=== PATIENT | female | born 1980 | race American Indian/Alaskan Native ===

== ENCOUNTER 2018-03-26 09:42 | Inpatient (IN) | payer MEDICARE ==
[2018-03-26] MEDS ORDERED: Sodium Chloride 0.9% 1,000 ML IV STA (10:17)
[2018-03-26] MEDS ORDERED: Iohexol 240 (50 ml) PO STA (11:52)
[2018-03-26 11:55] LABS: BASO % 0.3 % (0.0-2.0); EOS # 0.2 K/uL (0.0-0.7); EOS % 1.7 % (0.0-4.0); HEMOGLOBIN 10.5 g/dL (12.0-16.0); LYMPH # 2.2 K/uL (1.0-4.3); LYMPH % 18.8 % (20.0-40.0); MEAN CELL VOLUME 89.4 fl (81.0-99.0); MEAN CORPUSCULAR HEMOGLOBIN 29.2 pg (27.0-31.0); MEAN CORPUSCULAR HGB CONC 32.6 g/dL (33.0-37.0); MONO # 0.8 K/uL (0.0-0.8); MONO % 7.1 % (0.0-10.0); NEUT # 8.6 K/uL (1.8-7.0); NEUT % 72.1 % (50.0-75.0); PARTIAL THROMBOPLASTIN TIME 25.8 Seconds (25.6-37.1); RBC 3.6 Mil/uL (3.80-5.20); RED CELL DISTRIBUTION WIDTH 14.5 % (11.5-14.5); WHITE BLOOD COUNT 11.9 K/uL (4.8-10.8)
[2018-03-26 11:57] LABS: VENOUS BLOOD GAS BASE EXCESS -2.9 mmol/L (0.0-2.0); VENOUS BLOOD GAS PCO2 41 mmHg (40-60); VENOUS BLOOD GAS PO2 49 mm/Hg (30-55); VENOUS BLOOD PH 7.35 (7.32-7.43)
--- NOTE | 2018-03-26 12:01 | ED PDOC ---
HPI: Abdomen Time Seen by Provider: 03/26/18 09:52 Chief Complaint (Nursing): Abdominal Pain Chief Complaint (Provider): Abdominal Pain History Per: Patient History/Exam Limitations: no limitations Quality Of Discomfort: "Pain" Additional Complaint(s): 37 year old female presents to the ED for an evaluation of abdominal discomfort and distention with vomiting and diarrhea onset for 2 months. Patient transitioned from male to female gender. She reports of having multiple watery and uncontrollable diarrhea throughout the hour. Also reports of small amount of vomiting several times the hour. States she went to multiple hospitals for the same symptoms and states "they have found nothing wrong". Patient has multiple abscess that have been I&D. She had a below knee amputation in January with continued pain but no swelling, discharge or bleeding. Patient is compliant with medicine and has febrile fever but did not check her temperature. Currently, she feels anxious due to her symptoms and feels angry and refuses to answer questions. Denies chest pain, shortness of breath, bloody vomiting or diarrhea, and no intake of food or drink for days. PMD: Dr. Noe Past Medical History Reviewed: Historical Data, Nursing Documentation, Vital Signs Vital Signs: Last Vital Signs Temp 97.8 F 03/27/18 19:25 Pulse 73 03/27/18 19:25 Resp 20 03/27/18 19:25 BP 180/105 H 03/27/18 19:25 Pulse Ox 100 03/27/18 19:25 - Medical History PMH: Asthma, Depression, Diabetes, Deep Vein Thrombosis, HIV, HTN, Peripheral Edema, Chronic Pain Denies: Hepatitis, Chronic Kidney Disease, Seizures, Sexually Transmitted Disease - Surgical History Surgical History: - Family History Family History: States: [place], CAD, Diabetes, Hypertension - Immunization History Hx Tetanus Toxoid Vaccination: Yes Hx Influenza Vaccination: No Hx Pneumococcal Vaccination: Yes - Home Medications Home Medications: Ambulatory Orders Medication Instructions Recorded Abacavir [Ziagen] 300 mg PO BID #60 tab 11/20/17 Calcitriol [Rocaltrol] 0.25 mcg PO TTS #12 sgl 11/20/17 Dolutegravir Sodium [Tivicay] 50 mg PO DAILY #30 tab 11/20/17 Insulin Aspart [Novolog FLEXPEN] 16 unit SC BID #1 11/20/17 Insulin Glargine,Hum.rec.anlog 16 unit SQ HS #1 insuln.pen 11/20/17 [Lantus Solostar] Labetalol [Trandate] 300 mg PO Q8H #120 tab 11/20/17 Sertraline [Zoloft] 50 mg PO DAILY #30 tab 11/20/17 Vitamin B Complex/Vit C/Folic 1 tab PO 0800 #30 tab 11/20/17 [Nephro-Nella] amLODIPine [Norvasc] 10 mg PO DAILY #30 tab 11/20/17 lamiVUDine [Epivir] 150 mg PO DAILY #30 tab 11/20/17 - Allergies Allergies/Adverse Reactions: Allergies Allergy/AdvReac Type Severity Reaction Status Date / Time acetaminophen [From Tylenol] Allergy RASH Verified 02/15/18 22:54 aspirin Allergy RASH Verified 02/15/18 22:54 hydromorphone [From Dilaudid] Allergy RASH Verified 02/15/18 22:54 ketorolac tromethamine Allergy RASH Verified 02/15/18 22:54 [From Toradol] meperidine HCl [From Demerol] Allergy RASH Verified 02/15/18 22:54 oxycodone HCl [From Percocet] Allergy RASH Verified 02/15/18 22:54 peas Allergy ANAPHYLAXIS Verified 02/15/18 22:54 propoxyphene napsylate Allergy RASH Verified 02/15/18 22:54 [From Darvocet-N] Review of Systems ROS Statement: Except As Marked, All Systems Reviewed And Found Negative Constitutional: Positive for: Fever Cardiovascular: Negative for: Chest Pain Respiratory: Negative for: Shortness of Breath Gastrointestinal: Positive for: Vomiting (mutliple episodes, non-bloody), Abdominal Pain, Diarrhea (multiple episodes, non-bloody) Psych: Positive for: Anxiety Physical Exam - Reviewed Nursing Documentation Reviewed: Yes Vital Signs Reviewed: Yes - Physical Exam Appears: Positive for: Non-toxic, No Acute Distress (lying on left side) Head Exam: Positive for: ATRAUMATIC, NORMAL INSPECTION, NORMOCEPHALIC Skin: Positive for: Normal Color, Warm, Dry Eye Exam: Positive for: Normal appearance Cardiovascular/Chest: Positive for: Regular Rate, Rhythm. Negative for: Murmur Respiratory: Positive for: Normal Breath Sounds. Negative for: Decreased Breath Sounds, Wheezing, Respiratory Distress Gastrointestinal/Abdominal: Positive for: Soft, Tenderness (mild difused ). Negative for: Organomegaly, Mass Extremity: Positive for: Other (right buttock healing site, no granulation, light brown watery diarrhea on buttock). Negative for: Deformity (site of below knee amputation well healed scar, no drainage or bleeding ) Neurologic/Psych: Positive for: Alert, Oriented (x3). Negative for: Motor/ Sensory Deficits - Laboratory Results Result Diagrams: 03/27/18 04:20 03/27/18 04:20 - ECG O2 Sat by Pulse Oximetry: 100 (RA) Pulse Ox Interpretation: Normal Medical Decision Making Medical Decision Making: Time: 1000 Initial Plan: --Abd Pelvis PO & IV Contrast [CT] --CMP --Lipase --CBC w/ Differential --PTT --Prothrombin Time --Chest Portable [RAD] --Glucose, Blood, POC Routine --Morphine 2mg --Sodium Chloride 0.9% 1,000 ml --Zofran 4mg --Reevaluation Time: 161 PROCEDURE: CT Abdomen and Pelvis without intravenous contrast HISTORY: abd pain, vomiting, and diarrhea COMPARISON: None. TECHNIQUE: Without contrast.. Contrast dose: 0 Radiation dose: Total exam DLP = 905.24 mGy-cm. This CT exam was performed using one or more of the following dose reduction techniques: Automated exposure control, adjustment of the mA and/or kV according to patient size, and/or use of iterative reconstruction technique. FINDINGS: LOWER THORAX: Unremarkable. LIVER: Unremarkable. No gross lesion or ductal dilatation. GALLBLADDER AND BILE DUCTS: Unremarkable. PANCREAS: Hazy increased attenuation of the peripancreatic fat in the retroperitoneum without sebastián peripancreatic fluid. Findings consistent with mild or early acute pancreatitis. Please correlate with laboratory and clinical evaluation. No pancreatic mass or ductal dilatation. SPLEEN: Unremarkable. ADRENALS: Unremarkable. No mass. KIDNEYS AND URETERS: Unremarkable. No hydronephrosis. No solid mass. VASCULATURE: Unremarkable. No aortic aneurysm. BOWEL: Unremarkable. No obstruction. No gross mural thickening. APPENDIX: Unremarkable. Normal appendix. PERITONEUM: Unremarkable. No free fluid. No free air. LYMPH NODES: No retroperitoneal lymphadenopathy. Mild pelvic lymphadenopathy common nonspecific. No retroperitoneal lymphadenopathy. Shotty subcentimeter nodes are seen throughout the small bowel mesenteric and in the right lower quadrant of the abdomen, consistent with nonspecific mesenteric adenitis. BLADDER: Unremarkable. REPRODUCTIVE: Normal prostate BONES: No acute fracture. OTHER FINDINGS: None. IMPRESSION: Findings suggestive of mild or early acute pancreatitis. Nonspecific mesenteric adenitis. Mild pelvic lymphadenopathy common nonspecific. No additional abnormality. Patient cannot tolerate PO and still has diarrhea. I am waiting for a call back from PMD to admit. Scribe Attestation: Documented by Magdiel Mi, acting as a scribe for Francheska Cody MD Provider Scribe Attestation: All medical record entries made by the Scribe were at my direction and personally dictated by me. I have reviewed the chart and agree that the record accurately reflects my personal performance of the history, physical exam, medical decision making, and the department course for this patient. I have also personally directed, reviewed, and agree with the discharge instructions and disposition. Pt with delayed CT due to delay in taking in PO medications. Pt with pain improved (but still present) with Morphine. Labs show elevation in WBC and lipase of 348. CT abd/pelvis reveals acute pancreatitis and mesenteric adenitis. Pt continues to have diarrhea and vomiting. Pt given additional IV fluids. PT will be admitted to the medicine service and spoke with Dr. Noe. Disposition - Clinical Impression Clinical Impression: Abdominal pain, Vomiting, HIV (human immunodeficiency virus) risk factors complicating , CKD (chronic kidney disease), stage IV, Acute pancreatitis - Patient ED Disposition Is Patient to be Admitted: No - Disposition Disposition Time: 17:30 Condition: GUARDED
[2018-03-26 12:06] LABS: ALB/GLOB RATIO 0.7 (1.0-2.1); ALBUMIN 3.4 g/dL (3.5-5.0); CALCIUM 9.1 mg/dL (8.4-10.2)
[2018-03-26] MEDS ORDERED: Iohexol 240 (50 ml) ONE (12:07)
[2018-03-26] MEDS ORDERED: Iohexol 300 100 ML IJ ONE (14:53)
[2018-03-26] MEDS ORDERED: Sodium Chloride 0.9% 50 ML IV ONE (14:53)
--- NOTE | 2018-03-26 16:40 | CT ---
Date of service: 03/26/2018 PROCEDURE: CT Abdomen and Pelvis without intravenous contrast HISTORY: abd pain, vomiting, and diarrhea COMPARISON: None. TECHNIQUE: Without contrast.. Contrast dose: 0 Radiation dose: Total exam DLP = 905.24 mGy-cm. This CT exam was performed using one or more of the following dose reduction techniques: Automated exposure control, adjustment of the mA and/or kV according to patient size, and/or use of iterative reconstruction technique. FINDINGS: LOWER THORAX: Unremarkable. LIVER: Unremarkable. No gross lesion or ductal dilatation. GALLBLADDER AND BILE DUCTS: Unremarkable. PANCREAS: Hazy increased attenuation of the peripancreatic fat in the retroperitoneum without sebastián peripancreatic fluid. Findings consistent with mild or early acute pancreatitis. Please correlate with laboratory and clinical evaluation. No pancreatic mass or ductal dilatation. SPLEEN: Unremarkable. ADRENALS: Unremarkable. No mass. KIDNEYS AND URETERS: Unremarkable. No hydronephrosis. No solid mass. VASCULATURE: Unremarkable. No aortic aneurysm. BOWEL: Unremarkable. No obstruction. No gross mural thickening. APPENDIX: Unremarkable. Normal appendix. PERITONEUM: Unremarkable. No free fluid. No free air. LYMPH NODES: No retroperitoneal lymphadenopathy. Mild pelvic lymphadenopathy common nonspecific. No retroperitoneal lymphadenopathy. Shotty subcentimeter nodes are seen throughout the small bowel mesenteric and in the right lower quadrant of the abdomen, consistent with nonspecific mesenteric adenitis. BLADDER: Unremarkable. REPRODUCTIVE: Normal prostate BONES: No acute fracture. OTHER FINDINGS: None. IMPRESSION: Findings suggestive of mild or early acute pancreatitis. Nonspecific mesenteric adenitis. Mild pelvic lymphadenopathy common nonspecific. No additional abnormality.
[2018-03-26] MEDS ORDERED: Sodium Chloride 0.9% 1,000 ML IV ONE (17:37)
[2018-03-26] MEDS ORDERED: Labetalol 5 mg/ml Inj 20ML IVP STA ×2 (21:03→22:53)
[2018-03-26] MEDS ORDERED: Dextrose 5%/Lactated Ringer's 1,000 ML IV SCH (22:15)
[2018-03-27] MEDS ORDERED: Labetalol 5 mg/ml Inj 20ML IVP PRN (00:01)
[2018-03-27 05:44] LABS: HEMOGLOBIN 9.8 g/dL (12.0-16.0); MEAN CELL VOLUME 89.1 fl (81.0-99.0); MEAN CORPUSCULAR HEMOGLOBIN 29.8 pg (27.0-31.0); MEAN CORPUSCULAR HGB CONC 33.4 g/dL (33.0-37.0); RBC 3.29 Mil/uL (3.80-5.20); RED CELL DISTRIBUTION WIDTH 14.7 % (11.5-14.5); WHITE BLOOD COUNT 8.7 K/uL (4.8-10.8)
[2018-03-27 05:53] LABS: ALB/GLOB RATIO 0.7 (1.0-2.1); ALBUMIN 2.9 g/dL (3.5-5.0); CALCIUM 8.8 mg/dL (8.4-10.2)
[2018-03-27] MEDS ORDERED: Pantoprazole 40 MG in Sodium Chloride 0.9% 100 ML IVPB SCH (09:00)
[2018-03-27] MEDS: Insulin Regular 100 units/ml SC SCH ×4 (09:14→22:20)
--- NOTE | 2018-03-27 11:55 | CP.PCM.CON ---
History of Present Illness - History of Present Illness History of Present Illness: RENAL CONSULT CITLALLI/CKD 37 year old transgender female with PMH of poorly controlled DM, HIV, HTN, stage IV CKD DVT and recent L bka from osteo that presented to ER w/ complaitns of n/v/diarrhea x1 month (or possibly longer). Denies fever or chills. Endorses significant weight loss. Has been evaluated for this before and has been frustrated by lack of understanding why pt continues to have diarrhea. Of note recently admitted to [facility] [place] w/ CITLALLI on CKD almost requiring HD but refused and CITLALLI resolved back to baseline. Has been told of CKD thought to be 2/2 to DM. ros: a full detailed ROS is negative except as in my hpi pmh: as below CKD IV Family History- multiple cancers in family- unknown types Social History- admits to tobacco use, rare alcohol use, marijuana use no ivdu all: as below meds: as below labs and imaging reviewed pe: vs as below gen: nad sclera: anicteric op clear neck supple no thyromegaly cv: +s1+s2 no rub lungs: cta b/l abd: Soft, slight TTP epigastric no r/g no organomegaly appreciated neuro: a+Ox3 no focal defecit psych: nml affect skin: no rash ms: L BKA IMP: ARF/ CKD IV/ Diabetic kidney disease/ Anemia/ Pancreatitis/ Diarrhea / secondary hyperpara plan: Renal function appears to be at about baseline. suspect diabetic kidney disease as has been previously stated. will check upcr on calcitriol - will check pth check iron profile and ferritin bp on norvasc would avoid RAAS blockade for now until we see stable renal function (pt has stated does not want to take oral pils though) will continue to follow with you Past Patient History - Infectious Disease Hx of Infectious Diseases: None - Past Medical History & Family History Past Medical History?: Yes - Past Social History Smoking Status: Current Some Days Smoker - CARDIAC Hx Cardiac Disorders: Yes - PULMONARY Hx Respiratory Disorders: Yes - NEUROLOGICAL Hx Seizures: No - HEENT Hx HEENT Problems: No - RENAL Hx Chronic Kidney Disease: No - ENDOCRINE/METABOLIC Hx Endocrine Disorders: Yes - HEMATOLOGICAL/ONCOLOGICAL Hx AIDS: No Hx Human Immunodeficiency Virus (HIV): Yes - INTEGUMENTARY Hx Dermatological Problems: Yes Other/Comment: ULCER BOTTOM LEFT FOOT LEFT FOOT SUTURE LINES TOES - MUSCULOSKELETAL/RHEUMATOLOGICAL Hx Falls: No - GASTROINTESTINAL Hx Gastrointestinal Disorders: No - GENITOURINARY/GYNECOLOGICAL Hx Genitourinary Disorders: Yes - PSYCHIATRIC Hx Substance Use: No - SURGICAL HISTORY Hx Musculoskeletal Surgery: Yes - ANESTHESIA Hx Anesthesia: Yes Hx Anesthesia Reactions: No (unknown) Hx Malignant Hyperthermia: No Has any member of the family had a problem w/ anesthesia?: No Meds Allergies/Adverse Reactions: Allergies Allergy/AdvReac Type Severity Reaction Status Date / Time acetaminophen [From Tylenol] Allergy RASH Verified 02/15/18 22:54 aspirin Allergy RASH Verified 02/15/18 22:54 hydromorphone [From Dilaudid] Allergy RASH Verified 02/15/18 22:54 ketorolac tromethamine Allergy RASH Verified 02/15/18 22:54 [From Toradol] meperidine HCl [From Demerol] Allergy RASH Verified 02/15/18 22:54 oxycodone HCl [From Percocet] Allergy RASH Verified 02/15/18 22:54 peas Allergy ANAPHYLAXIS Verified 02/15/18 22:54 propoxyphene napsylate Allergy RASH Verified 02/15/18 22:54 [From Darvocet-N] - Medications Medications: Current Medications Abacavir Sulfate (Ziagen) 300 mg PO BID JOSÉ PRN Reason: Protocol Amlodipine Besylate (Norvasc) 10 mg PO DAILY JOSÉ Calcitriol (Rocaltrol) 0.25 mcg PO TTS JOSÉ Dolutegravir Sodium (Tivicay) 50 mg PO DAILY JOSÉ PRN Reason: Protocol Dextrose/Lactated Ringer's (Dextrose 5%/Lactated Ringer's) 1,000 mls @ 125 mls/ hr IV .Q8H PENDING SALE TO [facility] Stop: 03/27/18 23:57 Last Admin: 03/26/18 23:05 Dose: 125 mls/hr Lactated Ringer's 1,000 ml/ IV (SUPPLIES) 1,000 mls @ 150 mls/hr IV ONCE ONE Stop: 03/27/18 16:31 Last Admin: 03/27/18 10:51 Dose: 150 mls/hr Insulin Human Regular (Humulin R) 0 units SC ACCU-CHECK JOSÉ PRN Reason: Protocol Last Admin: 03/27/18 09:14 Dose: Not Given Labetalol HCl (Trandate) 20 mg IVP Q8 PRN PRN Reason: Systolic Blood Pressure Lamivudine (Epivir) 150 mg PO DAILY [facility] PRN Reason: Protocol Morphine Sulfate (Morphine) 2 mg IVP Q4 PRN PRN Reason: Pain, severe (8-10) Last Admin: 03/27/18 09:31 Dose: 2 mg Ondansetron HCl (Zofran Inj) 4 mg IVP Q6 PRN PRN Reason: Nausea/Vomiting Last Admin: 03/26/18 23:06 Dose: 4 mg Pantoprazole Sodium (Protonix Inj) 40 mg IVP DAILY [facility] Last Admin: 03/27/18 09:27 Dose: 40 mg Sertraline HCl (Zoloft) 50 mg PO DAILY [facility] Vitamin B Complex/Vit C/Folic Acid (Nephro-Nella) 1 tab PO 0800 [facility] Results - Vital Signs Recent Vital Signs: Last Vital Signs Temp 98.1 F 03/27/18 08:01 Pulse 70 03/27/18 08:01 Resp 18 03/27/18 08:01 BP 175/86 H 03/27/18 08:01 Pulse Ox 100 03/27/18 08:01 - Labs Result Diagrams: 03/27/18 04:20 03/27/18 04:20 Labs: Laboratory Results - last 24 hr 03/26/18 03/26/18 03/26/18 11:30 11:30 11:30 WBC 11.9 H D RBC 3.60 L Hgb 10.5 L Hct 32.2 L MCV 89.4 D MCH 29.2 MCHC 32.6 L RDW 14.5 Plt Count 353 D MPV 7.0 L Neut % (Auto) 72.1 Lymph % (Auto) 18.8 L Williamson % (Auto) 7.1 Eos % (Auto) 1.7 Baso % (Auto) 0.3 Neut # (Auto) 8.6 H Lymph # (Auto) 2.2 Williamson # (Auto) 0.8 Eos # (Auto) 0.2 Baso # (Auto) 0.0 PT 11.0 INR 1.0 APTT 25.8 pO2 VBG pH VBG pCO2 VBG HCO3 VBG Total CO2 VBG O2 Sat (Calc) VBG Base Excess VBG Potassium Glucose Lactate FiO2 Sodium 141 Potassium 5.2 H Chloride 114 H Carbon Dioxide 21 L Anion Gap 11 BUN 33 H Creatinine 4.2 H Est GFR ( Amer) 14 Est GFR (Non-Af Amer) 12 POC Glucose (mg/dL) Random Glucose 155 H Calcium 9.1 Total Bilirubin 0.6 AST 39 H D ALT 27 Alkaline Phosphatase 94 Total Protein 8.3 H Albumin 3.4 L Globulin 4.9 H Albumin/Globulin Ratio 0.7 L Lipase 348 H Venous Blood Potassium 03/26/18 03/26/18 03/27/18 11:49 23:04 04:20 WBC 8.7 RBC 3.29 L Hgb 9.8 L Hct 29.3 L MCV 89.1 MCH 29.8 MCHC 33.4 RDW 14.7 H Plt Count 300 MPV Neut % (Auto) Lymph % (Auto) Williamson % (Auto) Eos % (Auto) Baso % (Auto) Neut # (Auto) Lymph # (Auto) Williamson # (Auto) Eos # (Auto) Baso # (Auto) PT INR APTT pO2 49 VBG pH 7.35 VBG pCO2 41 VBG HCO3 22.2 VBG Total CO2 23.9 VBG O2 Sat (Calc) 82.5 H VBG Base Excess -2.9 L VBG Potassium 5.1 Glucose 156 H Lactate 0.8 FiO2 21.0 Sodium 138.0 Potassium Chloride 111.0 H Carbon Dioxide Anion Gap BUN Creatinine Est GFR ( Amer) Est GFR (Non-Af Amer) POC Glucose (mg/dL) 92 Random Glucose Calcium Total Bilirubin AST ALT Alkaline Phosphatase Total Protein Albumin Globulin Albumin/Globulin Ratio Lipase Venous Blood Potassium 5.1 03/27/18 03/27/18 03/27/18 04:20 05:09 11:07 WBC RBC Hgb Hct MCV MCH MCHC RDW Plt Count MPV Neut % (Auto) Lymph % (Auto) Williamson % (Auto) Eos % (Auto) Baso % (Auto) Neut # (Auto) Lymph # (Auto) Williamson # (Auto) Eos # (Auto) Baso # (Auto) PT INR APTT pO2 VBG pH VBG pCO2 VBG HCO3 VBG Total CO2 VBG O2 Sat (Calc) VBG Base Excess VBG Potassium Glucose Lactate FiO2 Sodium 143 Potassium 4.3 Chloride 115 H Carbon Dioxide 22 Anion Gap 10 BUN 27 H Creatinine 3.4 H Est GFR ( Amer) 18 Est GFR (Non-Af Amer) 15 POC Glucose (mg/dL) 103 96 Random Glucose 110 H Calcium 8.8 Total Bilirubin 0.5 AST 24 ALT 27 Alkaline Phosphatase 90 Total Protein 7.2 Albumin 2.9 L Globulin 4.3 H Albumin/Globulin Ratio 0.7 L Lipase 184 Venous Blood Potassium
--- NOTE | 2018-03-27 17:40 | CP.PCM.PN ---
<Edin Jean - Last Filed: 03/27/18 17:34> Subjective - Date & Time of Evaluation Date of Evaluation: 03/27/18 Time of Evaluation: 10:15 - Subjective Subjective: 37 y/o transgender male to female with a PMHx of DM2, HIV, HTN, CKD and Left BKA presented to ER complaining of nausea, vomiting and diarrhea for several weeks. Vomiting and diarrhea are non-bloody, with several episodes per hour. -On ER: CMP showed mild hyperkalemia, BUN/Creat 33/4.2, eGFR 14. Lipase was elevated and CT abdomen showed mild early pancreatitis. -Today, pt reports feeling better, no vomiting since this morning and would like to drink or eat something. Pt afebrile with No acute events overnight. >Family History- multiple cancers in family- unknown types >Social History- admits to tobacco use, rare alcohol use, marijuana use no ivdu Objective - Vital Signs/Intake and Output Vital Signs (last 24 hours): Temp Pulse Resp BP Pulse Ox 98.3 F 58 L 20 184/102 H 100 03/27/18 16:04 03/27/18 16:04 03/27/18 16:04 03/27/18 16:04 03/27/18 16:04 - Medications Medications: Current Medications Abacavir Sulfate (Ziagen) 300 mg PO BID JOSÉ PRN Reason: Protocol Last Admin: 03/27/18 17:23 Dose: 300 mg Amlodipine Besylate (Norvasc) 10 mg PO DAILY JOSÉ Last Admin: 03/27/18 12:50 Dose: 10 mg Calcitriol (Rocaltrol) 0.25 mcg PO TTS JOSÉ Dolutegravir Sodium (Tivicay) 50 mg PO DAILY JOSÉ PRN Reason: Protocol Dextrose/Lactated Ringer's (Dextrose 5%/Lactated Ringer's) 1,000 mls @ 125 mls/ hr IV .Q8H JOSÉ Stop: 03/27/18 23:57 Last Admin: 03/26/18 23:05 Dose: 125 mls/hr Insulin Human Regular (Humulin R) 0 units SC ACCU-CHECK JOSÉ PRN Reason: Protocol Last Admin: 03/27/18 17:24 Dose: 2 units Labetalol HCl (Trandate) 20 mg IVP Q8 PRN PRN Reason: Systolic Blood Pressure Last Admin: 03/27/18 15:35 Dose: 20 mg Lamivudine (Epivir) 150 mg PO DAILY [facility] PRN Reason: Protocol Last Admin: 03/27/18 12:51 Dose: 150 mg Morphine Sulfate (Morphine) 2 mg IVP Q4 PRN PRN Reason: Pain, severe (8-10) Last Admin: 03/27/18 14:55 Dose: 2 mg Ondansetron HCl (Zofran Inj) 4 mg IVP Q6 PRN PRN Reason: Nausea/Vomiting Last Admin: 03/26/18 23:06 Dose: 4 mg Pantoprazole Sodium (Protonix Inj) 40 mg IVP DAILY [facility] Last Admin: 03/27/18 09:27 Dose: 40 mg Sertraline HCl (Zoloft) 50 mg PO DAILY [facility] Vitamin B Complex/Vit C/Folic Acid (Nephro-Nella) 1 tab PO 0800 [facility] - Labs Labs: 03/27/18 04:20 03/27/18 04:20 PT 11.0 Seconds (9.8-13.1) 03/26/18 11:30 INR 1.0 03/26/18 11:30 APTT 25.8 Seconds (25.6-37.1) 03/26/18 11:30 - Constitutional Appears: No Acute Distress - Head Exam Head Exam: ATRAUMATIC, NORMAL INSPECTION - Eye Exam Eye Exam: EOMI - ENT Exam ENT Exam: Mucous Membranes Dry - Neck Exam Neck Exam: Full ROM. absent: Meningismus - Respiratory Exam Respiratory Exam: Clear to Ausculation Bilateral, NORMAL BREATHING PATTERN - Cardiovascular Exam Cardiovascular Exam: +S1, +S2 - GI/Abdominal Exam GI & Abdominal Exam: Soft, Tenderness (over RUQ. ). absent: Guarding, Rigid - Extremities Exam Extremities Exam: Full ROM Additional comments: Left LE: BKA, no edema or cyanosis. - Neurological Exam Neurological Exam: Alert, Awake, Oriented x3 Assessment and Plan (1) Acute pancreatitis Status: Acute (2) CITLALLI (acute kidney injury) Status: Acute (3) Anemia Status: Acute (4) Hypertension Status: Chronic (5) CKD (chronic kidney disease), stage IV Status: Chronic - Assessment and Plan (Free Text) Assessment: 37 y/o transgender male to female with a PMHx of uncontrolled DM 2, HTN and HIV for evaluation and management of acute pancreatitis and acute kidney injury. --Home meds ordered. --Will advance diet to clear liquid. --ID consult, Dr Noe --Nephrology consult, Dr Vargas --Continue management as ordered. <Justice Bird - Last Filed: 03/28/18 17:32> Objective - Vital Signs/Intake and Output Vital Signs (last 24 hours): Temp Pulse Resp BP Pulse Ox 97.8 F 72 20 166/71 H 100 03/28/18 15:36 03/28/18 15:36 03/28/18 15:36 03/28/18 15:36 03/28/18 15:36 - Medications Medications: Current Medications Acetaminophen/Codeine Phosphate (Tylenol/Codeine 300 Mg/30 Mg) 2 tab PO Q6 PRN PRN Reason: Pain, severe (8-10) Last Admin: 03/28/18 16:14 Dose: 2 tab Amlodipine Besylate (Norvasc) 10 mg PO DAILY [facility] Last Admin: 03/28/18 09:41 Dose: 10 mg Amylase (Pancrease 54399 [id number] U) 30,000 unit PO TID [facility] Last Admin: 03/28/18 16:15 Dose: 30,000 unit Dolutegravir Sodium (Tivicay) 50 mg PO DAILY [facility] PRN Reason: Protocol Last Admin: 03/28/18 09:41 Dose: 50 mg Hydralazine HCl (Apresoline) 50 mg PO Q8 PRN PRN Reason: Systolic Blood Pressure Last Admin: 03/27/18 23:52 Dose: 50 mg Iron Sucrose 200 mg/ Sodium (Chloride) 110 mls @ 110 mls/hr IVPB [facility] Stop: 04/08/18 09:59 Insulin Human Regular (Humulin R) 0 units SC ACCU-CHECK [facility] PRN Reason: Protocol Last Admin: 03/28/18 17:07 Dose: 2 units Labetalol HCl (Trandate) 20 mg IVP Q8 PRN PRN Reason: Systolic Blood Pressure Last Admin: 03/27/18 15:35 Dose: 20 mg Labetalol HCl (Trandate) 200 mg PO BID [facility] Last Admin: 03/28/18 16:15 Dose: 200 mg Ondansetron HCl (Zofran Inj) 4 mg IVP Q6 PRN PRN Reason: Nausea/Vomiting Last Admin: 03/28/18 01:09 Dose: 4 mg Pantoprazole Sodium (Protonix Inj) 40 mg IVP DAILY [facility] Last Admin: 03/28/18 09:42 Dose: 40 mg Sertraline HCl (Zoloft) 50 mg PO DAILY [facility] Last Admin: 03/28/18 09:42 Dose: 50 mg Vitamin B Complex/Vit C/Folic Acid (Nephro-Nella) 1 tab PO 0800 [facility] Last Admin: 03/28/18 09:41 Dose: 1 tab - Labs Labs: 03/27/18 04:20 03/27/18 04:20 PT 11.0 Seconds (9.8-13.1) 03/26/18 11:30 INR 1.0 03/26/18 11:30 APTT 25.8 Seconds (25.6-37.1) 03/26/18 11:30 Assessment and Plan (1) Acute pancreatitis Status: Acute (2) HIV (human immunodeficiency virus infection) Status: Acute (3) CKD (chronic kidney disease), stage IV Status: Chronic (4) Anemia in CKD (chronic kidney disease) Status: Acute (5) Dehydration Status: Acute (6) Gangrene associated with type 2 diabetes mellitus Status: Acute - Assessment and Plan (Free Text) Plan: i was present during evaluation and discussed with Dr Ted gallego of [facility] [place]
[2018-03-27 18:21] LABS: IRON 70 ug/dL (37-170)
--- NOTE | 2018-03-27 18:22 | CP.PCM.CON ---
History of Present Illness - History of Present Illness History of Present Illness: 36 year old female, PMHx of HIV, renal failure and left BKA in [facility] , presents to the emergency department for an evaluation. pt was admitted inpt, upset about her care, c/o abd pain found to have pancreatitis unclear etiology GI eval in progress has had long hx of noncompliance with follow ups and therapy interruptions developed CITLALLI and CKD with hx of HTN, DM , HIV as well as possible blood dyscrasia/ myeloma followed by Dr Beaulieu - Medical History PMH: Depression, Diabetes, Deep Vein Thrombosis, HIV, HTN, Peripheral Edema, Chronic Pain Denies: Chronic Kidney Disease Surgical History: TMA left foot Review of Systems - Review of Systems All systems: reviewed and no additional remarkable complaints except - Constitutional Constitutional: As Per HPI - EENT Eyes: Blurred Vision, Decreased Night Vision. absent: As Per HPI, Blind Spots, Change in Vision, Diplopia, Discharge, Dry Eye, Exophthalmos, Floaters, Irritation, Itchy Eyes, Loss of Peripheral Vision, Pain, Photophobia, Requires Corrective Lenses, Sees Flashes, Spots in Vision, Tunnel Vision, Other Visual Disturbances, Loss of Vision, Other Ears: absent: As Per HPI, Decreased Hearing, Ear Discharge, Ear Pain, Tinnitus, Abnormal Hearing, Disequilibrium, Dizziness, Other Nose/Mouth/Throat: absent: As Per HPI, Epistaxis, Nasal Congestion, Nasal Discharge, Nasal Obstruction, Nasal Trauma, Nose Pain, Post Nasal Drip, Sinus Pain, Sinus Pressure, Bleeding Gums, Change in Voice, Dental Pain, Dry Mouth, Dysphagia, Halitosis, Hoarsness, Lip Swelling, Mouth Lesions, Mouth Pain, Odynophagia, Sore Throat, Throat Swelling, Tongue Swelling, Facial Pain, Neck Pain, Neck Mass, Other - Breasts Breasts: absent: As Per HPI, Change in Shape, Mass, Pain, Nipple Discharge, Nipple Inversion, Skin Changes, Swelling, Other - Cardiovascular Cardiovascular: absent: As Per HPI, Acrocyanosis, Chest Pain, Chest Pain at Rest , Chest Pain with Activity, Claudication, Diaphoresis, Dyspnea, Dyspnea on Exertion, Edema, Irregular Heart Rhythm, Pain Radiating to Arm/Neck/Jaw, Leg Edema, Leg Ulcers, Lightheadedness, Orthopnea, Palpitations, Paroxysmal Nocturnal Dyspnea, Pedal Edema, Radiating Pain, Rapid Heart Rate, Slow Heart Rate, Syncope, Other - Respiratory Respiratory: absent: As Per HPI, Cough, Dyspnea, Hemoptysis, Dyspnea on Exertion , Wheezing, Snoring, Stridor, Pain on Inspiration, Chest Congestion, Excessive Mucous Production, Change in Mucous Color, Pain with Coughing, Other - Gastrointestinal Gastrointestinal: absent: As Per HPI, Abdominal Pain, Belching, Bloating, Change in Bowel Habits, Change in Stool Character, Coffee Ground Emesis, Constipation, Cramping, Diarrhea, Dyspepsia, Dysphagia, Early Satiety, Excessive Flatus, Fecal Incontinence, Heartburn, Hematemesis, Hematochezia, Loose Stools, Melena, Nausea, Odynophagia, Temesmus, Vomiting, Other - Genitourinary Genitourinary: absent: As Per HPI, Change in Urinary Stream, Difficulty Urinating, Dysuria, Flank Pain, Hematuria, Pyuria, Nocturia, Urinary Incontinence, Urinary Frequency, Urinary Hesitance, Urinary Urgency, Voiding Freq/Small Amts, Freq UTI, Hx Renal/Bladder Calculi, Hx /Renal Surgery, Bladder Distension, Other - Reproductive: Female Reproductive:Female: absent: As Per HPI, Amenorrhea, Amenorrhea/ Control, Currently Menstual, Cycle <21 Days, Cycle >35 Days, Cycle Variable, Menses 1-7 Days, Menses >/= 8 Days, Menses Variable, Cycle > 4 Weeks Between, No Menses for 6 Months, Heavy Menses, Light Menses, Normal Menses, Spotting Between Cycles , S/P Hysterectomy, Menopausal, Post Menopausal, Premenarche, Abnormal Vaginal Bleeding, Dysmenorrhea, Dyspareunia, Genital Lesions, Genital Pruritis, Pelvic Pain, Prolapse Symptoms, Sexual Dysfunction, Vaginal Discharge, Vaginal Dryness , Vaginal Odor, Vaginal Pruritis, Other - Menstruation Menstruation: absent: As Per HPI, Amenorrhea, Amenorrhea/ Control, Currently Menstual, Cycle <21 Days, Cycle >35 Days, Cycle Variable, Menses 1-7 Days, Menses >/= 8 Days, Menses Variable, Cycle > 4 Weeks Between, No Menses for 6 Months, Heavy Menses, Light Menses, Normal Menses, Spotting Between Cycles , S/P Hysterectomy, Menopausal, Post Menopausal, Premenarche, Abnormal Vaginal Bleeding, Dysmenorrhea, Other - Musculoskeletal Musculoskeletal: As Per HPI - Integumentary Integumentary: As Per HPI, Skin Pain, Wounds - Neurological Neurological: absent: As Per HPI, Abnormal Gait, Abnormal Hearing, Abnormal Movements, Abnormal Speech, Behavioral Changes, Burning Sensations, Confusion, Convulsions, Disequilibrium, Dizziness, Numbness, Focal Weakness, Frequent Falls , Headaches, Lack of Coordination, Loss of Vision, Memory Loss, Paresthesias, Radicular Pain, Restless Legs, Sensory Deficit, Syncope, Tingling, Tremor, Vertigo, Weakness, Other Visual Disturbances, Other - Psychiatric Psychiatric: absent: As Per HPI, Abnormal Sleep Pattern, Anhedonia, Anxiety, Auditory Hallucinations, Behavioral Changes, Change in Appetite, Change in Libido, Confusion, Depression, Difficulty Concentrating, Hallucinations, Homicidal Ideation, Hopelessness, Irritability, Memory Loss, Mood Swings, Panic Attacks, Paranoia, Suicidal Ideation, Visual Hallucinations, Tactile Hallucinations, Other - Endocrine Endocrine: absent: As Per HPI, Change in Body Appearance, Change in Libido, Cold Intolorance, Deepening of Voice, Excessive Sweating, Fatigue, Flushing, Heat Intolorance, Increase in Ring/Shoe/Hat Size, Palpitations, Polydipsia, Polyphagia, Polyuria, Other - Hematologic/Lymphatic Hematologic: absent: As Per HPI, Easy Bleeding, Easy Bruising, Lymphadenopathy, Other Past Patient History - Infectious Disease Hx of Infectious Diseases: None - Past Medical History & Family History Past Medical History?: Yes - Past Social History Smoking Status: Current Some Days Smoker - CARDIAC Hx Cardiac Disorders: Yes - PULMONARY Hx Respiratory Disorders: Yes - NEUROLOGICAL Hx Seizures: No - HEENT Hx HEENT Problems: No - RENAL Hx Chronic Kidney Disease: No - ENDOCRINE/METABOLIC Hx Endocrine Disorders: Yes - HEMATOLOGICAL/ONCOLOGICAL Hx AIDS: No Hx Human Immunodeficiency Virus (HIV): Yes - INTEGUMENTARY Hx Dermatological Problems: Yes Other/Comment: ULCER BOTTOM LEFT FOOT LEFT FOOT SUTURE LINES TOES - MUSCULOSKELETAL/RHEUMATOLOGICAL Hx Falls: No - GASTROINTESTINAL Hx Gastrointestinal Disorders: No - GENITOURINARY/GYNECOLOGICAL Hx Genitourinary Disorders: Yes - PSYCHIATRIC Hx Substance Use: No - SURGICAL HISTORY Hx Musculoskeletal Surgery: Yes - ANESTHESIA Hx Anesthesia: Yes Hx Anesthesia Reactions: No (unknown) Hx Malignant Hyperthermia: No Has any member of the family had a problem w/ anesthesia?: No Meds Allergies/Adverse Reactions: Allergies Allergy/AdvReac Type Severity Reaction Status Date / Time acetaminophen [From Tylenol] Allergy RASH Verified 02/15/18 22:54 aspirin Allergy RASH Verified 02/15/18 22:54 hydromorphone [From Dilaudid] Allergy RASH Verified 02/15/18 22:54 ketorolac tromethamine Allergy RASH Verified 02/15/18 22:54 [From Toradol] meperidine HCl [From Demerol] Allergy RASH Verified 02/15/18 22:54 oxycodone HCl [From Percocet] Allergy RASH Verified 02/15/18 22:54 peas Allergy ANAPHYLAXIS Verified 02/15/18 22:54 propoxyphene napsylate Allergy RASH Verified 02/15/18 22:54 [From Darvocet-N] - Medications Medications: Current Medications Abacavir Sulfate (Ziagen) 300 mg PO BID [facility] PRN Reason: Protocol Last Admin: 03/27/18 17:23 Dose: 300 mg Amlodipine Besylate (Norvasc) 10 mg PO DAILY [facility] Last Admin: 03/27/18 12:50 Dose: 10 mg Calcitriol (Rocaltrol) 0.25 mcg PO TTS [facility] Dolutegravir Sodium (Tivicay) 50 mg PO DAILY [facility] PRN Reason: Protocol Dextrose/Lactated Ringer's (Dextrose 5%/Lactated Ringer's) 1,000 mls @ 125 mls/ hr IV .Q8H [facility] Stop: 03/27/18 23:57 Last Admin: 03/26/18 23:05 Dose: 125 mls/hr Insulin Human Regular (Humulin R) 0 units SC ACCU-CHECK [facility] PRN Reason: Protocol Last Admin: 03/27/18 17:24 Dose: 2 units Labetalol HCl (Trandate) 20 mg IVP Q8 PRN PRN Reason: Systolic Blood Pressure Last Admin: 03/27/18 15:35 Dose: 20 mg Lamivudine (Epivir) 150 mg PO DAILY [facility] PRN Reason: Protocol Last Admin: 03/27/18 12:51 Dose: 150 mg Morphine Sulfate (Morphine) 2 mg IVP Q4 PRN PRN Reason: Pain, severe (8-10) Last Admin: 03/27/18 14:55 Dose: 2 mg Ondansetron HCl (Zofran Inj) 4 mg IVP Q6 PRN PRN Reason: Nausea/Vomiting Last Admin: 03/26/18 23:06 Dose: 4 mg Pantoprazole Sodium (Protonix Inj) 40 mg IVP DAILY [facility] Last Admin: 03/27/18 09:27 Dose: 40 mg Sertraline HCl (Zoloft) 50 mg PO DAILY [facility] Vitamin B Complex/Vit C/Folic Acid (Nephro-Nella) 1 tab PO 0800 [facility] Physical Exam - Constitutional Appears: Chronically Ill - Head Exam Head Exam: ATRAUMATIC - Eye Exam Eye Exam: PERRL - ENT Exam ENT Exam: Mucous Membranes Dry - Neck Exam Neck exam: Negative for: Lymphadenopathy - Respiratory Exam Respiratory Exam: Decreased Breath Sounds - Cardiovascular Exam Cardiovascular Exam: REGULAR RHYTHM - GI/Abdominal Exam GI & Abdominal Exam: Diminished Bowel Sounds - Rectal Exam Rectal Exam: Deferred - Exam Exam: NORMAL INSPECTION - Extremities Exam Extremities exam: Negative for: pedal edema Additional comments: left BKA - Back Exam Back exam: absent: CVA tenderness (L), CVA tenderness (R) - Neurological Exam Neurological exam: Alert, CN II-XII Intact, Oriented x3, Reflexes Normal - Psychiatric Exam Psychiatric exam: Depressed - Skin Skin Exam: Dry Results - Vital Signs Recent Vital Signs: Last Vital Signs Temp 98.3 F 03/27/18 16:04 Pulse 58 L 03/27/18 16:04 Resp 20 03/27/18 16:04 BP 184/102 H 03/27/18 16:04 Pulse Ox 100 03/27/18 16:04 - Labs Result Diagrams: 03/27/18 04:20 03/27/18 04:20 Labs: Laboratory Results - last 24 hr 03/26/18 03/27/18 03/27/18 23:04 04:20 04:20 WBC 8.7 RBC 3.29 L Hgb 9.8 L Hct 29.3 L MCV 89.1 MCH 29.8 MCHC 33.4 RDW 14.7 H Plt Count 300 Sodium 143 Potassium 4.3 Chloride 115 H Carbon Dioxide 22 Anion Gap 10 BUN 27 H Creatinine 3.4 H Est GFR ( Amer) 18 Est GFR (Non-Af Amer) 15 POC Glucose (mg/dL) 92 Random Glucose 110 H Calcium 8.8 Phosphorus Total Bilirubin 0.5 AST 24 ALT 27 Alkaline Phosphatase 90 Total Protein 7.2 Albumin 2.9 L Globulin 4.3 H Albumin/Globulin Ratio 0.7 L Lipase 184 03/27/18 03/27/18 03/27/18 05:09 11:07 16:38 WBC RBC Hgb Hct MCV MCH MCHC RDW Plt Count Sodium Potassium Chloride Carbon Dioxide Anion Gap BUN Creatinine Est GFR ( Amer) Est GFR (Non-Af Amer) POC Glucose (mg/dL) 103 96 167 H Random Glucose Calcium Phosphorus Total Bilirubin AST ALT Alkaline Phosphatase Total Protein Albumin Globulin Albumin/Globulin Ratio Lipase 03/27/18 17:35 WBC RBC Hgb Hct MCV MCH MCHC RDW Plt Count Sodium Potassium Chloride Carbon Dioxide Anion Gap BUN Creatinine Est GFR ( Amer) Est GFR (Non-Af Amer) POC Glucose (mg/dL) Random Glucose Calcium Phosphorus 3.2 Total Bilirubin AST ALT Alkaline Phosphatase Total Protein Albumin Globulin Albumin/Globulin Ratio Lipase Assessment & Plan (1) Acute pancreatitis Status: Acute (2) CITLALLI (acute kidney injury) Status: Acute Priority: Medium - Assessment and Plan (Free Text) Assessment: poor prognosis consider heme eval as well as GI hold HAART rx for now
[2018-03-27 18:30] LABS: % IRON SATURATION 34 % (20-55); TOTAL IRON BINDING CAPACITY 210 ug/dL (250-450)
[2018-03-27 18:35] LABS: SQUAMOUS EPITHIAL 1 /hpf (0-5); URINE BACTERIA RARE (<OCC); URINE BILIRUBIN NEGATIVE (NEGATIVE); URINE BLOOD SMALL (NEGATIVE); URINE CLARITY CLEAR (Clear); URINE COLOR STRAW (YELLOW); URINE GLUCOSE (UA) 50 mg/dL (Normal); URINE LEUKOCYTE ESTERASE NEG Leu/uL (Negative); URINE PROTEIN 100 mg/dL (NEGATIVE); URINE UROBILINOGEN 0.2-1.0 mg/dL (0.2-1.0)
[2018-03-28] MEDS: Insulin Regular 100 units/ml SC SCH ×4 (08:26→22:20)
[2018-03-28] MEDS: Multivitamin Vitamin B Complex (Nephro-Vite) Tab PO SCH (09:41)
[2018-03-28] MEDS: Amylase/Lipase/Protease 5,000 Units ECC PO SCH ×2 (12:43→16:15)
[2018-03-28 15:01] VITALS: BMI 38.0
--- NOTE | 2018-03-28 15:41 | CP.PCM.PN ---
Subjective - Date & Time of Evaluation Date of Evaluation: 03/28/18 Time of Evaluation: 15:36 - Subjective Subjective: Nephrology Consultation Note Assessment: Stable acute pancreatitis Diabetic chronic Kidney Disease (E11.22) Hypertensive Chronic Kidney Disease (I12.9) Chronic Kidney Disease (N18.5) Stage 5 with 1 gm proteinuria (R80.9) likely due to DM/HTN Anemia (D64.9), Hyperphosphatemia (E83.39), Secondary Hyperparathyroidism (E21.1 ), HTN (I12.9) HIV on HAART, hx of left BKA Plan No acute need for renal replacement therapy at this time. Hypertension control with meds as ordered. Maintain hemodynamics stable. Avoid hypotension. Patient not on ACEI/ARB due to advanced CKD. increased labetalol 200 mg bid, uptitrate further if needed. Monitor Input/Output, daily weights and renal function with basic metabolic panel last PTH 116 hence d/c calcitriol. phos 3.2 controlled started Iv iron, nephrovite. deferred use of KODAK due to ISIAH + and [place]/lambda elevation. consider heme eval save non-dominant arm from IV line and phlebotomy for future AV access Dose meds/antibiotics for reduced GFR. Avoid fleets enema/magnesium based laxatives. Avoid nephrotoxins/NSAIDs/ iodinated contrast (unless needed emergently) Glycemic control Further work up for as per primary team Thanks for allowing me to participate in care of your patient. Will follow patient with you. Please call if any Qs Dr Yuriy Lau Office: [phone] Subjective: Noted events overnight. Patients feels okay. Denies chest pain, palpitation, shortness of breath, leg swelling. reports pain due to pancreatitis All other negative Physical Examination: General Appearance: Comfortable, in no acute respiratory distress, co-operative . Vitals reviewed and noted as below Head; Atraumatic, normocephalic ENT: no ulcers no thrush. Tongue is midline. Oropharynx: no rash or ulcers. EYES: Pupils are equal, round and reactive to light accommodation. Eye muscles and extraocular movement intact. Sclera is anicteric. Neck; supple no lymphadenopathy, no thyromegaly or bruit Lungs: Normal respiratory rate/effort. Breath sounds bilateral equal and clear Heart: Normal rate. s1s2 normal. No rub or gallop. Extremities: no edema. No varicose veins. left BKA Neurological: Patient is alert, awake and oriented to person, place and time. No focal deficit. Strength bilateral appropriate and equal Skin: Warm and dry. Normal turgor. No rash. Palpitation: Normal elasticity for age Abdomen: Abdomen is soft. Bowel sounds +. There is mild abdominal tenderness, no guarding/rigidity no organomegaly Psych: normal insight and normal affect/mood MSK: no joint tenderness or swelling. Digits and nails normal, no deformity : kidney or bladder not palpable Labs/imaging reviewed. Past medical history, past surgical history, family history, social history, allergy reviewed and noted as below Family hx: no hx of CKD. Rest non-contributory hep B/C neg TSAT 34$ ferritin 430 PTH 116 Objective - Vital Signs/Intake and Output Vital Signs (last 24 hours): Temp Pulse Resp BP Pulse Ox 98.2 F 94 H 18 133/92 H 100 03/28/18 12:15 03/28/18 12:15 03/28/18 12:15 03/28/18 12:15 03/28/18 12:15 - Medications Medications: Current Medications Acetaminophen/Codeine Phosphate (Tylenol/Codeine 300 Mg/30 Mg) 2 tab PO Q6 PRN PRN Reason: Pain, severe (8-10) Amlodipine Besylate (Norvasc) 10 mg PO DAILY [facility] Last Admin: 03/28/18 09:41 Dose: 10 mg Amylase (Pancrease 36899 [id number] [id number] U) 30,000 unit PO TID [facility] Last Admin: 03/28/18 12:43 Dose: 30,000 unit Dolutegravir Sodium (Tivicay) 50 mg PO DAILY [facility] PRN Reason: Protocol Last Admin: 03/28/18 09:41 Dose: 50 mg Hydralazine HCl (Apresoline) 50 mg PO Q8 PRN PRN Reason: Systolic Blood Pressure Last Admin: 03/27/18 23:52 Dose: 50 mg Iron Sucrose 200 mg/ Sodium (Chloride) 110 mls @ 110 mls/hr IVPB F [facility] Stop: 04/08/18 09:59 Insulin Human Regular (Humulin R) 0 units SC ACCU-CHECK [facility] PRN Reason: Protocol Last Admin: 03/28/18 12:44 Dose: 2 units Labetalol HCl (Trandate) 20 mg IVP Q8 PRN PRN Reason: Systolic Blood Pressure Last Admin: 03/27/18 15:35 Dose: 20 mg Labetalol HCl (Trandate) 200 mg PO BID [facility] Ondansetron HCl (Zofran Inj) 4 mg IVP Q6 PRN PRN Reason: Nausea/Vomiting Last Admin: 03/28/18 01:09 Dose: 4 mg Pantoprazole Sodium (Protonix Inj) 40 mg IVP DAILY [facility] Last Admin: 03/28/18 09:42 Dose: 40 mg Sertraline HCl (Zoloft) 50 mg PO DAILY [facility] Last Admin: 03/28/18 09:42 Dose: 50 mg Vitamin B Complex/Vit C/Folic Acid (Nephro-Nella) 1 tab PO 0800 [facility] Last Admin: 03/28/18 09:41 Dose: 1 tab - Labs Labs: 03/27/18 04:20 03/27/18 04:20 PT 11.0 Seconds (9.8-13.1) 03/26/18 11:30 INR 1.0 03/26/18 11:30 APTT 25.8 Seconds (25.6-37.1) 03/26/18 11:30
[2018-03-28] MEDS: Acetaminophen-Codeine 300/30 mg Tab PO PRN ×2 (16:14→22:17)
--- NOTE | 2018-03-28 17:31 | CP.PCM.PN ---
Subjective - Date & Time of Evaluation Date of Evaluation: 03/28/18 Time of Evaluation: 14:00 - Subjective Subjective: patient feels a lot betetr Has no diarrhea Has no vomiting Tolerate meals. Has no fever[' CBC and CMP are stable. Still on Morphine. Objective - Vital Signs/Intake and Output Vital Signs (last 24 hours): Temp Pulse Resp BP Pulse Ox 97.8 F 72 20 166/71 H 100 03/28/18 15:36 03/28/18 15:36 03/28/18 15:36 03/28/18 15:36 03/28/18 15:36 - Medications Medications: Current Medications Acetaminophen/Codeine Phosphate (Tylenol/Codeine 300 Mg/30 Mg) 2 tab PO Q6 PRN PRN Reason: Pain, severe (8-10) Last Admin: 03/28/18 16:14 Dose: 2 tab Amlodipine Besylate (Norvasc) 10 mg PO DAILY [facility] Last Admin: 03/28/18 09:41 Dose: 10 mg Amylase (Pancrease [id number] U-5000 [id number] U) 30,000 unit PO TID [facility] Last Admin: 03/28/18 16:15 Dose: 30,000 unit Dolutegravir Sodium (Tivicay) 50 mg PO DAILY [facility] PRN Reason: Protocol Last Admin: 03/28/18 09:41 Dose: 50 mg Hydralazine HCl (Apresoline) 50 mg PO Q8 PRN PRN Reason: Systolic Blood Pressure Last Admin: 03/27/18 23:52 Dose: 50 mg Iron Sucrose 200 mg/ Sodium (Chloride) 110 mls @ 110 mls/hr IVPB MWF [facility] Stop: 04/08/18 09:59 Insulin Human Regular (Humulin R) 0 units SC ACCU-CHECK [facility] PRN Reason: Protocol Last Admin: 03/28/18 17:07 Dose: 2 units Labetalol HCl (Trandate) 20 mg IVP Q8 PRN PRN Reason: Systolic Blood Pressure Last Admin: 03/27/18 15:35 Dose: 20 mg Labetalol HCl (Trandate) 200 mg PO BID [facility] Last Admin: 03/28/18 16:15 Dose: 200 mg Ondansetron HCl (Zofran Inj) 4 mg IVP Q6 PRN PRN Reason: Nausea/Vomiting Last Admin: 03/28/18 01:09 Dose: 4 mg Pantoprazole Sodium (Protonix Inj) 40 mg IVP DAILY [facility] Last Admin: 03/28/18 09:42 Dose: 40 mg Sertraline HCl (Zoloft) 50 mg PO DAILY [facility] Last Admin: 03/28/18 09:42 Dose: 50 mg Vitamin B Complex/Vit C/Folic Acid (Nephro-Nella) 1 tab PO 0800 [facility] Last Admin: 03/28/18 09:41 Dose: 1 tab - Labs Labs: 03/27/18 04:20 03/27/18 04:20 PT 11.0 Seconds (9.8-13.1) 03/26/18 11:30 INR 1.0 03/26/18 11:30 APTT 25.8 Seconds (25.6-37.1) 03/26/18 11:30 - Head Exam Head Exam: NORMAL INSPECTION - Eye Exam Eye Exam: Normal appearance - ENT Exam ENT Exam: Mucous Membranes Moist - Respiratory Exam Respiratory Exam: Clear to Ausculation Bilateral - Cardiovascular Exam Cardiovascular Exam: REGULAR RHYTHM - GI/Abdominal Exam GI & Abdominal Exam: Normal Bowel Sounds - Neurological Exam Neurological Exam: Awake, Oriented x3 Assessment and Plan (1) Acute pancreatitis Status: Acute (2) HIV (human immunodeficiency virus infection) Status: Acute (3) CKD (chronic kidney disease), stage IV Status: Chronic (4) Anemia in CKD (chronic kidney disease) Status: Acute (5) Dehydration Status: Acute (6) Gangrene associated with type 2 diabetes mellitus Status: Acute - Assessment and Plan (Free Text) Plan: Cont current diet hydrate cont meds DC Morphine' tylenol # 3 dc plans for tomorrow.
[2018-03-29] MEDS: Acetaminophen-Codeine 300/30 mg Tab PO PRN (04:27)
[2018-03-29] MEDS ORDERED: DiphenhydrAMINE 50 mg/ml Inj ONE (08:14)
[2018-03-29] MEDS ORDERED: DiphenhydrAMINE 50 mg/ml Inj IVP STA (08:15)
[2018-03-29] MEDS: Insulin Regular 100 units/ml SC SCH ×4 (10:13→22:09)
--- NOTE | 2018-03-29 12:16 | CP.PCM.CON ---
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 The patient reports to several months of N/V, diarrhea, associated with weightloss. She has had a diminished appetite and is unable to quantify how much weight she has lost but notes her clothes are much looser. I had seen her in 11/2017 for transfusion dependent anemia, found to have a monoclonal gammopathy associated with renal failure. At the time she deferred bone marrow biopsy, hemodialssis and signed out of the hospital against medical advice. Past medical history: DM, HTN, HIV, CKD, chronic left foot osteomyelitis s/p BKA Past surgical history: left foot I+D and BKA Family history: Denies hematologic and oncologic problems Social history: Smokes cigars, denies alcohol, smokes marijuana Allergies: Several, see list. Review of systems: All remaining review of systems including HEENT, cardiovascular, respiratory, gastrointestinal, genitourinary, musculoskeletal, dermatologic, neurologic, and psychiatric are negative unless mentioned in the HPI. Past Patient History - Infectious Disease Hx of Infectious Diseases: None - Past Medical History & Family History Past Medical History?: Yes - Past Social History Smoking Status: Current Some Days Smoker - CARDIAC Hx Hypertension: Yes Hx Peripheral Edema: Yes - PULMONARY Hx Asthma: Yes - NEUROLOGICAL Hx Seizures: No - HEENT Hx HEENT Problems: No - RENAL Hx Chronic Kidney Disease: No - HEMATOLOGICAL/ONCOLOGICAL Hx Human Immunodeficiency Virus (HIV): Yes - INTEGUMENTARY Hx Dermatological Problems: Yes Other/Comment: ULCER BOTTOM LEFT FOOT LEFT FOOT SUTURE LINES TOES - MUSCULOSKELETAL/RHEUMATOLOGICAL Hx Falls: No - GASTROINTESTINAL Hx Gastrointestinal Disorders: No - GENITOURINARY/GYNECOLOGICAL Hx Sexually Transmitted Disorders: No - PSYCHIATRIC Hx Depression: Yes - ANESTHESIA Hx Anesthesia: Yes Hx Anesthesia Reactions: No (unknown) Hx Malignant Hyperthermia: No Has any member of the family had a problem w/ anesthesia?: No Meds Allergies/Adverse Reactions: Allergies Allergy/AdvReac Type Severity Reaction Status Date / Time acetaminophen [From Tylenol] Allergy RASH Verified 02/15/18 22:54 aspirin Allergy RASH Verified 02/15/18 22:54 hydromorphone [From Dilaudid] Allergy RASH Verified 02/15/18 22:54 ketorolac tromethamine Allergy RASH Verified 02/15/18 22:54 [From Toradol] meperidine HCl [From Demerol] Allergy RASH Verified 02/15/18 22:54 oxycodone HCl [From Percocet] Allergy RASH Verified 02/15/18 22:54 peas Allergy ANAPHYLAXIS Verified 02/15/18 22:54 propoxyphene napsylate Allergy RASH Verified 02/15/18 22:54 [From Darvocet-N] - Medications Medications: Current Medications Amlodipine Besylate (Norvasc) 10 mg PO DAILY [facility] Last Admin: 03/28/18 09:41 Dose: 10 mg Amylase (Pancrease 48780 U-5000 U-52075 U) 30,000 unit PO TIDWM [facility] Dolutegravir Sodium (Tivicay) 50 mg PO DAILY [facility] PRN Reason: Protocol Last Admin: 03/28/18 09:41 Dose: 50 mg Hydralazine HCl (Apresoline) 50 mg PO Q8 PRN PRN Reason: Systolic Blood Pressure Last Admin: 03/29/18 04:45 Dose: 50 mg Iron Sucrose 200 mg/ Sodium (Chloride) 110 mls @ 110 mls/hr IVPB [facility] Stop: 04/08/18 09:59 Last Admin: 03/29/18 10:39 Dose: 110 mls/hr Insulin Human Regular (Humulin R) 0 units SC ACCU-CHECK [facility] PRN Reason: Protocol Last Admin: 03/29/18 10:13 Dose: Not Given Labetalol HCl (Trandate) 20 mg IVP Q8 PRN PRN Reason: Systolic Blood Pressure Last Admin: 03/27/18 15:35 Dose: 20 mg Labetalol HCl (Trandate) 200 mg PO BID [facility] Last Admin: 03/28/18 16:15 Dose: 200 mg Morphine Sulfate (Morphine) 1 mg IVP Q4 PRN PRN Reason: Pain, severe (8-10) Ondansetron HCl (Zofran Inj) 4 mg IVP Q6 PRN PRN Reason: Nausea/Vomiting Last Admin: 03/29/18 10:39 Dose: 4 mg Pantoprazole Sodium (Protonix Inj) 40 mg IVP DAILY [facility] Last Admin: 03/29/18 10:39 Dose: 40 mg Sertraline HCl (Zoloft) 50 mg PO DAILY [facility] Last Admin: 03/28/18 09:42 Dose: 50 mg Vitamin B Complex/Vit C/Folic Acid (Nephro-Nella) 1 tab PO 0800 [facility] Last Admin: 03/28/18 09:41 Dose: 1 tab Physical Exam - Head Exam Head Exam: ATRAUMATIC - Eye Exam Eye Exam: Normal appearance - ENT Exam ENT Exam: Mucous Membranes Dry - Respiratory Exam Respiratory Exam: NORMAL BREATHING PATTERN - Cardiovascular Exam Cardiovascular Exam: +S1, +S2 - GI/Abdominal Exam GI & Abdominal Exam: Normal Bowel Sounds Results - Vital Signs Recent Vital Signs: Last Vital Signs Temp 98.4 F 03/29/18 08:35 Pulse 74 03/29/18 08:35 Resp 20 03/29/18 08:35 BP 154/77 H 03/29/18 08:35 Pulse Ox 100 03/29/18 08:35 - Labs Result Diagrams: 03/27/18 04:20 03/27/18 04:20 Labs: Laboratory Results - last 24 hr 03/28/18 03/28/18 03/29/18 16:29 21:21 05:28 POC Glucose (mg/dL) 173 H 178 H 164 H 03/29/18 11:42 POC Glucose (mg/dL) 138 H Assessment & Plan (1) Anemia Assessment and Plan: element of HIV and CKD improved from prior Status: Acute (2) Monoclonal gammopathy Assessment and Plan: repeat serum immunofixation, SPEP, free light chain assay Thank you for this interesting consult. Status: Acute
[2018-03-29] MEDS: Amylase/Lipase/Protease 5,000 Units ECC PO SCH ×3 (13:04→16:32)
[2018-03-29] MEDS: Multivitamin Vitamin B Complex (Nephro-Vite) Tab PO SCH (13:12)
--- NOTE | 2018-03-29 13:25 | CP.PCM.PN ---
Subjective - Date & Time of Evaluation Date of Evaluation: 03/29/18 Time of Evaluation: 13:22 - Subjective Subjective: Nephrology Consultation Note Assessment: Stable acute pancreatitis Diabetic chronic Kidney Disease (E11.22) Hypertensive Chronic Kidney Disease (I12.9) Chronic Kidney Disease (N18.5) Stage 5 with 1 gm proteinuria (R80.9) likely due to DM/HTN Anemia (D64.9), Hyperphosphatemia (E83.39), Secondary Hyperparathyroidism (E21.1 ), HTN (I12.9) HIV on HAART, hx of left BKA Plan No acute need for renal replacement therapy at this time. No labs to review today, labs were stable previously Hypertension control with meds as ordered. labetalol increased yesterday, will inc hydral today Monitor Input/Output, daily weights and renal function with basic metabolic panel last PTH 116 calcitriol held phos 3.2 controlled started Iv iron, nephrovite. deferred use of KODAK due to ISIAH + and [place]/lambda elevation. consider heme eval save non-dominant arm from IV line and phlebotomy for future AV access Subjective: seen and examined still w/ n/v/diarrhea Physical Examination: General Appearance: Comfortable, in no acute respiratory distress, co-operative . Vitals reviewed and noted as below Head; Atraumatic, normocephalic ENT: no ulcers no thrush. Tongue is midline. Oropharynx: no rash or ulcers. EYES: Pupils are equal, round and reactive to light accommodation. Eye muscles and extraocular movement intact. Sclera is anicteric. Neck; supple no lymphadenopathy, no thyromegaly or bruit Lungs: Normal respiratory rate/effort. Breath sounds bilateral equal and clear Heart: Normal rate. s1s2 normal. No rub or gallop. Extremities: no edema. No varicose veins. left BKA Neurological: Patient is alert, awake and oriented to person, place and time. No focal deficit. Strength bilateral appropriate and equal Skin: Warm and dry. Normal turgor. No rash. Palpitation: Normal elasticity for age Abdomen: Abdomen is soft. Bowel sounds +. There is mild abdominal tenderness, no guarding/rigidity no organomegaly Psych: normal insight and normal affect/mood MSK: no joint tenderness or swelling. Digits and nails normal, L bka : kidney or bladder not palpable Labs/imaging reviewed. Past medical history, past surgical history, family history, social history, allergy reviewed and noted as below Family hx: no hx of CKD. Rest non-contributory Objective - Vital Signs/Intake and Output Vital Signs (last 24 hours): Temp Pulse Resp BP Pulse Ox 98.4 F 75 20 167/85 H 100 03/29/18 08:35 03/29/18 13:04 03/29/18 08:35 03/29/18 13:04 03/29/18 08:35 - Medications Medications: Current Medications Amlodipine Besylate (Norvasc) 10 mg PO DAILY [facility] Last Admin: 03/29/18 13:04 Dose: 10 mg Amylase (Pancrease 62973 U-5000 U-37481 U) 30,000 unit PO TIDWM [facility] Last Admin: 03/29/18 13:12 Dose: Not Given Dolutegravir Sodium (Tivicay) 50 mg PO DAILY [facility] PRN Reason: Protocol Last Admin: 03/28/18 09:41 Dose: 50 mg Hydralazine HCl (Apresoline) 50 mg PO Q8 PRN PRN Reason: Systolic Blood Pressure Last Admin: 03/29/18 13:03 Dose: 50 mg Iron Sucrose 200 mg/ Sodium (Chloride) 110 mls @ 110 mls/hr IVPB MWF [facility] Stop: 04/08/18 09:59 Last Admin: 03/29/18 10:39 Dose: 110 mls/hr Insulin Human Regular (Humulin R) 0 units SC ACCU-CHECK [facility] PRN Reason: Protocol Last Admin: 03/29/18 13:01 Dose: Not Given Labetalol HCl (Trandate) 20 mg IVP Q8 PRN PRN Reason: Systolic Blood Pressure Last Admin: 03/27/18 15:35 Dose: 20 mg Labetalol HCl (Trandate) 200 mg PO BID [facility] Last Admin: 03/29/18 13:05 Dose: 200 mg Morphine Sulfate (Morphine) 1 mg IVP Q4 PRN PRN Reason: Pain, severe (8-10) Ondansetron HCl (Zofran Inj) 4 mg IVP Q6 PRN PRN Reason: Nausea/Vomiting Last Admin: 03/29/18 10:39 Dose: 4 mg Pantoprazole Sodium (Protonix Inj) 40 mg IVP DAILY [facility] Last Admin: 03/29/18 10:39 Dose: 40 mg Sertraline HCl (Zoloft) 50 mg PO DAILY [facility] Last Admin: 03/29/18 13:11 Dose: Not Given Vitamin B Complex/Vit C/Folic Acid (Nephro-Nella) 1 tab PO 0800 [facility] Last Admin: 03/29/18 13:12 Dose: Not Given - Labs Labs: 03/27/18 04:20 03/27/18 04:20 PT 11.0 Seconds (9.8-13.1) 03/26/18 11:30 INR 1.0 03/26/18 11:30 APTT 25.8 Seconds (25.6-37.1) 03/26/18 11:30
--- NOTE | 2018-03-29 13:35 | CP.PCM.PN ---
Subjective - Date & Time of Evaluation Date of Evaluation: 03/29/18 Time of Evaluation: 09:00 - Subjective Subjective: awake alert NAD weak c/o diarrhea no fever Objective - Vital Signs/Intake and Output Vital Signs (last 24 hours): Temp Pulse Resp BP Pulse Ox 97.8 F 72 20 167/99 H 99 03/29/18 13:21 03/29/18 13:21 03/29/18 13:21 03/29/18 13:21 03/29/18 13:21 - Medications Medications: Current Medications Amlodipine Besylate (Norvasc) 10 mg PO DAILY [facility] Last Admin: 03/29/18 13:04 Dose: 10 mg Amylase (Pancrease 38001 U-5000 U-66660 U) 30,000 unit PO TIDWM [facility] Last Admin: 03/29/18 13:12 Dose: Not Given Dolutegravir Sodium (Tivicay) 50 mg PO DAILY [facility] PRN Reason: Protocol Last Admin: 03/28/18 09:41 Dose: 50 mg Hydralazine HCl (Apresoline) 100 mg PO Q8 PRN PRN Reason: Systolic Blood Pressure Iron Sucrose 200 mg/ Sodium (Chloride) 110 mls @ 110 mls/hr IVPB MWF [facility] Stop: 04/08/18 09:59 Last Admin: 03/29/18 10:39 Dose: 110 mls/hr Insulin Human Regular (Humulin R) 0 units SC ACCU-CHECK [facility] PRN Reason: Protocol Last Admin: 03/29/18 13:01 Dose: Not Given Labetalol HCl (Trandate) 20 mg IVP Q8 PRN PRN Reason: Systolic Blood Pressure Last Admin: 03/27/18 15:35 Dose: 20 mg Labetalol HCl (Trandate) 200 mg PO BID [facility] Last Admin: 03/29/18 13:05 Dose: 200 mg Morphine Sulfate (Morphine) 1 mg IVP Q4 PRN PRN Reason: Pain, severe (8-10) Ondansetron HCl (Zofran Inj) 4 mg IVP Q6 PRN PRN Reason: Nausea/Vomiting Last Admin: 03/29/18 10:39 Dose: 4 mg Pantoprazole Sodium (Protonix Inj) 40 mg IVP DAILY [facility] Last Admin: 03/29/18 10:39 Dose: 40 mg Sertraline HCl (Zoloft) 50 mg PO DAILY [facility] Last Admin: 03/29/18 13:11 Dose: Not Given Vitamin B Complex/Vit C/Folic Acid (Nephro-Nella) 1 tab PO 0800 [facility] Last Admin: 03/29/18 13:12 Dose: Not Given - Labs Labs: 03/27/18 04:20 03/27/18 04:20 PT 11.0 Seconds (9.8-13.1) 03/26/18 11:30 INR 1.0 03/26/18 11:30 APTT 25.8 Seconds (25.6-37.1) 03/26/18 11:30 - Constitutional Appears: Non-toxic, Chronically Ill - Head Exam Head Exam: NORMOCEPHALIC - Eye Exam Eye Exam: PERRL - ENT Exam ENT Exam: Mucous Membranes Dry - Neck Exam Neck Exam: absent: Lymphadenopathy - Respiratory Exam Respiratory Exam: Decreased Breath Sounds - Cardiovascular Exam Cardiovascular Exam: REGULAR RHYTHM - GI/Abdominal Exam GI & Abdominal Exam: Distended, Soft - Rectal Exam Rectal Exam: Deferred - Exam Exam: NORMAL INSPECTION - Extremities Exam Extremities Exam: absent: Pedal Edema - Back Exam Back Exam: absent: CVA tenderness (L), CVA tenderness (R) - Neurological Exam Neurological Exam: Alert, Awake, Oriented x3 - Psychiatric Exam Psychiatric exam: Depressed - Skin Skin Exam: Dry Assessment and Plan (1) Acute pancreatitis Status: Acute (2) CITLALLI (acute kidney injury) Status: Acute - Assessment and Plan (Free Text) Assessment: Diabetic chronic Kidney Disease (E11.22) Hypertensive Chronic Kidney Disease (I12.9) Chronic Kidney Disease (N18.5) Stage 5 with 1 gm proteinuria (R80.9) likely due to DM/HTN Anemia (D64.9), Hyperphosphatemia (E83.39), Secondary Hyperparathyroidism (E21.1 ), HTN (I12.9) HIV on HAART, hx of left BKA
--- NOTE | 2018-03-29 16:28 | CP.PCM.PN ---
Subjective - Date & Time of Evaluation Date of Evaluation: 03/29/18 Time of Evaluation: 10:10 - Subjective Subjective: 37 y/o transgender male to female, evaluated and examined by bedside with Dr Bird. Pt reports having diarrhea again today. Pt was given Tylenol #3 for pain this morning, pt developed itchiness and chest tightness. Pt was administered IV Benadryl with resolution of symptoms. Pt afebrile overnight. Objective - Vital Signs/Intake and Output Vital Signs (last 24 hours): Temp Pulse Resp BP Pulse Ox 98.2 F 86 20 135/86 100 03/29/18 15:39 03/29/18 15:39 03/29/18 15:39 03/29/18 15:39 03/29/18 15:39 - Medications Medications: Current Medications Abacavir Sulfate (Ziagen) 300 mg PO BID [facility] PRN Reason: Protocol Amlodipine Besylate (Norvasc) 10 mg PO DAILY [facility] Last Admin: 03/29/18 13:04 Dose: 10 mg Amylase (Pancrease 48025 U-5000 U-54529 U) 30,000 unit PO TIDWM [facility] Last Admin: 03/29/18 13:12 Dose: Not Given Dolutegravir Sodium (Tivicay) 50 mg PO DAILY [facility] PRN Reason: Protocol Last Admin: 03/28/18 09:41 Dose: 50 mg Hydralazine HCl (Apresoline) 100 mg PO Q8 PRN PRN Reason: Systolic Blood Pressure Iron Sucrose 200 mg/ Sodium (Chloride) 110 mls @ 110 mls/hr IVPB MWF [facility] Stop: 04/08/18 09:59 Last Admin: 03/29/18 10:39 Dose: 110 mls/hr Insulin Human Regular (Humulin R) 0 units SC ACCU-CHECK [facility] PRN Reason: Protocol Last Admin: 03/29/18 13:01 Dose: Not Given Labetalol HCl (Trandate) 20 mg IVP Q8 PRN PRN Reason: Systolic Blood Pressure Last Admin: 03/27/18 15:35 Dose: 20 mg Labetalol HCl (Trandate) 200 mg PO BID [facility] Last Admin: 03/29/18 13:05 Dose: 200 mg Lamivudine (Epivir) 50 mg PO Q24H [facility] PRN Reason: Protocol Morphine Sulfate (Morphine) 1 mg IVP Q4 PRN PRN Reason: Pain, severe (8-10) Ondansetron HCl (Zofran Inj) 4 mg IVP Q6 PRN PRN Reason: Nausea/Vomiting Last Admin: 03/29/18 10:39 Dose: 4 mg Pantoprazole Sodium (Protonix Inj) 40 mg IVP DAILY [facility] Last Admin: 03/29/18 10:39 Dose: 40 mg Sertraline HCl (Zoloft) 50 mg PO DAILY [facility] Last Admin: 03/29/18 13:11 Dose: Not Given Vitamin B Complex/Vit C/Folic Acid (Nephro-Nella) 1 tab PO 0800 [facility] Last Admin: 03/29/18 13:12 Dose: Not Given - Labs Labs: 03/27/18 04:20 03/27/18 04:20 PT 11.0 Seconds (9.8-13.1) 03/26/18 11:30 INR 1.0 03/26/18 11:30 APTT 25.8 Seconds (25.6-37.1) 03/26/18 11:30 - Constitutional Appears: No Acute Distress - Head Exam Head Exam: ATRAUMATIC - Eye Exam Eye Exam: EOMI - ENT Exam ENT Exam: Mucous Membranes Moist. absent: Mucous Membranes Dry - Neck Exam Neck Exam: Full ROM. absent: Tenderness - Respiratory Exam Respiratory Exam: NORMAL BREATHING PATTERN. absent: Rhonchi, Wheezes - Cardiovascular Exam Cardiovascular Exam: REGULAR RHYTHM, +S1, +S2 - GI/Abdominal Exam GI & Abdominal Exam: Soft. absent: Distended, Guarding, Tenderness - Extremities Exam Additional comments: R BKA - Neurological Exam Neurological Exam: Alert, Awake, Oriented x3 Assessment and Plan (1) Acute pancreatitis Status: Acute (2) CITLALLI (acute kidney injury) Status: Acute (3) Anemia Status: Acute (4) Hypertension Status: Chronic (5) CKD (chronic kidney disease), stage IV Status: Chronic (6) HIV positive, asymptomatic Status: Acute - Assessment and Plan (Free Text) Assessment: 37 y/o transgender male to female with a PMHx of uncontrolled DM 2, HTN and HIV infection for evaluation and management of acute pancreatitis and acute kidney injury. --Stable, with diarrhea again. --Pt has HIV, asymptomatic, last CD4 count 416 on 12/24/17. --F/U HIV viral load. --ID consult, Dr Noe --Nephrology consult, Dr Vargas --Continue management as ordered.
[2018-03-30] MEDS: Insulin Regular 100 units/ml SC SCH ×4 (06:59→22:53)
[2018-03-30] MEDS: Amylase/Lipase/Protease 5,000 Units ECC PO SCH ×2 (08:20→17:40)
[2018-03-30] MEDS: Multivitamin Vitamin B Complex (Nephro-Vite) Tab PO SCH (08:21)
[2018-03-30] MEDS ORDERED: Ergocalciferol 50,000 Intl Units Cap PO SCH (10:00)
[2018-03-30] MEDS: Dextrose 5%/Lactated Ringer's 1,000 ML IV SCH (11:13)
[2018-03-30 17:27] LABS: HEMOGLOBIN 10.8 g/dL (12.0-16.0); MEAN CELL VOLUME 89.8 fl (81.0-99.0); MEAN CORPUSCULAR HGB CONC 32.3 g/dL (33.0-37.0); RBC 3.74 Mil/uL (3.80-5.20); RED CELL DISTRIBUTION WIDTH 15.1 % (11.5-14.5); WHITE BLOOD COUNT 11.1 K/uL (4.8-10.8)
[2018-03-30 17:58] LABS: ALB/GLOB RATIO 0.7 (1.0-2.1); ALBUMIN 3.3 g/dL (3.5-5.0); CALCIUM 9.1 mg/dL (8.4-10.2)
--- NOTE | 2018-03-30 17:59 | CP.PCM.PN ---
Subjective - Date & Time of Evaluation Date of Evaluation: 03/30/18 Time of Evaluation: 17:57 - Subjective Subjective: Nephrology Consultation Note Assessment: Stable acute pancreatitis Diabetic chronic Kidney Disease (E11.22) Hypertensive Chronic Kidney Disease (I12.9) Chronic Kidney Disease (N18.5) Stage 5 with 1 gm proteinuria (R80.9) likely due to DM/HTN Anemia (D64.9), Hyperphosphatemia (E83.39), Secondary Hyperparathyroidism (E21.1 ), HTN (I12.9) HIV on HAART, hx of left BKA Plan No acute need for renal replacement therapy at this time. Hypertension control with meds as ordered. Maintain hemodynamics stable. Avoid hypotension. Patient not on ACEI/ARB due to advanced CKD. Monitor Input/Output, daily weights and renal function with basic metabolic panel last PTH 116 hence held calcitriol. phos 3.2 controlled started Iv iron, nephrovite. deferred use of KODAK due to ISIAH + and [place]/lambda elevation. consider heme eval save non-dominant arm from IV line and phlebotomy for future AV access Dose meds/antibiotics for reduced GFR. Avoid fleets enema/magnesium based laxatives. Avoid nephrotoxins/NSAIDs/ iodinated contrast (unless needed emergently) Glycemic control Further work up for as per primary team Thanks for allowing me to participate in care of your patient. Please call if any Qs Dr Yuriy Lau Office: [phone] Subjective: Noted events overnight. Patients feels okay. upset that why he is still being seen by end polisher. Denies chest pain, palpitation, shortness of breath, leg swelling. reports loose stool. All other negative Physical Examination: General Appearance: Comfortable, in no acute respiratory distress, co-operative . Vitals reviewed and noted as below Head; Atraumatic, normocephalic ENT: no ulcers no thrush. Tongue is midline. Oropharynx: no rash or ulcers. EYES: Pupils are equal, round and reactive to light accommodation. Eye muscles and extraocular movement intact. Sclera is anicteric. Neck; supple no lymphadenopathy, no thyromegaly or bruit Lungs: Normal respiratory rate/effort. Breath sounds bilateral equal and clear Heart: Normal rate. s1s2 normal. No rub or gallop. Extremities: no edema. No varicose veins. left BKA Neurological: Patient is alert, awake and oriented to person, place and time. No focal deficit. Strength bilateral appropriate and equal Skin: Warm and dry. Normal turgor. No rash. Palpitation: Normal elasticity for age Abdomen: Abdomen is soft. Bowel sounds +. There is mild abdominal tenderness, no guarding/rigidity no organomegaly Psych: limited insight and normal affect/mood MSK: no joint tenderness or swelling. Digits and nails normal, no deformity : kidney or bladder not palpable Labs/imaging reviewed. Past medical history, past surgical history, family history, social history, allergy reviewed and noted as below Family hx: no hx of CKD. Rest non-contributory hep B/C neg TSAT 34$ ferritin 430 PTH 116 Objective - Vital Signs/Intake and Output Vital Signs (last 24 hours): Temp Pulse Resp BP Pulse Ox 97.8 F 74 18 106/56 L 99 03/30/18 17:42 03/30/18 17:42 03/30/18 17:42 03/30/18 17:42 03/30/18 17:42 - Medications Medications: Current Medications Abacavir Sulfate (Ziagen) 300 mg PO BID [facility] PRN Reason: Protocol Last Admin: 03/30/18 17:41 Dose: Not Given Amlodipine Besylate (Norvasc) 10 mg PO DAILY [facility] Last Admin: 03/30/18 08:21 Dose: 10 mg Amylase (Pancrease 12265 U-5000 U-05113 U) 30,000 unit PO TIDWM [facility] Last Admin: 03/30/18 17:40 Dose: Not Given Dolutegravir Sodium (Tivicay) 50 mg PO DAILY [facility] PRN Reason: Protocol Last Admin: 03/30/18 08:20 Dose: 50 mg Ergocalciferol (Drisdol 50,000 Intl Units Cap) 50,000 cap PO QWK [facility] Hydralazine HCl (Apresoline) 100 mg PO Q8 PRN PRN Reason: Systolic Blood Pressure Iron Sucrose 200 mg/ Sodium (Chloride) 110 mls @ 110 mls/hr IVPB MWF [facility] Stop: 04/08/18 09:59 Last Admin: 03/29/18 10:39 Dose: 110 mls/hr Dextrose/Lactated Ringer's (Dextrose 5%/Lactated Ringer's) 1,000 mls @ 100 mls/ hr IV .Q10H [facility] Stop: 03/31/18 10:22 Last Admin: 03/30/18 11:13 Dose: 100 mls/hr Insulin Human Regular (Humulin R) 0 units SC ACCU-CHECK [facility] PRN Reason: Protocol Last Admin: 03/30/18 17:32 Dose: Not Given Labetalol HCl (Trandate) 20 mg IVP Q8 PRN PRN Reason: Systolic Blood Pressure Last Admin: 03/27/18 15:35 Dose: 20 mg Labetalol HCl (Trandate) 200 mg PO BID [facility] Last Admin: 03/30/18 17:41 Dose: Not Given Lamivudine (Epivir) 50 mg PO Q24H [facility] PRN Reason: Protocol Morphine Sulfate (Morphine) 1 mg IVP Q4 PRN PRN Reason: Pain, severe (8-10) Last Admin: 03/30/18 17:31 Dose: 1 mg Ondansetron HCl (Zofran Inj) 4 mg IVP Q6 PRN PRN Reason: Nausea/Vomiting Last Admin: 03/30/18 08:19 Dose: 4 mg Pantoprazole Sodium (Protonix Inj) 40 mg IVP DAILY [facility] Last Admin: 03/30/18 08:20 Dose: 40 mg Sertraline HCl (Zoloft) 50 mg PO DAILY [facility] Last Admin: 03/30/18 08:21 Dose: 50 mg Vitamin B Complex/Vit C/Folic Acid (Nephro-Nella) 1 tab PO 0800 [facility] Last Admin: 03/30/18 08:21 Dose: 1 tab - Labs Labs: 03/30/18 17:14 03/27/18 04:20 PT 11.0 Seconds (9.8-13.1) 03/26/18 11:30 INR 1.0 03/26/18 11:30 APTT 25.8 Seconds (25.6-37.1) 03/26/18 11:30
--- NOTE | 2018-03-30 20:22 | CP.PCM.PN ---
Subjective - Date & Time of Evaluation Date of Evaluation: 03/30/18 Time of Evaluation: 17:00 - Subjective Subjective: Having diarrhea Objective - Vital Signs/Intake and Output Vital Signs (last 24 hours): Temp Pulse Resp BP Pulse Ox 98.6 F 69 18 128/76 100 03/30/18 19:42 03/30/18 19:42 03/30/18 19:42 03/30/18 19:42 03/30/18 19:42 - Medications Medications: Current Medications Abacavir Sulfate (Ziagen) 300 mg PO BID [facility] PRN Reason: Protocol Last Admin: 03/30/18 17:41 Dose: Not Given Amlodipine Besylate (Norvasc) 10 mg PO DAILY [facility] Last Admin: 03/30/18 08:21 Dose: 10 mg Amylase (Pancrease [id number] [id number] U) 30,000 unit PO TIDWM [facility] Last Admin: 03/30/18 17:40 Dose: Not Given Dolutegravir Sodium (Tivicay) 50 mg PO DAILY [facility] PRN Reason: Protocol Last Admin: 03/30/18 08:20 Dose: 50 mg Ergocalciferol (Drisdol 50,000 Intl Units Cap) 50,000 cap PO QWK [facility] Hydralazine HCl (Apresoline) 100 mg PO Q8 PRN PRN Reason: Systolic Blood Pressure Iron Sucrose 200 mg/ Sodium (Chloride) 110 mls @ 110 mls/hr IVPB MWF [facility] Stop: 04/08/18 09:59 Last Admin: 03/29/18 10:39 Dose: 110 mls/hr Dextrose/Lactated Ringer's (Dextrose 5%/Lactated Ringer's) 1,000 mls @ 100 mls/ hr IV .Q10H [facility] Stop: 03/31/18 10:22 Last Admin: 03/30/18 11:13 Dose: 100 mls/hr Insulin Human Regular (Humulin R) 0 units SC ACCU-CHECK [facility] PRN Reason: Protocol Last Admin: 03/30/18 17:32 Dose: Not Given Labetalol HCl (Trandate) 20 mg IVP Q8 PRN PRN Reason: Systolic Blood Pressure Last Admin: 03/27/18 15:35 Dose: 20 mg Labetalol HCl (Trandate) 200 mg PO BID [facility] Last Admin: 03/30/18 17:41 Dose: Not Given Lamivudine (Epivir) 50 mg PO Q24H [facility] PRN Reason: Protocol Morphine Sulfate (Morphine) 1 mg IVP Q4 PRN PRN Reason: Pain, severe (8-10) Last Admin: 03/30/18 17:31 Dose: 1 mg Ondansetron HCl (Zofran Inj) 4 mg IVP Q6 PRN PRN Reason: Nausea/Vomiting Last Admin: 03/30/18 08:19 Dose: 4 mg Pantoprazole Sodium (Protonix Inj) 40 mg IVP DAILY [facility] Last Admin: 03/30/18 08:20 Dose: 40 mg Sertraline HCl (Zoloft) 50 mg PO DAILY [facility] Last Admin: 03/30/18 08:21 Dose: 50 mg Vitamin B Complex/Vit C/Folic Acid (Nephro-Nella) 1 tab PO 0800 [facility] Last Admin: 03/30/18 08:21 Dose: 1 tab - Labs Labs: 03/30/18 17:14 03/30/18 17:14 PT 11.0 Seconds (9.8-13.1) 03/26/18 11:30 INR 1.0 03/26/18 11:30 APTT 25.8 Seconds (25.6-37.1) 03/26/18 11:30 - Head Exam Head Exam: ATRAUMATIC - Eye Exam Eye Exam: Normal appearance - ENT Exam ENT Exam: Mucous Membranes Dry - Respiratory Exam Respiratory Exam: NORMAL BREATHING PATTERN - Cardiovascular Exam Cardiovascular Exam: +S1, +S2 - GI/Abdominal Exam GI & Abdominal Exam: Normal Bowel Sounds Assessment and Plan (1) Anemia Assessment & Plan: element of HIV and CKD improved from prior Status: Acute (2) Monoclonal gammopathy Assessment & Plan: repeat serum immunofixation, SPEP, free light chain assay Status: Acute
--- NOTE | 2018-03-30 20:23 | CP.PCM.PN ---
Subjective - Date & Time of Evaluation Date of Evaluation: 03/29/18 Time of Evaluation: 12:00 - Subjective Subjective: Having diarrhea Objective - Vital Signs/Intake and Output Vital Signs (last 24 hours): Temp Pulse Resp BP Pulse Ox 98.6 F 69 18 128/76 100 03/30/18 19:42 03/30/18 19:42 03/30/18 19:42 03/30/18 19:42 03/30/18 19:42 - Medications Medications: Current Medications Abacavir Sulfate (Ziagen) 300 mg PO BID [facility] PRN Reason: Protocol Last Admin: 03/30/18 17:41 Dose: Not Given Amlodipine Besylate (Norvasc) 10 mg PO DAILY [facility] Last Admin: 03/30/18 08:21 Dose: 10 mg Amylase (Pancrease [id number] U-5000 [id number] U) 30,000 unit PO TIDWM [facility] Last Admin: 03/30/18 17:40 Dose: Not Given Dolutegravir Sodium (Tivicay) 50 mg PO DAILY [facility] PRN Reason: Protocol Last Admin: 03/30/18 08:20 Dose: 50 mg Ergocalciferol (Drisdol 50,000 Intl Units Cap) 50,000 cap PO QWK [facility] Hydralazine HCl (Apresoline) 100 mg PO Q8 PRN PRN Reason: Systolic Blood Pressure Iron Sucrose 200 mg/ Sodium (Chloride) 110 mls @ 110 mls/hr IVPB MWF [facility] Stop: 04/08/18 09:59 Last Admin: 03/29/18 10:39 Dose: 110 mls/hr Dextrose/Lactated Ringer's (Dextrose 5%/Lactated Ringer's) 1,000 mls @ 100 mls/ hr IV .Q10H [facility] Stop: 03/31/18 10:22 Last Admin: 03/30/18 11:13 Dose: 100 mls/hr Insulin Human Regular (Humulin R) 0 units SC ACCU-CHECK [facility] PRN Reason: Protocol Last Admin: 03/30/18 17:32 Dose: Not Given Labetalol HCl (Trandate) 20 mg IVP Q8 PRN PRN Reason: Systolic Blood Pressure Last Admin: 03/27/18 15:35 Dose: 20 mg Labetalol HCl (Trandate) 200 mg PO BID [facility] Last Admin: 03/30/18 17:41 Dose: Not Given Lamivudine (Epivir) 50 mg PO Q24H [facility] PRN Reason: Protocol Morphine Sulfate (Morphine) 1 mg IVP Q4 PRN PRN Reason: Pain, severe (8-10) Last Admin: 03/30/18 17:31 Dose: 1 mg Ondansetron HCl (Zofran Inj) 4 mg IVP Q6 PRN PRN Reason: Nausea/Vomiting Last Admin: 03/30/18 08:19 Dose: 4 mg Pantoprazole Sodium (Protonix Inj) 40 mg IVP DAILY [facility] Last Admin: 03/30/18 08:20 Dose: 40 mg Sertraline HCl (Zoloft) 50 mg PO DAILY [facility] Last Admin: 03/30/18 08:21 Dose: 50 mg Vitamin B Complex/Vit C/Folic Acid (Nephro-Nella) 1 tab PO 0800 [facility] Last Admin: 03/30/18 08:21 Dose: 1 tab - Labs Labs: 03/30/18 17:14 03/30/18 17:14 PT 11.0 Seconds (9.8-13.1) 03/26/18 11:30 INR 1.0 03/26/18 11:30 APTT 25.8 Seconds (25.6-37.1) 03/26/18 11:30 - Head Exam Head Exam: ATRAUMATIC - Eye Exam Eye Exam: Normal appearance - ENT Exam ENT Exam: Mucous Membranes Dry - Respiratory Exam Respiratory Exam: NORMAL BREATHING PATTERN - Cardiovascular Exam Cardiovascular Exam: +S1, +S2 - GI/Abdominal Exam GI & Abdominal Exam: Normal Bowel Sounds Assessment and Plan (1) Anemia Assessment & Plan: element of HIV and CKD improved from prior Status: Acute (2) Monoclonal gammopathy Assessment & Plan: repeat serum immunofixation, SPEP, free light chain assay Status: Acute
[2018-03-31] MEDS: Dextrose 5%/Lactated Ringer's 1,000 ML IV SCH (01:32)
--- NOTE | 2018-03-31 11:42 | CP.PCM.CON ---
<Ron Cespedes - Last Filed: 03/31/18 11:39> History of Present Illness - History of Present Illness History of Present Illness: PGY-4 GI Fellow Consult Note Ms. Parks is a 37 yo transgender female with h/o HIV (on HAART, last CD4 416 on 12/24/17), DM, CKD 4 (due to DM?), DVT, HTN who was admitted on 03/26/18 for pancreatitis and diarrhea. She had been improving some from the pancreatitis standpoint with some minor residual pain, but was taking some PO; however, when taking PO she reported persistent loose watery diarrhea; therefore, GI ultimately consulted. She states that pain is all over her abdomen, but worse in the epigastrum. She states that when taking PO that the frequently has emesis consisting of PO intake, denying any bloody or bilious emesis. Furthermore, she states that when she eat things seem "to go right through me" with innumerable water diarrhea. Symptoms have been going on for at least 6 weeks, but states that she has been dealing with them intermittently for even a year. Though she states she had woken up in a pool of diarrhea in her bed, she states that she does not have any symptoms when she is not eating. She denies any melena, hematochezia, dysphagia, recent travel, sick contacts, antibiotics or change in diet. She has never had any endoscopic evaluation before. She reports feeling chills, but denied any fever, CP, SOB. She does state that she has lost at least 10 lbs in the last few months; she also reports that she is hungry and would like to eat. 12 point ROS negative other than stated above MHx: See above SurgHx: - L BKA, IVC filter Meds: Reviewed in MAR Family History- multiple cancers in family- unknown types Social History- admits to tobacco use, rare alcohol use, marijuana use All: Reviewed, APAP, ASA Past Patient History - Infectious Disease Hx of Infectious Diseases: None - Past Medical History & Family History Past Medical History?: Yes - Past Social History Smoking Status: Current Some Days Smoker - CARDIAC Hx Hypertension: Yes Hx Peripheral Edema: Yes - PULMONARY Hx Asthma: Yes - NEUROLOGICAL Hx Seizures: No - HEENT Hx HEENT Problems: No - RENAL Hx Chronic Kidney Disease: No - HEMATOLOGICAL/ONCOLOGICAL Hx Human Immunodeficiency Virus (HIV): Yes - INTEGUMENTARY Hx Dermatological Problems: Yes Other/Comment: ULCER BOTTOM LEFT FOOT LEFT FOOT SUTURE LINES TOES - MUSCULOSKELETAL/RHEUMATOLOGICAL Hx Falls: No - GASTROINTESTINAL Hx Gastrointestinal Disorders: No - GENITOURINARY/GYNECOLOGICAL Hx Sexually Transmitted Disorders: No - PSYCHIATRIC Hx Depression: Yes - ANESTHESIA Hx Anesthesia: Yes Hx Anesthesia Reactions: No (unknown) Hx Malignant Hyperthermia: No Has any member of the family had a problem w/ anesthesia?: No Meds Allergies/Adverse Reactions: Allergies Allergy/AdvReac Type Severity Reaction Status Date / Time acetaminophen [From Tylenol] Allergy RASH Verified 02/15/18 22:54 aspirin Allergy RASH Verified 02/15/18 22:54 hydromorphone [From Dilaudid] Allergy RASH Verified 02/15/18 22:54 ketorolac tromethamine Allergy RASH Verified 02/15/18 22:54 [From Toradol] meperidine HCl [From Demerol] Allergy RASH Verified 02/15/18 22:54 oxycodone HCl [From Percocet] Allergy RASH Verified 02/15/18 22:54 peas Allergy ANAPHYLAXIS Verified 02/15/18 22:54 propoxyphene napsylate Allergy RASH Verified 02/15/18 22:54 [From Darvocet-N] - Medications Medications: Current Medications Abacavir Sulfate (Ziagen) 300 mg PO BID [facility] PRN Reason: Protocol Last Admin: 03/30/18 17:41 Dose: Not Given Amlodipine Besylate (Norvasc) 10 mg PO DAILY [facility] Last Admin: 03/30/18 08:21 Dose: 10 mg Amylase (Pancrease [id number] U-5000 U-[id number] U) 30,000 unit PO TIDWM [facility] Last Admin: 03/30/18 17:40 Dose: Not Given Dolutegravir Sodium (Tivicay) 50 mg PO DAILY [facility] PRN Reason: Protocol Last Admin: 03/30/18 08:20 Dose: 50 mg Ergocalciferol (Drisdol 50,000 Intl Units Cap) 50,000 cap PO QWK [facility] Hydralazine HCl (Apresoline) 100 mg PO Q8 PRN PRN Reason: Systolic Blood Pressure Iron Sucrose 200 mg/ Sodium (Chloride) 110 mls @ 110 mls/hr [place] [facility]: 04/08/18 09:59 Last Admin: 03/29/18 10:39 Dose: 110 mls/hr Insulin Human Regular (Humulin R) 0 units SC ACCU-CHECK [facility] PRN Reason: Protocol Last Admin: 03/30/18 22:53 Dose: Not Given Labetalol HCl (Trandate) 20 mg IVP Q8 PRN PRN Reason: Systolic Blood Pressure Last Admin: 03/27/18 15:35 Dose: 20 mg Labetalol HCl (Trandate) 200 mg PO BID [facility] Last Admin: 03/30/18 17:41 Dose: Not Given Lamivudine (Epivir) 50 mg PO Q24H [facility] PRN Reason: Protocol Morphine Sulfate (Morphine) 1 mg IVP Q4 PRN PRN Reason: Pain, severe (8-10) Last Admin: 03/31/18 06:17 Dose: 1 mg Ondansetron HCl (Zofran Inj) 4 mg IVP Q6 PRN PRN Reason: Nausea/Vomiting Last Admin: 03/30/18 08:19 Dose: 4 mg Pantoprazole Sodium (Protonix Inj) 40 mg IVP DAILY [facility] Last Admin: 03/30/18 08:20 Dose: 40 mg Sertraline HCl (Zoloft) 50 mg PO DAILY [facility] Last Admin: 03/30/18 08:21 Dose: 50 mg Vitamin B Complex/Vit C/Folic Acid (Nephro-Nella) 1 tab PO 0800 [facility] Last Admin: 03/30/18 08:21 Dose: 1 tab Physical Exam - Constitutional Appears: Well, Non-toxic, No Acute Distress - Head Exam Head Exam: ATRAUMATIC, NORMAL INSPECTION - Eye Exam Eye Exam: EOMI. absent: Conjunctival injection, Scleral icterus - ENT Exam ENT Exam: Mucous Membranes Dry, Normal External Ear Exam. absent: Mucous Membranes Moist - Respiratory Exam Respiratory Exam: Clear to Auscultation Bilateral, NORMAL BREATHING PATTERN. absent: Accessory Muscle Use, Wheezes - Cardiovascular Exam Cardiovascular Exam: REGULAR RHYTHM, RRR - GI/Abdominal Exam GI & Abdominal Exam: Normal Bowel Sounds, Soft, Tenderness (in epigastrum w/o guarding). absent: Bruit, Diminished Bowel Sounds, Distended, Firm, Guarding, Hernia, Hyperactive Bowel Sounds, Hypoactive Bowel Sounds, Mass, Organomegaly, Pulsatile Mass, Rebound, Rigid Additional comments: obese abdomen limiting exam - Rectal Exam Rectal Exam: Deferred - Extremities Exam Additional comments: L JAHA - Neurological Exam Neurological exam: Alert, CN II-XII Intact - Psychiatric Exam Psychiatric exam: Agitated, Anxious - Skin Skin Exam: Normal Color, Warm Results - Vital Signs Recent Vital Signs: Last Vital Signs Temp 98.3 F 03/31/18 08:13 Pulse 74 03/31/18 08:13 Resp 18 03/31/18 08:13 BP 123/71 03/31/18 08:13 Pulse Ox 99 03/31/18 08:13 - Labs Result Diagrams: 03/30/18 17:14 03/30/18 17:14 Labs: Laboratory Results - last 24 hr 03/30/18 03/30/18 03/30/18 12:18 16:35 17:14 WBC RBC Hgb Hct MCV MCH MCHC RDW Plt Count Sodium 140 Potassium 5.2 H Chloride 113 H Carbon Dioxide 22 Anion Gap 10 BUN 35 H Creatinine 4.0 H Est GFR ( Amer) 15 Est GFR (Non-Af Amer) 13 POC Glucose (mg/dL) 115 H 105 Random Glucose 104 Calcium 9.1 Total Bilirubin 0.5 AST 17 ALT 18 Alkaline Phosphatase 94 Total Protein 7.7 Albumin 3.3 L Globulin 4.4 H Albumin/Globulin Ratio 0.7 L Lipase 129 03/30/18 03/30/18 03/31/18 17:14 21:52 05:27 WBC 11.1 H RBC 3.74 L Hgb 10.8 L Hct 33.6 L MCV 89.8 MCH 29.0 MCHC 32.3 L RDW 15.1 H Plt Count 295 Sodium Potassium Chloride Carbon Dioxide Anion Gap BUN Creatinine Est GFR ( Amer) Est GFR (Non-Af Amer) POC Glucose (mg/dL) 96 87 Random Glucose Calcium Total Bilirubin AST ALT Alkaline Phosphatase Total Protein Albumin Globulin Albumin/Globulin Ratio Lipase 03/31/18 11:27 WBC RBC Hgb Hct MCV MCH MCHC RDW Plt Count Sodium Potassium Chloride Carbon Dioxide Anion Gap BUN Creatinine Est GFR ( Amer) Est GFR (Non-Af Amer) POC Glucose (mg/dL) 90 Random Glucose Calcium Total Bilirubin AST ALT Alkaline Phosphatase Total Protein Albumin Globulin Albumin/Globulin Ratio Lipase Assessment & Plan - Assessment and Plan (Free Text) Assessment: 37 yo transgender black female admitted for abd pain and diarrhea. # Abd pain: Likely related to resolving pancreatitis (had typical symptoms with CT findings, 2/3, lipase not 3xULN). Improving. Unclear etiology at pt does not drink EtOH and no stones seen on CT. Perhaps related to HAART meds? Will plan to further investigate for stone with US. # Diarrhea: Chronic, pt reports symptoms for 6 weeks to year. Sound Osmotic in nature given worse with PO intake and no symptoms after ceasing PO intake. Also at risk for many infectious causes given HIV. Plan: - Check RUQ US - Broad infectious w/u Cdiff, Stool Cx, O&P, Crypto, Cyclo and Giardia - Clears for now - Will benefit from EGD and Colonoscopy - Will make NPO at MT in case EGD can be done tomorrow - Agree with holding antibiotics for now Pt seen and examined with Dr. Kebede <Kashif Kebede - Last Filed: 03/31/18 12:07> Meds - Medications Medications: Current Medications Abacavir Sulfate (Ziagen) 300 mg PO BID [facility] PRN Reason: Protocol Last Admin: 03/30/18 17:41 Dose: Not Given Amlodipine Besylate (Norvasc) 10 mg PO DAILY [facility] Last Admin: 03/30/18 08:21 Dose: 10 mg Amylase (Pancrease [id number] U-5000 U-[id number] U) 30,000 unit PO TIDWM [facility] Last Admin: 03/30/18 17:40 Dose: Not Given Dolutegravir Sodium (Tivicay) 50 mg PO DAILY [facility] PRN Reason: Protocol Last Admin: 03/30/18 08:20 Dose: 50 mg Ergocalciferol (Drisdol 50,000 Intl Units Cap) 50,000 cap PO QWK [facility] Hydralazine HCl (Apresoline) 100 mg PO Q8 PRN PRN Reason: Systolic Blood Pressure Iron Sucrose 200 mg/ Sodium (Chloride) 110 mls @ 110 mls/hr IVPB MWF [facility] Stop: 04/08/18 09:59 Last Admin: 03/29/18 10:39 Dose: 110 mls/hr Insulin Human Regular (Humulin R) 0 units SC ACCU-CHECK [facility] PRN Reason: Protocol Last Admin: 03/30/18 22:53 Dose: Not Given Labetalol HCl (Trandate) 20 mg IVP Q8 PRN PRN Reason: Systolic Blood Pressure Last Admin: 03/27/18 15:35 Dose: 20 mg Labetalol HCl (Trandate) 200 mg PO BID [facility] Last Admin: 03/30/18 17:41 Dose: Not Given Lamivudine (Epivir) 50 mg PO Q24H [facility] PRN Reason: Protocol Morphine Sulfate (Morphine) 1 mg IVP Q4 PRN PRN Reason: Pain, severe (8-10) Last Admin: 03/31/18 06:17 Dose: 1 mg Ondansetron HCl (Zofran Inj) 4 mg IVP Q6 PRN PRN Reason: Nausea/Vomiting Last Admin: 03/30/18 08:19 Dose: 4 mg Pantoprazole Sodium (Protonix Inj) 40 mg IVP DAILY [facility] Last Admin: 03/30/18 08:20 Dose: 40 mg Sertraline HCl (Zoloft) 50 mg PO DAILY [facility] Last Admin: 03/30/18 08:21 Dose: 50 mg Vitamin B Complex/Vit C/Folic Acid (Nephro-Nella) 1 tab PO 0800 [facility] Last Admin: 03/30/18 08:21 Dose: 1 tab Results - Vital Signs Recent Vital Signs: Last Vital Signs Temp 98.3 F 03/31/18 08:13 Pulse 74 03/31/18 08:13 Resp 18 03/31/18 08:13 BP 123/71 03/31/18 08:13 Pulse Ox 99 03/31/18 08:13 - Labs Result Diagrams: 03/30/18 17:14 03/30/18 17:14 Labs: Laboratory Results - last 24 hr 03/30/18 03/30/18 03/30/18 12:18 16:35 17:14 WBC RBC Hgb Hct MCV MCH MCHC RDW Plt Count Sodium 140 Potassium 5.2 H Chloride 113 H Carbon Dioxide 22 Anion Gap 10 BUN 35 H Creatinine 4.0 H Est GFR ( Amer) 15 Est GFR (Non-Af Amer) 13 POC Glucose (mg/dL) 115 H 105 Random Glucose 104 Calcium 9.1 Total Bilirubin 0.5 AST 17 ALT 18 Alkaline Phosphatase 94 Total Protein 7.7 Albumin 3.3 L Globulin 4.4 H Albumin/Globulin Ratio 0.7 L Lipase 129 03/30/18 03/30/18 03/31/18 17:14 21:52 05:27 WBC 11.1 H RBC 3.74 L Hgb 10.8 L Hct 33.6 L MCV 89.8 MCH 29.0 MCHC 32.3 L RDW 15.1 H Plt Count 295 Sodium Potassium Chloride Carbon Dioxide Anion Gap BUN Creatinine Est GFR ( Amer) Est GFR (Non-Af Amer) POC Glucose (mg/dL) 96 87 Random Glucose Calcium Total Bilirubin AST ALT Alkaline Phosphatase Total Protein Albumin Globulin Albumin/Globulin Ratio Lipase 03/31/18 11:27 WBC RBC Hgb Hct MCV MCH MCHC RDW Plt Count Sodium Potassium Chloride Carbon Dioxide Anion Gap BUN Creatinine Est GFR ( Amer) Est GFR (Non-Af Amer) POC Glucose (mg/dL) 90 Random Glucose Calcium Total Bilirubin AST ALT Alkaline Phosphatase Total Protein Albumin Globulin Albumin/Globulin Ratio Lipase Attending/Attestation - Attestation I have personally seen and examined this patient.: Yes I have fully participated in the care of the patient.: Yes I have reviewed all pertinent clinical information: Yes Notes (Text): 03/31/18 12:00 I have seen and examined patient with GI fellow. Agree with above documentation with the following additions. In brief, this is a 37 year old female with history of HIV on HAART, DM, CKD, DVT, HTN who initially presented to hospital with complaint of abdominal pain and diarrhea 5 days ago. She was diagnosed with acute pancreatitis and was treated supportively. GI called for ongoing abdominal pain with diarrhea she describes as loose and watery which is worse following meal consumption. She describes epigastric pain that is 6/10 intensity, radiates to left side and worse after meals. She has had several hospital admissions to [facility] for similar complaints. She says symptoms have been present for the past one year but gotten worse over the past one month. She denies nausea, vomiting, fever/chills, or rectal bleeding. She does endorse a 10 pound weight loss over the past few months. No prior endoscopic evaluation. HIV on HAART DM CKD DVT HTN Abdominal pain, diarrhea, weight loss Acute pancreatitis - etiology unclear (possibly HIV medication induced), symptoms resolved - Liquid diet as tolerated - Await results from stool studies, would add cryptosporum, cyclospora, giardia given underlying HIV - Obtain abdominal US to rule out cholelithiasis - Patient would benefit from EGD/colonoscopy for further evaluation given chronic symptoms along with unintentional weight loss, to be performed on this hospital admission with Dr. Hdez. Will continue to monitor patient clinical course.
[2018-03-31] MEDS: Multivitamin Vitamin B Complex (Nephro-Vite) Tab PO SCH (13:08)
[2018-03-31] MEDS: Amylase/Lipase/Protease 5,000 Units ECC PO SCH ×3 (13:10→16:30)
[2018-03-31] MEDS: Insulin Regular 100 units/ml SC SCH ×4 (13:11→22:44)
--- NOTE | 2018-03-31 17:53 | US ---
Date of service: 03/31/2018 HISTORY: pancreatitis, eval for stones COMPARISON: Comparison made with CT scan of the abdomen and pelvis dated 08/25/2017 TECHNIQUE: Sonographic evaluation of the abdomen. FINDINGS: LIVER: The liver is enlarged measuring nearly 19 cm in CC dimension. Liver exhibits smooth contour and increased echotexture likely due to fatty infiltration however other infiltrative hepatic cellular disease process not excluded.parenchyma. No mass. No intrahepatic bile duct dilatation. GALLBLADDER: Unremarkable. No gallstones. No pericholecystic fluid collections or sonographic Ceja sign COMMON BILE DUCT: Measures 1.7 mm. No stones. No dilatation. PANCREAS: Unremarkable as visualized. No mass. No ductal dilatation. RIGHT KIDNEY: Measures 12.0 x 4.7 x 6.0cm. Normal echogenicity. No calculus, mass, or hydronephrosis. LEFT KIDNEY: Measures 13.3 x 6.2 x 7.0cm. Normal echogenicity. No calculus, mass, or hydronephrosis. SPLEEN: Normal in size and contour. No mass. AORTA: No aneurysmal dilatation. IVC: Unremarkable. OTHER FINDINGS: None. IMPRESSION: Mild hepatomegaly. Findings suggest mild fatty hepatic infiltration however other infiltrative hepatic cellular disease process not excluded.
--- NOTE | 2018-04-01 09:28 | CP.PCM.PN ---
Subjective - Date & Time of Evaluation Date of Evaluation: 04/01/18 Time of Evaluation: :27 - Subjective Subjective: patient in bed Appeared to be comfortable no nausea no vomiting And the patient does not want to be bothered with questions Objective - Vital Signs/Intake and Output Vital Signs (last 24 hours): Temp Pulse Resp BP Pulse Ox 97.9 F 76 18 145/89 100 04/01/18 07:59 04/01/18 07:59 04/01/18 07:59 04/01/18 07:59 04/01/18 07:59 - Medications Medications: Current Medications Abacavir Sulfate (Ziagen) 300 mg PO BID [facility] PRN Reason: Protocol Last Admin: 03/31/18 13:09 Dose: 300 mg Amlodipine Besylate (Norvasc) 10 mg PO DAILY [facility] Last Admin: 03/31/18 13:08 Dose: 10 mg Amylase (Pancrease 57931 U-5000 U-[id number] U) 30,000 unit PO TIDWM [facility] Last Admin: 03/31/18 16:30 Dose: Not Given Bisacodyl (Dulcolax) 10 mg PO ONCE ONE Stop: 04/01/18 14:01 Dolutegravir Sodium (Tivicay) 50 mg PO DAILY [facility] PRN Reason: Protocol Last Admin: 03/31/18 13:09 Dose: 50 mg Ergocalciferol (Drisdol 50,000 Intl Units Cap) 50,000 cap PO QWK [facility] Hydralazine HCl (Apresoline) 100 mg PO Q8 PRN PRN Reason: Systolic Blood Pressure Iron Sucrose 200 mg/ Sodium (Chloride) 110 mls @ 110 mls/hr IVPB MWF [facility] Stop: 04/08/18 09:59 Last Admin: 03/29/18 10:39 Dose: 110 mls/hr Insulin Human Regular (Humulin R) 0 units SC ACCU-CHECK [facility] PRN Reason: Protocol Last Admin: 03/31/18 22:44 Dose: Not Given Labetalol HCl (Trandate) 20 mg IVP Q8 PRN PRN Reason: Systolic Blood Pressure Last Admin: 03/27/18 15:35 Dose: 20 mg Labetalol HCl (Trandate) 200 mg PO BID [facility] Last Admin: 03/31/18 16:31 Dose: Not Given Ondansetron HCl (Zofran Inj) 4 mg IVP Q6 PRN PRN Reason: Nausea/Vomiting Last Admin: 04/01/18 06:40 Dose: 4 mg Pantoprazole Sodium (Protonix Inj) 40 mg IVP DAILY [facility] Last Admin: 03/31/18 13:09 Dose: 40 mg Polyethylene Glycol/Electrolytes (Golytely) 4,000 ml PO ONCE ONE Stop: 04/01/18 16:01 Sertraline HCl (Zoloft) 50 mg PO DAILY [facility] Last Admin: 03/31/18 13:09 Dose: 50 mg Vitamin B Complex/Vit C/Folic Acid (Nephro-Nella) 1 tab PO 0800 [facility] Last Admin: 03/31/18 13:08 Dose: 1 tab - Labs Labs: 03/30/18 17:14 03/30/18 17:14 PT 11.0 Seconds (9.8-13.1) 03/26/18 11:30 INR 1.0 03/26/18 11:30 APTT 25.8 Seconds (25.6-37.1) 03/26/18 11:30 - Constitutional Appears: No Acute Distress - ENT Exam ENT Exam: Mucous Membranes Moist - Neck Exam Neck Exam: absent: Lymphadenopathy - Respiratory Exam Respiratory Exam: NORMAL BREATHING PATTERN. absent: Chest Wall Tenderness - GI/Abdominal Exam GI & Abdominal Exam: Soft, Normal Bowel Sounds - Extremities Exam Extremities Exam: absent: Calf Tenderness - Back Exam Back Exam: absent: CVA tenderness (L), CVA tenderness (R) - Neurological Exam Neurological Exam: Alert - Psychiatric Exam Psychiatric exam: Normal Affect - Skin Skin Exam: absent: Cyanosis Assessment and Plan (1) Acute pancreatitis Status: Acute (2) HIV positive, asymptomatic Status: Acute - Assessment and Plan (Free Text) Assessment: acute pancreatitis Diabetic chronic Kidney Disease (E11.22) Hypertensive Chronic Kidney Disease (I12.9) Chronic Kidney Disease (N18.5) Stage 5 with 1 gm proteinuria (R80.9) likely due to DM/HTN Anemia (D64.9), Hyperphosphatemia (E83.39), Secondary Hyperparathyroidism (E21.1 ), HTN (I12.9) HIV on HAART, hx of left BKA Plan No acute need for renal replacement therapy at this time. Hypertension control with meds as ordered. Maintain hemodynamics stable. Avoid hypotension. Patient not on ACEI/ARB due to advanced CKD. Monitor Input/Output, daily weights and renal function with basic metabolic panel last PTH 116 hence held calcitriol. phos 3.2 controlled started Iv iron, nephrovite. deferred use of KODAK due to ISIAH + and [place]/lambda elevation. consider heme eval save non-dominant arm from IV line and phlebotomy for future AV access Dose meds/antibiotics for reduced GFR. Avoid fleets enema/magnesium based laxatives. Avoid nephrotoxins/NSAIDs/ iodinated contrast (unless needed emergently) Glycemic control Further work up for as per primary team
[2018-04-01] MEDS: Insulin Regular 100 units/ml SC SCH ×4 (09:30→22:19)
--- NOTE | 2018-04-01 10:06 | CP.PCM.PN ---
<Ryne Esquivel - Last Filed: 04/01/18 10:07> Subjective - Date & Time of Evaluation Date of Evaluation: 04/01/18 Time of Evaluation: 08:00 - Subjective Subjective: PGY 5 GI Follow-up Pt seen and examined bedside denies any abd pain tolerating diet +BM ROS: 12 point ROS conducted, neg other than above Objective - Vital Signs/Intake and Output Vital Signs (last 24 hours): Temp Pulse Resp BP Pulse Ox 97.9 F 76 18 145/89 100 04/01/18 07:59 04/01/18 07:59 04/01/18 07:59 04/01/18 07:59 04/01/18 07:59 - Medications Medications: Current Medications Abacavir Sulfate (Ziagen) 300 mg PO BID [facility] PRN Reason: Protocol Last Admin: 03/31/18 13:09 Dose: 300 mg Amlodipine Besylate (Norvasc) 10 mg PO DAILY [facility] Last Admin: 03/31/18 13:08 Dose: 10 mg Amylase (Pancrease 78231 U-5000 U-98601 U) 30,000 unit PO TIDWM [facility] Last Admin: 03/31/18 16:30 Dose: Not Given Bisacodyl (Dulcolax) 10 mg PO ONCE ONE Stop: 04/01/18 14:01 Dolutegravir Sodium (Tivicay) 50 mg PO DAILY [facility] PRN Reason: Protocol Last Admin: 03/31/18 13:09 Dose: 50 mg Ergocalciferol (Drisdol 50,000 Intl Units Cap) 50,000 cap PO QWK [facility] Hydralazine HCl (Apresoline) 100 mg PO Q8 PRN PRN Reason: Systolic Blood Pressure Iron Sucrose 200 mg/ Sodium (Chloride) 110 mls @ 110 mls/hr IVPB MWF [facility] Stop: 04/08/18 09:59 Last Admin: 03/29/18 10:39 Dose: 110 mls/hr Insulin Human Regular (Humulin R) 0 units SC ACCU-CHECK [facility] PRN Reason: Protocol Last Admin: 04/01/18 09:30 Dose: Not Given Labetalol HCl (Trandate) 20 mg IVP Q8 PRN PRN Reason: Systolic Blood Pressure Last Admin: 03/27/18 15:35 Dose: 20 mg Labetalol HCl (Trandate) 200 mg PO BID [facility] Last Admin: 03/31/18 16:31 Dose: Not Given Ondansetron HCl (Zofran Inj) 4 mg IVP Q6 PRN PRN Reason: Nausea/Vomiting Last Admin: 04/01/18 06:40 Dose: 4 mg Pantoprazole Sodium (Protonix Inj) 40 mg IVP DAILY [facility] Last Admin: 03/31/18 13:09 Dose: 40 mg Polyethylene Glycol/Electrolytes (Golytely) 4,000 ml PO ONCE ONE Stop: 04/01/18 16:01 Sertraline HCl (Zoloft) 50 mg PO DAILY [facility] Last Admin: 03/31/18 13:09 Dose: 50 mg Vitamin B Complex/Vit C/Folic Acid (Nephro-Nella) 1 tab PO 0800 [facility] Last Admin: 03/31/18 13:08 Dose: 1 tab - Labs Labs: 03/30/18 17:14 03/30/18 17:14 PT 11.0 Seconds (9.8-13.1) 03/26/18 11:30 INR 1.0 03/26/18 11:30 APTT 25.8 Seconds (25.6-37.1) 03/26/18 11:30 - Constitutional Appears: Well, No Acute Distress - Head Exam Head Exam: ATRAUMATIC, NORMOCEPHALIC - Eye Exam Eye Exam: Normal appearance - ENT Exam ENT Exam: Mucous Membranes Moist, Normal Exam - Neck Exam Neck Exam: Normal Inspection - Respiratory Exam Respiratory Exam: Clear to Ausculation Bilateral, NORMAL BREATHING PATTERN. absent: Prolonged Expiratory Phase, Rhonchi, Wheezes, Respiratory Distress - Cardiovascular Exam Cardiovascular Exam: REGULAR RHYTHM, +S1, +S2 - GI/Abdominal Exam GI & Abdominal Exam: Soft, Normal Bowel Sounds. absent: Distended, Firm, Guarding, Rigid, Tenderness, Organomegaly, Rebound - Extremities Exam Extremities Exam: absent: Joint Swelling, Pedal Edema - Neurological Exam Neurological Exam: Alert, Awake, Oriented x3 - Psychiatric Exam Psychiatric exam: Normal Affect, Normal Mood - Skin Skin Exam: Dry, Intact, Normal Color, Warm Assessment and Plan - Assessment and Plan (Free Text) Assessment: 37 year old female with history of HIV on HAART, DM, CKD, DVT, HTN who initially presented to hospital with complaint of abdominal pain and diarrhea Acute pancreatitis - etiology unclear (possibly HIV medication induced), symptoms resolved; denies ETOH; U/S neg for GB stones HIV on HAART DM CKD DVT HTN Abdominal pain, diarrhea, weight loss - continue clear Liquid diet - Await results from stool studies, would add cryptosporum, cyclospora, giardia given underlying HIV - U/S neg for GB stones, + fatty infil of the liver - plan for EGD and colonoscopy tomorrow - NPO after midnight - will send for IgG 4 Will D/W Dr. Hdez <Kalin Hdez - Last Filed: 04/02/18 14:01> Objective - Vital Signs/Intake and Output Vital Signs (last 24 hours): Temp Pulse Resp BP Pulse Ox 98.4 F 75 18 157/83 H 100 04/02/18 12:15 04/02/18 12:15 04/02/18 12:15 04/02/18 12:15 04/02/18 12:15 - Medications Medications: Current Medications Abacavir Sulfate (Ziagen) 300 mg PO BID [facility] PRN Reason: Protocol Last Admin: 04/02/18 11:13 Dose: Not Given Amlodipine Besylate (Norvasc) 10 mg PO DAILY [facility] Last Admin: 04/02/18 11:09 Dose: Not Given Amylase (Pancrease 68304 U-5000 U-76639 U) 30,000 unit PO TIDWM [facility] Last Admin: 04/02/18 11:12 Dose: Not Given Dolutegravir Sodium (Tivicay) 50 mg PO DAILY [facility] PRN Reason: Protocol Ergocalciferol (Drisdol 50,000 Intl Units Cap) 50,000 cap PO QWK [facility] Hydralazine HCl (Apresoline) 100 mg PO Q8 PRN PRN Reason: Systolic Blood Pressure Iron Sucrose 200 mg/ Sodium (Chloride) 110 mls @ 110 mls/hr IVPB MWF [facility] Stop: 04/08/18 09:59 Last Admin: 04/01/18 12:03 Dose: 110 mls/hr Insulin Human Regular (Humulin R) 0 units SC ACCU-CHECK [facility] PRN Reason: Protocol Last Admin: 04/02/18 13:03 Dose: Not Given Labetalol HCl (Trandate) 20 mg IVP Q8 PRN PRN Reason: Systolic Blood Pressure Last Admin: 03/27/18 15:35 Dose: 20 mg Labetalol HCl (Trandate) 200 mg PO BID [facility] Last Admin: 04/02/18 11:13 Dose: Not Given Morphine Sulfate (Morphine) 1 mg IVP Q4 PRN PRN Reason: Pain, severe (8-10) Last Admin: 04/02/18 12:58 Dose: 1 mg Ondansetron HCl (Zofran Inj) 4 mg IVP Q6 PRN PRN Reason: Nausea/Vomiting Last Admin: 04/01/18 06:40 Dose: 4 mg Pantoprazole Sodium (Protonix Inj) 40 mg IVP DAILY [facility] Last Admin: 04/02/18 11:19 Dose: 40 mg Sertraline HCl (Zoloft) 50 mg PO DAILY [facility] Last Admin: 04/02/18 11:12 Dose: Not Given Vitamin B Complex/Vit C/Folic Acid (Nephro-Nella) 1 tab PO 0800 [facility] Last Admin: 04/02/18 11:09 Dose: Not Given - Labs Labs: 03/30/18 17:14 04/02/18 04:20 PT 11.0 Seconds (9.8-13.1) 03/26/18 11:30 INR 1.0 03/26/18 11:30 APTT 25.8 Seconds (25.6-37.1) 03/26/18 11:30 Attending/Attestation - Attestation I have personally seen and examined this patient.: Yes I have fully participated in the care of the patient.: Yes I have reviewed all pertinent clinical information, including history, physical exam and plan: Yes Notes (Text): 04/02/18 14:01 This is a 37 year old female with history of HIV on HAART, DM, CKD, DVT, HTN who initially presented to hospital with complaint of abdominal pain and diarrhea 5 days ago. She was diagnosed with acute pancreatitis and was treated supportively. GI called for ongoing abdominal pain with diarrhea she describes as loose and watery which is worse following meal consumption. She does endorse a 10 pound weight loss over the past few months. No prior endoscopic evaluation. Clear liquid diet. NPo past midnight. Schedule EGD/ colonoscopy
[2018-04-01] MEDS: Multivitamin Vitamin B Complex (Nephro-Vite) Tab PO SCH (12:03)
[2018-04-01] MEDS: Amylase/Lipase/Protease 5,000 Units ECC PO SCH ×3 (12:04→19:21)
[2018-04-01] MEDS ORDERED: Bisacodyl 5mg EC Tab PO ONE (14:00)
[2018-04-01] MEDS ORDERED: Peg-Electrolyte Oral Soln 4L (Golytely) PO ONE (16:00)
[2018-04-02 06:14] LABS: ALB/GLOB RATIO 0.7 (1.0-2.1); ALBUMIN 3.2 g/dL (3.5-5.0); CALCIUM 8.9 mg/dL (8.4-10.2)
[2018-04-02] MEDS: Insulin Regular 100 units/ml SC SCH ×4 (11:08→22:15)
[2018-04-02] MEDS: Multivitamin Vitamin B Complex (Nephro-Vite) Tab PO SCH (11:09)
[2018-04-02] MEDS: Amylase/Lipase/Protease 5,000 Units ECC PO SCH ×3 (11:12→17:21)
--- NOTE | 2018-04-02 11:34 | CP.PCM.PN ---
Subjective - Date & Time of Evaluation Date of Evaluation: 04/02/18 Time of Evaluation: 11:34 - Subjective Subjective: patient reported to be much more comfortable today no vomiting Objective - Vital Signs/Intake and Output Vital Signs (last 24 hours): Temp Pulse Resp BP Pulse Ox 98 F 75 18 134/68 99 04/02/18 08:18 04/02/18 08:18 04/02/18 08:18 04/02/18 08:18 04/02/18 08:18 - Medications Medications: Current Medications Abacavir Sulfate (Ziagen) 300 mg PO BID [facility] PRN Reason: Protocol Last Admin: 04/02/18 11:13 Dose: Not Given Amlodipine Besylate (Norvasc) 10 mg PO DAILY [facility] Last Admin: 04/02/18 11:09 Dose: Not Given Amylase (Pancrease 84180 U-5000 U-78070 U) 30,000 unit PO TIDWM [facility] Last Admin: 04/02/18 11:12 Dose: Not Given Ergocalciferol (Drisdol 50,000 Intl Units Cap) 50,000 cap PO QWK [facility] Hydralazine HCl (Apresoline) 100 mg PO Q8 PRN PRN Reason: Systolic Blood Pressure Iron Sucrose 200 mg/ Sodium (Chloride) 110 mls @ 110 mls/hr IVPB MWF [facility] Stop: 04/08/18 09:59 Last Admin: 04/01/18 12:03 Dose: 110 mls/hr Insulin Human Regular (Humulin R) 0 units SC ACCU-CHECK [facility] PRN Reason: Protocol Last Admin: 04/02/18 11:08 Dose: Not Given Labetalol HCl (Trandate) 20 mg IVP Q8 PRN PRN Reason: Systolic Blood Pressure Last Admin: 03/27/18 15:35 Dose: 20 mg Labetalol HCl (Trandate) 200 mg PO BID [facility] Last Admin: 04/02/18 11:13 Dose: Not Given Morphine Sulfate (Morphine) 1 mg IVP Q4 PRN PRN Reason: Pain, severe (8-10) Last Admin: 04/02/18 07:31 Dose: 1 mg Ondansetron HCl (Zofran Inj) 4 mg IVP Q6 PRN PRN Reason: Nausea/Vomiting Last Admin: 04/01/18 06:40 Dose: 4 mg Pantoprazole Sodium (Protonix Inj) 40 mg IVP DAILY [facility] Last Admin: 04/02/18 11:19 Dose: 40 mg Sertraline HCl (Zoloft) 50 mg PO DAILY [facility] Last Admin: 04/02/18 11:12 Dose: Not Given Vitamin B Complex/Vit C/Folic Acid (Nephro-Nella) 1 tab PO 0800 [facility] Last Admin: 04/02/18 11:09 Dose: Not Given - Labs Labs: 03/30/18 17:14 04/02/18 04:20 PT 11.0 Seconds (9.8-13.1) 03/26/18 11:30 INR 1.0 03/26/18 11:30 APTT 25.8 Seconds (25.6-37.1) 03/26/18 11:30 - Constitutional Appears: No Acute Distress - Eye Exam Eye Exam: Conjunctival injection - ENT Exam ENT Exam: Mucous Membranes Moist - Neck Exam Neck Exam: absent: Lymphadenopathy - Respiratory Exam Respiratory Exam: absent: Chest Wall Tenderness - Cardiovascular Exam Cardiovascular Exam: absent: Gallop, JVD, Rubs - GI/Abdominal Exam GI & Abdominal Exam: Soft, Normal Bowel Sounds - Back Exam Back Exam: absent: CVA tenderness (L), CVA tenderness (R) - Neurological Exam Neurological Exam: Alert - Psychiatric Exam Psychiatric exam: Normal Affect - Skin Skin Exam: absent: Cyanosis Assessment and Plan (1) Acute pancreatitis Assessment & Plan: acute pancreatitis Diabetic chronic Kidney Disease (E11.22) Hypertensive Chronic Kidney Disease (I12.9) Chronic Kidney Disease (N18.5) Stage 5 with 1 gm proteinuria (R80.9) likely due to DM/HTN Anemia (D64.9), Hyperphosphatemia (E83.39), Secondary Hyperparathyroidism (E21.1 ), HTN (I12.9) HIV on HAART, hx of left BKA possibly acute kidney injury superimposed on chronic kidney disease stag 4? the plan Kidney function improving Acute pancreatitis appears to be subsiding and improving continue as per primary team management for acute pancreatitis Status: Acute (2) HIV positive, asymptomatic Status: Acute
[2018-04-02 12:23] LABS: ALBUMIN (PEP) 2.8 g/dL (3.8-4.8); ALPHA-1-GLOBULIN (PEP) 0.3 g/dL (0.2-0.3)
[2018-04-02] MEDS ORDERED: Lactated Ringer's 500 ML IV ONE (14:49)
[2018-04-02] MEDS ORDERED: Midazolam 2 MG/2 ML VIAL ONE (15:39)
[2018-04-02] MEDS ORDERED: Propofol 10 mg/ml Inj (20 ML) ONE (15:39)
--- NOTE | 2018-04-02 17:53 | CP.PCM.PN ---
Subjective - Date & Time of Evaluation Date of Evaluation: 04/02/18 Time of Evaluation: 15:00 - Subjective Subjective: Patient was seen in endoscopy for EGD/ colonoscopy. Please see full report in chart. No mucosal lesions found. Biopsies taken from antrum and duodenum and colon Objective - Vital Signs/Intake and Output Vital Signs (last 24 hours): Temp Pulse Resp BP Pulse Ox 97.9 F 73 20 141/92 H 100 04/02/18 17:30 04/02/18 17:30 04/02/18 17:30 04/02/18 17:30 04/02/18 17:30 Intake and Output: 04/02/18 04/02/18 06:59 18:59 Intake Total 100 Balance 100 - Medications Medications: Current Medications Abacavir Sulfate (Ziagen) 300 mg PO BID [facility] PRN Reason: Protocol Last Admin: 04/02/18 17:23 Dose: 300 mg Amlodipine Besylate (Norvasc) 10 mg PO DAILY [facility] Last Admin: 04/02/18 11:09 Dose: Not Given Amylase (Pancrease 84720 U-5000 U-32744 U) 30,000 unit PO TIDWM [facility] Last Admin: 04/02/18 17:21 Dose: 30,000 unit Dolutegravir Sodium (Tivicay) 50 mg PO DAILY [facility] PRN Reason: Protocol Last Admin: 04/02/18 17:22 Dose: 50 mg Ergocalciferol (Drisdol 50,000 Intl Units Cap) 50,000 cap PO QWK [facility] Hydralazine HCl (Apresoline) 100 mg PO Q8 PRN PRN Reason: Systolic Blood Pressure Iron Sucrose 200 mg/ Sodium (Chloride) 110 mls @ 110 mls/hr IVPB MWF [facility] Stop: 04/08/18 09:59 Last Admin: 04/01/18 12:03 Dose: 110 mls/hr Insulin Human Regular (Humulin R) 0 units SC ACCU-CHECK [facility] PRN Reason: Protocol Last Admin: 04/02/18 17:19 Dose: Not Given Labetalol HCl (Trandate) 20 mg IVP Q8 PRN PRN Reason: Systolic Blood Pressure Last Admin: 03/27/18 15:35 Dose: 20 mg Labetalol HCl (Trandate) 200 mg PO BID [facility] Last Admin: 08/28/18 17:25 Dose: 200 mg Morphine Sulfate (Morphine) 1 mg IVP Q4 PRN PRN Reason: Pain, severe (8-10) Last Admin: 04/02/18 17:39 Dose: 1 mg Ondansetron HCl (Zofran Inj) 4 mg IVP Q6 PRN PRN Reason: Nausea/Vomiting Last Admin: 04/01/18 06:40 Dose: 4 mg Pantoprazole Sodium (Protonix Inj) 40 mg IVP DAILY [facility] Last Admin: 04/02/18 11:19 Dose: 40 mg Sertraline HCl (Zoloft) 50 mg PO DAILY [facility] Last Admin: 04/02/18 11:12 Dose: Not Given Vitamin B Complex/Vit C/Folic Acid (Nephro-Nella) 1 tab PO 0800 [facility] Last Admin: 04/02/18 11:09 Dose: Not Given - Labs Labs: 03/30/18 17:14 04/02/18 04:20 PT 11.0 Seconds (9.8-13.1) 03/26/18 11:30 INR 1.0 03/26/18 11:30 APTT 25.8 Seconds (25.6-37.1) 03/26/18 11:30 - Constitutional Appears: Well, Non-toxic, No Acute Distress - Head Exam Head Exam: ATRAUMATIC, NORMAL INSPECTION, NORMOCEPHALIC - Respiratory Exam Respiratory Exam: Clear to Ausculation Bilateral, NORMAL BREATHING PATTERN - Cardiovascular Exam Cardiovascular Exam: REGULAR RHYTHM, +S1, +S2. absent: Murmur - GI/Abdominal Exam GI & Abdominal Exam: Soft, Normal Bowel Sounds. absent: Tenderness - Rectal Exam Rectal Exam: NORMAL INSPECTION Additional comments: brown stool - Neurological Exam Neurological Exam: Alert, Awake, Oriented x3 - Psychiatric Exam Psychiatric exam: Normal Mood - Skin Skin Exam: Intact, Warm Assessment and Plan - Assessment and Plan (Free Text) Assessment: This is a 37 year old female with history of HIV on HAART, DM, CKD, DVT, HTN who initially presented to hospital with complaint of abdominal pain and diarrhea 5 days ago. She was diagnosed with acute pancreatitis and was treated supportively. GI called for ongoing abdominal pain with diarrhea she describes as loose and watery which is worse following meal consumption. s/p EGD and colonoscopy without any mucosal defects. Random biopsies taken Plan: - Diet as tolerated - Await results from biospies - Antibioitcs as per ID - Follow as outpatient - Thank you for letting us participate in the care of this patient
--- NOTE | 2018-04-02 19:56 | CP.PCM.PN ---
Subjective - Date & Time of Evaluation Date of Evaluation: 04/01/18 Time of Evaluation: 19:00 - Subjective Subjective: Has diarrhea. Objective - Vital Signs/Intake and Output Vital Signs (last 24 hours): Temp Pulse Resp BP Pulse Ox 97.9 F 73 20 141/92 H 100 04/02/18 17:30 04/02/18 17:30 04/02/18 17:30 04/02/18 17:30 04/02/18 17:30 Intake and Output: 04/02/18 04/03/18 18:59 06:59 Intake Total 150 Balance 150 - Medications Medications: Current Medications Abacavir Sulfate (Ziagen) 300 mg PO BID [facility] PRN Reason: Protocol Last Admin: 04/02/18 17:23 Dose: 300 mg Amlodipine Besylate (Norvasc) 10 mg PO DAILY [facility] Last Admin: 04/02/18 11:09 Dose: Not Given Amylase (Pancrease 09494 U-5000 U-88749 U) 30,000 unit PO TIDWM [facility] Last Admin: 04/02/18 17:21 Dose: 30,000 unit Dolutegravir Sodium (Tivicay) 50 mg PO DAILY [facility] PRN Reason: Protocol Last Admin: 04/02/18 17:22 Dose: 50 mg Ergocalciferol (Drisdol 50,000 Intl Units Cap) 50,000 cap PO QWK [facility] Hydralazine HCl (Apresoline) 100 mg PO Q8 PRN PRN Reason: Systolic Blood Pressure Iron Sucrose 200 mg/ Sodium (Chloride) 110 mls @ 110 mls/hr IVPB MWF [facility] Stop: 04/08/18 09:59 Last Admin: 04/01/18 12:03 Dose: 110 mls/hr Insulin Human Regular (Humulin R) 0 units SC ACCU-CHECK [facility] PRN Reason: Protocol Last Admin: 04/02/18 17:19 Dose: Not Given Labetalol HCl (Trandate) 20 mg IVP Q8 PRN PRN Reason: Systolic Blood Pressure Last Admin: 03/27/18 15:35 Dose: 20 mg Labetalol HCl (Trandate) 200 mg PO BID [facility] Last Admin: 04/02/18 17:25 Dose: 200 mg Morphine Sulfate (Morphine) 1 mg IVP Q4 PRN PRN Reason: Pain, severe (8-10) Last Admin: 04/02/18 17:39 Dose: 1 mg Ondansetron HCl (Zofran Inj) 4 mg IVP Q6 PRN PRN Reason: Nausea/Vomiting Last Admin: 04/01/18 06:40 Dose: 4 mg Pantoprazole Sodium (Protonix Inj) 40 mg IVP DAILY [facility] Last Admin: 04/02/18 11:19 Dose: 40 mg Sertraline HCl (Zoloft) 50 mg PO DAILY [facility] Last Admin: 04/02/18 11:12 Dose: Not Given Vitamin B Complex/Vit C/Folic Acid (Nephro-Nella) 1 tab PO 0800 [facility] Last Admin: 04/02/18 11:09 Dose: Not Given - Labs Labs: 03/30/18 17:14 04/02/18 04:20 PT 11.0 Seconds (9.8-13.1) 03/26/18 11:30 INR 1.0 03/26/18 11:30 APTT 25.8 Seconds (25.6-37.1) 03/26/18 11:30 - Head Exam Head Exam: ATRAUMATIC - Eye Exam Eye Exam: Normal appearance - ENT Exam ENT Exam: Mucous Membranes Dry - Respiratory Exam Respiratory Exam: NORMAL BREATHING PATTERN - Cardiovascular Exam Cardiovascular Exam: +S1, +S2 - GI/Abdominal Exam GI & Abdominal Exam: Normal Bowel Sounds Assessment and Plan (1) Anemia Assessment & Plan: element of HIV and CKD improved from prior Status: Acute (2) Monoclonal gammopathy Assessment & Plan: repeat serum immunofixation, SPEP, free light chain assay Status: Acute
--- NOTE | 2018-04-02 19:58 | CP.PCM.PN ---
Subjective - Date & Time of Evaluation Date of Evaluation: 04/02/18 Time of Evaluation: 19:00 - Subjective Subjective: s/p EGD and colonoscopy Objective - Vital Signs/Intake and Output Vital Signs (last 24 hours): Temp Pulse Resp BP Pulse Ox 97.9 F 73 20 141/92 H 100 04/02/18 17:30 04/02/18 17:30 04/02/18 17:30 04/02/18 17:30 04/02/18 17:30 Intake and Output: 04/02/18 04/03/18 18:59 06:59 Intake Total 150 Balance 150 - Medications Medications: Current Medications Abacavir Sulfate (Ziagen) 300 mg PO BID [facility] PRN Reason: Protocol Last Admin: 04/02/18 17:23 Dose: 300 mg Amlodipine Besylate (Norvasc) 10 mg PO DAILY [facility] Last Admin: 04/02/18 11:09 Dose: Not Given Amylase (Pancrease 70392 U-5000 [id number] U) 30,000 unit PO TIDWM [facility] Last Admin: 04/02/18 17:21 Dose: 30,000 unit Dolutegravir Sodium (Tivicay) 50 mg PO DAILY [facility] PRN Reason: Protocol Last Admin: 04/02/18 17:22 Dose: 50 mg Ergocalciferol (Drisdol 50,000 Intl Units Cap) 50,000 cap PO QWK [facility] Hydralazine HCl (Apresoline) 100 mg PO Q8 PRN PRN Reason: Systolic Blood Pressure Iron Sucrose 200 mg/ Sodium (Chloride) 110 mls @ 110 mls/hr IVPB MWF [facility] Stop: 04/08/18 09:59 Last Admin: 04/01/18 12:03 Dose: 110 mls/hr Insulin Human Regular (Humulin R) 0 units SC ACCU-CHECK [facility] PRN Reason: Protocol Last Admin: 04/02/18 17:19 Dose: Not Given Labetalol HCl (Trandate) 20 mg IVP Q8 PRN PRN Reason: Systolic Blood Pressure Last Admin: 03/27/18 15:35 Dose: 20 mg Labetalol HCl (Trandate) 200 mg PO BID [facility] Last Admin: 04/02/18 17:25 Dose: 200 mg Morphine Sulfate (Morphine) 1 mg IVP Q4 PRN PRN Reason: Pain, severe (8-10) Last Admin: 04/02/18 17:39 Dose: 1 mg Ondansetron HCl (Zofran Inj) 4 mg IVP Q6 PRN PRN Reason: Nausea/Vomiting Last Admin: 04/01/18 06:40 Dose: 4 mg Pantoprazole Sodium (Protonix Inj) 40 mg IVP DAILY [facility] Last Admin: 04/02/18 11:19 Dose: 40 mg Sertraline HCl (Zoloft) 50 mg PO DAILY [facility] Last Admin: 04/02/18 11:12 Dose: Not Given Vitamin B Complex/Vit C/Folic Acid (Nephro-Nella) 1 tab PO 0800 [facility] Last Admin: 04/02/18 11:09 Dose: Not Given - Labs Labs: 03/30/18 17:14 04/02/18 04:20 PT 11.0 Seconds (9.8-13.1) 03/26/18 11:30 INR 1.0 03/26/18 11:30 APTT 25.8 Seconds (25.6-37.1) 03/26/18 11:30 - Head Exam Head Exam: ATRAUMATIC - Eye Exam Eye Exam: Normal appearance - ENT Exam ENT Exam: Mucous Membranes Dry - Respiratory Exam Respiratory Exam: NORMAL BREATHING PATTERN - Cardiovascular Exam Cardiovascular Exam: +S1, +S2 - GI/Abdominal Exam GI & Abdominal Exam: Normal Bowel Sounds Assessment and Plan (1) Anemia Assessment & Plan: element of HIV and CKD improved from prior Status: Acute (2) Monoclonal gammopathy Assessment & Plan: mild elevation of free light chain ratio deferred bone marrow evaluation outpatient f/u Status: Acute
[2018-04-02] MEDS ORDERED: Morphine 5 MG/ML SYRINGE IVP PRN (22:30)
[2018-04-03] MEDS: Morphine 4 MG/ML VIAL IVP PRN ×2 (04:24→09:50)
[2018-04-03 08:30] VITALS: RESP 20
[2018-04-03] MEDS: Insulin Regular 100 units/ml SC SCH ×2 (09:26→13:49)
[2018-04-03] MEDS: Multivitamin Vitamin B Complex (Nephro-Vite) Tab PO SCH (09:33)
[2018-04-03] MEDS: Amylase/Lipase/Protease 5,000 Units ECC PO SCH ×2 (09:34→13:52)
--- NOTE | 2018-04-03 09:53 | CP.PCM.PN ---
Subjective - Date & Time of Evaluation Date of Evaluation: 04/03/18 Time of Evaluation: 09:55 - Subjective Subjective: patient is out of bed sitting on wheelchair Patient does not want to discuss his kidney problem Objective - Vital Signs/Intake and Output Vital Signs (last 24 hours): Temp Pulse Resp BP Pulse Ox 97.7 F 68 20 117/68 95 04/03/18 08:00 04/03/18 08:00 04/03/18 08:00 04/03/18 08:00 04/03/18 08:00 - Medications Medications: Current Medications Abacavir Sulfate (Ziagen) 300 mg PO BID [facility] PRN Reason: Protocol Last Admin: 04/03/18 09:34 Dose: 300 mg Amlodipine Besylate (Norvasc) 10 mg PO DAILY [facility] Last Admin: 04/03/18 09:34 Dose: 10 mg Amylase (Pancrease [id number] U-5000 [id number] U) 30,000 unit PO TIDWM [facility] Last Admin: 04/03/18 09:34 Dose: 30,000 unit Dolutegravir Sodium (Tivicay) 50 mg PO DAILY [facility] PRN Reason: Protocol Last Admin: 04/03/18 09:35 Dose: 50 mg Ergocalciferol (Drisdol 50,000 Intl Units Cap) 50,000 cap PO QWK [facility] Hydralazine HCl (Apresoline) 100 mg PO Q8 PRN PRN Reason: Systolic Blood Pressure Iron Sucrose 200 mg/ Sodium (Chloride) 110 mls @ 110 mls/hr IVPB MWF [facility] Stop: 04/08/18 09:59 Last Admin: 04/03/18 09:35 Dose: 110 mls/hr Insulin Human Regular (Humulin R) 0 units SC ACCU-CHECK [facility] PRN Reason: Protocol Last Admin: 04/03/18 09:26 Dose: Not Given Labetalol HCl (Trandate) 20 mg IVP Q8 PRN PRN Reason: Systolic Blood Pressure Last Admin: 03/27/18 15:35 Dose: 20 mg Labetalol HCl (Trandate) 200 mg PO BID [facility] Last Admin: 04/03/18 09:35 Dose: Not Given Morphine Sulfate (Morphine) 1 mg IVP Q4 PRN PRN Reason: Pain, severe (8-10) Last Admin: 08/29/18 09:50 Dose: 1 mg Ondansetron HCl (Zofran Inj) 4 mg IVP Q6 PRN PRN Reason: Nausea/Vomiting Last Admin: 04/01/18 06:40 Dose: 4 mg Pantoprazole Sodium (Protonix Inj) 40 mg IVP DAILY [facility] Last Admin: 04/03/18 09:34 Dose: 40 mg Sertraline HCl (Zoloft) 50 mg PO DAILY [facility] Last Admin: 04/03/18 09:33 Dose: 50 mg Vitamin B Complex/Vit C/Folic Acid (Nephro-Nella) 1 tab PO 0800 [facility] Last Admin: 04/03/18 09:33 Dose: 1 tab - Labs Labs: 03/30/18 17:14 04/02/18 04:20 PT 11.0 Seconds (9.8-13.1) 03/26/18 11:30 INR 1.0 03/26/18 11:30 APTT 25.8 Seconds (25.6-37.1) 03/26/18 11:30 - Constitutional Appears: No Acute Distress - ENT Exam ENT Exam: Mucous Membranes Moist - Neck Exam Neck Exam: absent: Lymphadenopathy - Respiratory Exam Respiratory Exam: NORMAL BREATHING PATTERN. absent: Chest Wall Tenderness - Cardiovascular Exam Cardiovascular Exam: absent: JVD, Rubs - GI/Abdominal Exam GI & Abdominal Exam: Soft, Normal Bowel Sounds - Extremities Exam Extremities Exam: absent: Calf Tenderness - Back Exam Back Exam: absent: CVA tenderness (L), CVA tenderness (R) - Neurological Exam Neurological Exam: Alert - Psychiatric Exam Psychiatric exam: Normal Affect - Skin Skin Exam: absent: Cyanosis Assessment and Plan (1) Acute pancreatitis Status: Acute (2) HIV positive, asymptomatic Status: Acute (3) Chronic kidney disease, stage 4 (severe) Assessment & Plan: patient appears to have acute kidney injury superimposed on chronic kidney disease stage IV which has been improving somewhat Patient admitted with acute pancreatitis Patient does not want to hear about kidney problem or discuss even that he has kidney problem Diabetic chronic Kidney Disease (E11.22) Hypertensive Chronic Kidney Disease (I12.9) 1 gm proteinuria (R80.9) likely due to DM/HTN Anemia (D64.9), Hyperphosphatemia (E83.39), Secondary Hyperparathyroidism (E21.1 ), HTN (I12.9) HIV on HAART, hx of left BKA update serum phosphorus and PTH if it's not done . Status: Acute
[2018-04-03 13:30] VITALS: BP 161/89; PULSE 78; TEMP 98.1; O2SAT 97
--- NOTE | 2018-04-03 16:15 | CP.PCM.DIS ---
Provider - Provider Date of Admission: 03/26/18 17:15 Attending physician: Justice Bird MD Consults: ID: Dr Noe GI: Dr Hdez Hematology: Dr Beaulieu Time Spent in preparation of Discharge (in minutes): 35 Diagnosis - Discharge Diagnosis (1) Acute pancreatitis Status: Acute (2) CITLALLI (acute kidney injury) Status: Acute Priority: Medium (3) Anemia Status: Acute (4) Hypertension Status: Chronic (5) CKD (chronic kidney disease), stage IV Status: Chronic (6) HIV positive, asymptomatic Status: Acute Hospital Course - Lab Results Lab Results: Micro Results 03/30/18 16:19 Rectum Ova and Parasite Concentrate Exam - Final 03/26/18 13:04 Blood-Venous Blood Culture - Final NO GROWTH AFTER 5 DAYS 03/26/18 13:04 Blood-Venous Gram Stain - Final TEST NOT PERFORMED 03/26/18 12:16 Blood-Venous Blood Culture - Final NO GROWTH AFTER 5 DAYS 03/26/18 12:16 Blood-Venous Gram Stain - Final TEST NOT PERFORMED Most Recent Lab Values WBC 11.1 K/uL (4.8-10.8) H 03/30/18 17:14 RBC 3.74 Mil/uL (3.80-5.20) L 03/30/18 17:14 Hgb 10.8 g/dL (12.0-16.0) L 03/30/18 17:14 Hct 33.6 % (34.0-47.0) L 03/30/18 17:14 MCV 89.8 fl (81.0-99.0) 03/30/18 17:14 MCH 29.0 pg (27.0-31.0) 03/30/18 17:14 MCHC 32.3 g/dL (33.0-37.0) L 03/30/18 17:14 RDW 15.1 % (11.5-14.5) H 03/30/18 17:14 Plt Count 295 K/uL (130-400) 03/30/18 17:14 MPV 7.0 fl (7.2-11.7) L 03/26/18 11:30 Neut % (Auto) 72.1 % (50.0-75.0) 03/26/18 11:30 Lymph % (Auto) 18.8 % (20.0-40.0) L 03/26/18 11:30 Nuckolls % (Auto) 7.1 % (0.0-10.0) 03/26/18 11:30 Eos % (Auto) 1.7 % (0.0-4.0) 03/26/18 11:30 Baso % (Auto) 0.3 % (0.0-2.0) 03/26/18 11:30 Neut # (Auto) 8.6 K/uL (1.8-7.0) H 03/26/18 11:30 Lymph # (Auto) 2.2 K/uL (1.0-4.3) 03/26/18 11:30 [place]uckolls # (Auto) 0.8 K/uL (0.0-0.8) 03/26/18 11:30 Eos # (Auto) 0.2 K/uL (0.0-0.7) 03/26/18 11:30 Baso # (Auto) 0.0 K/uL (0.0-0.2) 03/26/18 11:30 PT 11.0 Seconds (9.8-13.1) 03/26/18 11:30 INR 1.0 03/26/18 11:30 APTT 25.8 Seconds (25.6-37.1) 03/26/18 11:30 pO2 49 mm/Hg (30-55) 03/26/18 11:49 VBG pH 7.35 (7.32-7.43) 03/26/18 11:49 VBG pCO2 41 mmHg (40-60) 03/26/18 11:49 VBG HCO3 22.2 mmol/L 03/26/18 11:49 VBG Total CO2 23.9 mmol/L (22-28) 03/26/18 11:49 VBG O2 Sat (Calc) 82.5 % (40-65) H 03/26/18 11:49 VBG Base Excess -2.9 mmol/L (0.0-2.0) L 03/26/18 11:49 VBG Potassium 5.1 mmol/L (3.6-5.2) 03/26/18 11:49 Sodium 138.0 mmol/L (132-148) 03/26/18 11:49 Chloride 111.0 mmol/L (98-107) H 03/26/18 11:49 Glucose 156 mg/dL (65-105) H 03/26/18 11:49 Lactate 0.8 mmol/L (0.7-2.1) 03/26/18 11:49 FiO2 21.0 % 03/26/18 11:49 Sodium 140 mmol/l (132-148) 04/02/18 04:20 Potassium 4.4 MMOL/L (3.6-5.0) 04/02/18 04:20 Chloride 115 mmol/L (98-107) H 04/02/18 04:20 Carbon Dioxide 19 mmol/L (22-30) L 04/02/18 04:20 Anion Gap 10 (10-20) 04/02/18 04:20 BUN 25 mg/dl (7-17) H 04/02/18 04:20 Creatinine 3.6 mg/dl (0.7-1.2) H 04/02/18 04:20 Est GFR ( Amer) 17 04/02/18 04:20 Est GFR (Non-Af Amer) 14 04/02/18 04:20 POC Glucose (mg/dL) 133 mg/dL (65-110) H 04/02/18 22:14 Random Glucose 103 mg/dL (65-105) 04/02/18 04:20 Calcium 8.9 mg/dL (8.4-10.2) 04/02/18 04:20 Phosphorus 3.2 mg/dl (2.5-4.5) 03/27/18 17:35 Iron 70 ug/dL (37-170) 03/27/18 17:30 TIBC 210 ug/dL (250-450) L 03/27/18 17:30 % Saturation 34 % (20-55) 03/27/18 17:30 Ferritin 430.0 ng/Ml (6.24-137.0) H 03/27/18 17:35 Total Bilirubin 0.5 mg/dl (0.2-1.3) 04/02/18 04:20 AST 20 U/L (14-36) 04/02/18 04:20 ALT 12 U/L (9-52) 04/02/18 04:20 Alkaline Phosphatase 105 U/L (38-126) 04/02/18 04:20 Total Protein 7.5 G/DL (6.3-8.2) 04/02/18 04:20 Total Protein (PEP) 7.0 g/dL (6.1-8.1) 03/29/18 04:50 Albumin 3.2 g/dL (3.5-5.0) L 04/02/18 04:20 Albumin (PEP) 2.8 g/dL (3.8-4.8) L 03/29/18 04:50 Globulin 4.3 gm/dL (2.2-3.9) H 04/02/18 04:20 Albumin/Globulin Ratio 0.7 (1.0-2.1) L 04/02/18 04:20 Qodvi-3-Ifickmloz 0.3 g/dL (0.2-0.3) 03/29/18 04:50 Csdhv-5-Feycdotaa 0.6 g/dL (0.5-0.9) 03/29/18 04:50 Qqic-4-Nowpwtpa 0.4 g/dL (0.4-0.6) 03/29/18 04:50 Xlig-7-Aphuulie 0.4 g/dL (0.2-0.5) 03/29/18 04:50 Gamma Globulins 2.4 g/dL (0.8-1.7) H 03/29/18 04:50 Abnorm Protein Band 1 TEST NOT PERFORMED 03/29/18 04:50 Abnorm Protein Band 2 TEST NOT PERFORMED 03/29/18 04:50 Abnorm Protein Band 3 TEST NOT PERFORMED 03/29/18 04:50 Lipase 129 U/L (23-300) 03/30/18 17:14 25-OH Vitamin D Total < 12.8 NG/ML (30.0-100.0) L 03/29/18 04:50 PTH Intact Whole Molec 116 pg/mL (14-64) H 03/27/18 17:30 Venous Blood Potassium 5.1 mmol/L (3.6-5.2) 03/26/18 11:49 Urine Color Straw (YELLOW) 03/27/18 18:24 Urine Clarity Clear (Clear) 03/27/18 18:24 Urine pH 6.0 (5.0-8.0) 03/27/18 18:24 Ur Specific [place] 1.008 (1.003-1.030) 03/27/18 18:24 Urine Protein 100 mg/dL (NEGATIVE) 03/27/18 18:24 Urine Glucose (UA) 50 mg/dL (Normal) 03/27/18 18:24 Urine Ketones Negative mg/dL (NEGATIVE) 03/27/18 18:24 Urine Blood Small (NEGATIVE) 03/27/18 18:24 Urine Nitrate Negative (NEGATIVE) 03/27/18 18:24 Urine Bilirubin Negative (NEGATIVE) 03/27/18 18:24 Urine Urobilinogen 0.2-1.0 mg/dL (0.2-1.0) 03/27/18 18:24 Ur Leukocyte Esterase Neg Joanna/uL (Negative) 03/27/18 18:24 Urine RBC (Auto) 9 /hpf (0-3) H 03/27/18 18:24 Urine Microscopic WBC 1 /hpf (0-5) 03/27/18 18:24 Ur Squamous Epith Cells 1 /hpf (0-5) 03/27/18 18:24 Urine Bacteria Rare (<OCC) 03/27/18 18:24 Ur Random Creatinine 48.5 mg/dL 03/27/18 18:24 U Random Total Protein 301 mg/L 03/28/18 07:00 ISIAH & SPEP Interp See note 03/29/18 04:50 Serum Immunofixation Detected (Not Detected) H 03/29/18 04:50 Free [place] Light Chains 240.5 mg/L (3.3-19.4) H 03/29/18 04:50 Free Lambda Light Chain 81.7 mg/L (5.7-26.3) H 03/29/18 04:50 Free [place]/Lambda Ratio 2.94 (0.26-1.65) H 03/29/18 04:50 C. difficile Tox B Gene Not detected (Not Detected) 03/30/18 16:19 HIV 1&2 Antibody Screen Reactive (NEGATIVE) 03/30/18 06:00 - Hospital Course Hospital Course: 37 y/o transgender male to female with a PMHx of uncontrolled DM 2, HTN and HIV for evaluation and management of acute pancreatitis and acute kidney injury. Pt was evaluated by GI specialist, EGD and colonoscopy were performed with results remarkable only for gastritis. Pt was extensively counseled on medication adherence. Today, pt stable, tolerating PO, no diarrhea, will be discharged home with strict instruction to f/u with PMD within 1 week; and GI specialist for repetition of colonoscopy since defective preparation for the one performed in hospital. - Date & Time of H&P Date of H&P: 03/27/18 Time of H&P: 17:34 Discharge Exam - Head Exam Head Exam: ATRAUMATIC Discharge Plan - Discharge Medications Prescriptions: Ergocalciferol [Drisdol 50,000 Intl Units Cap] 50,000 cap PO QWK #8 cap Famotidine [Pepcid] 20 mg PO BID #60 tab Ondansetron [Zofran] 4 mg PO Q8H #40 tab Pantoprazole Sodium [Protonix] 40 mg PO BID #60 ect - Follow Up Plan Condition: GUARDED Disposition: HOME/ ROUTINE Instructions: Pancreatitis (DC), Chronic Kidney Disease (DC) Additional Instructions: follow up with pmd in 1 week Referrals: Kalin Hdez MD [Medical Doctor] - Justice Bird MD [Staff Provider] - Sumit Noe MD [Staff Provider] -
--- NOTE | 2018-04-03 21:16 | CP.PCM.PN ---
Subjective - Date & Time of Evaluation Date of Evaluation: 04/03/18 Time of Evaluation: 15:00 - Subjective Subjective: No complaints. Objective - Vital Signs/Intake and Output Vital Signs (last 24 hours): Temp Pulse Resp BP Pulse Ox 98.1 F 78 20 161/89 H 97 04/03/18 13:00 04/03/18 13:00 04/03/18 13:00 04/03/18 13:00 04/03/18 13:00 - Labs Labs: 03/30/18 17:14 04/02/18 04:20 PT 11.0 Seconds (9.8-13.1) 03/26/18 11:30 INR 1.0 03/26/18 11:30 APTT 25.8 Seconds (25.6-37.1) 03/26/18 11:30 - Head Exam Head Exam: ATRAUMATIC - Eye Exam Eye Exam: Normal appearance - ENT Exam ENT Exam: Mucous Membranes Dry - Respiratory Exam Respiratory Exam: NORMAL BREATHING PATTERN - Cardiovascular Exam Cardiovascular Exam: +S1, +S2 - GI/Abdominal Exam GI & Abdominal Exam: Normal Bowel Sounds Assessment and Plan (1) Anemia Assessment & Plan: element of HIV and CKD improved from prior Status: Acute (2) Monoclonal gammopathy Assessment & Plan: mild elevation of free light chain ratio deferred bone marrow evaluation outpatient f/u Status: Acute
== END 2018-04-03 17:20 | disposition home or self-care (01) | DRG 439 ==
LOC: H.ER 09:42 → H.ERHOLD 17:15 → H.TEL 03-27 00:43
PROVIDERS: ADMIT Family Medicine; ATTEND Family Medicine
PROC: 0DB68ZX Excision of Stomach, Via Natural or Artificial Opening Endoscopic, Diagnostic (ICD-10-PCS; 2018-04-02)
PROC: 0DJD8ZZ Inspection of Lower Intestinal Tract, Via Natural or Artificial Opening Endoscopic (ICD-10-PCS; principal; 2018-04-02 15:30)
PROC: 0DB98ZX Excision of Duodenum, Via Natural or Artificial Opening Endoscopic, Diagnostic (ICD-10-PCS; 2018-04-02 15:30)
DX: K85.90 Acute pancreatitis without necrosis or infection, unspecified (principal); N17.9 Acute kidney failure, unspecified; N25.81 Secondary hyperparathyroidism of renal origin; N18.4 Chronic kidney disease, stage 4 (severe); Z91.19 Patient's noncompliance with other medical treatment and regimen; Z89.512 Acquired absence of left leg below knee; E11.22 Type 2 diabetes mellitus with diabetic chronic kidney disease; Z86.718 Personal history of other venous thrombosis and embolism; G89.29 Other chronic pain; F32.9 Major depressive disorder, single episode, unspecified; F17.290 Nicotine dependence, other tobacco product, uncomplicated; K29.70 Gastritis, unspecified, without bleeding; J45.909 Unspecified asthma, uncomplicated; Z88.6 Allergy status to analgesic agent; Z88.5 Allergy status to narcotic agent; K64.8 Other hemorrhoids; F64.9 Gender identity disorder, unspecified; D47.2 Monoclonal gammopathy; D63.1 Anemia in chronic kidney disease; D63.8 Anemia in other chronic diseases classified elsewhere; E86.0 Dehydration; E87.5 Hyperkalemia; Z21 Asymptomatic human immunodeficiency virus [HIV] infection status; E11.65 Type 2 diabetes mellitus with hyperglycemia; I12.9 Hypertensive chronic kidney disease with stage 1 through stage 4 chronic kidney disease, or unspecified chronic kidney disease; E83.39 Other disorders of phosphorus metabolism; F12.90 Cannabis use, unspecified, uncomplicated; K62.89 Other specified diseases of anus and rectum; K63.89 Other specified diseases of intestine; K52.9 Noninfective gastroenteritis and colitis, unspecified

== ENCOUNTER 2018-04-13 20:35 | Inpatient (IN) | payer MEDICARE ==
[2018-04-13 20:35] VITALS: BMI 38.0
[2018-04-13] MEDS ORDERED: Sodium Chloride 0.9% 1,000 ML IV STA (21:20)
--- NOTE | 2018-04-13 22:20 | ED PDOC ---
HPI: Abdomen Time Seen by Provider: 04/13/18 20:58 Chief Complaint (Nursing): Abdominal Pain Chief Complaint (Provider): Nausea, Vomiting and Diarrhea History Per: Patient History/Exam Limitations: no limitations Onset/Duration Of Symptoms: Days (x1) Current Symptoms Are (Timing): Still Present Additional Complaint(s): 37 y/o female presents to the ED complaining of nausea, vomiting and diarrhea, onset yesterday. Patient contacted Dr. Noe today who initially called in a prescription for abdominal pain but states her pharmacy was closed and then asked to come into the ED. Patient states she's been having symptoms intermittently for one year. Patient additionally reports of having a colonoscopy and endoscopy during her last admission here last week which was normal. Patient states she had multiple CT scans done as well which also resulted normal. Patient further reports, as per vital signs, patient is tachycardic and has a history of DVT to the left leg. Also reports having "abscess" on L buttock x 2-3 days. Denies fever, discharge, chest pain, shortness of breath, leg pain and leg swelling. PMD: Dr. Noe (infectious disease), no PMD Past Medical History Reviewed: Historical Data, Nursing Documentation, Vital Signs Vital Signs: Last Vital Signs Temp 99.4 F 04/14/18 04:27 Pulse 101 H 04/14/18 04:27 Resp 18 04/14/18 04:27 BP 147/76 04/14/18 04:27 Pulse Ox 100 04/14/18 05:21 - Medical History PMH: Anemia, Anxiety, Asthma, Depression, Diabetes, Deep Vein Thrombosis, Gastritis, HIV, HTN, Pancreatitis, Peripheral Edema, Chronic Kidney Disease, Chronic Pain Denies: Hepatitis, Seizures, Sexually Transmitted Disease - Surgical History Surgical History: Endoscopy - Family History Family History: States: [place], CAD, Diabetes, Hypertension - Immunization History Hx Tetanus Toxoid Vaccination: Yes Hx Influenza Vaccination: No Hx Pneumococcal Vaccination: Yes - Home Medications Home Medications: Ambulatory Orders Medication Instructions Recorded Calcitriol [Rocaltrol] 0.25 mg PO MWF 04/05/18 Dolutegravir Sodium [Tivicay] 50 mg PO DAILY 04/05/18 Ergocalciferol (Vitamin D2) 50,000 units PO QWK 04/05/18 [Vitamin D2] Famotidine [Pepcid] 20 mg PO BID 04/05/18 Insulin Glargine,Hum.rec.anlog 16 units SQ HS 04/05/18 [Lantus Solostar] Labetalol [Trandate] 300 mg PO Q8 04/05/18 Ondansetron [Zofran Tab] 4 mg PO Q8 04/05/18 Pantoprazole Sodium [Protonix] 40 mg PO BID 04/05/18 Sertraline [Zoloft] 50 mg PO DAILY 04/05/18 Vitamin B Complex/Vit C/Folic 1 tab PO DAILY 04/05/18 [Nephro-Nella] amLODIPine [Norvasc] 10 mg PO DAILY 04/05/18 Abacavir [Ziagen] 300 mg PO BID tab 04/09/18 Lamivudine [Epivir] 150 mg PO DAILY #30 tablet 04/09/18 - Allergies Allergies/Adverse Reactions: Allergies Allergy/AdvReac Type Severity Reaction Status Date / Time acetaminophen [From Tylenol] Allergy RASH Verified 04/13/18 20:37 aspirin Allergy RASH Verified 04/13/18 20:37 hydromorphone [From Dilaudid] Allergy RASH Verified 04/13/18 20:37 ketorolac tromethamine Allergy RASH Verified 04/13/18 20:37 [From Toradol] meperidine HCl [From Demerol] Allergy RASH Verified 04/13/18 20:37 oxycodone HCl [From Percocet] Allergy RASH Verified 04/13/18 20:37 peas Allergy ANAPHYLAXIS Verified 04/13/18 20:37 propoxyphene napsylate Allergy RASH Verified 04/13/18 20:37 [From Darvocet-N] Review of Systems ROS Statement: Except As Marked, All Systems Reviewed And Found Negative Cardiovascular: Negative for: Chest Pain Respiratory: Negative for: Shortness of Breath Gastrointestinal: Positive for: Nausea, Vomiting, Diarrhea Musculoskeletal: Negative for: Leg Pain (and swelling) Physical Exam - Reviewed Nursing Documentation Reviewed: Yes Vital Signs Reviewed: Yes - Physical Exam Appears: Positive for: In Acute Distress Head Exam: Positive for: ATRAUMATIC, NORMOCEPHALIC Skin: Positive for: Normal Color, Warm, Dry Eye Exam: Positive for: Normal appearance, EOMI, PERRL Neck: Positive for: Normal, Painless ROM Cardiovascular/Chest: Positive for: Regular Rate, Rhythm, Tachycardia Respiratory: Positive for: Normal Breath Sounds. Negative for: Respiratory Distress Gastrointestinal/Abdominal: Positive for: Soft, Tenderness (Minimal epigastric tenderness) Back: Positive for: Other (Small indurated non-erythematous, non-fluctuant mass on L medial buttock without extention into rectum) Extremity: Positive for: Deformity (Left Below Knee Amputation) Neurologic/Psych: Positive for: Alert, Oriented. Negative for: Motor/Sensory Deficits - Laboratory Results Result Diagrams: 04/13/18 23:59 04/13/18 23:59 - ECG O2 Sat by Pulse Oximetry: 100 (RA) Pulse Ox Interpretation: Normal Medical Decision Making Medical Decision Making: Time: 2126 Plan: -- VBG -- EKG -- CMP -- Lipase -- CBC with differentials -- Bentyl 20 mg IM -- Sodium Chloride IV 1000 mls/hr -- Pepcid 40 mg IVP -- Zofran Inj 4 mg IVP -- Blood Culture -- Diagrammer -- IV Insertion -- Urinalysis -- Gallbladder & Pancreas US Unable to obtain peripheral access. Dr. Schofield attempt to place EJ x 3 without success. Call placed to certified surgical tech/first assistant who will evaluate pt. Peripheral IV line placed by Noah (certified surgical tech/first assistant). CT abd/pelvis w/ PO contrast: 1. Approximate 2 x 4 x 2.6 cm perirectal abscess in the left buttock. Surrounding edema. 2. Prominent lymph nodes in the left groin which are most likely reactive nodes. Case, labs, and previous visits d/w Dr. Castellanos who recommends 23 hr observation under med station detective. Dr. Noe, Dr. Vargas, Dr. Galeano consults placed. CT results d/w Noah who will evaluate pt. Case d/w Dr. Harmon and arrangements made for 23 hr observation. Scribe Attestation: Documented by Kar Gonsalves acting as a scribe for Venancio Sharma PA-C. Provider Scribe Attestation: All medical record entries made by the Scribe were at my direction and personally dictated by me. I have reviewed the chart and agree that the record accurately reflects my personal performance of the history, physical exam, medical decision making, and the department course for this patient. I have also personally directed, reviewed, and agree with the discharge instructions and disposition. Disposition - Clinical Impression Clinical Impression: HIV (human immunodeficiency virus infection), CITLALLI (acute kidney injury), Abscess - Patient ED Disposition Is Patient to be Admitted: Yes - Disposition Disposition Time: 04:39 Condition: GUARDED Forms: [employer] (Chinese)
[2018-04-14 01:21] LABS: BASO # 0.1 K/uL (0.0-0.2); BASO % 0.5 % (0.0-2.0); EOS # 2.2 K/uL (0.0-0.7); EOS % 13.5 % (0.0-4.0); HEMOGLOBIN 10.7 g/dL (12.0-16.0); LYMPH # 2.5 K/uL (1.0-4.3); LYMPH % 15.8 % (20.0-40.0); MEAN CORPUSCULAR HEMOGLOBIN 29.6 pg (27.0-31.0); MEAN CORPUSCULAR HGB CONC 33.7 g/dL (33.0-37.0); MEAN PLATELET VOLUME 7.1 fl (7.2-11.7); MONO # 1.5 K/uL (0.0-0.8); MONO % 9.6 % (0.0-10.0); NEUT # 9.7 K/uL (1.8-7.0); NEUT % 60.6 % (50.0-75.0); NRBC % 0.1 % (0.0-0.0); RBC 3.62 Mil/uL (3.80-5.20); RED CELL DISTRIBUTION WIDTH 14.7 % (11.5-14.5)
[2018-04-14 01:44] LABS: ALB/GLOB RATIO 0.7 (1.0-2.1); ALBUMIN 3.3 g/dL (3.5-5.0); CALCIUM 9.1 mg/dL (8.4-10.2)
[2018-04-14] MEDS ORDERED: Iohexol 240 (50 ml) PO ONE (01:50)
[2018-04-14 01:51] LABS: VENOUS BLOOD GAS BASE EXCESS -5.7 mmol/L (0.0-2.0); VENOUS BLOOD GAS PCO2 36 mmHg (40-60); VENOUS BLOOD GAS PO2 41 mm/Hg (30-55); VENOUS BLOOD PH 7.34 (7.32-7.43)
[2018-04-14] MEDS ORDERED: Morphine 4 MG/ML VIAL IVP STA (02:03)
[2018-04-14] MEDS ORDERED: Morphine 4 MG/ML VIAL ONE ×2 (02:06→06:48)
[2018-04-14] MEDS ORDERED: Vancomycin 1 g Inj ONE (04:37)
[2018-04-14 04:59] LABS: SQUAMOUS EPITHIAL 1 /hpf (0-5); URINE BACTERIA MOD (<OCC); URINE BILIRUBIN NEGATIVE (NEGATIVE); URINE BLOOD MODERATE (NEGATIVE); URINE CLARITY CLOUDY (Clear); URINE COLOR YELLOW (YELLOW); URINE GLUCOSE (UA) NEG (Normal); URINE LEUKOCYTE ESTERASE LARGE Leu/uL (Negative); URINE PROTEIN >=500 mg/dL (NEGATIVE); URINE UROBILINOGEN 0.2-1.0 mg/dL (0.2-1.0)
--- NOTE | 2018-04-14 05:50 | CP.PCM.CON ---
History of Present Illness - History of Present Illness History of Present Illness: General Surgery Consult For Dr. Galeano Reason for Consult: Left jyotsna-rectal abscess 37 year old transgender female with history of HIV on HAART, DM, CKD, DVT, HTN presents to [facility] for complaint of abdominal pain, nausea/vomiting, diarrhea and rectal pain. Patient was seen and evaluated in the ED. Patient was recently discharged from [facility] on 04/09 for which she was admitted for similar complaints. She was also found to have CITLALLI. Patient reports that intermittently for past year she has been experiencing this symptoms. Recently, they have been worse for past couple weeks. She states that rectal pain had been present for a few days. Patient states pain is moderate to sever. She describes it as constant aching. Palpation and manipulation of medial L gluteus aggravates pain while nothing alleviates it. Denies fever/chills, chest pain, sob, palpitatins, constipation, urinary symptoms, incontinence. CT abd/pelvis was performed in the ED and revealed left sided perirectal abscess (see full report). 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, IVC filter Meds: As per MAR ALL: Toradol, tylenol, Dilaudid, ASA FH: non-contributory Social: smoke 1/2 pack per day, denies EtOH/illicit drugs use, unemployed Review of Systems - Review of Systems All systems: reviewed and no additional remarkable complaints except (as per HPI ) Past Patient History - Infectious Disease Hx of Infectious Diseases: None - Past Medical History & Family History Past Medical History?: Yes - Past Social History Smoking Status: Light Smoker < 10 Cigarettes Daily - CARDIAC Hx Hypertension: Yes Hx Peripheral Edema: Yes - PULMONARY Hx Asthma: Yes - NEUROLOGICAL Hx Seizures: No - HEENT Hx HEENT Problems: No - RENAL Hx Chronic Kidney Disease: Yes - HEMATOLOGICAL/ONCOLOGICAL Hx Anemia: Yes Hx Human Immunodeficiency Virus (HIV): Yes - INTEGUMENTARY Hx Dermatological Problems: Yes Other/Comment: ULCER BOTTOM LEFT FOOT LEFT FOOT SUTURE LINES TOES - MUSCULOSKELETAL/RHEUMATOLOGICAL Hx Musculoskeletal Disorders: Yes Hx Falls: No Hx Osteomyelitis: Yes - GASTROINTESTINAL Hx Gastritis: Yes Hx Pancreatitis: Yes - GENITOURINARY/GYNECOLOGICAL Hx Sexually Transmitted Disorders: No - PSYCHIATRIC Hx Anxiety: Yes Hx Depression: Yes - ANESTHESIA Hx Anesthesia: Yes Hx Anesthesia Reactions: No Hx Malignant Hyperthermia: No Meds Allergies/Adverse Reactions: Allergies Allergy/AdvReac Type Severity Reaction Status Date / Time acetaminophen [From Tylenol] Allergy RASH Verified 04/13/18 20:37 aspirin Allergy RASH Verified 04/13/18 20:37 hydromorphone [From Dilaudid] Allergy RASH Verified 04/13/18 20:37 ketorolac tromethamine Allergy RASH Verified 04/13/18 20:37 [From Toradol] meperidine HCl [From Demerol] Allergy RASH Verified 04/13/18 20:37 oxycodone HCl [From Percocet] Allergy RASH Verified 04/13/18 20:37 peas Allergy ANAPHYLAXIS Verified 04/13/18 20:37 propoxyphene napsylate Allergy RASH Verified 04/13/18 20:37 [From Darvocet-N] - Medications Medications: Current Medications Vancomycin HCl 1 gm/ Sodium (Chloride) 250 mls @ 166.667 mls/hr IVPB STAT STA PRN Reason: Protocol Stop: 04/14/18 06:01 Last Admin: 04/14/18 04:38 Dose: 166.667 mls/hr Physical Exam - Constitutional Appears: No Acute Distress, Unkempt - Head Exam Head Exam: ATRAUMATIC, NORMOCEPHALIC - Eye Exam Eye Exam: Normal appearance - ENT Exam ENT Exam: Mucous Membranes Dry - Respiratory Exam Respiratory Exam: NORMAL BREATHING PATTERN - Cardiovascular Exam Cardiovascular Exam: REGULAR RHYTHM - GI/Abdominal Exam GI & Abdominal Exam: Soft, Tenderness. absent: Distended, Firm, Guarding, Hernia, Rebound, Rigid - Rectal Exam Additional comments: good sphincter tone, inflamed mucosa, slight bulge on left wall, slightly narrowed anal canal, prostate smooth without nodules area of induration on left glute with a small opening with drainage - Extremities Exam Extremities exam: Positive for: normal capillary refill - Back Exam Back exam: absent: CVA tenderness (L), CVA tenderness (R) - Neurological Exam Neurological exam: Alert, Oriented x3 - Psychiatric Exam Psychiatric exam: Flat Affect - Skin Skin Exam: Dry, Warm Results - Vital Signs Recent Vital Signs: Last Vital Signs Temp 99.4 F 04/14/18 04:27 Pulse 101 H 04/14/18 04:27 Resp 18 04/14/18 04:27 BP 147/76 04/14/18 04:27 Pulse Ox 100 04/14/18 05:21 - Labs Result Diagrams: 04/13/18 23:59 04/13/18 23:59 Labs: Laboratory Results - last 24 hr 04/13/18 04/13/18 04/14/18 23:59 23:59 01:36 WBC 16.0 H RBC 3.62 L Hgb 10.7 L Hct 31.8 L MCV 88.0 MCH 29.6 MCHC 33.7 RDW 14.7 H Plt Count 290 MPV 7.1 L Neut % (Auto) 60.6 Lymph % (Auto) 15.8 L [place] % (Auto) 9.6 Eos % (Auto) 13.5 H Baso % (Auto) 0.5 Neut # (Auto) 9.7 H Lymph # (Auto) 2.5 [place] # (Auto) 1.5 H Eos # (Auto) 2.2 H Baso # (Auto) 0.1 pO2 41 VBG pH 7.34 VBG pCO2 36 L VBG HCO3 19.8 VBG Total CO2 20.5 L VBG O2 Sat (Calc) 83.0 H VBG Base Excess -5.7 L VBG Potassium 4.4 Glucose 82 Lactate 0.5 L FiO2 21.0 Sodium 144 138.0 Potassium 4.5 Chloride 114 H 115.0 H Carbon Dioxide 18 L Anion Gap 17 BUN 35 H Creatinine 4.3 H Est GFR ( Amer) 14 Est GFR (Non-Af Amer) 12 Random Glucose 87 Calcium 9.1 Total Bilirubin 0.4 AST 31 ALT 27 Alkaline Phosphatase 121 Total Protein 8.2 Albumin 3.3 L Globulin 4.9 H Albumin/Globulin Ratio 0.7 L Lipase 49 Venous Blood Potassium 4.4 Urine Color Urine Clarity Urine pH Ur Specific [place] Urine Protein Urine Glucose (UA) Urine Ketones Urine Blood Urine Nitrate Urine Bilirubin Urine Urobilinogen Ur Leukocyte Esterase Urine RBC (Auto) Urine Microscopic WBC Ur Squamous Epith Cells Urine Bacteria Hyaline Casts 04/14/18 04:33 WBC RBC Hgb Hct MCV MCH MCHC RDW Plt Count MPV Neut % (Auto) Lymph % (Auto) [place] % (Auto) Eos % (Auto) Baso % (Auto) Neut # (Auto) Lymph # (Auto) [place] # (Auto) Eos # (Auto) Baso # (Auto) pO2 VBG pH VBG pCO2 VBG HCO3 VBG Total CO2 VBG O2 Sat (Calc) VBG Base Excess VBG Potassium Glucose Lactate FiO2 Sodium Potassium Chloride Carbon Dioxide Anion Gap BUN Creatinine Est GFR ( Amer) Est GFR (Non-Af Amer) Random Glucose Calcium Total Bilirubin AST ALT Alkaline Phosphatase Total Protein Albumin Globulin Albumin/Globulin Ratio Lipase Venous Blood Potassium Urine Color Yellow Urine Clarity Cloudy Urine pH 6.0 Ur Specific [place] 1.014 Urine Protein >=500 Urine Glucose (UA) Neg Urine Ketones Negative Urine Blood Moderate Urine Nitrate Negative Urine Bilirubin Negative Urine Urobilinogen 0.2-1.0 Ur Leukocyte Esterase Large Urine RBC (Auto) 10 H Urine Microscopic WBC 225 H Ur Squamous Epith Cells 1 Urine Bacteria Mod H Hyaline Casts 3-5 H Assessment & Plan - Assessment and Plan (Free Text) Assessment: 37 transgender F who presents with abd pain, nausea/vomiting, diarrhea and CITLALLI found to have left jyotsna-rectal abscess Plan: -NPO -IV fluids -IV ABX -Strict I's & O's -Warm compresses PRN -f/u ID recommendations for HIV therapy -Medical management as per primary -Further recommendations as per Dr. Froylan Gonzalez PGY2 - Date & Time Date: 04/14/18 Time: 06:00
[2018-04-14] MEDS: Lactated Ringer's 1,000 ML IV SCH (06:52)
--- NOTE | 2018-04-14 08:17 | CARD ---
APPROVED REPORT Date of service: 04/13/2018 EKG Measurement Heart [id number] <Conclusion> Sinus tachycardia Abnormal ECG
--- NOTE | 2018-04-14 09:34 | CP.PCM.HP ---
History of Present Illness - History of Present Illness History of Present Illness: 37 year old transgender female with history of HIV on HAART, DM, CKD, DVT, HTN presented to ED with abdominal pain, nausea/vomiting, diarrhea and rectal pain. Patient was found to have a perirectal abscess. Patient follows with Dr. Noe regarding HIV treatment. Patient was seen and examined at bedside. Patient states pain is moderate to severe that is aching. Denies fever, chills, constipation, urinary symptoms, incontinence. Surgery saw patient in ED and this morning as well. No other complaints offered at this time. Present on Admission - Present on Admission Any Indicators Present on Admission: No Review of Systems - Review of Systems All systems: reviewed and no additional remarkable complaints except (mentioned in HPI) Past Patient History - Infectious Disease Hx of Infectious Diseases: None - Past Medical History & Family History Past Medical History?: Yes Past Family History: Reviewed and not pertinent - Past Social History Smoking Status: Light Smoker < 10 Cigarettes Daily - CARDIAC Hx Hypertension: Yes Hx Peripheral Edema: Yes - PULMONARY Hx Asthma: Yes - NEUROLOGICAL Hx Seizures: No - HEENT Hx HEENT Problems: No - RENAL Hx Chronic Kidney Disease: Yes - HEMATOLOGICAL/ONCOLOGICAL Hx Anemia: Yes Hx Human Immunodeficiency Virus (HIV): Yes - INTEGUMENTARY Hx Dermatological Problems: Yes Other/Comment: ULCER BOTTOM LEFT FOOT LEFT FOOT SUTURE LINES TOES - MUSCULOSKELETAL/RHEUMATOLOGICAL Hx Musculoskeletal Disorders: Yes Hx Falls: No Hx Osteomyelitis: Yes - GASTROINTESTINAL Hx Gastritis: Yes Hx Pancreatitis: Yes - GENITOURINARY/GYNECOLOGICAL Hx Sexually Transmitted Disorders: No - PSYCHIATRIC Hx Anxiety: Yes Hx Depression: Yes - ANESTHESIA Hx Anesthesia: Yes Hx Anesthesia Reactions: No Hx Malignant Hyperthermia: No Meds Allergies/Adverse Reactions: Allergies Allergy/AdvReac Type Severity Reaction Status Date / Time acetaminophen [From Tylenol] Allergy RASH Verified 04/13/18 20:37 aspirin Allergy RASH Verified 04/13/18 20:37 hydromorphone [From Dilaudid] Allergy RASH Verified 04/13/18 20:37 ketorolac tromethamine Allergy RASH Verified 04/13/18 20:37 [From Toradol] meperidine HCl [From Demerol] Allergy RASH Verified 04/13/18 20:37 oxycodone HCl [From Percocet] Allergy RASH Verified 04/13/18 20:37 peas Allergy ANAPHYLAXIS Verified 04/13/18 20:37 propoxyphene napsylate Allergy RASH Verified 04/13/18 20:37 [From [facility]] Physical Exam - Constitutional Appears: No Acute Distress - Head Exam Head Exam: ATRAUMATIC, NORMAL INSPECTION, NORMOCEPHALIC - Eye Exam Eye Exam: Normal appearance - Respiratory Exam Respiratory Exam: Clear to Auscultation Bilateral, NORMAL BREATHING PATTERN - Cardiovascular Exam Cardiovascular Exam: REGULAR RHYTHM - GI/Abdominal Exam GI & Abdominal Exam: Soft, Tenderness - Extremities Exam Extremities exam: Positive for: normal inspection - Back Exam Back exam: NORMAL INSPECTION - Neurological Exam Neurological exam: Alert, Oriented x3 - Psychiatric Exam Psychiatric exam: Normal Affect, Normal Mood - Skin Skin Exam: Dry, Intact, Normal Color, Warm Results - Vital Signs Recent Vital Signs: Last Vital Signs Temp 98.9 F 04/14/18 08:45 Pulse 93 H 04/14/18 08:45 Resp 18 04/14/18 08:45 BP 154/82 H 04/14/18 08:45 Pulse Ox 98 04/14/18 08:45 - Labs Result Diagrams: 04/13/18 23:59 04/13/18 23:59 Labs: Laboratory Results - last 24 hr 04/13/18 04/13/18 04/14/18 23:59 23:59 01:36 WBC 16.0 H RBC 3.62 L Hgb 10.7 L Hct 31.8 L MCV 88.0 MCH 29.6 MCHC 33.7 RDW 14.7 H Plt Count 290 MPV 7.1 L Neut % (Auto) 60.6 Lymph % (Auto) 15.8 L [place] % (Auto) 9.6 Eos % (Auto) 13.5 H Baso % (Auto) 0.5 Neut # (Auto) 9.7 H Lymph # (Auto) 2.5 [place] # (Auto) 1.5 H Eos # (Auto) 2.2 H Baso # (Auto) 0.1 pO2 41 VBG pH 7.34 VBG pCO2 36 L VBG HCO3 19.8 VBG Total CO2 20.5 L VBG O2 Sat (Calc) 83.0 H VBG Base Excess -5.7 L VBG Potassium 4.4 Glucose 82 Lactate 0.5 L FiO2 21.0 Sodium 144 138.0 Potassium 4.5 Chloride 114 H 115.0 H Carbon Dioxide 18 L Anion Gap 17 BUN 35 H Creatinine 4.3 H Est GFR ( Amer) 14 Est GFR (Non-Af Amer) 12 Random Glucose 87 Calcium 9.1 Total Bilirubin 0.4 AST 31 ALT 27 Alkaline Phosphatase 121 Total Protein 8.2 Albumin 3.3 L Globulin 4.9 H Albumin/Globulin Ratio 0.7 L Lipase 49 Venous Blood Potassium 4.4 Urine Color Urine Clarity Urine pH Ur Specific [place] Urine Protein Urine Glucose (UA) Urine Ketones Urine Blood Urine Nitrate Urine Bilirubin Urine Urobilinogen Ur Leukocyte Esterase Urine RBC (Auto) Urine Microscopic WBC Ur Squamous Epith Cells Urine Bacteria Hyaline Casts 04/14/18 04:33 WBC RBC Hgb Hct MCV MCH MCHC RDW Plt Count MPV Neut % (Auto) Lymph % (Auto) [place] % (Auto) Eos % (Auto) Baso % (Auto) Neut # (Auto) Lymph # (Auto) [place] # (Auto) Eos # (Auto) Baso # (Auto) pO2 VBG pH VBG pCO2 VBG HCO3 VBG Total CO2 VBG O2 Sat (Calc) VBG Base Excess VBG Potassium Glucose Lactate FiO2 Sodium Potassium Chloride Carbon Dioxide Anion Gap BUN Creatinine Est GFR ( Amer) Est GFR (Non-Af Amer) Random Glucose Calcium Total Bilirubin AST ALT Alkaline Phosphatase Total Protein Albumin Globulin Albumin/Globulin Ratio Lipase Venous Blood Potassium Urine Color Yellow Urine Clarity Cloudy Urine pH 6.0 Ur Specific [place] 1.014 Urine Protein >=500 Urine Glucose (UA) Neg Urine Ketones Negative Urine Blood Moderate Urine Nitrate Negative Urine Bilirubin Negative Urine Urobilinogen 0.2-1.0 Ur Leukocyte Esterase Large Urine RBC (Auto) 10 H Urine Microscopic WBC 225 H Ur Squamous Epith Cells 1 Urine Bacteria Mod H Hyaline Casts 3-5 H Assessment & Plan - Assessment and Plan (Free Text) Assessment: 37 year old transgender female with history of HIV on HAART, DM, CKD, HTN with abdominal pain, nausea/vomiting, diarrhea and found to have left jyotsna-rectal abscess. plan labs/imaging reviewed c/w zosyn at this time consult nephro due to renal failure appreciated consult surgery for jyotsna-rectal abscess appreciated consult ID for abx management and HIV appreciated blood cx/urine cx/stool cx c/w home meds at this time accucheck achs hold insulin at this time due to NPO status zofran prn n/v c/w IVF
[2018-04-14] MEDS ORDERED: Piperacillin/Tazobact 3.375 GM in Sodium Chloride 0.9% 100 ML IVPB SCH (10:00)
--- NOTE | 2018-04-14 11:29 | CT ---
Date of service: 04/14/2018 PROCEDURE: CT scan abdomen pelvis HISTORY: Vomiting,, diarrhea COMPARISON: The the the Comparison made with prior CT scan abdomen pelvis 03/26/2018. TECHNIQUE: Contiguous axial images of the abdomen and pelvis performed following oral contrast administration. IV contrast not injected per request. The study is therefore somewhat limited. Additional 2D sagittal and coronal reformats generated. Radiation dose: Total exam DLP = 1156.21 mGy-cm. This CT exam was performed using one or more of the following dose reduction techniques: Automated exposure control, adjustment of the mA and/or kV according to patient size, and/or use of iterative reconstruction technique. FINDINGS: LOWER THORAX: Heart size within range of normal. There is a tiny pericardial effusion. Small hiatal hernia. Lung bases clear. No infiltrate effusion or basilar pneumothorax. LIVER: Liver is enlarged measuring over 20 cm in CC dimension. No obvious hepatic mass or collection identified on this noncontrast exam. AP GALLBLADDER AND BILE DUCTS: Gallbladder physiologically distended. No evidence of intraluminal gallbladder calculi. PANCREAS: Unremarkable. No mass. No ductal dilatation. SPLEEN: Spleen mildly enlarged measuring over 13.5 cm in AP dimension. ADRENALS: Slightly nodular prominent appearing left adrenal gland. KIDNEYS AND URETERS: Unremarkable. No stone or hydronephrosis. BLADDER: The urine urinary bladder is incompletely distended which in part accounts thick-walled appearance. Muscular hypertrophy may contribute. Correlation with urinalysis to exclude cystitis/ UTI. REPRODUCTIVE: Unremarkable. APPENDIX: Normal-appearing appendix without evidence to suggest acute appendicitis. BOWEL: A evaluation of the bowel is slightly limited due to incomplete opacification. The stomach is incompletely distended. Visualized loops small bowel exhibit normal contour and caliber. No evidence of acute mechanical small bowel obstruction with oral contrast material extending into the colon to the level of the rectum. There appears to be rectal wall thickening. Colonoscopy followup is recommended. In addition, there is a discrete approximately 4.5 x 3.8 x 4 .4 cm elliptical shaped abscess in the of left medial buttock/left perianal region which also contains a small amount of air. There are surrounding infiltration changes of the subcutaneous fat. PERITONEUM: Unremarkable. No fluid collection. No free air. The small fat containing umbilical hernia there are multiple on small to mildly enlarged bilateral inguinal lymph nodes present. Lymph nodes. VASCULATURE: Unremarkable. No aortic aneurysm. In situ IVC filter. BONES: No fracture or destructive lesion. OTHER FINDINGS: None. IMPRESSION: Findings are consistent with a perianal on/left buttock abscess of with infiltration changes in the surrounding subcutaneous fat. Hepatomegaly. Mild splenomegaly. Small pericardial effusion.
[2018-04-14] MEDS: Multivitamin Vitamin B Complex (Nephro-Vite) Tab PO SCH (12:22)
--- NOTE | 2018-04-14 12:39 | CP.PCM.CON ---
History of Present Illness - History of Present Illness History of Present Illness: Nephrology Consultation Note Assessment: Stable perirectal abscess Diabetic chronic Kidney Disease (E11.22) Hypertensive Chronic Kidney Disease (I12.9) Chronic Kidney Disease (N18.5) Stage 5 with 3.8 gm proteinuria (R80.9) likely due to DM/HTN Anemia (D64.9), Hyperphosphatemia (E83.39), Secondary Hyperparathyroidism (E21.1 ), HTN (I12.9) HIV on HAART, hx of left BKA, vit D def, acidosis Plan No acute need for renal replacement therapy at this time. Hypertension control with meds as ordered. Maintain hemodynamics stable. Avoid hypotension. Patient not on ACEI/ARB due to advanced CKD. Monitor Input/Output, daily weights and renal function with basic metabolic panel last PTH 116 hence off calcitriol. last phos 3.2 controlled. started weekly Vit D started iron, nephrovite. pt seen by noemy recently save non-dominant arm from IV line and phlebotomy for future AV access added sodium bicarb surgery following can give IVF while NPO Dose meds/antibiotics for reduced GFR. Avoid fleets enema/magnesium based laxatives. Avoid nephrotoxins/NSAIDs/ iodinated contrast (unless needed emergently) Glycemic control Further work up for as per primary team Thanks for allowing me to participate in care of your patient. will follow with you. Please call if any Qs Dr Yuriy Lau Office: [phone] CC: pain abdomen and loose stool reason for consult; CKD HPI: pt is a 37 y/o transgender F with hx of DM, HTN, HIV on HAART, CKD 5 with 3.8 gram proteinuria, anemia came with pain abdomen and loose stool, found to have jyotsna-rectal abscess and seen for CKD 4/5 management. pt feels same. has mulitple GI complaints as l;oose stool, pain, n/v no SOB but feels breathing is at times heavy no urine complaints Subjective: Noted events overnight. Patients feels sick. not very much communicative Denies chest pain, palpitation, shortness of breath, leg swelling. reports loose stool. All other negative Physical Examination: General Appearance: Comfortable, in no acute respiratory distress, co-operative . Vitals reviewed and noted as below Head; Atraumatic, normocephalic ENT: no ulcers no thrush. Tongue is midline. Oropharynx: no rash or ulcers. EYES: Pupils are equal, round and reactive to light accommodation. Eye muscles and extraocular movement intact. Sclera is anicteric. Neck; supple no lymphadenopathy, no thyromegaly or bruit Lungs: Normal respiratory rate/effort. Breath sounds bilateral equal and clear Heart: Normal rate. s1s2 normal. No rub or gallop. Extremities: no edema. No varicose veins. left BKA Neurological: Patient is alert, awake and oriented to person, place and time. No focal deficit. Strength bilateral appropriate and equal Skin: Warm and dry. Normal turgor. No rash. Palpitation: Normal elasticity for age Abdomen: Abdomen is soft. Bowel sounds +. There is mild abdominal tenderness, no guarding/rigidity no organomegaly Psych: limited insight and flat affect/mood MSK: no joint tenderness or swelling. Digits and nails normal, no deformity : kidney or bladder not palpable Labs/imaging reviewed. Past medical history, past surgical history, family history, social history, allergy reviewed and noted as below Family hx: no hx of CKD. Rest non-contributory hep B/C neg TSAT 34% ferritin 430 PTH 116 Vit D <12.8 ISIAH neg but K/L high Past Patient History - Infectious Disease Hx of Infectious Diseases: None - Past Medical History & Family History Past Medical History?: Yes - Past Social History Smoking Status: Light Smoker < 10 Cigarettes Daily - CARDIAC Hx Hypertension: Yes Hx Peripheral Edema: Yes - PULMONARY Hx Asthma: Yes - NEUROLOGICAL Hx Seizures: No - HEENT Hx HEENT Problems: No - RENAL Hx Chronic Kidney Disease: Yes - HEMATOLOGICAL/ONCOLOGICAL Hx Anemia: Yes Hx Human Immunodeficiency Virus (HIV): Yes - INTEGUMENTARY Hx Dermatological Problems: Yes Other/Comment: ULCER BOTTOM LEFT FOOT LEFT FOOT SUTURE LINES TOES - MUSCULOSKELETAL/RHEUMATOLOGICAL Hx Musculoskeletal Disorders: Yes Hx Falls: No Hx Osteomyelitis: Yes - GASTROINTESTINAL Hx Gastritis: Yes Hx Pancreatitis: Yes - GENITOURINARY/GYNECOLOGICAL Hx Sexually Transmitted Disorders: No - PSYCHIATRIC Hx Anxiety: Yes Hx Depression: Yes - ANESTHESIA Hx Anesthesia: Yes Hx Anesthesia Reactions: No Hx Malignant Hyperthermia: No Meds Allergies/Adverse Reactions: Allergies Allergy/AdvReac Type Severity Reaction Status Date / Time acetaminophen [From Tylenol] Allergy RASH Verified 04/13/18 20:37 aspirin Allergy RASH Verified 04/13/18 20:37 hydromorphone [From Dilaudid] Allergy RASH Verified 04/13/18 20:37 ketorolac tromethamine Allergy RASH Verified 04/13/18 20:37 [From Toradol] meperidine HCl [From Demerol] Allergy RASH Verified 04/13/18 20:37 oxycodone HCl [From Percocet] Allergy RASH Verified 04/13/18 20:37 peas Allergy ANAPHYLAXIS Verified 04/13/18 20:37 propoxyphene napsylate Allergy RASH Verified 04/13/18 20:37 [From Darvocet-N] - Medications Medications: Current Medications Abacavir Sulfate (Ziagen) 300 mg PO BID [facility] PRN Reason: Protocol Last Admin: 04/14/18 12:22 Dose: Not Given Amlodipine Besylate (Norvasc) 10 mg PO DAILY [facility] Last Admin: 04/14/18 12:22 Dose: Not Given Dolutegravir Sodium (Tivicay) 50 mg PO DAILY [facility] PRN Reason: Protocol Last Admin: 04/14/18 12:22 Dose: Not Given Ergocalciferol (Drisdol 50,000 Intl Units Cap) 1 cap PO QWK [facility] Ferrous Gluconate (Fergon) 324 mg PO TID [facility] Lactated Ringer's (Lactated Ringer's) 1,000 mls @ 160 mls/hr IV .Q6H15M [facility] Last Admin: 04/14/18 06:52 Dose: 160 mls/hr Piperacillin Sod/Tazobactam (Sod 2.25 gm/ Sodium Chloride) 100 mls @ 100 mls/ hr IVPB Q6 [facility] PRN Reason: Protocol Insulin Detemir (Levemir) 16 units SC HS [facility] Labetalol HCl (Trandate) 300 mg PO Q8 [facility] Last Admin: 04/14/18 12:22 Dose: Not Given Lamivudine (Epivir) 150 mg PO DAILY [facility] PRN Reason: Protocol Last Admin: 04/14/18 12:22 Dose: Not Given Morphine Sulfate (Morphine) 4 mg IVP Q4 PRN PRN Reason: Pain, severe (8-10) Last Admin: 04/14/18 11:29 Dose: 4 mg Ondansetron HCl (Zofran Inj) 4 mg IVP Q6 PRN PRN Reason: Nausea/Vomiting Sertraline HCl (Zoloft) 50 mg PO DAILY [facility] Last Admin: 04/14/18 12:23 Dose: Not Given Sodium Bicarbonate (Sodium Bicarbonate Tab) 1,300 mg PO BID [facility] Vitamin B Complex/Vit C/Folic Acid (Nephro-Nella) 1 tab PO DAILY [facility] Last Admin: 04/14/18 12:22 Dose: Not Given Results - Vital Signs Recent Vital Signs: Last Vital Signs Temp 98.7 F 04/14/18 12:18 Pulse 88 04/14/18 12:18 Resp 18 04/14/18 12:18 BP 139/81 04/14/18 12:18 Pulse Ox 100 04/14/18 12:18 - Labs Result Diagrams: 04/13/18 23:59 04/13/18 23:59 Labs: Laboratory Results - last 24 hr 04/13/18 04/13/18 04/14/18 23:59 23:59 01:36 WBC 16.0 H RBC 3.62 L Hgb 10.7 L Hct 31.8 L MCV 88.0 MCH 29.6 MCHC 33.7 RDW 14.7 H Plt Count 290 MPV 7.1 L Neut % (Auto) 60.6 Lymph % (Auto) 15.8 L [place] % (Auto) 9.6 Eos % (Auto) 13.5 H Baso % (Auto) 0.5 Neut # (Auto) 9.7 H Lymph # (Auto) 2.5 [place] # (Auto) 1.5 H Eos # (Auto) 2.2 H Baso # (Auto) 0.1 pO2 41 VBG pH 7.34 VBG pCO2 36 L VBG HCO3 19.8 VBG Total CO2 20.5 L VBG O2 Sat (Calc) 83.0 H VBG Base Excess -5.7 L VBG Potassium 4.4 Glucose 82 Lactate 0.5 L FiO2 21.0 Sodium 144 138.0 Potassium 4.5 Chloride 114 H 115.0 H Carbon Dioxide 18 L Anion Gap 17 BUN 35 H Creatinine 4.3 H Est GFR ( Amer) 14 Est GFR (Non-Af Amer) 12 POC Glucose (mg/dL) Random Glucose 87 Calcium 9.1 Total Bilirubin 0.4 AST 31 ALT 27 Alkaline Phosphatase 121 Total Protein 8.2 Albumin 3.3 L Globulin 4.9 H Albumin/Globulin Ratio 0.7 L Lipase 49 Venous Blood Potassium 4.4 Urine Color Urine Clarity Urine pH Ur Specific [place] Urine Protein Urine Glucose (UA) Urine Ketones Urine Blood Urine Nitrate Urine Bilirubin Urine Urobilinogen Ur Leukocyte Esterase Urine RBC (Auto) Urine Microscopic WBC Ur Squamous Epith Cells Urine Bacteria Hyaline Casts 04/14/18 04/14/18 04:33 11:15 WBC RBC Hgb Hct MCV MCH MCHC RDW Plt Count MPV Neut % (Auto) Lymph % (Auto) [place] % (Auto) Eos % (Auto) Baso % (Auto) Neut # (Auto) Lymph # (Auto) [place] # (Auto) Eos # (Auto) Baso # (Auto) pO2 VBG pH VBG pCO2 VBG HCO3 VBG Total CO2 VBG O2 Sat (Calc) VBG Base Excess VBG Potassium Glucose Lactate FiO2 Sodium Potassium Chloride Carbon Dioxide Anion Gap BUN Creatinine Est GFR ( Amer) Est GFR (Non-Af Amer) POC Glucose (mg/dL) 71 Random Glucose Calcium Total Bilirubin AST ALT Alkaline Phosphatase Total Protein Albumin Globulin Albumin/Globulin Ratio Lipase Venous Blood Potassium Urine Color Yellow Urine Clarity Cloudy Urine pH 6.0 Ur Specific [place] 1.014 Urine Protein >=500 Urine Glucose (UA) Neg Urine Ketones Negative Urine Blood Moderate Urine Nitrate Negative Urine Bilirubin Negative Urine Urobilinogen 0.2-1.0 Ur Leukocyte Esterase Large Urine RBC (Auto) 10 H Urine Microscopic WBC 225 H Ur Squamous Epith Cells 1 Urine Bacteria Mod H Hyaline Casts 3-5 H
--- NOTE | 2018-04-14 12:50 | CP.PCM.CON ---
History of Present Illness - History of Present Illness History of Present Illness: 37 y/o female patient of Dr Bird presents to the ED complaining of nausea, vomiting and diarrhea, Patient states she's been having symptoms intermittently for one year. Was recentlytreated here for pancreatitis Also reports having "abscess" on L buttock x 2-3 days. Denies fever, discharge, chest pain, shortness of breath, leg pain and leg swelling. Last CD4 605 04/2018 has had long hx of noncompliance with follow ups and therapy interruptions developed CITLALLI and CKD with hx of HTN, DM , HIV as well as possible blood dyscrasia/ myeloma followed by Dr Beaulieu - Medical History PMH: Anemia, Anxiety, Asthma, Depression, Diabetes, Deep Vein Thrombosis, Gastritis, HIV, HTN, Pancreatitis, Peripheral Edema, Chronic Kidney Disease, Chronic Pain Left BKA Denies: Hepatitis, Seizures, Sexually Transmitted Disease Review of Systems - Review of Systems All systems: reviewed and no additional remarkable complaints except - Constitutional Constitutional: As Per HPI - EENT Eyes: Blurred Vision, Decreased Night Vision. absent: As Per HPI, Blind Spots, Change in Vision, Diplopia, Discharge, Dry Eye, Exophthalmos, Floaters, Irritation, Itchy Eyes, Loss of Peripheral Vision, Pain, Photophobia, Requires Corrective Lenses, Sees Flashes, Spots in Vision, Tunnel Vision, Other Visual Disturbances, Loss of Vision, Other Ears: absent: As Per HPI, Decreased Hearing, Ear Discharge, Ear Pain, Tinnitus, Abnormal Hearing, Disequilibrium, Dizziness, Other Nose/Mouth/Throat: absent: As Per HPI, Epistaxis, Nasal Congestion, Nasal Discharge, Nasal Obstruction, Nasal Trauma, Nose Pain, Post Nasal Drip, Sinus Pain, Sinus Pressure, Bleeding Gums, Change in Voice, Dental Pain, Dry Mouth, Dysphagia, Halitosis, Hoarsness, Lip Swelling, Mouth Lesions, Mouth Pain, Odynophagia, Sore Throat, Throat Swelling, Tongue Swelling, Facial Pain, Neck Pain, Neck Mass, Other - Breasts Breasts: absent: As Per HPI, Change in Shape, Mass, Pain, Nipple Discharge, Nipple Inversion, Skin Changes, Swelling, Other - Cardiovascular Cardiovascular: absent: As Per HPI, Acrocyanosis, Chest Pain, Chest Pain at Rest , Chest Pain with Activity, Claudication, Diaphoresis, Dyspnea, Dyspnea on Exertion, Edema, Irregular Heart Rhythm, Pain Radiating to Arm/Neck/Jaw, Leg Edema, Leg Ulcers, Lightheadedness, Orthopnea, Palpitations, Paroxysmal Nocturnal Dyspnea, Pedal Edema, Radiating Pain, Rapid Heart Rate, Slow Heart Rate, Syncope, Other - Respiratory Respiratory: absent: As Per HPI, Cough, Dyspnea, Hemoptysis, Dyspnea on Exertion , Wheezing, Snoring, Stridor, Pain on Inspiration, Chest Congestion, Excessive Mucous Production, Change in Mucous Color, Pain with Coughing, Other - Gastrointestinal Gastrointestinal: absent: As Per HPI, Abdominal Pain, Belching, Bloating, Change in Bowel Habits, Change in Stool Character, Coffee Ground Emesis, Constipation, Cramping, Diarrhea, Dyspepsia, Dysphagia, Early Satiety, Excessive Flatus, Fecal Incontinence, Heartburn, Hematemesis, Hematochezia, Loose Stools, Melena, Nausea, Odynophagia, Temesmus, Vomiting, Other - Genitourinary Genitourinary: absent: As Per HPI, Change in Urinary Stream, Difficulty Urinating, Dysuria, Flank Pain, Hematuria, Pyuria, Nocturia, Urinary Incontinence, Urinary Frequency, Urinary Hesitance, Urinary Urgency, Voiding Freq/Small Amts, Freq UTI, Hx Renal/Bladder Calculi, Hx /Renal Surgery, Bladder Distension, Other - Reproductive: Female Reproductive:Female: absent: As Per HPI, Amenorrhea, Amenorrhea/ Control, Currently Menstual, Cycle <21 Days, Cycle >35 Days, Cycle Variable, Menses 1-7 Days, Menses >/= 8 Days, Menses Variable, Cycle > 4 Weeks Between, No Menses for 6 Months, Heavy Menses, Light Menses, Normal Menses, Spotting Between Cycles , S/P Hysterectomy, Menopausal, Post Menopausal, Premenarche, Abnormal Vaginal Bleeding, Dysmenorrhea, Dyspareunia, Genital Lesions, Genital Pruritis, Pelvic Pain, Prolapse Symptoms, Sexual Dysfunction, Vaginal Discharge, Vaginal Dryness , Vaginal Odor, Vaginal Pruritis, Other - Menstruation Menstruation: absent: As Per HPI, Amenorrhea, Amenorrhea/ Control, Currently Menstual, Cycle <21 Days, Cycle >35 Days, Cycle Variable, Menses 1-7 Days, Menses >/= 8 Days, Menses Variable, Cycle > 4 Weeks Between, No Menses for 6 Months, Heavy Menses, Light Menses, Normal Menses, Spotting Between Cycles , S/P Hysterectomy, Menopausal, Post Menopausal, Premenarche, Abnormal Vaginal Bleeding, Dysmenorrhea, Other - Musculoskeletal Musculoskeletal: As Per HPI - Integumentary Integumentary: As Per HPI, Skin Pain, Wounds - Neurological Neurological: absent: As Per HPI, Abnormal Gait, Abnormal Hearing, Abnormal Movements, Abnormal Speech, Behavioral Changes, Burning Sensations, Confusion, Convulsions, Disequilibrium, Dizziness, Numbness, Focal Weakness, Frequent Falls , Headaches, Lack of Coordination, Loss of Vision, Memory Loss, Paresthesias, Radicular Pain, Restless Legs, Sensory Deficit, Syncope, Tingling, Tremor, Vertigo, Weakness, Other Visual Disturbances, Other - Psychiatric Psychiatric: absent: As Per HPI, Abnormal Sleep Pattern, Anhedonia, Anxiety, Auditory Hallucinations, Behavioral Changes, Change in Appetite, Change in Libido, Confusion, Depression, Difficulty Concentrating, Hallucinations, Homicidal Ideation, Hopelessness, Irritability, Memory Loss, Mood Swings, Panic Attacks, Paranoia, Suicidal Ideation, Visual Hallucinations, Tactile Hallucinations, Other - Endocrine Endocrine: absent: As Per HPI, Change in Body Appearance, Change in Libido, Cold Intolorance, Deepening of Voice, Excessive Sweating, Fatigue, Flushing, Heat Intolorance, Increase in Ring/Shoe/Hat Size, Palpitations, Polydipsia, Polyphagia, Polyuria, Other - Hematologic/Lymphatic Hematologic: absent: As Per HPI, Easy Bleeding, Easy Bruising, Lymphadenopathy, Other Past Patient History - Infectious Disease Hx of Infectious Diseases: None - Past Medical History & Family History Past Medical History?: Yes - Past Social History Smoking Status: Light Smoker < 10 Cigarettes Daily - CARDIAC Hx Hypertension: Yes Hx Peripheral Edema: Yes - PULMONARY Hx Asthma: Yes - NEUROLOGICAL Hx Seizures: No - HEENT Hx HEENT Problems: No - RENAL Hx Chronic Kidney Disease: Yes - HEMATOLOGICAL/ONCOLOGICAL Hx Anemia: Yes Hx Human Immunodeficiency Virus (HIV): Yes - INTEGUMENTARY Hx Dermatological Problems: Yes Other/Comment: ULCER BOTTOM LEFT FOOT LEFT FOOT SUTURE LINES TOES - MUSCULOSKELETAL/RHEUMATOLOGICAL Hx Musculoskeletal Disorders: Yes Hx Falls: No Hx Osteomyelitis: Yes - GASTROINTESTINAL Hx Gastritis: Yes Hx Pancreatitis: Yes - GENITOURINARY/GYNECOLOGICAL Hx Sexually Transmitted Disorders: No - PSYCHIATRIC Hx Anxiety: Yes Hx Depression: Yes - ANESTHESIA Hx Anesthesia: Yes Hx Anesthesia Reactions: No Hx Malignant Hyperthermia: No Meds Allergies/Adverse Reactions: Allergies Allergy/AdvReac Type Severity Reaction Status Date / Time acetaminophen [From Tylenol] Allergy RASH Verified 04/13/18 20:37 aspirin Allergy RASH Verified 04/13/18 20:37 hydromorphone [From Dilaudid] Allergy RASH Verified 04/13/18 20:37 ketorolac tromethamine Allergy RASH Verified 04/13/18 20:37 [From Toradol] meperidine HCl [From Demerol] Allergy RASH Verified 04/13/18 20:37 oxycodone HCl [From Percocet] Allergy RASH Verified 04/13/18 20:37 peas Allergy ANAPHYLAXIS Verified 04/13/18 20:37 propoxyphene napsylate Allergy RASH Verified 04/13/18 20:37 [From Darvocet-N] - Medications Medications: Current Medications Abacavir Sulfate (Ziagen) 300 mg PO BID [facility] PRN Reason: Protocol Last Admin: 04/14/18 12:22 Dose: Not Given Amlodipine Besylate (Norvasc) 10 mg PO DAILY [facility] Last Admin: 04/14/18 12:22 Dose: Not Given Dolutegravir Sodium (Tivicay) 50 mg PO DAILY [facility] PRN Reason: Protocol Last Admin: 04/14/18 12:22 Dose: Not Given Ergocalciferol (Drisdol 50,000 Intl Units Cap) 1 cap PO QWK [facility] Ferrous Gluconate (Fergon) 324 mg PO TID [facility] Lactated Ringer's (Lactated Ringer's) 1,000 mls @ 160 mls/hr IV .Q6H15M [facility] Last Admin: 04/14/18 06:52 Dose: 160 mls/hr Piperacillin Sod/Tazobactam (Sod 2.25 gm/ Sodium Chloride) 100 mls @ 100 mls/ hr IVPB Q6 [facility] PRN Reason: Protocol Insulin Detemir (Levemir) 16 units SC HS [facility] Labetalol HCl (Trandate) 300 mg PO Q8 [facility] Last Admin: 04/14/18 12:22 Dose: Not Given Lamivudine (Epivir) 150 mg PO DAILY [facility] PRN Reason: Protocol Last Admin: 04/14/18 12:22 Dose: Not Given Morphine Sulfate (Morphine) 4 mg IVP Q4 PRN PRN Reason: Pain, severe (8-10) Last Admin: 04/14/18 11:29 Dose: 4 mg Ondansetron HCl (Zofran Inj) 4 mg IVP Q6 PRN PRN Reason: Nausea/Vomiting Sertraline HCl (Zoloft) 50 mg PO DAILY [facility] Last Admin: 04/14/18 12:23 Dose: Not Given Sodium Bicarbonate (Sodium Bicarbonate Tab) 1,300 mg PO BID [facility] Vitamin B Complex/Vit C/Folic Acid (Nephro-Nella) 1 tab PO DAILY [facility] Last Admin: 04/14/18 12:22 Dose: Not Given Physical Exam - Constitutional Appears: No Acute Distress, Chronically Ill - Head Exam Head Exam: ATRAUMATIC, NORMOCEPHALIC - Eye Exam Eye Exam: PERRL - ENT Exam ENT Exam: Mucous Membranes Dry, Normal External Ear Exam - Neck Exam Neck exam: Negative for: Lymphadenopathy - Respiratory Exam Respiratory Exam: Decreased Breath Sounds, Clear to Auscultation Bilateral - Cardiovascular Exam Cardiovascular Exam: REGULAR RHYTHM, +S1, +S2 - GI/Abdominal Exam GI & Abdominal Exam: Diminished Bowel Sounds, Soft. absent: Tenderness - Rectal Exam Rectal Exam: Deferred - Exam Exam: NORMAL INSPECTION - Extremities Exam Extremities exam: Positive for: pedal pulses present. Negative for: calf tenderness, pedal edema, tenderness - Back Exam Back exam: absent: CVA tenderness (L), CVA tenderness (R) - Neurological Exam Neurological exam: Alert, CN II-XII Intact, Oriented x3, Reflexes Normal - Psychiatric Exam Psychiatric exam: Normal Mood - Skin Skin Exam: Dry, Intact Results - Vital Signs Recent Vital Signs: Last Vital Signs Temp 98.7 F 04/14/18 12:18 Pulse 88 04/14/18 12:18 Resp 18 04/14/18 12:18 BP 139/81 04/14/18 12:18 Pulse Ox 100 04/14/18 12:18 - Labs Result Diagrams: 04/13/18 23:59 04/13/18 23:59 Labs: Laboratory Results - last 24 hr 04/13/18 04/13/18 04/14/18 23:59 23:59 01:36 WBC 16.0 H RBC 3.62 L Hgb 10.7 L Hct 31.8 L MCV 88.0 MCH 29.6 MCHC 33.7 RDW 14.7 H Plt Count 290 MPV 7.1 L Neut % (Auto) 60.6 Lymph % (Auto) 15.8 L [place] % (Auto) 9.6 Eos % (Auto) 13.5 H Baso % (Auto) 0.5 Neut # (Auto) 9.7 H Lymph # (Auto) 2.5 [place] # (Auto) 1.5 H Eos # (Auto) 2.2 H Baso # (Auto) 0.1 pO2 41 VBG pH 7.34 VBG pCO2 36 L VBG HCO3 19.8 VBG Total CO2 20.5 L VBG O2 Sat (Calc) 83.0 H VBG Base Excess -5.7 L VBG Potassium 4.4 Glucose 82 Lactate 0.5 L FiO2 21.0 Sodium 144 138.0 Potassium 4.5 Chloride 114 H 115.0 H Carbon Dioxide 18 L Anion Gap 17 BUN 35 H Creatinine 4.3 H Est GFR ( Amer) 14 Est GFR (Non-Af Amer) 12 POC Glucose (mg/dL) Random Glucose 87 Calcium 9.1 Total Bilirubin 0.4 AST 31 ALT 27 Alkaline Phosphatase 121 Total Protein 8.2 Albumin 3.3 L Globulin 4.9 H Albumin/Globulin Ratio 0.7 L Lipase 49 Venous Blood Potassium 4.4 Urine Color Urine Clarity Urine pH Ur Specific [place] Urine Protein Urine Glucose (UA) Urine Ketones Urine Blood Urine Nitrate Urine Bilirubin Urine Urobilinogen Ur Leukocyte Esterase Urine RBC (Auto) Urine Microscopic WBC Ur Squamous Epith Cells Urine Bacteria Hyaline Casts 04/14/18 04/14/18 04:33 11:15 WBC RBC Hgb Hct MCV MCH MCHC RDW Plt Count MPV Neut % (Auto) Lymph % (Auto) [place] % (Auto) Eos % (Auto) Baso % (Auto) Neut # (Auto) Lymph # (Auto) [place] # (Auto) Eos # (Auto) Baso # (Auto) pO2 VBG pH VBG pCO2 VBG HCO3 VBG Total CO2 VBG O2 Sat (Calc) VBG Base Excess VBG Potassium Glucose Lactate FiO2 Sodium Potassium Chloride Carbon Dioxide Anion Gap BUN Creatinine Est GFR ( Amer) Est GFR (Non-Af Amer) POC Glucose (mg/dL) 71 Random Glucose Calcium Total Bilirubin AST ALT Alkaline Phosphatase Total Protein Albumin Globulin Albumin/Globulin Ratio Lipase Venous Blood Potassium Urine Color Yellow Urine Clarity Cloudy Urine pH 6.0 Ur Specific [place] 1.014 Urine Protein >=500 Urine Glucose (UA) Neg Urine Ketones Negative Urine Blood Moderate Urine Nitrate Negative Urine Bilirubin Negative Urine Urobilinogen 0.2-1.0 Ur Leukocyte Esterase Large Urine RBC (Auto) 10 H Urine Microscopic WBC 225 H Ur Squamous Epith Cells 1 Urine Bacteria Mod H Hyaline Casts 3-5 H Assessment & Plan (1) CITLALLI (acute kidney injury) Status: Acute Priority: Medium (2) HIV (human immunodeficiency virus infection) Status: Acute (3) Abscess and cellulitis Status: Acute (4) Abscess, gluteal, right Status: Acute - Assessment and Plan (Free Text) Assessment: cont HAART rx Last CD4 605 04/2018 antibiotics await cultures surgical eval for I and D check c diff renal eval consider Heme eval DR Beaulieu
--- NOTE | 2018-04-14 13:30 | US ---
Date of service: 04/13/2018 HISTORY: epigastric pain COMPARISON: Comparison made with prior abdominal ultrasound dated 03/31/2018. . Correlation made with concurrent CT scan abdomen pelvis TECHNIQUE: Sonographic evaluation of the right upper quadrant of the abdomen. FINDINGS: LIVER: Measures 13.0 cm in length on this ultrasound however the liver measured over a 20 cm in CC dimension on concurrent CT scan abdomen pelvis. Clinical correlation recommended. . Normal echogenicity of the liver parenchyma. No mass. No intrahepatic bile duct dilatation. GALLBLADDER: Unremarkable. No gallstones. COMMON BILE DUCT: Measures 5.6 mm. No stones. No dilatation. PANCREAS: Unremarkable as visualized. No mass. No ductal dilatation. RIGHT KIDNEY: Measures 11.7 x 4.6 x 5.6 cm in length. Normal echogenicity. No calculus, mass, or hydronephrosis. AORTA: No aneurysmal dilatation. IVC: Unremarkable. OTHER FINDINGS: None . IMPRESSION: No acute right upper quadrant pathology. The liver on measured over 20 cm in CC dimension on concurrent CT scan abdomen pelvis. Clinical correlation recommended.
[2018-04-14] MEDS ORDERED: Insulin Detemir 100 Units/ml Inj SC SCH (22:00)
[2018-04-15] MEDS: Lactated Ringer's 1,000 ML IV SCH ×3 (04:03→14:34)
[2018-04-15 05:48] LABS: HEMOGLOBIN 10.1 g/dL (12.0-16.0); MEAN CELL VOLUME 89.9 fl (81.0-99.0); MEAN CORPUSCULAR HEMOGLOBIN 29.3 pg (27.0-31.0); MEAN CORPUSCULAR HGB CONC 32.6 g/dL (33.0-37.0); RBC 3.46 Mil/uL (3.80-5.20); WHITE BLOOD COUNT 12.6 K/uL (4.8-10.8)
[2018-04-15 06:25] LABS: ALB/GLOB RATIO 0.6 (1.0-2.1); ALBUMIN 2.7 g/dL (3.5-5.0); CALCIUM 8.7 mg/dL (8.4-10.2)
[2018-04-15] MEDS ORDERED: Morphine 4 MG/ML VIAL ONE (07:45)
--- NOTE | 2018-04-15 08:37 | CP.PCM.PN ---
Objective - Vital Signs/Intake and Output Vital Signs (last 24 hours): Temp Pulse Resp BP Pulse Ox 100.0 F H 89 18 124/65 98 04/15/18 04:29 04/15/18 05:00 04/15/18 04:29 04/15/18 04:29 04/15/18 04:29 - Medications Medications: Current Medications Abacavir Sulfate (Ziagen) 300 mg PO BID [facility] PRN Reason: Protocol Last Admin: 04/14/18 18:24 Dose: 300 mg Amlodipine Besylate (Norvasc) 10 mg PO DAILY [facility] Last Admin: 04/14/18 12:22 Dose: Not Given Dolutegravir Sodium (Tivicay) 50 mg PO DAILY [facility] PRN Reason: Protocol Last Admin: 04/14/18 12:22 Dose: Not Given Ergocalciferol (Drisdol 50,000 Intl Units Cap) 1 cap PO QWK [facility] Ferrous Gluconate (Fergon) 324 mg PO TID [facility] Lactated Ringer's (Lactated Ringer's) 1,000 mls @ 160 mls/hr IV .Q6H15M [facility] Last Admin: 04/15/18 04:03 Dose: Not Given Piperacillin Sod/Tazobactam (Sod 2.25 gm/ Sodium Chloride) 100 mls @ 100 mls/ hr IVPB Q6 [facility] PRN Reason: Protocol Last Admin: 04/15/18 04:04 Dose: Not Given Insulin Detemir (Levemir) 16 units SC HS [facility] Labetalol HCl (Trandate) 300 mg PO Q8 [facility] Last Admin: 04/15/18 02:01 Dose: Not Given Lamivudine (Epivir) 150 mg PO DAILY [facility] PRN Reason: Protocol Last Admin: 04/14/18 12:22 Dose: Not Given Morphine Sulfate (Morphine) 4 mg IVP Q4 PRN PRN Reason: Pain, severe (8-10) Last Admin: 04/15/18 07:45 Dose: 4 mg Ondansetron HCl (Zofran Inj) 4 mg IVP Q6 PRN PRN Reason: Nausea/Vomiting Sertraline HCl (Zoloft) 50 mg PO DAILY [facility] Last Admin: 04/14/18 12:23 Dose: Not Given Sodium Bicarbonate (Sodium Bicarbonate Tab) 1,300 mg PO BID [facility] Last Admin: 04/14/18 18:26 Dose: 1,300 mg Vitamin B Complex/Vit C/Folic Acid (Nephro-Nella) 1 tab PO DAILY [facility] Last Admin: 04/14/18 12:22 Dose: Not Given - Labs Labs: 04/15/18 04:30 04/15/18 04:30
[2018-04-15] MEDS ORDERED: Lidocaine 1% 5ml Abboject IV ONE (09:51)
[2018-04-15] MEDS: Multivitamin Vitamin B Complex (Nephro-Vite) Tab PO SCH (09:51)
[2018-04-15] MEDS ORDERED: Ergocalciferol 50,000 Intl Units Cap PO SCH (10:15)
--- NOTE | 2018-04-15 10:20 | CP.PCM.PN ---
Subjective - Date & Time of Evaluation Date of Evaluation: 04/15/18 Time of Evaluation: 10:23 - Subjective Subjective: patient in bed not in acute distress Objective - Vital Signs/Intake and Output Vital Signs (last 24 hours): Temp Pulse Resp BP Pulse Ox 100.0 F H 91 H 18 124/65 98 04/15/18 04:29 04/15/18 09:49 04/15/18 04:29 04/15/18 09:49 04/15/18 04:29 - Medications Medications: Current Medications Abacavir Sulfate (Ziagen) 300 mg PO BID [facility] PRN Reason: Protocol Last Admin: 04/15/18 09:51 Dose: 300 mg Amlodipine Besylate (Norvasc) 10 mg PO DAILY [facility] Last Admin: 04/15/18 09:49 Dose: 10 mg Dolutegravir Sodium (Tivicay) 50 mg PO DAILY [facility] PRN Reason: Protocol Last Admin: 04/14/18 12:22 Dose: Not Given Ergocalciferol (Drisdol 50,000 Intl Units Cap) 1 cap PO QWK [facility] Ferrous Gluconate (Fergon) 324 mg PO TID [facility] Lactated Ringer's (Lactated Ringer's) 1,000 mls @ 160 mls/hr IV .Q6H15M [facility] Last Admin: 04/15/18 09:54 Dose: Not Given Piperacillin Sod/Tazobactam (Sod 2.25 gm/ Sodium Chloride) 100 mls @ 100 mls/ hr IVPB Q6 [facility] PRN Reason: Protocol Last Admin: 04/15/18 04:04 Dose: Not Given Insulin Detemir (Levemir) 16 units SC HS [facility] Labetalol HCl (Trandate) 300 mg PO Q8 [facility] Last Admin: 04/15/18 09:51 Dose: 300 mg Lamivudine (Epivir) 150 mg PO DAILY [facility] PRN Reason: Protocol Last Admin: 04/15/18 09:51 Dose: 150 mg Morphine Sulfate (Morphine) 4 mg IVP Q4 PRN PRN Reason: Pain, severe (8-10) Last Admin: 04/15/18 07:45 Dose: 4 mg Ondansetron HCl (Zofran Inj) 4 mg IVP Q6 PRN PRN Reason: Nausea/Vomiting Sertraline HCl (Zoloft) 50 mg PO DAILY [facility] Last Admin: 04/15/18 09:52 Dose: 50 mg Sodium Bicarbonate (Sodium Bicarbonate Tab) 1,300 mg PO BID [facility] Last Admin: 04/15/18 09:51 Dose: 1,300 mg Vitamin B Complex/Vit C/Folic Acid (Nephro-Nella) 1 tab PO DAILY [facility] Last Admin: 04/15/18 09:51 Dose: 1 tab - Labs Labs: 04/15/18 04:30 04/15/18 04:30 - Constitutional Appears: No Acute Distress - ENT Exam ENT Exam: Mucous Membranes Moist - Neck Exam Neck Exam: absent: Lymphadenopathy - Respiratory Exam Respiratory Exam: NORMAL BREATHING PATTERN. absent: Chest Wall Tenderness - Cardiovascular Exam Cardiovascular Exam: absent: JVD, Rubs - GI/Abdominal Exam GI & Abdominal Exam: Soft, Normal Bowel Sounds - Extremities Exam Extremities Exam: absent: Calf Tenderness - Back Exam Back Exam: absent: CVA tenderness (L), CVA tenderness (R) - Neurological Exam Neurological Exam: Alert - Psychiatric Exam Psychiatric exam: Normal Affect - Skin Skin Exam: absent: Cyanosis Assessment and Plan (1) HIV (human immunodeficiency virus infection) Status: Acute (2) Abscess Status: Chronic (3) Chronic kidney disease, stage 5 Assessment & Plan: perirectal abscess Diabetic chronic Kidney Disease (E11.22) Hypertensive Chronic Kidney Disease (I12.9) Chronic Kidney Disease (N18.5) Stage 5 with 3.8 gm proteinuria (R80.9) likely due to DM/HTN Anemia (D64.9), Hyperphosphatemia (E83.39), Secondary Hyperparathyroidism (E21.1 ), HTN (I12.9) HIV on HAART, hx of left BKA, vit D def, acidosis the plan Antibiotics as per renal doses Continue monitoring kidney function Ross is not willing to go for AV fistula or even discuss his chronic kidney disease Status: Acute
--- NOTE | 2018-04-15 11:01 | CP.PCM.PN ---
Subjective - Date & Time of Evaluation Date of Evaluation: 04/15/18 Time of Evaluation: 07:00 - Subjective Subjective: events noted surgery on board Objective - Vital Signs/Intake and Output Vital Signs (last 24 hours): Temp Pulse Resp BP Pulse Ox 100.0 F H 91 H 18 124/65 98 04/15/18 04:29 04/15/18 09:49 04/15/18 04:29 04/15/18 09:49 04/15/18 04:29 - Medications Medications: Current Medications Abacavir Sulfate (Ziagen) 300 mg PO BID [facility] PRN Reason: Protocol Last Admin: 04/15/18 09:51 Dose: 300 mg Amlodipine Besylate (Norvasc) 10 mg PO DAILY [facility] Last Admin: 04/15/18 09:49 Dose: 10 mg Dolutegravir Sodium (Tivicay) 50 mg PO DAILY [facility] PRN Reason: Protocol Last Admin: 04/14/18 12:22 Dose: Not Given Ergocalciferol (Drisdol 50,000 Intl Units Cap) 1 cap PO QWK [facility] Ferrous Gluconate (Fergon) 324 mg PO TID [facility] Lactated Ringer's (Lactated Ringer's) 1,000 mls @ 160 mls/hr IV .Q6H15M [facility] Last Admin: 04/15/18 09:54 Dose: Not Given Piperacillin Sod/Tazobactam (Sod 2.25 gm/ Sodium Chloride) 100 mls @ 100 mls/ hr IVPB Q6 [facility] PRN Reason: Protocol Last Admin: 04/15/18 04:04 Dose: Not Given Insulin Detemir (Levemir) 16 units SC HS [facility] Labetalol HCl (Trandate) 300 mg PO Q8 [facility] Last Admin: 04/15/18 09:51 Dose: 300 mg Lamivudine (Epivir) 150 mg PO DAILY [facility] PRN Reason: Protocol Last Admin: 04/15/18 09:51 Dose: 150 mg Morphine Sulfate (Morphine) 4 mg IVP Q4 PRN PRN Reason: Pain, severe (8-10) Last Admin: 04/15/18 07:45 Dose: 4 mg Ondansetron HCl (Zofran Inj) 4 mg IVP Q6 PRN PRN Reason: Nausea/Vomiting Sertraline HCl (Zoloft) 50 mg PO DAILY [facility] Last Admin: 04/15/18 09:52 Dose: 50 mg Sodium Bicarbonate (Sodium Bicarbonate Tab) 1,300 mg PO BID [facility] Last Admin: 04/15/18 09:51 Dose: 1,300 mg Vitamin B Complex/Vit C/Folic Acid (Nephro-Nella) 1 tab PO DAILY [facility] Last Admin: 04/15/18 09:51 Dose: 1 tab - Labs Labs: 04/15/18 04:30 04/15/18 04:30 - Constitutional Appears: Non-toxic, Chronically Ill - Head Exam Head Exam: NORMOCEPHALIC - Eye Exam Eye Exam: absent: Scleral icterus - ENT Exam ENT Exam: Mucous Membranes Dry - Neck Exam Neck Exam: absent: Lymphadenopathy - Respiratory Exam Respiratory Exam: Decreased Breath Sounds - Cardiovascular Exam Cardiovascular Exam: REGULAR RHYTHM - GI/Abdominal Exam GI & Abdominal Exam: Distended - Rectal Exam Rectal Exam: Deferred - Exam Exam: NORMAL INSPECTION Assessment and Plan (1) CITLALLI (acute kidney injury) Status: Acute (2) HIV (human immunodeficiency virus infection) Status: Acute (3) Abscess and cellulitis Status: Acute (4) Abscess, gluteal, right Status: Acute - Assessment and Plan (Free Text) Assessment: fever persists cultures pending IV rx renewed cont [facility] rx
--- NOTE | 2018-04-15 11:21 | CON ---
DATE: 04/14/2018 Nydia Parks was seen in [place]. 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 I am not sure she really wants me to attend to her; however, if she is willing, I am willing too. HISTORY OF PRESENT ILLNESS: Admitted from the emergency room on 04/14 with abdominal pain, diarrhea, colitis, being followed by Dr. Noe. IMPRESSION: Perianal abscess, left buttock; hepatomegaly; mild splenomegaly; small pericardial effusion. Consult with Dr. Noe. Antibiotics and possibly an incision and drainage. Compa Galeano MD
[2018-04-15] MEDS ORDERED: Propofol 10 mg/ml Inj (20 ML) ONE (11:39)
[2018-04-15] MEDS ORDERED: Midazolam 2 MG/2 ML VIAL ONE (11:39)
[2018-04-15] MEDS ORDERED: Sodium Chloride 0.9% 500 ML IV ONE (11:40)
--- NOTE | 2018-04-15 11:49 | CP.PCM.PN ---
Subjective - Date & Time of Evaluation Date of Evaluation: 04/15/18 Time of Evaluation: 11:47 - Subjective Subjective: patient was away for tests at time of evaluation. reviewed events occurred since yesterday. ID, Renal, and Surgery following patient. Continues with low grade temp and WBC elevated Objective - Vital Signs/Intake and Output Vital Signs (last 24 hours): Temp Pulse Resp BP Pulse Ox 100.0 F H 91 H 18 124/65 98 04/15/18 04:29 04/15/18 09:49 04/15/18 04:29 04/15/18 09:49 04/15/18 04:29 - Medications Medications: Current Medications Abacavir Sulfate (Ziagen) 300 mg PO BID [facility] PRN Reason: Protocol Last Admin: 04/15/18 09:51 Dose: 300 mg Amlodipine Besylate (Norvasc) 10 mg PO DAILY [facility] Last Admin: 04/15/18 09:49 Dose: 10 mg Dolutegravir Sodium (Tivicay) 50 mg PO DAILY [facility] PRN Reason: Protocol Last Admin: 04/14/18 12:22 Dose: Not Given Ergocalciferol (Drisdol 50,000 Intl Units Cap) 1 cap PO QWK [facility] Ferrous Gluconate (Fergon) 324 mg PO TID [facility] Lactated Ringer's (Lactated Ringer's) 1,000 mls @ 160 mls/hr IV .Q6H15M [facility] Last Admin: 04/15/18 09:54 Dose: Not Given Piperacillin Sod/Tazobactam (Sod 2.25 gm/ Sodium Chloride) 100 mls @ 100 mls/ hr IVPB Q6 [facility] PRN Reason: Protocol Last Admin: 04/15/18 04:04 Dose: Not Given Insulin Detemir (Levemir) 16 units SC HS [facility] Labetalol HCl (Trandate) 300 mg PO Q8 [facility] Last Admin: 04/15/18 09:51 Dose: 300 mg Lamivudine (Epivir) 150 mg PO DAILY [facility] PRN Reason: Protocol Last Admin: 04/15/18 09:51 Dose: 150 mg Morphine Sulfate (Morphine) 4 mg IVP Q4 PRN PRN Reason: Pain, severe (8-10) Last Admin: 04/15/18 07:45 Dose: 4 mg Ondansetron HCl (Zofran Inj) 4 mg IVP Q6 PRN PRN Reason: Nausea/Vomiting Sertraline HCl (Zoloft) 50 mg PO DAILY [facility] Last Admin: 04/15/18 09:52 Dose: 50 mg Sodium Bicarbonate (Sodium Bicarbonate Tab) 1,300 mg PO BID [facility] Last Admin: 04/15/18 09:51 Dose: 1,300 mg Vitamin B Complex/Vit C/Folic Acid (Nephro-Nella) 1 tab PO DAILY [facility] Last Admin: 04/15/18 09:51 Dose: 1 tab - Labs Labs: 04/15/18 04:30 04/15/18 04:30 Assessment and Plan - Assessment and Plan (Free Text) Assessment: 37 year old transgender female with history of HIV on HAART, DM, CKD, HTN with abdominal pain, nausea/vomiting, diarrhea and found to have left jyotsna-rectal abscess. plan labs/chart reviewed c/w zosyn at this time nephro following ID following surgery following cultures pending c/w home meds at this time accucheck achs hold insulin at this time due to NPO status zofran prn n/v c/w IVF/IVabx
[2018-04-15] MEDS ORDERED: Bupivacaine 0.5% Inj(30mL) IJ ONE ×2 (12:58)
[2018-04-15] MEDS: Sodium Chloride 0.9% 1,000 ML IV SCH ×2 (13:15→14:35)
--- NOTE | 2018-04-15 13:17 | PCM.SURG1 ---
Surgeon's Initial Post Op Note - Surgeon's Notes Surgeon: Dr. Galeano Melting Supervisor: Carlos PGY2 Type of Anesthesia: General LMA, Local Anesthesia Administered By: Dr. Fatima Pre-Operative Diagnosis: L jyotsna-rectal abscess Operative Findings: L jyotsna-rectal abscess Post-Operative Diagnosis: L jyotsna-rectal abscess Operation Performed: Incision and drainage of L jyotsna-rectal abscess, irrigation and placement of draining seton Specimen/Specimens Removed: Wound culture Estimated Blood Loss: EBL {In ML}: 5 Blood Products Given: N/A Drains Used: Marty Post-Op Condition: Good Date of Surgery/Procedure: 04/15/18 Time of Surgery/Procedure: 13:16
[2018-04-15] MEDS: Morphine 4 MG/ML VIAL IVP PRN (22:41)
[2018-04-16] MEDS: Morphine 4 MG/ML VIAL IVP PRN ×4 (02:49→17:07)
--- NOTE | 2018-04-16 07:52 | CP.PCM.PN ---
Subjective - Date & Time of Evaluation Date of Evaluation: 04/16/18 Time of Evaluation: 07:45 - Subjective Subjective: General Surgery Note for Dr. Galeano Patient seen and examined at bedside. No acute event overnight. She is s/p I&D of L jyotsna-rectal abscess POD#1. She admits to pain at surgical site. Dressing had to be changed multiple times. Denies fever/chills but admits to diarrhea. Objective - Vital Signs/Intake and Output Vital Signs (last 24 hours): Temp Pulse Resp BP Pulse Ox 98.6 F 78 20 114/66 100 04/16/18 05:59 04/16/18 05:59 04/16/18 05:59 04/16/18 05:59 04/16/18 05:59 - Medications Medications: Current Medications Abacavir Sulfate (Ziagen) 300 mg PO BID [facility] PRN Reason: Protocol Last Admin: 04/15/18 18:10 Dose: 300 mg Amlodipine Besylate (Norvasc) 10 mg PO DAILY [facility] Last Admin: 04/15/18 09:49 Dose: 10 mg Dolutegravir Sodium (Tivicay) 50 mg PO DAILY [facility] PRN Reason: Protocol Last Admin: 04/15/18 18:11 Dose: 50 mg Ergocalciferol (Drisdol 50,000 Intl Units Cap) 1 cap PO QWK [facility] Ferrous Gluconate (Fergon) 324 mg PO TID [facility] Last Admin: 04/15/18 18:10 Dose: 324 mg Lactated Ringer's (Lactated Ringer's) 1,000 mls @ 160 mls/hr IV .Q6H15M [facility] Last Admin: 04/15/18 14:34 Dose: Not Given Piperacillin Sod/Tazobactam (Sod 2.25 gm/ Sodium Chloride) 100 mls @ 100 mls/ hr IVPB Q6 [facility] PRN Reason: Protocol Last Admin: 04/16/18 03:00 Dose: 100 mls/hr Sodium Chloride (Sodium Chloride 0.9%) 1,000 mls @ 100 mls/hr IV .Q10H [facility] Last Admin: 04/15/18 14:35 Dose: Not Given Insulin Detemir (Levemir) 16 units SC HS [facility] Labetalol HCl (Trandate) 300 mg PO Q8 [facility] Last Admin: 04/16/18 00:45 Dose: Not Given Lamivudine (Epivir) 150 mg PO DAILY [facility] PRN Reason: Protocol Last Admin: 04/15/18 09:51 Dose: 150 mg Morphine Sulfate (Morphine) 4 mg IVP Q4 PRN PRN Reason: Pain, severe (8-10) Last Admin: 04/16/18 07:33 Dose: 4 mg Ondansetron HCl (Zofran Inj) 4 mg IVP Q6 PRN PRN Reason: Nausea/Vomiting Sertraline HCl (Zoloft) 50 mg PO DAILY [facility] Last Admin: 04/15/18 09:52 Dose: 50 mg Sodium Bicarbonate (Sodium Bicarbonate Tab) 1,300 mg PO BID [facility] Last Admin: 04/15/18 18:10 Dose: 1,300 mg Vitamin B Complex/Vit C/Folic Acid (Nephro-Nella) 1 tab PO DAILY [facility] Last Admin: 04/15/18 09:51 Dose: 1 tab - Labs Labs: 04/15/18 04:30 04/15/18 04:30 - Constitutional Appears: No Acute Distress - Eye Exam Eye Exam: Normal appearance - ENT Exam ENT Exam: Mucous Membranes Moist - Respiratory Exam Respiratory Exam: NORMAL BREATHING PATTERN - Cardiovascular Exam Cardiovascular Exam: REGULAR RHYTHM - GI/Abdominal Exam GI & Abdominal Exam: Soft. absent: Guarding, Rigid, Tenderness, Rebound - Rectal Exam Additional comments: gabby drain in place, TTP, drainage noted - Neurological Exam Neurological Exam: Alert, Awake - Psychiatric Exam Psychiatric exam: Normal Affect, Normal Mood - Skin Skin Exam: Dry, Warm Assessment and Plan - Assessment and Plan (Free Text) Assessment: 37 yr old transgender F s/p I&D of L jyotsna-rectal abscess POD#1 Plan: -CLD, ADAT -Continue IV abx -IVF -Pain control -Management as per primary -Further recommendations as per Dr. Froylan Gonzalez PGY2
[2018-04-16] MEDS: Lactated Ringer's 1,000 ML IV SCH ×3 (08:45→20:34)
[2018-04-16] MEDS: Multivitamin Vitamin B Complex (Nephro-Vite) Tab PO SCH (10:21)
--- NOTE | 2018-04-16 11:29 | CP.PCM.PN ---
Subjective - Date & Time of Evaluation Date of Evaluation: 04/16/18 Time of Evaluation: 11:27 - Subjective Subjective: patient awake and conscious patient stated she feels okay Objective - Vital Signs/Intake and Output Vital Signs (last 24 hours): Temp Pulse Resp BP Pulse Ox 98.1 F 73 20 122/64 100 04/16/18 08:03 04/16/18 10:22 04/16/18 08:03 04/16/18 10:22 04/16/18 08:03 - Medications Medications: Current Medications Abacavir Sulfate (Ziagen) 300 mg PO BID [facility] PRN Reason: Protocol Last Admin: 04/16/18 10:25 Dose: 300 mg Amlodipine Besylate (Norvasc) 10 mg PO DAILY [facility] Last Admin: 04/16/18 10:22 Dose: 10 mg Dolutegravir Sodium (Tivicay) 50 mg PO DAILY [facility] PRN Reason: Protocol Last Admin: 04/16/18 10:23 Dose: 50 mg Ergocalciferol (Drisdol 50,000 Intl Units Cap) 1 cap PO QWK [facility] Ferrous Gluconate (Fergon) 324 mg PO TID [facility] Last Admin: 04/16/18 10:21 Dose: 324 mg Lactated Ringer's (Lactated Ringer's) 1,000 mls @ 160 mls/hr IV .Q6H15M [facility] Last Admin: 04/15/18 14:34 Dose: Not Given Piperacillin Sod/Tazobactam (Sod 2.25 gm/ Sodium Chloride) 100 mls @ 100 mls/ hr IVPB Q6 [facility] PRN Reason: Protocol Last Admin: 04/16/18 10:26 Dose: 100 mls/hr Sodium Chloride (Sodium Chloride 0.9%) 1,000 mls @ 100 mls/hr IV .Q10H [facility] Last Admin: 04/15/18 14:35 Dose: Not Given Insulin Detemir (Levemir) 16 units SC HS [facility] Labetalol HCl (Trandate) 300 mg PO Q8 [facility] Last Admin: 04/16/18 10:24 Dose: 300 mg Lamivudine (Epivir) 150 mg PO DAILY [facility] PRN Reason: Protocol Last Admin: 04/16/18 10:20 Dose: 150 mg Morphine Sulfate (Morphine) 4 mg IVP Q4 PRN PRN Reason: Pain, severe (8-10) Last Admin: 04/16/18 07:33 Dose: 4 mg Ondansetron HCl (Zofran Inj) 4 mg IVP Q6 PRN PRN Reason: Nausea/Vomiting Sertraline HCl (Zoloft) 50 mg PO DAILY [facility] Last Admin: 04/16/18 10:26 Dose: 50 mg Sodium Bicarbonate (Sodium Bicarbonate Tab) 1,300 mg PO BID [facility] Last Admin: 04/16/18 10:22 Dose: 1,300 mg Vitamin B Complex/Vit C/Folic Acid (Nephro-Nella) 1 tab PO DAILY [facility] Last Admin: 04/16/18 10:21 Dose: 1 tab - Labs Labs: 04/15/18 04:30 04/15/18 04:30 - Constitutional Appears: No Acute Distress - Eye Exam Eye Exam: Conjunctival injection - ENT Exam ENT Exam: absent: Mucous Membranes Moist - Neck Exam Neck Exam: absent: Lymphadenopathy - Respiratory Exam Respiratory Exam: NORMAL BREATHING PATTERN. absent: Chest Wall Tenderness - GI/Abdominal Exam GI & Abdominal Exam: Soft, Normal Bowel Sounds - Extremities Exam Extremities Exam: absent: Calf Tenderness - Back Exam Back Exam: absent: CVA tenderness (L), CVA tenderness (R) - Neurological Exam Neurological Exam: Alert - Skin Skin Exam: absent: Cyanosis Assessment and Plan (1) HIV (human immunodeficiency virus infection) Status: Acute (2) Abscess Status: Chronic (3) Chronic kidney disease, stage 5 Assessment & Plan: perirectal abscess/status post surgery Diabetic chronic Kidney Disease (E11.22) Hypertensive Chronic Kidney Disease (I12.9) Chronic Kidney Disease (N18.5) Stage 5 with 3.8 gm proteinuria (R80.9) likely due to DM/HTN Anemia (D64.9), Hyperphosphatemia (E83.39), Secondary Hyperparathyroidism (E21.1 ), HTN (I12.9) HIV on HAART, hx of left BKA, vit D def, acidosis the plan Antibiotics as per renal doses Continue monitoring kidney function She is not willing to go for AV fistula or even discuss his chronic kidney disease Status: Acute
--- NOTE | 2018-04-16 15:01 | PN ---
DATE: 04/16/2018 SUBJECTIVE: The patient is status post I&D of the left perirectal abscess. There was a fair amount of infection there in the sealed off cavity that tract a little bit along the rectum. Rectal exam showed good tone, but some irregularities along the mucosa consistent with a fistula. We need to worry about that later. For now, the wound is drained with a Pat. Cultures are pending showing some Gram-negative rods and Gram-positive cocci. Compa Galeano MD
--- NOTE | 2018-04-16 16:13 | CP.PCM.PN ---
Subjective - Date & Time of Evaluation Date of Evaluation: 04/16/18 Time of Evaluation: 10:00 - Subjective Subjective: patient seen and examined at bedside. No acute events overnight. Patient tolerated PO diet well. No nausea/diarrhea. Some pain from surgical site. No other complaints offered at this time. Objective - Vital Signs/Intake and Output Vital Signs (last 24 hours): Temp Pulse Resp BP Pulse Ox 97.8 F 77 16 105/62 100 04/16/18 15:51 04/16/18 15:51 04/16/18 15:51 04/16/18 15:51 04/16/18 15:51 - Medications Medications: Current Medications Abacavir Sulfate (Ziagen) 300 mg PO BID [facility] PRN Reason: Protocol Last Admin: 04/16/18 10:25 Dose: 300 mg Amlodipine Besylate (Norvasc) 10 mg PO DAILY [facility] Last Admin: 04/16/18 10:22 Dose: 10 mg Dolutegravir Sodium (Tivicay) 50 mg PO DAILY [facility] PRN Reason: Protocol Last Admin: 04/16/18 10:23 Dose: 50 mg Ergocalciferol (Drisdol 50,000 Intl Units Cap) 1 cap PO QWK [facility] Ferrous Gluconate (Fergon) 324 mg PO TID [facility] Last Admin: 04/16/18 13:37 Dose: 324 mg Lactated Ringer's (Lactated Ringer's) 1,000 mls @ 160 mls/hr IV .Q6H15M [facility] Last Admin: 04/15/18 14:34 Dose: Not Given Piperacillin Sod/Tazobactam (Sod 2.25 gm/ Sodium Chloride) 100 mls @ 100 mls/ hr IVPB Q6 [facility] PRN Reason: Protocol Last Admin: 04/16/18 10:26 Dose: 100 mls/hr Sodium Chloride (Sodium Chloride 0.9%) 1,000 mls @ 100 mls/hr IV .Q10H [facility] Last Admin: 04/15/18 14:35 Dose: Not Given Insulin Detemir (Levemir) 16 units SC HS [facility] Labetalol HCl (Trandate) 300 mg PO Q8 [facility] Last Admin: 04/16/18 10:24 Dose: 300 mg Lamivudine (Epivir) 150 mg PO DAILY [facility] PRN Reason: Protocol Last Admin: 04/16/18 10:20 Dose: 150 mg Morphine Sulfate (Morphine) 4 mg IVP Q4 PRN PRN Reason: Pain, severe (8-10) Last Admin: 04/16/18 13:39 Dose: 4 mg Ondansetron HCl (Zofran Inj) 4 mg IVP Q6 PRN PRN Reason: Nausea/Vomiting Sertraline HCl (Zoloft) 50 mg PO DAILY [facility] Last Admin: 04/16/18 10:26 Dose: 50 mg Sodium Bicarbonate (Sodium Bicarbonate Tab) 1,300 mg PO BID [facility] Last Admin: 04/16/18 10:22 Dose: 1,300 mg Vitamin B Complex/Vit C/Folic Acid (Nephro-Nella) 1 tab PO DAILY [facility] Last Admin: 04/16/18 10:21 Dose: 1 tab - Labs Labs: 04/15/18 04:30 04/15/18 04:30 - Constitutional Appears: Non-toxic, No Acute Distress - Head Exam Head Exam: NORMAL INSPECTION - Eye Exam Eye Exam: Normal appearance - Neck Exam Neck Exam: Normal Inspection - Respiratory Exam Respiratory Exam: Clear to Ausculation Bilateral, NORMAL BREATHING PATTERN - Cardiovascular Exam Cardiovascular Exam: RRR, +S1, +S2 - Neurological Exam Neurological Exam: Alert, Awake - Psychiatric Exam Psychiatric exam: Normal Affect, Normal Mood - Skin Skin Exam: Normal Color, Warm Assessment and Plan - Assessment and Plan (Free Text) Assessment: 37 year old transgender female with PMHx of HIV on HAART, DM, CKD, HTN admitted for left jyotsna-rectal abscess. now s/p I&D plan labs/chart reviewed c/w abx as per ID nephro following surgery following s/p I&D c/w home meds at this time accucheck achs zofran prn n/v c/w pain control prn advance diet as tolerated
[2018-04-17 06:29] LABS: BASO # 0.1 K/uL (0.0-0.2); BASO % 0.7 % (0.0-2.0); EOS # 0.7 K/uL (0.0-0.7); EOS % 8.3 % (0.0-4.0); HEMOGLOBIN 9.2 g/dL (12.0-16.0); LYMPH # 2.2 K/uL (1.0-4.3); MEAN CELL VOLUME 89.7 fl (81.0-99.0); MEAN CORPUSCULAR HEMOGLOBIN 29.9 pg (27.0-31.0); MEAN CORPUSCULAR HGB CONC 33.3 g/dL (33.0-37.0); MEAN PLATELET VOLUME 7.2 fl (7.2-11.7); MONO # 0.9 K/uL (0.0-0.8); MONO % 10.2 % (0.0-10.0); NEUT # 4.6 K/uL (1.8-7.0); NEUT % 54.8 % (50.0-75.0); RBC 3.08 Mil/uL (3.80-5.20); RED CELL DISTRIBUTION WIDTH 14.9 % (11.5-14.5); WHITE BLOOD COUNT 8.5 K/uL (4.8-10.8)
[2018-04-17 06:44] LABS: CALCIUM 8.4 mg/dL (8.4-10.2)
[2018-04-17] MEDS: Lactated Ringer's 1,000 ML IV SCH (09:34)
[2018-04-17] MEDS: Multivitamin Vitamin B Complex (Nephro-Vite) Tab PO SCH (09:38)
--- NOTE | 2018-04-17 12:18 | CP.PCM.PN ---
Subjective - Date & Time of Evaluation Date of Evaluation: 04/17/18 Time of Evaluation: 11:00 - Subjective Subjective: General Surgery Pt seen and examined. No acute event overnight. C/O pain at surgical site but it is improved since yesterday. Complaining of general body pains. Denies fever , chills, nausea, emesis. + diarrhea. Objective - Vital Signs/Intake and Output Vital Signs (last 24 hours): Temp Pulse Resp BP Pulse Ox 97.5 F L 67 19 147/78 100 04/17/18 08:19 04/17/18 09:45 04/17/18 08:19 04/17/18 09:45 04/17/18 08:19 - Medications Medications: Current Medications Abacavir Sulfate (Ziagen) 300 mg PO BID REPLACED BY [facility] PRN Reason: Protocol Last Admin: 04/17/18 09:39 Dose: 300 mg Amlodipine Besylate (Norvasc) 10 mg PO DAILY REPLACED BY [facility] Last Admin: 04/17/18 09:45 Dose: 10 mg Dolutegravir Sodium (Tivicay) 50 mg PO DAILY REPLACED BY [facility] PRN Reason: Protocol Last Admin: 04/17/18 09:39 Dose: 50 mg Ergocalciferol (Drisdol 50,000 Intl Units Cap) 1 cap PO QWK REPLACED BY [facility] Ferrous Gluconate (Fergon) 324 mg PO TID REPLACED BY [facility] Last Admin: 04/17/18 09:38 Dose: 324 mg Lactated Ringer's (Lactated Ringer's) 1,000 mls @ 160 mls/hr IV .Q6H15M REPLACED BY [facility] Last Admin: 04/17/18 09:34 Dose: Not Given Piperacillin Sod/Tazobactam (Sod 2.25 gm/ Sodium Chloride) 100 mls @ 100 mls/ hr IVPB Q6 [facility] PRN Reason: Protocol Last Admin: 04/17/18 11:07 Dose: 100 mls/hr Sodium Chloride (Sodium Chloride 0.9%) 1,000 mls @ 100 mls/hr IV .Q10H REPLACED BY [facility] Last Admin: 04/15/18 14:35 Dose: Not Given Insulin Detemir (Levemir) 16 units SC HS REPLACED BY [facility] Labetalol HCl (Trandate) 300 mg PO Q8 REPLACED BY [facility] Last Admin: 04/17/18 09:38 Dose: 300 mg Lamivudine (Epivir) 150 mg PO DAILY [facility]PL[facility]ED BY [facility] PRN Reason: Protocol Last Admin: 04/17/18 09:48 Dose: 150 mg Morphine Sulfate (Morphine) 4 mg IVP Q4 PRN PRN Reason: Pain, severe (8-10) Last Admin: 04/17/18 09:20 Dose: 4 mg Ondansetron HCl (Zofran Inj) 4 mg IVP Q6 PRN PRN Reason: Nausea/Vomiting Last Admin: 04/16/18 21:58 Dose: 4 mg Sertraline HCl (Zoloft) 50 mg PO DAILY [facility]PLACED BY [facility] Last Admin: 04/17/18 09:40 Dose: 50 mg Sodium Bicarbonate (Sodium Bicarbonate Tab) 1,300 mg PO BID REPLACED BY [facility] Last Admin: 04/17/18 09:38 Dose: 1,300 mg Vitamin B Complex/Vit C/Folic Acid (Nephro-Nella) 1 tab PO DAILY REPLACED BY [facility] Last Admin: 04/17/18 09:38 Dose: 1 tab - Labs Labs: 04/17/18 06:00 04/17/18 06:00 - Constitutional Appears: Non-toxic, No Acute Distress - Head Exam Head Exam: ATRAUMATIC, NORMOCEPHALIC - Eye Exam Eye Exam: EOMI. absent: Scleral icterus - Respiratory Exam Respiratory Exam: NORMAL BREATHING PATTERN. absent: Respiratory Distress - Cardiovascular Exam Cardiovascular Exam: RRR, +S1, +S2 - GI/Abdominal Exam GI & Abdominal Exam: Soft. absent: Distended, Tenderness - Rectal Exam Additional comments: gabby drain in place, TTP, drainage noted - Neurological Exam Neurological Exam: Alert, Awake, Oriented x3 - Skin Skin Exam: Dry, Warm Assessment and Plan - Assessment and Plan (Free Text) Assessment: 37 MtF transgender s/p I&D of L jyotsna-rectal abscess POD#2 Plan: -Regular diet -Continue IV abx per ID -Pain control -Management as per primary -Will remove gabby drain after several days. Follow up with Dr. Galeano in office for removal if no longer in hospital. D/W Dr. Froylan Martines PGY4
--- NOTE | 2018-04-17 13:12 | CP.PCM.PN ---
Subjective - Date & Time of Evaluation Date of Evaluation: 04/17/18 Time of Evaluation: 07:00 - Subjective Subjective: C/O pain at surgical site but it is improved since yesterday. Complaining of general body pains. Denies fever, chills, nausea, emesis. + diarrhea. Objective - Vital Signs/Intake and Output Vital Signs (last 24 hours): Temp Pulse Resp BP Pulse Ox 97.5 F L 67 19 147/78 100 04/17/18 08:19 04/17/18 09:45 04/17/18 08:19 04/17/18 09:45 04/17/18 08:19 - Medications Medications: Current Medications Abacavir Sulfate (Ziagen) 300 mg PO BID [facility] PRN Reason: Protocol Last Admin: 04/17/18 09:39 Dose: 300 mg Amlodipine Besylate (Norvasc) 10 mg PO DAILY [facility] Last Admin: 04/17/18 09:45 Dose: 10 mg Dolutegravir Sodium (Tivicay) 50 mg PO DAILY [facility] PRN Reason: Protocol Last Admin: 04/17/18 09:39 Dose: 50 mg Ergocalciferol (Drisdol 50,000 Intl Units Cap) 1 cap PO QWK [facility] Ferrous Gluconate (Fergon) 324 mg PO TID [facility] Last Admin: 04/17/18 12:51 Dose: 324 mg Piperacillin Sod/Tazobactam (Sod 2.25 gm/ Sodium Chloride) 100 mls @ 100 mls/ hr IVPB Q6 [facility] PRN Reason: Protocol Last Admin: 04/17/18 11:07 Dose: 100 mls/hr Sodium Chloride (Sodium Chloride 0.9%) 1,000 mls @ 100 mls/hr IV .Q10H [facility] Stop: 04/18/18 12:35 Insulin Detemir (Levemir) 16 units SC HS [facility] Labetalol HCl (Trandate) 300 mg PO Q8 [facility] Last Admin: 04/17/18 09:38 Dose: 300 mg Lamivudine (Epivir) 150 mg PO DAILY [facility] PRN Reason: Protocol Last Admin: 04/17/18 09:48 Dose: 150 mg Morphine Sulfate (Morphine) 4 mg IVP Q4 PRN PRN Reason: Pain, severe (8-10) Last Admin: 04/17/18 12:51 Dose: 4 mg Ondansetron HCl (Zofran Inj) 4 mg IVP Q6 PRN PRN Reason: Nausea/Vomiting Last Admin: 04/16/18 21:58 Dose: 4 mg Sertraline HCl (Zoloft) 50 mg PO DAILY [facility] Last Admin: 04/17/18 09:40 Dose: 50 mg Sodium Bicarbonate (Sodium Bicarbonate Tab) 1,300 mg PO BID [facility] Last Admin: 04/17/18 09:38 Dose: 1,300 mg Vitamin B Complex/Vit C/Folic Acid (Nephro-Nella) 1 tab PO DAILY [facility] Last Admin: 04/17/18 09:38 Dose: 1 tab - Labs Labs: 04/17/18 06:00 04/17/18 06:00 - Constitutional Appears: Non-toxic, Chronically Ill - Head Exam Head Exam: NORMOCEPHALIC - Eye Exam Eye Exam: PERRL - ENT Exam ENT Exam: Mucous Membranes Dry - Neck Exam Neck Exam: absent: Lymphadenopathy - Respiratory Exam Respiratory Exam: Decreased Breath Sounds - Cardiovascular Exam Cardiovascular Exam: REGULAR RHYTHM - GI/Abdominal Exam GI & Abdominal Exam: Distended - Rectal Exam Rectal Exam: Deferred - Exam Exam: NORMAL INSPECTION - Extremities Exam Extremities Exam: absent: Pedal Edema - Back Exam Back Exam: absent: CVA tenderness (L), CVA tenderness (R) - Neurological Exam Neurological Exam: Alert, Awake, Oriented x3 - Psychiatric Exam Psychiatric exam: Depressed - Skin Skin Exam: Dry Assessment and Plan (1) CITLALLI (acute kidney injury) Status: Acute (2) HIV (human immunodeficiency virus infection) Status: Acute (3) Abscess and cellulitis Status: Acute (4) Abscess, gluteal, right Status: Acute - Assessment and Plan (Free Text) Assessment: C/O pain at surgical site but it is improved since yesterday. Complaining of general body pains. Denies fever, chills, nausea, emesis. + diarrhea. Plan: follolw up Dr Bird
[2018-04-17] MEDS: Sodium Chloride 0.9% 1,000 ML IV SCH ×2 (14:01→22:45)
--- NOTE | 2018-04-17 15:28 | PQF ---
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 Current documentation HIV, HAART. HIV (Human immunodeficiency virus) is documented in the medical record. Please specify the type Such as: -- Symptomatic HIV / AIDS -- Asymptomatic HIV / HIV + only -- Other, please specify Also please include any associated conditions, if applicable. The patient's Clinical Indicators include: Documentation of HIV, HAART. Previous admission diagnosis : Symptomatic HIV/AIDS on HAART Query created by: Julianna Manjarrez on 04/17/2018 7:42 AM Electronically signed by: Sumit Noe MD 04/17/2018 3:26 PM
--- NOTE | 2018-04-17 16:28 | CP.PCM.PN ---
Subjective - Date & Time of Evaluation Date of Evaluation: 04/17/18 Time of Evaluation: 12:00 - Subjective Subjective: pt seen and evaluated at bedside with Dr. Bird Pt denies acute overnight events. last episode of diarrhea was yesterday. Slowly tolerating PO diet. Objective - Vital Signs/Intake and Output Vital Signs (last 24 hours): Temp Pulse Resp BP Pulse Ox 97.5 F L 67 19 147/78 100 04/17/18 08:19 04/17/18 09:45 04/17/18 08:19 04/17/18 09:45 04/17/18 08:19 - Medications Medications: Current Medications Abacavir Sulfate (Ziagen) 300 mg PO BID [facility] PRN Reason: Protocol Last Admin: 04/17/18 09:39 Dose: 300 mg Amlodipine Besylate (Norvasc) 10 mg PO DAILY [facility] Last Admin: 04/17/18 09:45 Dose: 10 mg Dolutegravir Sodium (Tivicay) 50 mg PO DAILY [facility] PRN Reason: Protocol Last Admin: 04/17/18 09:39 Dose: 50 mg Ergocalciferol (Drisdol 50,000 Intl Units Cap) 1 cap PO QWK [facility] Ferrous Gluconate (Fergon) 324 mg PO TID [facility] Last Admin: 04/17/18 12:51 Dose: 324 mg Piperacillin Sod/Tazobactam (Sod 2.25 gm/ Sodium Chloride) 100 mls @ 100 mls/ hr IVPB Q6 [facility] PRN Reason: Protocol Last Admin: 04/17/18 11:07 Dose: 100 mls/hr Sodium Chloride (Sodium Chloride 0.9%) 1,000 mls @ 100 mls/hr IV .Q10H [facility] Stop: 04/18/18 12:35 Last Admin: 04/17/18 14:01 Dose: Not Given Insulin Detemir (Levemir) 16 units SC HS [facility] Labetalol HCl (Trandate) 300 mg PO Q8 [facility] Last Admin: 04/17/18 09:38 Dose: 300 mg Lamivudine (Epivir) 150 mg PO DAILY [facility] PRN Reason: Protocol Last Admin: 04/17/18 09:48 Dose: 150 mg Morphine Sulfate (Morphine) 4 mg IVP Q4 PRN PRN Reason: Pain, severe (8-10) Last Admin: 04/17/18 12:51 Dose: 4 mg Ondansetron HCl (Zofran Inj) 4 mg IVP Q6 PRN PRN Reason: Nausea/Vomiting Last Admin: 04/16/18 21:58 Dose: 4 mg Sertraline HCl (Zoloft) 50 mg PO DAILY [facility] Last Admin: 04/17/18 09:40 Dose: 50 mg Sodium Bicarbonate (Sodium Bicarbonate Tab) 1,300 mg PO BID [facility] Last Admin: 04/17/18 09:38 Dose: 1,300 mg Vitamin B Complex/Vit C/Folic Acid (Nephro-Nella) 1 tab PO DAILY [facility] Last Admin: 04/17/18 09:38 Dose: 1 tab - Labs Labs: 04/17/18 06:00 04/17/18 06:00 - Constitutional Appears: No Acute Distress - Eye Exam Eye Exam: EOMI - Neck Exam Neck Exam: Full ROM - Respiratory Exam Respiratory Exam: NORMAL BREATHING PATTERN - Cardiovascular Exam Cardiovascular Exam: +S1, +S2 - GI/Abdominal Exam GI & Abdominal Exam: Soft. absent: Tenderness - Neurological Exam Neurological Exam: Alert, Awake, CN II-XII Intact, Oriented x3 - Psychiatric Exam Psychiatric exam: Normal Affect, Normal Mood Assessment and Plan (1) CITLALLI (acute kidney injury) Status: Acute (2) Chronic kidney disease, stage 5 Status: Acute (3) HIV (human immunodeficiency virus infection) Status: Acute (4) Diarrhea Status: Acute - Assessment and Plan (Free Text) Plan: Nephrology: Dr. Vargas, further recommendations appreciated ID: Dr Noe: further recs appreciated Surgery: pt to f/u op in 1 week for stent Consulte GI: Dr. Hdez; Pt has chronic history of diarrhea, vomiting and resulting fatigue
[2018-04-18 06:36] LABS: MEAN CELL VOLUME 89.5 fl (81.0-99.0); MEAN CORPUSCULAR HEMOGLOBIN 29.5 pg (27.0-31.0); MEAN CORPUSCULAR HGB CONC 32.9 g/dL (33.0-37.0); RBC 3.06 Mil/uL (3.80-5.20); RED CELL DISTRIBUTION WIDTH 15.3 % (11.5-14.5); WHITE BLOOD COUNT 7.9 K/uL (4.8-10.8)
[2018-04-18 06:48] LABS: CALCIUM 8.2 mg/dL (8.4-10.2)
--- NOTE | 2018-04-18 08:03 | CP.PCM.PN ---
Subjective - Date & Time of Evaluation Date of Evaluation: 04/18/18 Time of Evaluation: 07:30 - Subjective Subjective: General Surgery Pt seen and examined. No acute event overnight. Pain at surgical site is slowly improving since yesterday. Denies fever, chills, nausea, emesis. + diarrhea. Objective - Vital Signs/Intake and Output Vital Signs (last 24 hours): Temp Pulse Resp BP Pulse Ox 98.4 F 60 18 145/68 99 04/18/18 00:09 04/18/18 00:04/18/18 00:09 04/18/18 00:09 04/18/18 00:09 - Medications Medications: Current Medications Abacavir Sulfate (Ziagen) 300 mg PO BID [facility] PRN Reason: Protocol Last Admin: 04/17/18 17:04 Dose: 300 mg Amlodipine Besylate (Norvasc) 10 mg PO DAILY [facility] Last Admin: 04/17/18 09:45 Dose: 10 mg Dolutegravir Sodium (Tivicay) 50 mg PO DAILY [facility] PRN Reason: Protocol Last Admin: 04/17/18 09:39 Dose: 50 mg Ergocalciferol (Drisdol 50,000 Intl Units Cap) 1 cap PO QWK [facility] Ferrous Gluconate (Fergon) 324 mg PO TID [facility] Last Admin: 04/17/18 17:09 Dose: 324 mg Piperacillin Sod/Tazobactam (Sod 2.25 gm/ Sodium Chloride) 100 mls @ 100 mls/ hr IVPB Q6 [facility] PRN Reason: Protocol Last Admin: 04/18/18 03:28 Dose: 100 mls/hr Sodium Chloride (Sodium Chloride 0.9%) 1,000 mls @ 100 mls/hr IV .Q10H [facility] Stop: 04/18/18 12:35 Last Admin: 04/17/18 22:45 Dose: Not Given Insulin Detemir (Levemir) 16 units SC HS [facility] Labetalol HCl (Trandate) 300 mg PO Q8 [facility] Last Admin: 04/18/18 00:07 Dose: 300 mg Lamivudine (Epivir) 150 mg PO DAILY [facility] PRN Reason: Protocol Last Admin: 04/17/18 09:48 Dose: 150 mg Morphine Sulfate (Morphine) 4 mg IVP Q4 PRN PRN Reason: Pain, severe (8-10) Last Admin: 04/18/18 03:30 Dose: 4 mg Ondansetron HCl (Zofran Inj) 4 mg IVP Q6 PRN PRN Reason: Nausea/Vomiting Last Admin: 04/16/18 21:58 Dose: 4 mg Sertraline HCl (Zoloft) 50 mg PO DAILY [facility] Last Admin: 04/17/18 09:40 Dose: 50 mg Sodium Bicarbonate (Sodium Bicarbonate Tab) 1,300 mg PO BID [facility] Last Admin: 04/17/18 17:05 Dose: 1,300 mg Vitamin B Complex/Vit C/Folic Acid (Nephro-Nella) 1 tab PO DAILY [facility] Last Admin: 04/17/18 09:38 Dose: 1 tab - Labs Labs: 04/18/18 05:35 04/18/18 05:35 - Constitutional Appears: Non-toxic, No Acute Distress - Head Exam Head Exam: ATRAUMATIC, NORMOCEPHALIC - Eye Exam Eye Exam: EOMI. absent: Scleral icterus - Respiratory Exam Respiratory Exam: NORMAL BREATHING PATTERN. absent: Respiratory Distress - Cardiovascular Exam Cardiovascular Exam: RRR, +S1, +S2 - GI/Abdominal Exam GI & Abdominal Exam: Soft. absent: Distended, Tenderness - Rectal Exam Additional comments: gabby drain in place, TTP, minimal drainage noted - Neurological Exam Neurological Exam: Alert, Awake, Oriented x3 - Skin Skin Exam: Dry, Warm Assessment and Plan - Assessment and Plan (Free Text) Assessment: 37 MtF transgender s/p I&D of L jyotsna-rectal abscess POD#3 Plan: -Continue IV abx per ID -Pain control -Management as per primary -Will remove gabby drain prior to DC D/W Dr. Froylan Martines PGY4
--- NOTE | 2018-04-18 08:55 | CP.PCM.CON ---
<Ron Cespedes - Last Filed: 04/18/18 12:06> History of Present Illness - History of Present Illness History of Present Illness: PGY-4 GI Fellow Consult Note Ms. Parks is a 37 yo transgender female with h/o HIV (on HAART, last CD4 416 on 12/24/17), DM, CKD 4 (due to DM?), DVT, HTN who was admitted on 04/14/18 for perirectal abscess that has since been I&Ded. GI consulted for chronic diarrhea and intermittent vomiting. She was recently evaluated by out team within the last few weeks and had extensive infectious diarrhea w/u with are infectious causes returning negative (see lab results for details). She ultimately underwent EGD+CSPY on 04/02/18 with gastric biopsies positive for H pylori, colon biopsies were unremarkable but of note the prep was poor limiting visualization. She states that she is unaware of prior Hpylori diagnosis/treatment. As far as her symptoms, she continues to report multiple of episodes of watery diarrhea per day. Worse with PO intake and states symptoms seem to stop w/o PO intake; she denies any nocturnal symptoms. States she has tried once daily loperamide with mixed benefit. Denies fevers, chills, recent travel or Abx use other than the abx given during hospital stays. 12 point ROS negative other than stated above MHx: See above SurgHx: L BKA, IVC filter Meds: Reviewed in MAR Family History- multiple cancers in family- unknown types Social History- admits to tobacco use, rare alcohol use, marijuana use All: Reviewed, APAP, ASA Past Patient History - Infectious Disease Hx of Infectious Diseases: None - Past Medical History & Family History Past Medical History?: Yes Past Family History: Reviewed and not pertinent - Past Social History Smoking Status: Light Smoker < 10 Cigarettes Daily - CARDIAC Hx Hypertension: Yes Hx Peripheral Edema: Yes - PULMONARY Hx Asthma: Yes - NEUROLOGICAL Hx Seizures: No - HEENT Hx HEENT Problems: No - RENAL Hx Chronic Kidney Disease: Yes - HEMATOLOGICAL/ONCOLOGICAL Hx Anemia: Yes Hx Human Immunodeficiency Virus (HIV): Yes - INTEGUMENTARY Hx Dermatological Problems: Yes Other/Comment: ULCER BOTTOM LEFT FOOT LEFT FOOT SUTURE LINES TOES - MUSCULOSKELETAL/RHEUMATOLOGICAL Hx Musculoskeletal Disorders: Yes Hx Falls: No Hx Osteomyelitis: Yes - GASTROINTESTINAL Hx Gastritis: Yes Hx Pancreatitis: Yes - GENITOURINARY/GYNECOLOGICAL Hx Sexually Transmitted Disorders: No - PSYCHIATRIC Hx Anxiety: Yes Hx Depression: Yes - ANESTHESIA Hx Anesthesia: Yes Hx Anesthesia Reactions: No Hx Malignant Hyperthermia: No Meds Allergies/Adverse Reactions: Allergies Allergy/AdvReac Type Severity Reaction Status Date / Time acetaminophen [From Tylenol] Allergy RASH Verified 04/13/18 20:37 aspirin Allergy RASH Verified 04/13/18 20:37 hydromorphone [From Dilaudid] Allergy RASH Verified 04/13/18 20:37 ketorolac tromethamine Allergy RASH Verified 04/13/18 20:37 [From Toradol] meperidine HCl [From Demerol] Allergy RASH Verified 04/13/18 20:37 oxycodone HCl [From Percocet] Allergy RASH Verified 04/13/18 20:37 peas Allergy ANAPHYLAXIS Verified 04/13/18 20:37 propoxyphene napsylate Allergy RASH Verified 04/13/18 20:37 [From Darvocet-N] - Medications Medications: Current Medications Abacavir Sulfate (Ziagen) 300 mg PO BID [facility] PRN Reason: Protocol Last Admin: 04/17/18 17:04 Dose: 300 mg Amlodipine Besylate (Norvasc) 10 mg PO DAILY [facility] Last Admin: 04/17/18 09:45 Dose: 10 mg Dolutegravir Sodium (Tivicay) 50 mg PO DAILY [facility] PRN Reason: Protocol Last Admin: 04/17/18 09:39 Dose: 50 mg Ergocalciferol (Drisdol 50,000 Intl Units Cap) 1 cap PO QWK [facility] Ferrous Gluconate (Fergon) 324 mg PO TID [facility] Last Admin: 04/17/18 17:09 Dose: 324 mg Piperacillin Sod/Tazobactam (Sod 2.25 gm/ Sodium Chloride) 100 mls @ 100 mls/ hr IVPB Q6 [facility] PRN Reason: Protocol Last Admin: 04/18/18 03:28 Dose: 100 mls/hr Sodium Chloride (Sodium Chloride 0.9%) 1,000 mls @ 100 mls/hr IV .Q10H [facility] Stop: 04/18/18 12:35 Last Admin: 04/17/18 22:45 Dose: Not Given Insulin Detemir (Levemir) 16 units SC HS [facility] Labetalol HCl (Trandate) 300 mg PO Q8 [facility] Last Admin: 04/18/18 00:07 Dose: 300 mg Lamivudine (Epivir) 150 mg PO DAILY [facility] PRN Reason: Protocol Last Admin: 04/17/18 09:48 Dose: 150 mg Morphine Sulfate (Morphine) 4 mg IVP Q4 PRN PRN Reason: Pain, severe (8-10) Last Admin: 04/18/18 03:30 Dose: 4 mg Ondansetron HCl (Zofran Inj) 4 mg IVP Q6 PRN PRN Reason: Nausea/Vomiting Last Admin: 04/16/18 21:58 Dose: 4 mg Sertraline HCl (Zoloft) 50 mg PO DAILY [facility] Last Admin: 04/17/18 09:40 Dose: 50 mg Sodium Bicarbonate (Sodium Bicarbonate Tab) 1,300 mg PO BID [facility] Last Admin: 04/17/18 17:05 Dose: 1,300 mg Vitamin B Complex/Vit C/Folic Acid (Nephro-Nella) 1 tab PO DAILY [facility] Last Admin: 04/17/18 09:38 Dose: 1 tab Physical Exam - Constitutional Appears: No Acute Distress, Chronically Ill - Head Exam Head Exam: ATRAUMATIC, NORMAL INSPECTION - Eye Exam Eye Exam: EOMI. absent: Conjunctival injection, Scleral icterus - ENT Exam ENT Exam: Mucous Membranes Moist. absent: Normal External Ear Exam - Respiratory Exam Respiratory Exam: Clear to Auscultation Bilateral, NORMAL BREATHING PATTERN. absent: Wheezes - Cardiovascular Exam Cardiovascular Exam: REGULAR RHYTHM, RRR - GI/Abdominal Exam GI & Abdominal Exam: Normal Bowel Sounds, Soft. absent: Diminished Bowel Sounds , Distended, Firm, Guarding, Organomegaly, Pulsatile Mass, Rebound, Rigid, Tenderness - Rectal Exam Rectal Exam: Deferred - Extremities Exam Extremities exam: Negative for: pedal edema Additional comments: s/p L BKA - Neurological Exam Neurological exam: Alert, Oriented x3 - Psychiatric Exam Psychiatric exam: Normal Mood - Skin Skin Exam: Dry, Intact Results - Vital Signs Recent Vital Signs: Last Vital Signs Temp 98.4 F 04/18/18 00:09 Pulse 60 04/18/18 00:09 Resp 18 04/18/18 00:09 BP 145/68 04/18/18 00:09 Pulse Ox 99 04/18/18 00:09 - Labs Result Diagrams: 04/18/18 05:35 04/18/18 05:35 Labs: Laboratory Results - last 24 hr 04/17/18 04/17/18 04/17/18 10:54 15:40 21:45 WBC RBC Hgb Hct MCV MCH MCHC RDW Plt Count Sodium Potassium Chloride Carbon Dioxide Anion Gap BUN Creatinine Est GFR ( Amer) Est GFR (Non-Af Amer) POC Glucose (mg/dL) 120 H 123 H 161 H Random Glucose Calcium 04/18/18 04/18/18 05:35 05:35 WBC 7.9 RBC 3.06 L Hgb 9.0 L Hct 27.4 L MCV 89.5 MCH 29.5 MCHC 32.9 L RDW 15.3 H Plt Count 320 Sodium 142 Potassium 4.3 Chloride 114 H Carbon Dioxide 23 Anion Gap 9 L BUN 25 H Creatinine 3.3 H Est GFR ( Amer) 19 Est GFR (Non-Af Amer) 16 POC Glucose (mg/dL) Random Glucose 126 H Calcium 8.2 L Assessment & Plan - Assessment and Plan (Free Text) Assessment: 37 yo transgender black female admitted for abd pain and diarrhea. # Diarrhea: Chronic, pt reports symptoms for 6 weeks to year+. Sounds osmotic in nature given worse with PO intake and no symptoms after ceasing PO intake. Also at risk for many infectious causes given HIV though all recently ruled out again. Last CD4 605 on 04/08/18. Recent CSPY on 04/02/18 with poor prep and negative random biopsy x1. H/o at least one episode of pancreatitis, perhaps more. Therefore, diarrhea perhaps related to steatorrhea? # Hpylori infection: Biopsy proven on EGD 04/02. Trt naive. Will start [employer] trt. Plan: - Start treatment of H pylori with PPI, Amoxicillin and Clarithromyin x 14days. Should f/u with PCP or GI in at least 4 weeks after treatment to check for eradication. - Trial of pancreatic enzymes - If no relief and also use loperamide and increase dose as necessary Pt seen and examined with Dr. Hdez. Thank you for the consult. Will sign off , please page with questions. <Kalin Hdez - Last Filed: 04/18/18 12:51> Meds - Medications Medications: Current Medications Abacavir Sulfate (Ziagen) 300 mg PO BID [facility] PRN Reason: Protocol Last Admin: 04/18/18 09:03 Dose: 300 mg Amlodipine Besylate (Norvasc) 10 mg PO DAILY [facility] Last Admin: 04/18/18 09:02 Dose: 10 mg Amoxicillin (Amoxil 500 Mg Cap) 1,000 mg PO Q12 [facility] PRN Reason: Protocol Stop: 05/02/18 09:01 Amylase (Pancrease 68587 [id number] [id number] U) 1 unit PO TIDAC [facility] Clarithromycin (Biaxin Filmtab) 500 mg PO Q12 [facility] PRN Reason: Protocol Stop: 05/02/18 09:01 Diphenoxylate HCl/Atropine (Lomotil 0.025-2.5 Mg Tablet) 1 tab PO QID PRN PRN Reason: Diarrhea Dolutegravir Sodium (Tivicay) 50 mg PO DAILY [facility] PRN Reason: Protocol Last Admin: 04/18/18 09:03 Dose: 50 mg Ergocalciferol (Drisdol 50,000 Intl Units Cap) 1 cap PO QWK [facility] Ferrous Gluconate (Fergon) 324 mg PO TID [facility] Last Admin: 04/18/18 12:23 Dose: 324 mg Piperacillin Sod/Tazobactam (Sod 2.25 gm/ Sodium Chloride) 100 mls @ 100 mls/ hr IVPB Q6 [facility] PRN Reason: Protocol Last Admin: 04/18/18 09:04 Dose: 100 mls/hr Insulin Detemir (Levemir) 16 units SC HS [facility] Labetalol HCl (Trandate) 300 mg PO Q8 [facility] Last Admin: 04/18/18 09:03 Dose: 300 mg Lactobacillus Acidophilus (Bacid Acidophilus) 1 cap PO BID [facility] Lamivudine (Epivir) 150 mg PO DAILY [facility] PRN Reason: Protocol Last Admin: 04/18/18 09:01 Dose: 150 mg Metronidazole (Flagyl) 500 mg PO Q12 [facility] PRN Reason: Protocol Morphine Sulfate (Morphine) 4 mg IVP Q4 PRN PRN Reason: Pain, severe (8-10) Last Admin: 04/18/18 09:12 Dose: 4 mg Ondansetron HCl (Zofran Inj) 4 mg IVP Q6 PRN PRN Reason: Nausea/Vomiting Last Admin: 04/16/18 21:58 Dose: 4 mg Ondansetron HCl (Zofran Tab) 4 mg PO Q6 PRN PRN Reason: Nausea/Vomiting Pantoprazole Sodium (Protonix Ec Tab) 20 mg PO BID [facility] Sertraline HCl (Zoloft) 50 mg PO DAILY [facility] Last Admin: 04/18/18 09:04 Dose: 50 mg Sodium Bicarbonate (Sodium Bicarbonate Tab) 1,300 mg PO BID [facility] Last Admin: 04/18/18 09:03 Dose: 1,300 mg Vitamin B Complex/Vit C/Folic Acid (Nephro-Nella) 1 tab PO DAILY [facility] Last Admin: 04/18/18 09:02 Dose: 1 tab Results - Vital Signs Recent Vital Signs: Last Vital Signs Temp 98 F 04/18/18 10:00 Pulse 57 L 04/18/18 10:00 Resp 17 04/18/18 10:00 BP 153/84 H 04/18/18 10:00 Pulse Ox 98 04/18/18 10:00 - Labs Result Diagrams: 04/18/18 05:35 04/18/18 05:35 Labs: Laboratory Results - last 24 hr 04/17/18 04/17/18 04/18/18 15:40 21:45 05:35 WBC 7.9 RBC 3.06 L Hgb 9.0 L Hct 27.4 L MCV 89.5 MCH 29.5 MCHC 32.9 L RDW 15.3 H Plt Count 320 Sodium Potassium Chloride Carbon Dioxide Anion Gap BUN Creatinine Est GFR ( Amer) Est GFR (Non-Af Amer) POC Glucose (mg/dL) 123 H 161 H Random Glucose Calcium 04/18/18 04/18/18 05:35 11:06 WBC RBC Hgb Hct MCV MCH MCHC RDW Plt Count Sodium 142 Potassium 4.3 Chloride 114 H Carbon Dioxide 23 Anion Gap 9 L BUN 25 H Creatinine 3.3 H Est GFR ( Amer) 19 Est GFR (Non-Af Amer) 16 POC Glucose (mg/dL) 143 H Random Glucose 126 H Calcium 8.2 L Attending/Attestation - Attestation I have personally seen and examined this patient.: Yes I have fully participated in the care of the patient.: Yes I have reviewed all pertinent clinical information: Yes Notes (Text): 04/18/18 12:48 Patient seen on Gi rounds this am and discussed in detail with the team. In a nutshell this is a 37 yo transgender black female admitted for abdominal pain and chronic diarrhea found to have jyotsna rectal abscess s/p I and D on antibiotics. She had EGD/ colonoscopy few weeks ago biopsies of which showed H pylori positive likely cause of abdominal pain. Will start triple antibiotics for the same and colonic biopsies and infectious work up for diarrhea is negative. Will start pancreatic enzymes for likely chronic pancreatitis diarrhea. Low fat diet. No further GI work up required. Thank you for letting us participate in the care of your patient. Will sign off
[2018-04-18] MEDS: Multivitamin Vitamin B Complex (Nephro-Vite) Tab PO SCH (09:02)
[2018-04-18] MEDS: Sodium Chloride 0.9% 1,000 ML IV SCH (09:18)
--- NOTE | 2018-04-18 10:55 | CP.PCM.PN ---
Subjective - Date & Time of Evaluation Date of Evaluation: 04/18/18 Time of Evaluation: 10:53 - Subjective Subjective: patient is doing okay no significant changes no vomiting patient appears to be stable Objective - Vital Signs/Intake and Output Vital Signs (last 24 hours): Temp Pulse Resp BP Pulse Ox 97.8 F 57 L 20 153/84 H 100 04/18/18 08:46 04/18/18 09:02 04/18/18 08:46 04/18/18 09:02 04/18/18 08:46 - Medications Medications: Current Medications Abacavir Sulfate (Ziagen) 300 mg PO BID [facility] PRN Reason: Protocol Last Admin: 04/18/18 09:03 Dose: 300 mg Amlodipine Besylate (Norvasc) 10 mg PO DAILY [facility] Last Admin: 04/18/18 09:02 Dose: 10 mg Ciprofloxacin (Cipro) 500 mg PO Q12 [facility] PRN Reason: Protocol Dolutegravir Sodium (Tivicay) 50 mg PO DAILY [facility] PRN Reason: Protocol Last Admin: 04/18/18 09:03 Dose: 50 mg Ergocalciferol (Drisdol 50,000 Intl Units Cap) 1 cap PO QWK [facility] Ferrous Gluconate (Fergon) 324 mg PO TID [facility] Last Admin: 04/18/18 09:01 Dose: 324 mg Piperacillin Sod/Tazobactam (Sod 2.25 gm/ Sodium Chloride) 100 mls @ 100 mls/ hr IVPB Q6 [facility] PRN Reason: Protocol Last Admin: 04/18/18 09:04 Dose: 100 mls/hr Sodium Chloride (Sodium Chloride 0.9%) 1,000 mls @ 100 mls/hr IV .Q10H [facility] Stop: 04/18/18 12:35 Last Admin: 04/18/18 09:18 Dose: Not Given Insulin Detemir (Levemir) 16 units SC HS [facility] Labetalol HCl (Trandate) 300 mg PO Q8 [facility] Last Admin: 04/18/18 09:03 Dose: 300 mg Lamivudine (Epivir) 150 mg PO DAILY [facility] PRN Reason: Protocol Last Admin: 04/18/18 09:01 Dose: 150 mg Morphine Sulfate (Morphine) 4 mg IVP Q4 PRN PRN Reason: Pain, severe (8-10) Last Admin: 04/18/18 09:12 Dose: 4 mg Ondansetron HCl (Zofran Inj) 4 mg IVP Q6 PRN PRN Reason: Nausea/Vomiting Last Admin: 04/16/18 21:58 Dose: 4 mg Sertraline HCl (Zoloft) 50 mg PO DAILY [facility] Last Admin: 04/18/18 09:04 Dose: 50 mg Sodium Bicarbonate (Sodium Bicarbonate Tab) 1,300 mg PO BID [facility] Last Admin: 04/18/18 09:03 Dose: 1,300 mg Vitamin B Complex/Vit C/Folic Acid (Nephro-Nella) 1 tab PO DAILY [facility] Last Admin: 04/18/18 09:02 Dose: 1 tab - Labs Labs: 04/18/18 05:35 04/18/18 05:35 - Constitutional Appears: No Acute Distress - Eye Exam Eye Exam: Conjunctival injection - ENT Exam ENT Exam: Mucous Membranes Moist - Neck Exam Neck Exam: absent: Lymphadenopathy - Respiratory Exam Respiratory Exam: NORMAL BREATHING PATTERN. absent: Chest Wall Tenderness - Cardiovascular Exam Cardiovascular Exam: REGULAR RHYTHM - GI/Abdominal Exam GI & Abdominal Exam: Soft, Normal Bowel Sounds - Exam External exam: absent: Ecchymosis - Extremities Exam Extremities Exam: absent: Calf Tenderness - Back Exam Back Exam: absent: CVA tenderness (L), CVA tenderness (R) - Neurological Exam Neurological Exam: Alert - Psychiatric Exam Psychiatric exam: Anxious - Skin Skin Exam: absent: Cyanosis Assessment and Plan (1) HIV (human immunodeficiency virus infection) Status: Acute (2) Abscess Status: Chronic (3) Chronic kidney disease, stage 5 Assessment & Plan: perirectal abscess/status post surgery Diabetic chronic Kidney Disease (E11.22) Hypertensive Chronic Kidney Disease (I12.9) Chronic Kidney Disease (N18.5) Stage 4 with 3.8 gm proteinuria (R80.9) likely due to DM/HTN Anemia (D64.9), Hyperphosphatemia (E83.39), Secondary Hyperparathyroidism (E21.1 ), HTN (I12.9) HIV on HAART, hx of left BKA, vit D def, acidosis H pylori the plan Antibiotics as per renal doses Continue monitoring kidney function kidney function improving now she is stage IV CK D She is not willing to go for AV fistula or even discuss his chronic kidney disease Status: Acute
[2018-04-18] MEDS ORDERED: Atropine-Diphenoxylate 0.025-2.5 mg Tab PO PRN (11:58)
--- NOTE | 2018-04-18 13:36 | CP.PCM.PN ---
Subjective - Date & Time of Evaluation Date of Evaluation: 04/18/18 Time of Evaluation: 10:20 - Subjective Subjective: Pt seen and examined at bedside with Jada Nuñez and her nurse. Denied acute events overnight. She reported diarrhea yesterday. She is concerned for her diarrhea. Tolerating PO diet. Objective - Vital Signs/Intake and Output Vital Signs (last 24 hours): Temp Pulse Resp BP Pulse Ox 98 F 57 L 17 153/84 H 98 04/18/18 10:00 04/18/18 10:00 04/18/18 10:00 04/18/18 10:00 04/18/18 10:00 - Medications Medications: Current Medications Abacavir Sulfate (Ziagen) 300 mg PO BID [facility] PRN Reason: Protocol Last Admin: 04/18/18 09:03 Dose: 300 mg Amlodipine Besylate (Norvasc) 10 mg PO DAILY [facility] Last Admin: 04/18/18 09:02 Dose: 10 mg Amoxicillin (Amoxil 500 Mg Cap) 1,000 mg PO Q12 [facility] PRN Reason: Protocol Stop: 05/02/18 09:01 Amylase (Pancrease 04998 U-5000 U-[id number] U) 1 unit PO TIDAC [facility] Clarithromycin (Biaxin Filmtab) 500 mg PO Q12 [facility] PRN Reason: Protocol Stop: 05/02/18 09:01 Diphenoxylate HCl/Atropine (Lomotil 0.025-2.5 Mg Tablet) 1 tab PO QID PRN PRN Reason: Diarrhea Dolutegravir Sodium (Tivicay) 50 mg PO DAILY [facility] PRN Reason: Protocol Last Admin: 04/18/18 09:03 Dose: 50 mg Ergocalciferol (Drisdol 50,000 Intl Units Cap) 1 cap PO QWK [facility] Ferrous Gluconate (Fergon) 324 mg PO TID [facility] Last Admin: 04/18/18 12:23 Dose: 324 mg Piperacillin Sod/Tazobactam (Sod 2.25 gm/ Sodium Chloride) 100 mls @ 100 mls/ hr IVPB Q6 [facility] PRN Reason: Protocol Last Admin: 04/18/18 09:04 Dose: 100 mls/hr Insulin Detemir (Levemir) 16 units SC HS [facility] Labetalol HCl (Trandate) 300 mg PO Q8 [facility] Last Admin: 04/18/18 09:03 Dose: 300 mg Lactobacillus Acidophilus (Bacid Acidophilus) 1 cap PO BID [facility] Lamivudine (Epivir) 150 mg PO DAILY [facility] PRN Reason: Protocol Last Admin: 04/18/18 09:01 Dose: 150 mg Metronidazole (Flagyl) 500 mg PO Q12 [facility] PRN Reason: Protocol Morphine Sulfate (Morphine) 4 mg IVP Q4 PRN PRN Reason: Pain, severe (8-10) Last Admin: 04/18/18 13:25 Dose: 4 mg Ondansetron HCl (Zofran Inj) 4 mg IVP Q6 PRN PRN Reason: Nausea/Vomiting Last Admin: 04/16/18 21:58 Dose: 4 mg Ondansetron HCl (Zofran Tab) 4 mg PO Q6 PRN PRN Reason: Nausea/Vomiting Pantoprazole Sodium (Protonix Ec Tab) 20 mg PO BID [facility] Sertraline HCl (Zoloft) 50 mg PO DAILY [facility] Last Admin: 04/18/18 09:04 Dose: 50 mg Sodium Bicarbonate (Sodium Bicarbonate Tab) 1,300 mg PO BID [facility] Last Admin: 04/18/18 09:03 Dose: 1,300 mg Vitamin B Complex/Vit C/Folic Acid (Nephro-Nella) 1 tab PO DAILY [facility] Last Admin: 04/18/18 09:02 Dose: 1 tab - Labs Labs: 04/18/18 05:35 04/18/18 05:35 - Constitutional Appears: No Acute Distress - Eye Exam Eye Exam: EOMI - Neck Exam Neck Exam: Full ROM - Respiratory Exam Respiratory Exam: Clear to Ausculation Bilateral, NORMAL BREATHING PATTERN. absent: Wheezes - Cardiovascular Exam Cardiovascular Exam: +S1, +S2 - GI/Abdominal Exam GI & Abdominal Exam: Soft, Normal Bowel Sounds. absent: Tenderness - Extremities Exam Additional comments: LBKA - Neurological Exam Neurological Exam: Abnormal Gait (L bka), Alert, Awake, CN II-XII Intact, Oriented x3 - Psychiatric Exam Psychiatric exam: Normal Affect, Normal Mood Assessment and Plan (1) CITLALLI (acute kidney injury) Status: Acute (2) Chronic kidney disease, stage 5 Status: Acute (3) HIV (human immunodeficiency virus infection) Status: Acute (4) Diarrhea Status: Acute - Assessment and Plan (Free Text) Plan: Care plan was extensively discussed with team including GI, ID and surgery with patient Plan to transition IVABX to PO. GI: treat for h. pylori and pancreatic enzymes surgery: to have gabby stent removed ID: [email or web address] recommended: Amoxicillin, Cefzil, Flagyl Nephro: CKD stage 5 Diarrhea: Lonotil + probiotics Vomitng: Zofran Discussed with patient options such as LTAC eval should IVABX be most appropriate treatment. case dw Dr. Pelon Singleton md [email or web address]
[2018-04-18] MEDS: Atropine-Diphenoxylate 0.025-2.5 mg Tab PO PRN (13:43)
[2018-04-18] MEDS: Amylase/Lipase/Protease 5,000 Units ECC PO SCH (16:50)
[2018-04-18] MEDS: Lactobacillus Acidophilus 500 MU Cap PO SCH (18:00)
[2018-04-18] MEDS: Pantoprazole 20 mg EC Tab PO SCH (21:47)
[2018-04-19 08:00] LABS: HEMOGLOBIN 9.9 g/dL (12.0-16.0); MEAN CELL VOLUME 90.5 fl (81.0-99.0); MEAN CORPUSCULAR HEMOGLOBIN 29.7 pg (27.0-31.0); MEAN CORPUSCULAR HGB CONC 32.8 g/dL (33.0-37.0); RBC 3.32 Mil/uL (3.80-5.20); RED CELL DISTRIBUTION WIDTH 15.1 % (11.5-14.5); WHITE BLOOD COUNT 7.1 K/uL (4.8-10.8)
[2018-04-19 08:25] LABS: ALB/GLOB RATIO 0.7 (1.0-2.1); ALBUMIN 2.9 g/dL (3.5-5.0); CALCIUM 8.8 mg/dL (8.4-10.2)
[2018-04-19] MEDS: Lactobacillus Acidophilus 500 MU Cap PO SCH ×2 (09:13→16:29)
[2018-04-19] MEDS: Amylase/Lipase/Protease 5,000 Units ECC PO SCH ×3 (09:15→16:30)
[2018-04-19] MEDS: Multivitamin Vitamin B Complex (Nephro-Vite) Tab PO SCH (09:16)
[2018-04-19] MEDS: Pantoprazole 20 mg EC Tab PO SCH (09:17)
[2018-04-19] MEDS ORDERED: EPOETIN ALFA 2000 UNIT/ML SC ONE (09:44)
--- NOTE | 2018-04-19 09:52 | CP.PCM.PN ---
Subjective - Date & Time of Evaluation Date of Evaluation: 04/19/18 Time of Evaluation: 09:51 - Subjective Subjective: patient awake and conscious not in acute distress Appeared to be comfortable Objective - Vital Signs/Intake and Output Vital Signs (last 24 hours): Temp Pulse Resp BP Pulse Ox 97.9 F 61 19 185/76 H 96 04/19/18 08:11 04/19/18 09:18 04/19/18 08:11 04/19/18 09:18 04/19/18 08:11 - Medications Medications: Current Medications Abacavir Sulfate (Ziagen) 300 mg PO BID [facility] PRN Reason: Protocol Last Admin: 04/19/18 09:18 Dose: 300 mg Amlodipine Besylate (Norvasc) 10 mg PO DAILY [facility] Last Admin: 04/19/18 09:18 Dose: 10 mg Amoxicillin (Amoxil 500 Mg Cap) 1,000 mg PO Q12 [facility] PRN Reason: Protocol Stop: 05/02/18 09:01 Last Admin: 04/19/18 09:14 Dose: 1,000 mg Amylase (Pancrease [id number] U) 1 unit PO TIDAC [facility] Last Admin: 04/19/18 09:15 Dose: 1 unit Clarithromycin (Biaxin Filmtab) 500 mg PO Q12 [facility] PRN Reason: Protocol Stop: 05/02/18 09:01 Last Admin: 04/19/18 09:14 Dose: 500 mg Diphenoxylate HCl/Atropine (Lomotil 0.025-2.5 Mg Tablet) 1 tab PO QID PRN PRN Reason: Diarrhea Last Admin: 04/18/18 13:43 Dose: 1 tab Dolutegravir Sodium (Tivicay) 50 mg PO DAILY [facility] PRN Reason: Protocol Last Admin: 04/19/18 09:16 Dose: 50 mg Epoetin Josue (Procrit) 2,000 unit SC MWF ONE Stop: 04/19/18 09:45 Ergocalciferol (Drisdol 50,000 Intl Units Cap) 1 cap PO QWK [facility] Ferrous Gluconate (Fergon) 324 mg PO TID [facility] Last Admin: 04/19/18 09:16 Dose: 324 mg Piperacillin Sod/Tazobactam (Sod 2.25 gm/ Sodium Chloride) 100 mls @ 100 mls/ hr IVPB Q6 [facility] PRN Reason: Protocol Last Admin: 04/19/18 09:33 Dose: 100 mls/hr Insulin Detemir (Levemir) 16 units SC HS [facility] Labetalol HCl (Trandate) 300 mg PO Q8 [facility] Last Admin: 04/19/18 09:18 Dose: 300 mg Lactobacillus Acidophilus (Bacid Acidophilus) 1 cap PO BID [facility] Last Admin: 04/19/18 09:13 Dose: 1 cap Lamivudine (Epivir) 150 mg PO DAILY [facility] PRN Reason: Protocol Last Admin: 04/19/18 09:17 Dose: 150 mg Metronidazole (Flagyl) 500 mg PO Q12 [facility] PRN Reason: Protocol Last Admin: 04/19/18 09:17 Dose: 500 mg Morphine Sulfate (Morphine) 4 mg IVP Q4 PRN PRN Reason: Pain, severe (8-10) Last Admin: 04/19/18 09:13 Dose: 4 mg Ondansetron HCl (Zofran Inj) 4 mg IVP Q6 PRN PRN Reason: Nausea/Vomiting Last Admin: 04/16/18 21:58 Dose: 4 mg Ondansetron HCl (Zofran Tab) 4 mg PO Q6 PRN PRN Reason: Nausea/Vomiting Pantoprazole Sodium (Protonix Ec Tab) 20 mg PO BID [facility] Last Admin: 04/19/18 09:17 Dose: 20 mg Sertraline HCl (Zoloft) 50 mg PO DAILY [facility] Last Admin: 04/19/18 09:19 Dose: 50 mg Sodium Bicarbonate (Sodium Bicarbonate Tab) 1,300 mg PO BID [facility] Last Admin: 04/19/18 09:16 Dose: 1,300 mg Vitamin B Complex/Vit C/Folic Acid (Nephro-Nella) 1 tab PO DAILY [facility] Last Admin: 04/19/18 09:16 Dose: 1 tab - Labs Labs: 04/19/18 07:50 04/19/18 07:50 - Constitutional Appears: No Acute Distress - ENT Exam ENT Exam: Mucous Membranes Moist - Respiratory Exam Respiratory Exam: NORMAL BREATHING PATTERN. absent: Chest Wall Tenderness - Cardiovascular Exam Cardiovascular Exam: absent: Gallop, JVD, Rubs - GI/Abdominal Exam GI & Abdominal Exam: Soft - Extremities Exam Extremities Exam: absent: Calf Tenderness - Back Exam Back Exam: absent: CVA tenderness (L), CVA tenderness (R) - Neurological Exam Neurological Exam: Alert - Skin Skin Exam: absent: Cyanosis Assessment and Plan (1) HIV (human immunodeficiency virus infection) Status: Acute (2) Abscess Status: Chronic (3) Chronic kidney disease, stage 5 Assessment & Plan: perirectal abscess/status post surgery Diabetic chronic Kidney Disease (E11.22) Hypertensive Chronic Kidney Disease (I12.9) Chronic Kidney Disease (N18.5) Stage 4 with 3.8 gm proteinuria (R80.9) likely due to DM/HTN Anemia (D64.9), Hyperphosphatemia (E83.39), Secondary Hyperparathyroidism (E21.1 ), HTN (I12.9) HIV on HAART, hx of left BKA, vit D def, acidosis anemia hemoglobin 9.9 H pylori the plan EPO 2000 unit Sunday Antibiotics as per renal doses Continue monitoring kidney function kidney function improving now she is stage IV CK D Status: Acute
[2018-04-19] MEDS: Atropine-Diphenoxylate 0.025-2.5 mg Tab PO PRN (12:07)
[2018-04-19 16:43] VITALS: BP 143/87; PULSE 71; RESP 20; TEMP 98.5; O2SAT 99
--- NOTE | 2018-04-19 18:53 | CP.PCM.DIS ---
Provider - Provider Date of Admission: 04/16/18 11:31 Attending physician: Jeff Hamron MD Time Spent in preparation of Discharge (in minutes): 20 Diagnosis - Discharge Diagnosis (1) CITLALLI (acute kidney injury) Status: Acute Priority: Medium (2) Chronic kidney disease, stage 5 Status: Acute (3) HIV (human immunodeficiency virus infection) Status: Acute (4) Diarrhea Status: Acute Hospital Course - Lab Results Lab Results: Micro Results 04/13/18 22:15 Blood-Venous Blood Culture - Final NO GROWTH AFTER 5 DAYS 04/13/18 22:15 Blood-Venous Gram Stain - Final TEST NOT PERFORMED 04/16/18 18:10 Stool Stool Culture - Final NO SALMONELLA, SHIGELLA OR CAMPYLOBACTER ISOLATED. 04/16/18 18:10 Stool Ova and Parasite Concentrate Exam - Final 04/15/18 17:20 Rectum Gram Stain - Final 04/15/18 17:20 Rectum Wound Culture - Final Providencia Rettgeri Enterococcus Avium Most Recent Lab Values WBC 7.1 K/uL (4.8-10.8) 04/19/18 07:50 RBC 3.32 Mil/uL (3.80-5.20) L 04/19/18 07:50 Hgb 9.9 g/dL (12.0-16.0) L 04/19/18 07:50 Hct 30.1 % (34.0-47.0) L 04/19/18 07:50 MCV 90.5 fl (81.0-99.0) 04/19/18 07:50 MCH 29.7 pg (27.0-31.0) 04/19/18 07:50 MCHC 32.8 g/dL (33.0-37.0) L 04/19/18 07:50 RDW 15.1 % (11.5-14.5) H 04/19/18 07:50 Plt Count 324 K/uL (130-400) 04/19/18 07:50 MPV 7.2 fl (7.2-11.7) 04/17/18 06:00 Neut % (Auto) 54.8 % (50.0-75.0) 04/17/18 06:00 Lymph % (Auto) 26.0 % (20.0-40.0) 04/17/18 06:00 [place] % (Auto) 10.2 % (0.0-10.0) H 04/17/18 06:00 Eos % (Auto) 8.3 % (0.0-4.0) H 04/17/18 06:00 Baso % (Auto) 0.7 % (0.0-2.0) 04/17/18 06:00 Neut # (Auto) 4.6 K/uL (1.8-7.0) 04/17/18 06:00 Lymph # (Auto) 2.2 K/uL (1.0-4.3) 04/17/18 06:00 [place] # (Auto) 0.9 K/uL (0.0-0.8) H 04/17/18 06:00 Eos # (Auto) 0.7 K/uL (0.0-0.7) 04/17/18 06:00 Baso # (Auto) 0.1 K/uL (0.0-0.2) 04/17/18 06:00 pO2 41 mm/Hg (30-55) 04/14/18 01:36 VBG pH 7.34 (7.32-7.43) 04/14/18 01:36 VBG pCO2 36 mmHg (40-60) L 04/14/18 01:36 VBG HCO3 19.8 mmol/L 04/14/18 01:36 VBG Total CO2 20.5 mmol/L (22-28) L 04/14/18 01:36 VBG O2 Sat (Calc) 83.0 % (40-65) H 04/14/18 01:36 VBG Base Excess -5.7 mmol/L (0.0-2.0) L 04/14/18 01:36 VBG Potassium 4.4 mmol/L (3.6-5.2) 04/14/18 01:36 Sodium 138.0 mmol/L (132-148) 04/14/18 01:36 Chloride 115.0 mmol/L (98-107) H 04/14/18 01:36 Glucose 82 mg/dL (65-105) 04/14/18 01:36 Lactate 0.5 mmol/L (0.7-2.1) L 04/14/18 01:36 FiO2 21.0 % 04/14/18 01:36 Sodium 143 mmol/l (132-148) 04/19/18 07:50 Potassium 4.4 MMOL/L (3.6-5.0) 04/19/18 07:50 Chloride 114 mmol/L (98-107) H 04/19/18 07:50 Carbon Dioxide 23 mmol/L (22-30) 04/19/18 07:50 Anion Gap 10 (10-20) 04/19/18 07:50 BUN 21 mg/dl (7-17) H 04/19/18 07:50 Creatinine 3.2 mg/dl (0.7-1.2) H 04/19/18 07:50 Est GFR ( Amer) 20 04/19/18 07:50 Est GFR (Non-Af Amer) 16 04/19/18 07:50 POC Glucose (mg/dL) 92 mg/dL (65-110) 04/19/18 15:44 Random Glucose 131 mg/dL (65-105) H 04/19/18 07:50 Calcium 8.8 mg/dL (8.4-10.2) 04/19/18 07:50 Total Bilirubin 0.2 mg/dl (0.2-1.3) 04/19/18 07:50 AST 27 U/L (14-36) 04/19/18 07:50 ALT 22 U/L (9-52) 04/19/18 07:50 Alkaline Phosphatase 93 U/L (38-126) 04/19/18 07:50 Total Protein 7.1 G/DL (6.3-8.2) 04/19/18 07:50 Albumin 2.9 g/dL (3.5-5.0) L 04/19/18 07:50 Globulin 4.3 gm/dL (2.2-3.9) H 04/19/18 07:50 Albumin/Globulin Ratio 0.7 (1.0-2.1) L 04/19/18 07:50 Lipase 49 U/L (23-300) 04/13/18 23:59 Venous Blood Potassium 4.4 mmol/L (3.6-5.2) 04/14/18 01:36 Urine Color Yellow (YELLOW) 04/14/18 04:33 Urine Clarity Cloudy (Clear) 04/14/18 04:33 Urine pH 6.0 (5.0-8.0) 04/14/18 04:33 Ur Specific [place] 1.014 (1.003-1.030) 04/14/18 04:33 Urine Protein >=500 mg/dL (NEGATIVE) 04/14/18 04:33 Urine Glucose (UA) Neg mg/dL (Normal) 04/14/18 04:33 Urine Ketones Negative mg/dL (NEGATIVE) 04/14/18 04:33 Urine Blood Moderate (NEGATIVE) 04/14/18 04:33 Urine Nitrate Negative (NEGATIVE) 04/14/18 04:33 Urine Bilirubin Negative (NEGATIVE) 04/14/18 04:33 Urine Urobilinogen 0.2-1.0 mg/dL (0.2-1.0) 04/14/18 04:33 Ur Leukocyte Esterase Large Joanna/uL (Negative) 04/14/18 04:33 Urine RBC (Auto) 10 /hpf (0-3) H 04/14/18 04:33 Urine Microscopic WBC 225 /hpf (0-5) H 04/14/18 04:33 Ur Squamous Epith Cells 1 /hpf (0-5) 04/14/18 04:33 Urine Bacteria Mod (<OCC) H 04/14/18 04:33 Hyaline Casts 3-5 /hpf (0-2) H 04/14/18 04:33 C. difficile Ag & Toxin Negative (NEGATIVE) 04/16/18 15:00 - Hospital Course Hospital Course: 37 year old transgender female with history of HIV on HAART, DM, CKD, DVT, HTN admitted for perirectal abcess I&D with primrose drain per surgery Abx with recs per ID GI: started h. pylor tx and pancreatic enzymes Diarrhea resolved. d/c home to f/u with pmd in [address] Pelon moore md pgy2 Discharge Exam - Head Exam Head Exam: ATRAUMATIC, NORMAL INSPECTION - Eye Exam Eye Exam: EOMI - Respiratory Exam Respiratory Exam: NORMAL BREATHING PATTERN - Cardiovascular Exam Cardiovascular Exam: +S1, +S2 - Neurological Exam Neurological exam: Alert, CN II-XII Intact, Oriented x3 - Psychiatric Exam Psychiatric exam: Normal Affect, Normal Mood Discharge Plan - Discharge Medications Prescriptions: Amoxicillin [Amoxil 500 mg Cap] 1,000 mg PO Q12 #20 cap Atropine/Diphenoxylate [Lomotil 0.025-2.5 mg tablet] 1 tab PO QID PRN #20 tab PRN Reason: Diarrhea Cefprozil 250 mg PO BID #20 tablet Clarithromycin [Biaxin Filmtab] 500 mg PO Q12 #26 tab Ferrous Gluconate [Fergon] 324 mg PO TID #30 tab Lactobacillus Acidophilus [Bacid Acidophilus] 1 cap PO BID #20 cap metroNIDAZOLE [Flagyl] 500 mg PO Q12 #20 tab Ondansetron [Zofran Tab] 4 mg PO Q6 PRN #10 tab PRN Reason: Nausea/Vomiting - Follow Up Plan Condition: GUARDED Disposition: HOME/ ROUTINE Instructions: Abscess Incision and Drainage, Chronic Kidney Disease, Renal Failure Diet (DC), Abscess (GEN) Referrals: Desmond Vargas MD [Staff Provider] - Sumit Noe MD [Staff Provider] - Compa Galeano MD [Staff Provider] -
--- NOTE | 2018-04-19 20:05 | OP ---
PROCEDURE DATE: 04/19/2018 SURGEON: Compa Galeano MD VOLUNTEER RECRUITMENT COORDINATOR: Klever Gonzalez DO, PGY2. ANESTHESIOLOGIST: Dr. Fatima. TYPE OF ANESTHESIA: General LMA with local. PREOPERATIVE DIAGNOSIS: Left perirectal abscess. POSTOPERATIVE DIAGNOSIS: Left perirectal abscess. OPERATIVE FINDINGS: Left perirectal abscess. OPERATION PERFORMED: Incision and drainage of left perirectal abscess with Raymond placement. SPECIMEN: Wound culture. ESTIMATED BLOOD LOSS: 5 mL. DRAIN USED: Pat drain. COMPLICATIONS: None. DESCRIPTION OF PROCEDURE: The patient was taken to the operating room and placed in lithotomy position on the operating room table. General LMA anesthesia was administered. The patient was prepped and draped in the usual fashion. The area of the left medial gluteal area was exposed and inspected. An incision with a #11 blade was made in the medial left gluteus. The incision was then explored and opened with a [place]. Copious amounts of blood and purulent material were expressed from the wound. The cavity was further inspected from more loculations, which were found. There were some undermining to the medial and superior areas. The cavity was then irrigated with peroxide and saline mixture. A Raymond drain was placed to ensure adequate drainage in the postoperative setting. A 4 x 4's and abdominal pad dressing was applied to the surgical site. Blood loss was approximately 5 cc. There were no complications. The patient tolerated the procedure well and was transferred to the PACU in stable condition. All counts were correct and confirmed by nursing. Klever Gonzalez DO Compa Galeano MD
--- NOTE | 2018-04-25 14:34 | PQF ---
PROVIDER RESPONSE TEXT: Skin ulcer in the right lower extremity stump, present on admission REVIEWER QUERY TEXT: Skin Ulcer Location and POA Status Skin ulcer is noted in the Medical Record. Please specify the location and whether it was present on admission (POA) Location such as: -- Body site(s) involved -- Laterality (left, right, bilateral) -- Other, please specify The patient's Clinical Indicators include: Nursing note with the following documentation: "noted ulcer 0.4 mm in diameter on suture line of the right stump," Query created by: Julianna Manjarrez on 04/24/2018 6:28 AM Electronically signed by: Justice Bird MD 04/25/2018 2:31 PM
== END 2018-04-19 18:45 | disposition home or self-care (01) | DRG 344 ==
LOC: H.ER 20:35 → H.ERHOLD 04-14 06:06 → H.TEL 04-14 08:20 → OBSVTOIN 04-16 11:31 → H.MEDSURG1 04-16 18:37
PROVIDERS: ADMIT Family Medicine; ATTEND Family Medicine
PROC: 0D9P0ZZ Drainage of Rectum, Open Approach (ICD-10-PCS; principal; 2018-04-19)
DX: K61.1 Rectal abscess (principal); B20 Human immunodeficiency virus [HIV] disease; I12.0 Hypertensive chronic kidney disease with stage 5 chronic kidney disease or end stage renal disease; N18.5 Chronic kidney disease, stage 5; N25.81 Secondary hyperparathyroidism of renal origin; K86.1 Other chronic pancreatitis; N17.9 Acute kidney failure, unspecified; E87.2 Acidosis; I31.3 Pericardial effusion (noninflammatory); E11.22 Type 2 diabetes mellitus with diabetic chronic kidney disease; Z91.19 Patient's noncompliance with other medical treatment and regimen; Z86.718 Personal history of other venous thrombosis and embolism; F41.9 Anxiety disorder, unspecified; J45.909 Unspecified asthma, uncomplicated; F32.9 Major depressive disorder, single episode, unspecified; K29.70 Gastritis, unspecified, without bleeding; G89.29 Other chronic pain; F64.9 Gender identity disorder, unspecified; F17.210 Nicotine dependence, cigarettes, uncomplicated; Z88.6 Allergy status to analgesic agent; Z88.5 Allergy status to narcotic agent; E55.9 Vitamin D deficiency, unspecified; R16.2 Hepatomegaly with splenomegaly, not elsewhere classified; Z89.512 Acquired absence of left leg below knee; B96.81 Helicobacter pylori [H. pylori] as the cause of diseases classified elsewhere; D64.9 Anemia, unspecified; E11.621 Type 2 diabetes mellitus with foot ulcer; L97.519 Non-pressure chronic ulcer of other part of right foot with unspecified severity

== ENCOUNTER 2018-09-20 20:44 | Observation (INO) | payer MEDICARE, OTHER ==
[2018-09-20 20:44] VITALS: BMI 38.0
[2018-09-20] MEDS ORDERED: Sodium Chloride 0.9% 1,000 ML IV STA (21:53)
[2018-09-20] MEDS ORDERED: Morphine 4 MG/ML VIAL IVP ONE (21:54)
[2018-09-20] MEDS ORDERED: Famotidine 40 MG/5 ML PO STA (21:54)
[2018-09-20] MEDS ORDERED: raNITIdine HCl 150 mg/10 ml Soln Cup PO STA (22:09)
[2018-09-20 22:17] LABS: BASO # 0.1 K/uL (0.0-0.2); BASO % 0.9 % (0.0-2.0); EOS # 0.1 K/uL (0.0-0.7); EOS % 1.2 % (0.0-4.0); LYMPH # 1.7 K/uL (1.0-4.3); LYMPH % 16.8 % (20.0-40.0); MEAN CELL VOLUME 89.2 fl (81.0-99.0); MEAN CORPUSCULAR HEMOGLOBIN 29.2 pg (27.0-31.0); MEAN CORPUSCULAR HGB CONC 32.7 g/dL (33.0-37.0); MEAN PLATELET VOLUME 8.6 fl (7.2-11.7); MONO # 1.1 K/uL (0.0-0.8); MONO % 11.2 % (0.0-10.0); NEUT % 69.9 % (50.0-75.0); NRBC % 0.1 % (0.0-0.0); RBC 3.07 Mil/uL (3.80-5.20)
[2018-09-20 22:22] LABS: INR 1.2; PROTHROMBIN TIME 13.9 Seconds (9.8-13.1)
[2018-09-20 22:23] LABS: VENOUS BLOOD GAS BASE EXCESS -3.9 mmol/L (0.0-2.0); VENOUS BLOOD GAS PCO2 40 mmHg (40-60); VENOUS BLOOD GAS PO2 36 mm/Hg (30-55); VENOUS BLOOD PH 7.34 (7.32-7.43)
[2018-09-20 22:24] LABS: PARTIAL THROMBOPLASTIN TIME 33.1 Seconds (25.6-37.1)
[2018-09-20 22:25] LABS: ALB/GLOB RATIO 0.7 (1.0-2.1); ALBUMIN 3.1 g/dL (3.5-5.0)
[2018-09-20] MEDS ORDERED: Iohexol 240 (50 ml) PO ONE (22:25)
--- NOTE | 2018-09-20 22:44 | ED PDOC ---
HPI: Fever Time Seen by Provider: 09/20/18 20:59 Additional Comments: 37 year old transgender female with pmHx of HIV (non compliant with HAART), DM, CITLALLI, and CKD, presents to ED with complaint of a fever for the past year. Patient was seen by PCP yesterday and instructed to go to ED after reporting a rectal abscess. She additionally reports experiencing bodyaches, chills, cough, nausea, vomiting, and diarrhea. PCP: Dr Sumit Noe Past Medical History Reviewed: Historical Data, Nursing Documentation, Vital Signs Vital Signs: Last Vital Signs Temp 102.2 F H 09/20/18 20:50 Pulse 118 H 09/20/18 20:50 Resp 20 09/20/18 20:50 BP 174/99 H 09/20/18 20:50 Pulse Ox 98 09/20/18 20:50 - Medical History PMH: Anemia, Anxiety, Asthma, Depression, Diabetes, Deep Vein Thrombosis, Gastritis, HIV, HTN, Pancreatitis, Peripheral Edema, Chronic Kidney Disease, Chronic Pain Denies: Hepatitis, Seizures, Sexually Transmitted Disease - Surgical History Surgical History: Endoscopy - Family History Family History: States: [place], CAD, Diabetes, Hypertension - Immunization History Hx Tetanus Toxoid Vaccination: Yes Hx Influenza Vaccination: No Hx Pneumococcal Vaccination: Yes - Home Medications Home Medications: Ambulatory Orders Medication Instructions Recorded Abacavir [Ziagen] 300 mg PO DAILY 09/21/18 Ergocalciferol [Drisdol] 50,000 iu PO QWK 09/21/18 Fluocinonide 0.05% Ointment [Lidex 15 gm TOP BID 09/21/18 0.05% Oint] Insulin Lispro [humALOG] SQ BID 09/21/18 Lactobacillus Acidophilus 1 each PO BID 09/21/18 [Acidophilus] RX: Ferrous Gluconate [Fergon] 324 mg PO TID 09/21/18 RX: Omeprazole 10 mg PO DAILY 09/21/18 Rosuvastatin Calcium [Crestor] 5 mg PO DAILY 09/21/18 lamiVUDine [Epivir] 150 mg PO DAILY 09/21/18 - Allergies Allergies/Adverse Reactions: Allergies Allergy/AdvReac Type Severity Reaction Status Date / Time acetaminophen [From Tylenol] Allergy RASH Verified 09/20/18 20:50 aspirin Allergy RASH Verified 09/20/18 20:50 hydromorphone [From Dilaudid] Allergy RASH Verified 09/20/18 20:50 ketorolac tromethamine Allergy RASH Verified 09/20/18 20:50 [From Toradol] meperidine HCl [From Demerol] Allergy RASH Verified 09/20/18 20:50 oxycodone HCl [From Percocet] Allergy RASH Verified 09/20/18 20:50 peas Allergy ANAPHYLAXIS Verified 09/20/18 20:50 propoxyphene napsylate Allergy RASH Verified 09/20/18 20:50 [From Darvocet-N] Review of Systems ROS Statement: Except As Marked, All Systems Reviewed And Found Negative Constitutional: Positive for: Fever, Chills, Other (bodyaches) Respiratory: Positive for: Cough Gastrointestinal: Positive for: Nausea, Vomiting, Diarrhea Physical Exam - Reviewed Nursing Documentation Reviewed: Yes Vital Signs Reviewed: Yes - Physical Exam Appears: Positive for: Uncomfortable Head Exam: Positive for: ATRAUMATIC, NORMAL INSPECTION, NORMOCEPHALIC Skin: Positive for: Normal Color Eye Exam: Positive for: Normal appearance ENT: Positive for: Normal ENT Inspection Neck: Positive for: Normal Cardiovascular/Chest: Positive for: Regular Rate, Rhythm Respiratory: Positive for: Normal Breath Sounds. Negative for: Respiratory Distress Gastrointestinal/Abdominal: Positive for: Soft, Other (obese). Negative for: Tenderness Back: Positive for: Normal Inspection Rectal: Positive for: Other (large perirectal abscess on left gluteal cheek with warmth and fluctuance) Extremity: Positive for: Normal ROM (upper/lower), Deformity (left-sided DKA) Neurologic/Psych: Positive for: Alert, Oriented. Negative for: Motor/Sensory Deficits - Laboratory Results Result Diagrams: 09/20/18 22:05 09/20/18 22:05 Lab Results: pO2 36 mm/Hg (30-55) 09/20/18 20:18 VBG pH 7.34 (7.32-7.43) 09/20/18 20:18 VBG pCO2 40 mmHg (40-60) 09/20/18 20:18 VBG HCO3 21.0 mmol/L 09/20/18 20:18 VBG Total CO2 22.8 mmol/L (22-28) 09/20/18 20:18 VBG O2 Sat (Calc) 80.5 % (40-65) H 09/20/18 20:18 VBG Base Excess -3.9 mmol/L (0.0-2.0) L 09/20/18 20:18 VBG Potassium 4.0 mmol/L (3.6-5.2) 09/20/18 20:18 Sodium 136.0 mmol/L (132-148) 09/20/18 20:18 Chloride 109.0 mmol/L (98-107) H 09/20/18 20:18 Glucose 122 mg/dL (65-105) H 09/20/18 20:18 Lactate 0.7 mmol/L (0.7-2.1) 09/20/18 20:18 FiO2 21.0 % 09/20/18 20:18 PT 13.9 Seconds (9.8-13.1) H 09/20/18 22:05 INR 1.2 09/20/18 22:05 APTT 33.1 Seconds (25.6-37.1) 09/20/18 22:05 Total Bilirubin 0.6 mg/dl (0.2-1.3) 09/20/18 22:05 AST 31 U/L (14-36) 09/20/18 22:05 ALT 21 U/L (9-52) 09/20/18 22:05 Alkaline Phosphatase 101 U/L (38-126) 09/20/18 22:05 Total Protein 7.5 G/DL (6.3-8.2) 09/20/18 22:05 Albumin 3.1 g/dL (3.5-5.0) L 09/20/18 22:05 Globulin 4.4 gm/dL (2.2-3.9) H 09/20/18 22:05 Albumin/Globulin Ratio 0.7 (1.0-2.1) L 09/20/18 22:05 - ECG O2 Sat by Pulse Oximetry: 98 (RA) Pulse Ox Interpretation: Normal Medical Decision Making Medical Decision Making: Time: 2152 Initial Plan: 37 year old transgender female with large, palpable abscess. * Labs * CT ABD/pelvis * EKG * CXR * Morphine 4mg IVP * Motrin oral susp 600mg PO * IV fluids * Omnipaque 240 50ml PO * Pepcid 20mg PO * Zantac soln 150mg PO * Blood culture * Urine culture * UA Scribe Attestation: Documented by Dinora Knox, acting as a scribe for Yonatan Tinoco MD. Provider Scribe Attestation: All medical record entries made by the Scribe were at my direction and personally dictated by me. I have reviewed the chart and agree that the record accurately reflects my personal performance of the history, physical exam, medical decision making, and the department course for this patient. I have also personally directed, reviewed, and agree with the discharge instructions and disposition. Time:0231 CT ABD/PELVIS FINDINGS: Bilateral basilar subsegmental atelectatic pulmonary changes. Moderate cardiomegaly. Recurrent left perianal abscess formation measuring 8.8x5.8 cm in its largest an teroposterior and transverse dimensions respectively. Surrounding gluteal cellulitis. Bilateral mildly enlarged inguinal lymph nodes with the largest measuring 1.4 cm on the left side, probably benign and reactive. Mild hepatomegaly. Mild splenomegaly. Diffuse colonic diverticulosis. Diffuse thickening of the colon. IVC filter is seen. Normal unenhanced liver. Normal gallbladder and extrahepatic biliary system. Normal unenhanced spleen. Normal pancreas. Normal bilateral adrenal glands. Normal size of the right kidney. There is no right renal mass. There are no right renal calculi. There is no right hydronephrosis. Normal visualized right ureter. Normal size of the left kidney. There is no left renal mass. There are no left renal calculi. There is no left hydronephrosis. Normal visualized left ureter. Normal visualized stomach. Normal small intestine. The appendix is visualized and appears normal. There is no demonstrated peritoneal fluid. Normal abdominal aorta. Normal inferior vena cava. Normal retroperitoneum. Mild thickening of the urinary bladder. There is no pelvic mass lesion or lymphadenopathy. There is no pelvic fluid. Normal abdominal wall. Normal osseous structures. IMPRESSION: Bilateral basilar subsegmental atelectatic pulmonary changes. Moderate cardiomegaly. Recurrent left perianal abscess formation measuring 8.8x5.8 cm in its largest anteroposterior and transverse dimensions respectively. Surrounding gluteal cellulitis. Bilateral mildly enlarged inguinal lymph nodes with the largest measuring 1.4 cm on the left side, probably benign and reactive. Mild hepatomegaly. Mild splenomegaly. Diffuse colonic diverticulosis. Diffuse thickening of the colon. Uncomplicated colitis. Mild cystitis. Electronically signed on Sep 21, 2018 2:31:20 AM EST by: Orin Rudolph M.D., Certified by ABR, MSK, Neuroradiology Surgery saw patient at bedside, recommended IV ABx and waiting for abscess to mature prior to I&D Dr. Bird states that he does not have good rapport with this patient which will hamper adequate patient care Dr. Noe aware Dr. Patel aware for admission Disposition - Clinical Impression Clinical Impression: Abscess or cellulitis of perineum - Disposition Disposition Time: 03:00 Condition: FAIR
[2018-09-20] MEDS ORDERED: Iohexol 240 (50 ml) ONE (23:12)
[2018-09-21 00:07] LABS: SQUAMOUS EPITHIAL 1 /hpf (0-5); URINE BILIRUBIN NEGATIVE (NEGATIVE); URINE BLOOD MODERATE (NEGATIVE); URINE CLARITY SLIGHTY-CLOUDY (Clear); URINE COLOR YELLOW (YELLOW); URINE GLUCOSE (UA) 50 mg/dL (NEGATIVE); URINE LEUKOCYTE ESTERASE NEG Leu/uL (Negative); URINE PROTEIN >=500 mg/dL (NEGATIVE); URINE UROBILINOGEN 0.2-1.0 mg/dL (0.2-1.0)
[2018-09-21] MEDS ORDERED: Morphine 4 MG/ML VIAL IVP STA ×2 (00:18→05:50)
[2018-09-21] MEDS ORDERED: Morphine 4 MG/ML VIAL ONE ×2 (00:22→05:38)
[2018-09-21] MEDS ORDERED: Promethazine DM 12.5 mg-30 mg/10 ml Syrup PO STA (03:39)
[2018-09-21] MEDS ORDERED: Cefepime 2 GM in Sodium Chloride 0.9% 100 ML IVPB STA (04:08)
--- NOTE | 2018-09-21 04:15 | CP.PCM.CON ---
History of Present Illness - History of Present Illness History of Present Illness: Surgery Consult Note- Dr. Galeano Reason for Consult: Left jyotsna-rectal abscess 37 year old transgender female pmhx significant for multiple abscesses s/p I&D, jyotsna-rectal abscess s/p I&D 04/2018, HIV not on HAART, DM, HTN, DVT, CKD p resents to [facility] ED w/ recurrent fevers. Patient was found to have perianal abscess, and surgery was subsequently consulted. During encounter patient states that she is aware of abscess, causing severe pain. Denies blood in stool. BMs are soft. + Flatus. initially patient refusing surgical intervention, however understands that abscess will need to be drained. CT abd/pelvis was done in the ED which showed left perirectal abscess. (for details see full report) 12 pt ROS conducted, negative otherwise stated above PMH: stated above PSH: L. BKA, IVC, multiple I&D for abscesses, I&D of perirectal abscess ALL: Toradol, tylenol, dilaudid, ASA SocialHx: smokes 1/2 pack per day. Denies etoh, recreational drug use FH: non-contributory Review of Systems - Review of Systems All systems: reviewed and no additional remarkable complaints except - Constitutional Constitutional: As Per HPI Past Patient History - Infectious Disease Hx of Infectious Diseases: None - Past Medical History & Family History Past Medical History?: Yes - Past Social History Smoking Status: Light Smoker < 10 Cigarettes Daily - CARDIAC Hx Hypertension: Yes Hx Peripheral Edema: Yes - PULMONARY Hx Asthma: Yes - NEUROLOGICAL Hx Seizures: No - HEENT Hx HEENT Problems: No - RENAL Hx Chronic Kidney Disease: Yes - HEMATOLOGICAL/ONCOLOGICAL Hx Anemia: Yes Hx Human Immunodeficiency Virus (HIV): Yes - INTEGUMENTARY Hx Dermatological Problems: Yes Other/Comment: ULCER BOTTOM LEFT FOOT LEFT FOOT SUTURE LINES TOES - MUSCULOSKELETAL/RHEUMATOLOGICAL Hx Musculoskeletal Disorders: Yes Hx Falls: No Hx Osteomyelitis: Yes - GASTROINTESTINAL Hx Gastritis: Yes Hx Pancreatitis: Yes - GENITOURINARY/GYNECOLOGICAL Hx Sexually Transmitted Disorders: No - PSYCHIATRIC Hx Anxiety: Yes Hx Depression: Yes - ANESTHESIA Hx Anesthesia: Yes Hx Anesthesia Reactions: No Hx Malignant Hyperthermia: No Meds Allergies/Adverse Reactions: Allergies Allergy/AdvReac Type Severity Reaction Status Date / Time acetaminophen [From Tylenol] Allergy RASH Verified 09/20/18 20:50 aspirin Allergy RASH Verified 09/20/18 20:50 hydromorphone [From Dilaudid] Allergy RASH Verified 09/20/18 20:50 ketorolac tromethamine Allergy RASH Verified 09/20/18 20:50 [From Toradol] meperidine HCl [From Demerol] Allergy RASH Verified 09/20/18 20:50 oxycodone HCl [From Percocet] Allergy RASH Verified 09/20/18 20:50 peas Allergy ANAPHYLAXIS Verified 09/20/18 20:50 propoxyphene napsylate Allergy RASH Verified 09/20/18 20:50 [From Darvocet-N] - Medications Medications: Current Medications Cefepime HCl 2 gm/ Sodium (Chloride) 100 mls @ 100 mls/hr IVPB STAT STA; Protocol Stop: 09/21/18 05:07 Physical Exam - Constitutional Appears: Non-toxic, No Acute Distress, Chronically Ill - Head Exam Head Exam: ATRAUMATIC - Eye Exam Eye Exam: EOMI. absent: Scleral icterus - ENT Exam ENT Exam: Mucous Membranes Moist - Respiratory Exam Respiratory Exam: NORMAL BREATHING PATTERN. absent: Accessory Muscle Use, Respiratory Distress - Cardiovascular Exam Cardiovascular Exam: Tachycardia, REGULAR RHYTHM. absent: Bradycardia - GI/Abdominal Exam GI & Abdominal Exam: Soft. absent: Distended, Firm, Guarding, Rigid, Tenderness - Rectal Exam Additional comments: Palpable left sided indurated jyotsna-anal abscess- minimal purulent drainage, extending towards the rectum. Good tone, no bood Results - Vital Signs Recent Vital Signs: Last Vital Signs Temp 100.1 F H 09/20/18 23:33 Pulse 118 H 09/20/18 20:50 Resp 20 09/20/18 20:50 BP 174/99 H 09/20/18 20:50 Pulse Ox 98 09/21/18 03:35 - Labs Result Diagrams: 09/20/18 22:05 09/20/18 22:05 Labs: Laboratory Results - last 24 hr 09/20/18 09/20/18 09/20/18 20:18 22:05 22:05 WBC 10.0 RBC 3.07 L Hgb 9.0 L Hct 27.4 L MCV 89.2 MCH 29.2 MCHC 32.7 L RDW 14.0 Plt Count 173 D MPV 8.6 Neut % (Auto) 69.9 Lymph % (Auto) 16.8 L [place] % (Auto) 11.2 H Eos % (Auto) 1.2 Baso % (Auto) 0.9 Neut # (Auto) 7.0 Lymph # (Auto) 1.7 [place] # (Auto) 1.1 H Eos # (Auto) 0.1 Baso # (Auto) 0.1 PT INR APTT pO2 36 VBG pH 7.34 VBG pCO2 40 VBG HCO3 21.0 VBG Total CO2 22.8 VBG O2 Sat (Calc) 80.5 H VBG Base Excess -3.9 L VBG Potassium 4.0 Sodium 136.0 136 Chloride 109.0 H 105 Glucose 122 H Lactate 0.7 FiO2 21.0 Potassium 3.8 Carbon Dioxide 19 L Anion Gap 16 BUN 46 H Creatinine 5.9 H Est GFR ( Amer) 10 Est GFR (Non-Af Amer) 8 Random Glucose 124 H Calcium 8.0 L Phosphorus 4.7 H Magnesium 1.6 Total Bilirubin 0.6 AST 31 ALT 21 Alkaline Phosphatase 101 Total Protein 7.5 Albumin 3.1 L Globulin 4.4 H Albumin/Globulin Ratio 0.7 L Venous Blood Potassium 4.0 Urine Color Urine Clarity Urine pH Ur Specific [place] Urine Protein Urine Glucose (UA) Urine Ketones Urine Blood Urine Nitrate Urine Bilirubin Urine Urobilinogen Ur Leukocyte Esterase Urine RBC (Auto) Urine Microscopic WBC Ur Squamous Epith Cells 09/20/18 09/20/18 22:05 23:24 WBC RBC Hgb Hct MCV MCH MCHC RDW Plt Count MPV Neut % (Auto) Lymph % (Auto) [place] % (Auto) Eos % (Auto) Baso % (Auto) Neut # (Auto) Lymph # (Auto) [place] # (Auto) Eos # (Auto) Baso # (Auto) PT 13.9 H INR 1.2 APTT 33.1 pO2 VBG pH VBG pCO2 VBG HCO3 VBG Total CO2 VBG O2 Sat (Calc) VBG Base Excess VBG Potassium Sodium Chloride Glucose Lactate FiO2 Potassium Carbon Dioxide Anion Gap BUN Creatinine Est GFR ( Amer) Est GFR (Non-Af Amer) Random Glucose Calcium Phosphorus Magnesium Total Bilirubin AST ALT Alkaline Phosphatase Total Protein Albumin Globulin Albumin/Globulin Ratio Venous Blood Potassium Urine Color Yellow Urine Clarity Slighty-cloudy Urine pH 6.0 Ur Specific [place] 1.014 Urine Protein >=500 Urine Glucose (UA) 50 Urine Ketones Negative Urine Blood Moderate Urine Nitrate Negative Urine Bilirubin Negative Urine Urobilinogen 0.2-1.0 Ur Leukocyte Esterase Neg Urine RBC (Auto) 26 H Urine Microscopic WBC 3 Ur Squamous Epith Cells 1 Assessment & Plan - Assessment and Plan (Free Text) Assessment: 37F w/ extensive pmhx w/ recurrent jyotsna-rectal abscess Plan: - IVF, Abx - pain control PRN - Warm compresses - Sitz Bath - serial exams - will need surgery I&D during this hospital stay; abscess not ready to be incised yet - Medical management per primary team - further recs per Dr. Galeano surgical attending PGY2
[2018-09-21] MEDS ORDERED: Promethazine 6.25 MG/5 ML CUP ONE (04:49)
[2018-09-21 08:01] VITALS: RESP 20
--- NOTE | 2018-09-21 08:07 | CT ---
Date of service: 09/21/2018 PROCEDURE: CT Abdomen and Pelvis without intravenous contrast HISTORY: jyotsna-rectal abscess, fever COMPARISON: 04/14/2018 TECHNIQUE: Technique. Contrast dose: Radiation dose: Total exam DLP = 1419.27 mGy-cm. This CT exam was performed using one or more of the following dose reduction techniques: Automated exposure control, adjustment of the mA and/or kV according to patient size, and/or use of iterative reconstruction technique. FINDINGS: LOWER THORAX: Small pericardial effusion. LIVER: Hepatomegaly. No gross lesion or ductal dilatation. GALLBLADDER AND BILE DUCTS: Unremarkable. PANCREAS: Unremarkable. No gross lesion or ductal dilatation. SPLEEN: Splenomegaly. ADRENALS: Unremarkable. No mass. KIDNEYS AND URETERS: Unremarkable. No hydronephrosis. No solid mass. VASCULATURE: IVC filter. No aneurysm. No aortic atherosclerotic calcification or mural plaque present. BOWEL: Unremarkable. No obstruction. No gross mural thickening. Persistent left perianal abscess measuring 8 x 6 cm. APPENDIX: Unremarkable. Normal appendix. PERITONEUM: Unremarkable. No free fluid. No free air. LYMPH NODES: Pelvic lymphadenopathy. BLADDER: Unremarkable. REPRODUCTIVE: Unremarkable. BONES: No acute fracture. OTHER FINDINGS: None. IMPRESSION: Persistent left perianal abscess measuring 8 x 6 cm. Associated gluteal cellulitis. Abnormal pelvic lymphadenopathy.
--- NOTE | 2018-09-21 08:34 | RAD ---
Date of service: 09/20/2018 HISTORY: Sepsis Patient COMPARISON: No prior. FINDINGS: LUNGS: Interstitial changes. PLEURA: No significant pleural effusion identified, no pneumothorax apparent. CARDIOVASCULAR: Cardiomegaly. Normal cardiac size. No pulmonary vascular congestion. OSSEOUS STRUCTURES: No significant abnormalities. VISUALIZED UPPER ABDOMEN: Normal. OTHER FINDINGS: None. IMPRESSION: Cardiomegaly. Interstitial changes.
[2018-09-21] MEDS ORDERED: Enoxaparin 30 mg Syringe SC SCH (10:00)
[2018-09-21] MEDS: Morphine 4 MG/ML VIAL IVP PRN ×2 (10:00→18:12)
--- NOTE | 2018-09-21 10:33 | CP.PCM.HP ---
History of Present Illness - History of Present Illness History of Present Illness: 37 y/o transgender male to female with a PMHx of HIV, DM, CKD, DVT, HTN, chronic back pain, perirectal abscess and non-compliance presented to ED as per PCP request due to fever, chills, sweats and jyotsna-rectal abscess. Pt noticed jyotsna-rectal abscess was becoming more painful since 4 days ago. Pt was evaluated and examined by bedside, pt reports feeling a little better. Pt reports diarrhea for 1 year, already worked-up. Pt also c/o low back pain and abdominal pain which are chronic issues. Pt requesting more pain medication so she can rest. Pt denies sweats, dizziness, visual disturbances, chest pain, SOB, abdominal pain, nausea, vomiting or peripheral edema. PCP: Dr Noe -ALL: Toradol, tylenol, dilaudid, ASA -PMHx: HIV, DM, CKD stage IV, DVT, HTN, chronic back pain, perirectal abscess and non-compliance -PSHx: L. BKA, IVC filter, multiple I&D for abscesses -FH: non-contributory -SHx: smokes 1 pack per day since age 17; ocassional alcohol; smokes marihuana every now and then, last use 1 week ago. ED Course: --Vital signs: fever of 102.2F, tachycardia HR 118, elevated BP 174/99. --Bloodwork remarkable for anemia Hgb 9.0; BUN/Creat 46/5.9-high, U/A only pos for blood. --CXR: Interstitial changes. --CT Abdomen/Pelvis: Persistent left perianal abscess measuring 8 x 6 cm. Associated gluteal cellulitis. Abnormal pelvic lymphadenopathy. --IV Cefepime 2gr and Morphine 4mg IV administered. Present on Admission - Present on Admission Any Indicators Present on Admission: No Review of Systems - Constitutional Constitutional: Chills, Fever. absent: Anorexia, Weight Loss - EENT Nose/Mouth/Throat: absent: Odynophagia, Sore Throat, Facial Pain, Neck Pain - Cardiovascular Cardiovascular: absent: Chest Pain, Dyspnea - Respiratory Respiratory: Cough. absent: Dyspnea, Hemoptysis, Wheezing - Gastrointestinal Gastrointestinal: Diarrhea. absent: Abdominal Pain, Bloating, Nausea, Vomiting Past Patient History - Infectious Disease Hx of Infectious Diseases: None - Past Medical History & Family History Past Medical History?: Yes - Past Social History Smoking Status: Light Smoker < 10 Cigarettes Daily - CARDIAC Hx Hypertension: Yes Hx Peripheral Edema: Yes - PULMONARY Hx Asthma: Yes - NEUROLOGICAL Hx Seizures: No - HEENT Hx HEENT Problems: No - RENAL Hx Chronic Kidney Disease: Yes - HEMATOLOGICAL/ONCOLOGICAL Hx Anemia: Yes Hx Human Immunodeficiency Virus (HIV): Yes - INTEGUMENTARY Hx Dermatological Problems: Yes Other/Comment: ULCER BOTTOM LEFT FOOT LEFT FOOT SUTURE LINES TOES - MUSCULOSKELETAL/RHEUMATOLOGICAL Hx Musculoskeletal Disorders: Yes Hx Falls: No Hx Osteomyelitis: Yes - GASTROINTESTINAL Hx Gastritis: Yes Hx Pancreatitis: Yes - GENITOURINARY/GYNECOLOGICAL Hx Sexually Transmitted Disorders: No - PSYCHIATRIC Hx Anxiety: Yes Hx Depression: Yes - ANESTHESIA Hx Anesthesia: Yes Hx Anesthesia Reactions: No Hx Malignant Hyperthermia: No Meds Allergies/Adverse Reactions: Allergies Allergy/AdvReac Type Severity Reaction Status Date / Time acetaminophen [From Tylenol] Allergy RASH Verified 09/20/18 20:50 aspirin Allergy RASH Verified 09/20/18 20:50 hydromorphone [From Dilaudid] Allergy RASH Verified 09/20/18 20:50 ketorolac tromethamine Allergy RASH Verified 09/20/18 20:50 [From Toradol] meperidine HCl [From Demerol] Allergy RASH Verified 09/20/18 20:50 oxycodone HCl [From Percocet] Allergy RASH Verified 09/20/18 20:50 peas Allergy ANAPHYLAXIS Verified 09/20/18 20:50 propoxyphene napsylate Allergy RASH Verified 09/20/18 20:50 [From Darvocet-N] Physical Exam - Constitutional Appears: Well, No Acute Distress - Head Exam Head Exam: ATRAUMATIC, NORMAL INSPECTION - Eye Exam Eye Exam: EOMI, Normal appearance - ENT Exam ENT Exam: Mucous Membranes Moist - Neck Exam Neck exam: Positive for: Full Rom. Negative for: Lymphadenopathy, Meningismus - Respiratory Exam Respiratory Exam: NORMAL BREATHING PATTERN. absent: Rhonchi, Wheezes, Respiratory Distress - Cardiovascular Exam Cardiovascular Exam: +S1, +S2 - GI/Abdominal Exam GI & Abdominal Exam: Normal Bowel Sounds, Soft. absent: Distended, Guarding, Tenderness - Rectal Exam Additional comments: Left gluteus: presence of ~4-5cm hypopigmented per-anal abscess, no active discharge noted, tender to palpation, induration around this lesion. - Extremities Exam Extremities exam: Positive for: full ROM. Negative for: calf tenderness, pedal edema Additional comments: L BKA: non-tender, well-healed. - Back Exam Back exam: absent: CVA tenderness (L), CVA tenderness (R) - Neurological Exam Neurological exam: Alert, Oriented x3 Results - Vital Signs Recent Vital Signs: Last Vital Signs Temp 99.5 F 09/21/18 08:00 Pulse 112 H 09/21/18 08:00 Resp 20 09/21/18 08:00 BP 163/90 H 09/21/18 08:00 Pulse Ox 94 L 09/21/18 08:00 - Labs Result Diagrams: 09/20/18 22:05 09/20/18 22:05 Labs: Laboratory Results - last 24 hr 09/20/18 09/20/18 09/20/18 20:18 22:05 22:05 WBC 10.0 RBC 3.07 L Hgb 9.0 L Hct 27.4 L MCV 89.2 MCH 29.2 MCHC 32.7 L RDW 14.0 Plt Count 173 D MPV 8.6 Neut % (Auto) 69.9 Lymph % (Auto) 16.8 L [place] % (Auto) 11.2 H Eos % (Auto) 1.2 Baso % (Auto) 0.9 Neut # (Auto) 7.0 Lymph # (Auto) 1.7 [place] # (Auto) 1.1 H Eos # (Auto) 0.1 Baso # (Auto) 0.1 PT INR APTT pO2 36 VBG pH 7.34 VBG pCO2 40 VBG HCO3 21.0 VBG Total CO2 22.8 VBG O2 Sat (Calc) 80.5 H VBG Base Excess -3.9 L VBG Potassium 4.0 Sodium 136.0 136 Chloride 109.0 H 105 Glucose 122 H Lactate 0.7 FiO2 21.0 Potassium 3.8 Carbon Dioxide 19 L Anion Gap 16 BUN 46 H Creatinine 5.9 H Est GFR ( Amer) 10 Est GFR (Non-Af Amer) 8 POC Glucose (mg/dL) Random Glucose 124 H Calcium 8.0 L Phosphorus 4.7 H Magnesium 1.6 Total Bilirubin 0.6 AST 31 ALT 21 Alkaline Phosphatase 101 Total Protein 7.5 Albumin 3.1 L Globulin 4.4 H Albumin/Globulin Ratio 0.7 L Venous Blood Potassium 4.0 Urine Color Urine Clarity Urine pH Ur Specific [place] Urine Protein Urine Glucose (UA) Urine Ketones Urine Blood Urine Nitrate Urine Bilirubin Urine Urobilinogen Ur Leukocyte Esterase Urine RBC (Auto) Urine Microscopic WBC Ur Squamous Epith Cells 09/20/18 09/20/18 09/21/18 22:05 23:24 06:33 WBC RBC Hgb Hct MCV MCH MCHC RDW Plt Count MPV Neut % (Auto) Lymph % (Auto) [place] % (Auto) Eos % (Auto) Baso % (Auto) Neut # (Auto) Lymph # (Auto) [place] # (Auto) Eos # (Auto) Baso # (Auto) PT 13.9 H INR 1.2 APTT 33.1 pO2 VBG pH VBG pCO2 VBG HCO3 VBG Total CO2 VBG O2 Sat (Calc) VBG Base Excess VBG Potassium Sodium Chloride Glucose Lactate FiO2 Potassium Carbon Dioxide Anion Gap BUN Creatinine Est GFR ( Amer) Est GFR (Non-Af Amer) POC Glucose (mg/dL) 81 Random Glucose Calcium Phosphorus Magnesium Total Bilirubin AST ALT Alkaline Phosphatase Total Protein Albumin Globulin Albumin/Globulin Ratio Venous Blood Potassium Urine Color Yellow Urine Clarity Slighty-cloudy Urine pH 6.0 Ur Specific [place] 1.014 Urine Protein >=500 Urine Glucose (UA) 50 Urine Ketones Negative Urine Blood Moderate Urine Nitrate Negative Urine Bilirubin Negative Urine Urobilinogen 0.2-1.0 Ur Leukocyte Esterase Neg Urine RBC (Auto) 26 H Urine Microscopic WBC 3 Ur Squamous Epith Cells 1 Assessment & Plan - Assessment and Plan (Free Text) Assessment: 37 y/o transgender male to female with a PMHx of HIV, DM, CKD, DVT, HTN, chronic pain admitted for evaluation and management of sepsis possibly due to jyotsna-rectal abscess. PLAN: >Sepsis due to jyotsna-rectal abscess --Meets criteria for abscess: fever, tachycardia and jyotsna-rectal abscess as sourced of infection. --No leukocytosis --ID consult, Dr Noe --General Surgery consult, Dr Galeano --Iv Ceftriaxone and IV Metronidazole --F/U Blood culture and Urine culture. >HIV --Home meds resumed --Last CD4 count 605 --ID consult, Dr Noe (her PCP) >DM --Home meds resumed --Insulin sliding scale >CKD Stage IV --Home meds resumed >HTN --Home meds resumed >Chronic pain --Morphine 4mg Q6H --Pain management Consult >DVT Prophylaxis --Lovenox 30mg SC daily, renally dose --SCD Case discussed with Dr Jorge Jean PGY-2 - Date & Time Date: 09/21/18 Time: 10:30
[2018-09-21] MEDS: Lactobacillus Acidophilus 500 MU Cap PO SCH ×2 (10:40→16:45)
[2018-09-21] MEDS ORDERED: Glucagon Recombinant 1 mg Inj IM PRN (11:28)
[2018-09-21] MEDS ORDERED: Dextrose 50% SYRINGE Inj (50 ml) IV PRN (11:28)
[2018-09-21] MEDS: Insulin Lispro (humaLOG) 100 Units/ml Inj SC SCH ×2 (12:47→16:47)
[2018-09-21] MEDS ORDERED: Sodium Chloride 0.9% 1,000 ML IV SCH (13:00)
[2018-09-21] MEDS ORDERED: Morphine 4 MG/ML VIAL IVP ONE (13:05)
[2018-09-21] MEDS ORDERED: guaiFENesin 100 mg/5 ml Syrup UD PO PRN (14:50)
[2018-09-21 16:22] VITALS: BP 181/80; PULSE 121; O2SAT 96
[2018-09-21 18:14] VITALS: TEMP 99.6
[2018-09-21] MEDS ORDERED: metroNIDAZOLE 500mg/100ml NS 100 ML IVPB SCH (21:00)
--- NOTE | 2018-09-22 01:20 | CARD ---
APPROVED REPORT Date of service: 09/20/2018 EKG Measurement Heart [id number] <Conclusion> Sinus tachycardia Septal infarct, age undetermined Abnormal ECG
== END 2018-09-21 18:49 | disposition left against medical advice (07) ==
LOC: H.ER 20:44 → H.ERHOLD 09-21 04:09 → H.MEDSURG1 09-21 06:38
PROVIDERS: ADMIT Hospitalist; ATTEND Hospitalist
DX: L03.315 Cellulitis of perineum (principal); K61.2 Anorectal abscess; L03.317 Cellulitis of buttock; B20 Human immunodeficiency virus [HIV] disease; N18.4 Chronic kidney disease, stage 4 (severe); I12.9 Hypertensive chronic kidney disease with stage 1 through stage 4 chronic kidney disease, or unspecified chronic kidney disease; G89.29 Other chronic pain; E11.22 Type 2 diabetes mellitus with diabetic chronic kidney disease; K52.9 Noninfective gastroenteritis and colitis, unspecified; J45.909 Unspecified asthma, uncomplicated; D64.9 Anemia, unspecified; M54.5 Low back pain; F12.90 Cannabis use, unspecified, uncomplicated; F17.210 Nicotine dependence, cigarettes, uncomplicated; Z91.19 Patient's noncompliance with other medical treatment and regimen; Z89.512 Acquired absence of left leg below knee; F32.9 Major depressive disorder, single episode, unspecified; F41.9 Anxiety disorder, unspecified; K29.70 Gastritis, unspecified, without bleeding
CPT/HCPCS: 36415; 71045; 74176; 80053; 81003; 82803; 82948; 83735; 84100; 85025; 85610; 85730; 87040; 87086; 93005; 96374; 99285; G0378; J0692; J0696; J2270; J2405; J2765; J7030; Q9966

== ENCOUNTER 2018-12-06 15:42 | Emergency (ER) | payer MEDICARE, OTHER ==
[2018-12-06 15:43] VITALS: BMI 38.0
[2018-12-06 16:03] VITALS: RESP 18
[2018-12-06] MEDS ORDERED: Albuterol-Ipratrop 3 mg / 0.5 (3 ml) UD INH STA (16:15)
--- NOTE | 2018-12-06 16:44 | ED PDOC ---
HPI: Asthma Time Seen by Provider: 12/06/18 16:05 Chief Complaint (Nursing): Flu-like Symptoms Chief Complaint (Provider): Flu-like Symptoms History Per: Patient History/Exam Limitations: no limitations Onset/Duration Of Symptoms: Days (x2 months) Current Symptoms Are (Timing): Still Present Associated Symptoms: Cough, Sputum Production (clear), Fever Additional Complaint(s): 37 year old transgender female with a history of HIV, hypertension and diabetes presents to the ED with cough and wheezing for two months. Patient reports symptoms have been worsening since onset. She reports associated clear phlegm, intermittent subject fevers, runny nose, and nasal congestion. Patient has been taking albuterol and OTC cough medication with minimal relief. Patient presents to the ED today due to persistent symptoms. She denies leg swelling or chest pain but has chest tightness. Patient has no sick contacts or recent travel. PMD: [place] Past Medical History Reviewed: Historical Data, Nursing Documentation, Vital Signs Vital Signs: Last Vital Signs Temp 98.8 F 12/06/18 16:00 Pulse 104 H 12/06/18 16:00 Resp 18 12/06/18 16:00 BP 199/140 H 12/06/18 16:00 Pulse Ox 100 12/06/18 16:00 Primary Care Provider: Sumit Noe - Medical History PMH: Anemia, Anxiety, Asthma, Depression, Diabetes, Deep Vein Thrombosis, Gastritis, HIV, HTN, Pancreatitis, Peripheral Edema, Chronic Kidney Disease, Chronic Pain Denies: Hepatitis, Seizures, Sexually Transmitted Disease - Surgical History Surgical History: Endoscopy - Family History Family History: States: [place], CAD, Diabetes, Hypertension - Immunization History Hx Tetanus Toxoid Vaccination: Yes Hx Influenza Vaccination: No Hx Pneumococcal Vaccination: Yes - Home Medications Home Medications: Ambulatory Orders Medication Instructions Recorded Abacavir [Ziagen] 300 mg PO DAILY 09/21/18 Ergocalciferol [Drisdol] 50,000 iu PO QWK 09/21/18 Ferrous Gluconate [Fergon] 324 mg PO TID 09/21/18 Fluocinonide 0.05% Ointment [Lidex 15 gm TOP BID 09/21/18 0.05% Oint] Insulin Lispro [humALOG] SQ BID 09/21/18 Lactobacillus Acidophilus 1 each PO BID 09/21/18 [Acidophilus] Omeprazole 10 mg PO DAILY 09/21/18 Rosuvastatin Calcium [Crestor] 5 mg PO DAILY 09/21/18 lamiVUDine [Epivir] 150 mg PO DAILY 09/21/18 - Allergies Allergies/Adverse Reactions: Allergies Allergy/AdvReac Type Severity Reaction Status Date / Time acetaminophen [From Tylenol] Allergy RASH Verified 09/20/18 20:50 aspirin Allergy RASH Verified 09/20/18 20:50 hydromorphone [From Dilaudid] Allergy RASH Verified 09/20/18 20:50 ketorolac tromethamine Allergy RASH Verified 09/20/18 20:50 [From Toradol] meperidine HCl [From Demerol] Allergy RASH Verified 09/20/18 20:50 oxycodone HCl [From Percocet] Allergy RASH Verified 09/20/18 20:50 peas Allergy ANAPHYLAXIS Verified 09/20/18 20:50 propoxyphene napsylate Allergy RASH Verified 09/20/18 20:50 [From Darvocet-N] Review of Systems ROS Statement: Except As Marked, All Systems Reviewed And Found Negative Constitutional: Positive for: Fever (subjective) ENT: Positive for: Nose Congestion, Other (runny nose) Cardiovascular: Positive for: Other (chest tightness). Negative for: Chest Pain Respiratory: Positive for: Cough, Wheezing Musculoskeletal: Positive for: Other (no leg swelling) Physical Exam - Reviewed Nursing Documentation Reviewed: Yes Vital Signs Reviewed: Yes - Physical Exam Appears: Positive for: Non-toxic, In Acute Distress Head Exam: Positive for: ATRAUMATIC, NORMOCEPHALIC Skin: Positive for: Warm, Dry Eye Exam: Positive for: EOMI, PERRL ENT: Positive for: Other (boggy nasal membranes) Neck: Positive for: Painless ROM, Supple Cardiovascular/Chest: Positive for: Regular Rate, Rhythm. Negative for: Murmur Respiratory: Positive for: Wheezing (diffuse inspiratory and expiratory wheeze ), Respiratory Distress (mild). Negative for: Accessory Muscle Use, Rales Gastrointestinal/Abdominal: Positive for: Soft. Negative for: Tenderness Back: Positive for: Normal Inspection. Negative for: Decreased ROM Extremity: Positive for: Pedal Edema (trace lower leg edema in right leg), Other (left leg is prosthetic) Lymphatic: Negative for: Adenopathy Neurological/Psych: Positive for: Awake, Alert. Negative for: Motor/Sensory Deficits - Laboratory Results Result Diagrams: 12/06/18 17:18 12/06/18 17:18 - ECG ECG Rhythm: Positive for: Sinus Tachycardia Interpretation Of Abn EKG: lateral T wave inversions, similar to previous 09/2018 O2 Sat by Pulse Oximetry: 100 (RA) Pulse Ox Interpretation: Normal - Radiology X-Ray: Read By Radiologist X-Ray Interpretation: No Acute Disease - Progress ED Course And Treament: Accession No. : [id number] Patient Name / ID : EDWIN MORAN / [id number] Exam Date : 12/06/2018 16:39:52 ( Approved ) Study Comment : Sex / Age : F / 37Y Creator : chel arita Dictator : Freddy Pollock MD Vrt Mechanic : Senior Writer : Freddy Pollock MD Approver2 : Report Date : 12/06/2018 17:00:42 My Comment : Date of service: 12/06/2018 HISTORY: Shortness of breath. COMPARISON: 09/20/2018. TECHNIQUE: Chest PA and lateral views FINDINGS: LUNGS: No active pulmonary disease. PLEURA: No significant pleural effusion identified. No pneumothorax apparent. CARDIOVASCULAR: No aortic atherosclerotic calcification present. Cardiomegaly. No evidence of acute, significant cardiovascular disease. No pulmonary vascular congestion. OSSEOUS STRUCTURES: No significant abnormalities. VISUALIZED UPPER ABDOMEN: Normal. OTHER FINDINGS: None. IMPRESSION: No active disease. No significant interval change compared to the prior examination(s). - Critical Care Total Time (In Min): 30 Documented Critical Care: Time excludes all time spent performint seperately billable procedures Medical Decision Making Medical Decision Making: Time: 1612 Impression: Reactive airway disease Differentials include but are not limited to: asthma, pneumonia, bronchitis CHF Plan: --Type and screen --VBG --EKG --BNP --CMP --LDH --TSH --Troponin --CBC --CXR --Duoneb --Solu-medrol --blood culture --nebulizer treatment --peak flow pre/post treatment --influenza A B Pt labs consistent with acutely worsened renal failure, fluid overload (Cr 8 and probnp [id number]) Pt initially felt better with nebs/solumedrol but then symptoms recurred. Advised hospitalization for renal failure and uncontrolled htn as well as acute bronchitis. She initially wanted to leave, but then decided to stay. Nurses unable to place peripheral IV line. DW pt need for line and she refuses both EJ and any central lines. Attempted peripheral line with static ultrasound guidance. After several attempts, no IV line could be placed. Pt refusing any further attempts. At this time meds to be given orally or intramuscular. NIKI Law for medical service NIKI Laguerre Nephrology who requests pt be placed in ICU NIKI Rankin Hospitalist for ICU placement. Pt stable for telemetry at this time (and patient also refuses to go to ICU) Scribe Attestation: Documented by Dalia De Jesus, acting as a scribe for Emily Varma MD. Provider Scribe Attestation: All medical record entries made by the Scribe were at my direction and personally dictated by me. I have reviewed the chart and agree that the record accurately reflects my personal performance of the history, physical exam, medical decision making, and the department course for this patient. I have also personally directed, reviewed, and agree with the discharge instructions and disposition. Disposition - Clinical Impression Clinical Impression: Bronchitis, Uncontrolled hypertension, Acute on chronic renal failure - Disposition Disposition Time: 20:00 Condition: FAIR - Pt Status Changed To: Hospital Disposition Of: Inpatient - Admit Certification Admit to Inpatient:: After my assessment, the patient will require hospitalization for at least two midnights. This is because of the severity of symptoms shown, intensity of services needed, and/or the medical risk in this patient being treated as an outpatient. - POA Present On Arrival: None
--- NOTE | 2018-12-06 17:08 | RAD ---
Date of service: 12/06/2018 HISTORY: Shortness of breath. COMPARISON: 09/20/2018. TECHNIQUE: Chest PA and lateral views FINDINGS: LUNGS: No active pulmonary disease. PLEURA: No significant pleural effusion identified. No pneumothorax apparent. CARDIOVASCULAR: No aortic atherosclerotic calcification present. Cardiomegaly. No evidence of acute, significant cardiovascular disease. No pulmonary vascular congestion. OSSEOUS STRUCTURES: No significant abnormalities. VISUALIZED UPPER ABDOMEN: Normal. OTHER FINDINGS: None. IMPRESSION: No active disease. No significant interval change compared to the prior examination(s).
[2018-12-06] MEDS ORDERED: Albuterol-Ipratrop 3 mg / 0.5 (3 ml) UD ONE (17:22)
[2018-12-06 17:25] LABS: VENOUS BLOOD GAS BASE EXCESS -9.8 mmol/L (0.0-2.0); VENOUS BLOOD GAS PCO2 40 mmHg (40-60); VENOUS BLOOD GAS PO2 52 mm/Hg (30-55); VENOUS BLOOD PH 7.24 (7.32-7.43)
[2018-12-06 17:33] LABS: BASO % 0.7 % (0.0-2.0); EOS # 0.2 K/uL (0.0-0.7); EOS % 2.3 % (0.0-4.0); HEMOGLOBIN 9.7 g/dL (12.0-16.0); LYMPH # 1.9 K/uL (1.0-4.3); MEAN CELL VOLUME 93.8 fl (81.0-99.0); MEAN CORPUSCULAR HEMOGLOBIN 29.3 pg (27.0-31.0); MEAN CORPUSCULAR HGB CONC 31.2 g/dL (33.0-37.0); MEAN PLATELET VOLUME 7.8 fl (7.2-11.7); MONO # 0.7 K/uL (0.0-0.8); MONO % 10.7 % (0.0-10.0); NEUT # 3.8 K/uL (1.8-7.0); NEUT % 57.3 % (50.0-75.0); NRBC % 0.1 % (0.0-0.0); RBC 3.33 Mil/uL (3.80-5.20); RED CELL DISTRIBUTION WIDTH 16.5 % (11.5-14.5); WHITE BLOOD COUNT 6.6 K/uL (4.8-10.8)
[2018-12-06 18:11] LABS: ALB/GLOB RATIO 0.7 (1.0-2.1); ALBUMIN 2.9 g/dL (3.5-5.0); CALCIUM 6.5 mg/dL (8.4-10.2)
[2018-12-06 18:16] LABS: TROPONIN I 0.078 ng/mL (0.00-0.120)
[2018-12-06] MEDS ORDERED: Albuterol 0.083% Inhal Sol (2.5 mg/3 mL) UD ONE (20:43)
[2018-12-06] MEDS ORDERED: Nitroglycerin 2% Ointment Foilpak UD TOP STA (20:56)
[2018-12-06 22:15] VITALS: BP 162/86; PULSE 92; TEMP 98.1
[2018-12-06 23:37] VITALS: O2SAT 100
--- NOTE | 2018-12-06 23:39 | CP.PCM.CON ---
History of Present Illness - History of Present Illness History of Present Illness: Attending: Chris Law MD PMD: Dr Shah Reason for consult: Evaluation for ICU admission Chief Complaint: Flu like symptoms The patient was seen and examined in the ED HPI: the hx was obtained from the patient and after review of the Laboratory, radiological and the medical records. This is a 37 years old transgender Female with hx of DM II, HIV+ve, CKD IV who came to the ED with cough and wheezing over two months becoming worse. There was subjective fever, rhinnorea and nasal congestion. in the Ed the initial BP was 199/140mmHg which decreased to 162/86mmHg after treatment. The BUN was 55 and creatinine 8.1. Potassium 3.8. He was treated in the ED with Duoneb and methylprednisolone. PMH: HIV+ve,DM II; CKD IV; DVT; HTN; Gastritis; Chronic back pain; Anemia and Depression; Pancreatitis; Anemia PSH: L BKA; IVC filter; Multiple I&D for Abscesses; I&D for Perirectal abscesses SH: smokes 1 pack per day since age 17; ocassional alcohol; smokes marihuana every now and then, last use 1 week ago. FH: Significant for IN CAD; DM HTN Allergies: Toradol; Tylenol; Dilaudid; ASA Medication: Reviewed Review of Systems - Review of Systems Systems not reviewed;Unavailable: Uncooperative Review of Systems: No respiratory distress on this evaluation. - Constitutional Constitutional: Weakness - EENT Eyes: Diplopia Ears: Ear Pain, Dizziness Nose/Mouth/Throat: Epistaxis - Cardiovascular Cardiovascular: Chest Pain - Respiratory Respiratory: Cough. absent: Dyspnea, Wheezing, Snoring - Gastrointestinal Gastrointestinal: Cramping, Dyspepsia, Fecal Incontinence. absent: Constipatio n, Diarrhea - Genitourinary Genitourinary: Dysuria, Flank Pain, Urinary Frequency - Musculoskeletal Musculoskeletal: Limited Range of Motion - Integumentary Integumentary: absent: Skin Ulcer, Sores, Swelling - Neurological Neurological: Weakness. absent: Abnormal Movements, Confusion, Dizziness - Psychiatric Psychiatric: Anxiety, Depression - Endocrine Endocrine: absent: Polydipsia, Polyphagia, Polyuria - Hematologic/Lymphatic Hematologic: absent: Easy Bleeding, Easy Bruising Past Patient History - Infectious Disease Hx of Infectious Diseases: None - Past Medical History & Family History Past Medical History?: Yes - Past Social History Smoking Status: Light Smoker < 10 Cigarettes Daily Chewing Tobacco Use: No Cigar Use: No - CARDIAC Hx Hypertension: Yes Hx Peripheral Edema: Yes - PULMONARY Hx Asthma: Yes - NEUROLOGICAL Hx Seizures: No - HEENT Hx HEENT Problems: No - RENAL Hx Chronic Kidney Disease: Yes - HEMATOLOGICAL/ONCOLOGICAL Hx Anemia: Yes Hx Human Immunodeficiency Virus (HIV): Yes - INTEGUMENTARY Hx Dermatological Problems: Yes Other/Comment: ULCER BOTTOM LEFT FOOT LEFT FOOT SUTURE LINES TOES - MUSCULOSKELETAL/RHEUMATOLOGICAL Hx Musculoskeletal Disorders: Yes Hx Falls: No Hx Osteomyelitis: Yes - GASTROINTESTINAL Hx Gastritis: Yes Hx Pancreatitis: Yes - GENITOURINARY/GYNECOLOGICAL Hx Sexually Transmitted Disorders: No - PSYCHIATRIC Hx Anxiety: Yes Hx Depression: Yes - ANESTHESIA Hx Anesthesia: Yes Hx Anesthesia Reactions: No Hx Malignant Hyperthermia: No Meds Allergies/Adverse Reactions: Allergies Allergy/AdvReac Type Severity Reaction Status Date / Time acetaminophen [From Tylenol] Allergy RASH Verified 09/20/18 20:50 aspirin Allergy RASH Verified 09/20/18 20:50 hydromorphone [From Dilaudid] Allergy RASH Verified 09/20/18 20:50 ketorolac tromethamine Allergy RASH Verified 09/20/18 20:50 [From Toradol] meperidine HCl [From Demerol] Allergy RASH Verified 09/20/18 20:50 oxycodone HCl [From Percocet] Allergy RASH Verified 09/20/18 20:50 peas Allergy ANAPHYLAXIS Verified 09/20/18 20:50 propoxyphene napsylate Allergy RASH Verified 09/20/18 20:50 [From Darvocet-N] Physical Exam - Constitutional Appears: No Acute Distress - Head Exam Head Exam: ATRAUMATIC, NORMAL INSPECTION, NORMOCEPHALIC - Eye Exam Eye Exam: EOMI, Normal appearance Pupil Exam: NORMAL ACCOMODATION, PERRL - ENT Exam ENT Exam: Mucous Membranes Moist, Normal Exam - Neck Exam Neck exam: Positive for: Full Rom, Normal Inspection - Respiratory Exam Respiratory Exam: Clear to Auscultation Bilateral. absent: Rales, Rhonchi, Wheezes - Cardiovascular Exam Cardiovascular Exam: RRR, +S1, +S2 - GI/Abdominal Exam GI & Abdominal Exam: Hyperactive Bowel Sounds - Rectal Exam Rectal Exam: Deferred - Extremities Exam Extremities exam: Positive for: full ROM, joint swelling, normal inspection - Back Exam Back exam: NORMAL INSPECTION. absent: CVA tenderness (L), CVA tenderness (R) - Neurological Exam Neurological exam: Alert, CN II-XII Intact, Oriented x3, Reflexes Normal - Psychiatric Exam Psychiatric exam: Flat Affect - Skin Skin Exam: Dry, Intact, Normal Color, Warm Results - Vital Signs Recent Vital Signs: Last Vital Signs Temp 98.1 F 12/06/18 22:14 Pulse 92 H 12/06/18 22:14 Resp 18 12/06/18 22:14 BP 162/86 H 12/06/18 22:14 Pulse Ox 100 12/06/18 23:36 - Labs Result Diagrams: 12/06/18 17:18 12/06/18 17:18 Labs: Laboratory Results - last 24 hr 12/06/18 12/06/18 12/06/18 16:27 17:17 17:18 WBC RBC Hgb Hct MCV MCH MCHC RDW Plt Count MPV Neut % (Auto) Lymph % (Auto) [place]ole % (Auto) Eos % (Auto) Baso % (Auto) Neut # (Auto) Lymph # (Auto) [place]ole # (Auto) Eos # (Auto) Baso # (Auto) pO2 52 VBG pH 7.24 L VBG pCO2 40 VBG HCO3 16.8 VBG Total CO2 18.3 L VBG O2 Sat (Calc) 92.3 H VBG Base Excess -9.8 L VBG Potassium 3.6 Sodium 139.0 139 Chloride 112.0 H 113 H Glucose 153 H Lactate 0.7 FiO2 21.0 Potassium 3.8 Carbon Dioxide 15 L Anion Gap 15 BUN 55 H Creatinine 8.1 H* D Est GFR ( Amer) 7 Est GFR (Non-Af Amer) 6 Random Glucose 153 H Calcium 6.5 L Total Bilirubin 0.4 AST 43 H D ALT 42 Alkaline Phosphatase 97 Lactate Dehydrogenase 1013 H Troponin I 0.0780 NT-Pro-B Natriuret Pep 15633 H Total Protein 7.1 Albumin 2.9 L Globulin 4.2 H Albumin/Globulin Ratio 0.7 L TSH 3rd Generation 2.29 Venous Blood Potassium 3.6 Influenza Typ A,B (EIA) Negative for flu a/b Blood Type Antibody Screen BBK History Checked 12/06/18 12/06/18 17:18 17:20 WBC 6.6 RBC 3.33 L Hgb 9.7 L Hct 31.2 L MCV 93.8 D MCH 29.3 MCHC 31.2 L RDW 16.5 H Plt Count 165 MPV 7.8 Neut % (Auto) 57.3 Lymph % (Auto) 29.0 Toole % (Auto) 10.7 H Eos % (Auto) 2.3 Baso % (Auto) 0.7 Neut # (Auto) 3.8 Lymph # (Auto) 1.9 Toole # (Auto) 0.7 Eos # (Auto) 0.2 Baso # (Auto) 0.0 pO2 VBG pH VBG pCO2 VBG HCO3 VBG Total CO2 VBG O2 Sat (Calc) VBG Base Excess VBG Potassium Sodium Chloride Glucose Lactate FiO2 Potassium Carbon Dioxide Anion Gap BUN Creatinine Est GFR ( Amer) Est GFR (Non-Af Amer) Random Glucose Calcium Total Bilirubin AST ALT Alkaline Phosphatase Lactate Dehydrogenase Troponin I NT-Pro-B Natriuret Pep Total Protein Albumin Globulin Albumin/Globulin Ratio TSH 3rd Generation Venous Blood Potassium Influenza Typ A,B (EIA) Blood Type AB POSITIVE Antibody Screen Negative BBK History Checked Patient has bt Assessment & Plan - Assessment and Plan (Free Text) Plan: 37 years old transgender Female with hx of DM II, HIV+ve, CKD IV who came to the ED with cough and wheezing over two months becoming worse. There was subjective fever, rhinnorea and nasal congestion. in the Ed the initial BP was 199/140mmHg which decreased to 162/86mmHg after treatment. The BUN was 55 and creatinine 8.1. Potassium 3.8. He was treated in the ED with Duoneb and methylprednisolone. #. Bronchospasm The patient was treated with Methylprednisone and Duoneb - continue with Duoneb #. Hypertensive Urgency, improved with Clonidine - Continue with Clonidine and Norvasc #. Acute on chronic Kidney disease -Nephrology, Dr Laguerre on consult - Patient refuses Hemodialysis #. HIV+ve - Continue HAART meds #. Anemia of chronic disease - Follow Hb #. DM II - Lispro sliding scale according to accucheck After review of the laboratory, radiological and medical records Then examining the patient, I conslude that the patient could be treated in n a step down floor and there is no need at present to upgrade the patient to ICU. On explaining to the patient the possibility of admitting to the ICU, he refused this admission. Joshua Rankin MD. - Date & Time Date: 12/06/18 Time: 23:39
[2018-12-07] MEDS ORDERED: Albuterol-Ipratrop 3 mg / 0.5 (3 ml) UD INH PRN (03:47)
[2018-12-07] MEDS ORDERED: Insulin Lispro (humaLOG) 100 Units/ml Inj SC SCH (07:30)
--- NOTE | 2018-12-07 11:51 | CARD ---
APPROVED REPORT Date of service: 12/06/2018 EKG Measurement Heart [id number] <Conclusion> Sinus tachycardia ST & T wave abnormality, consider lateral ischemia Abnormal ECG
--- NOTE | 2018-12-08 17:40 | CP.PCM.CON ---
History of Present Illness - History of Present Illness History of Present Illness: REASONS FOR CONSULT : A ON CKD .. NEEDS HD MET AND RESPIRATORY ACIDOSIS ANEMIA OF CKD PT WAS SEEN PRIOR TO HER SIGNING OUT ALL EMR REVIEWED .. LABS REVIEWED .. PT WAS SEEN AND EXAMINED CASE D/W ER ATTENDING AT LENGTH Chief Complaint: Flu like symptoms The patient was seen and examined in the ED HPI: the hx was obtained from the patient and after review of the Laboratory, radiological and the medical records. This is a 37 years old transgender Female with hx of DM II, HIV+ve, CKD IV who came to the ED with cough and wheezing over two months becoming worse. There was subjective fever, rhinnorea and nasal congestion. in the Ed the initial BP was 199/140mmHg which decreased to 162/86mmHg after treatment. The BUN was 55 and creatinine 8.1. Potassium 3.8. He was treated in the ED with Duoneb and methylprednisolone. PMH: HIV+ve,DM II; CKD IV; DVT; HTN; Gastritis; Chronic back pain; Anemia and Depression; Pancreatitis; Anemia PSH: L BKA; IVC filter; Multiple I&D for Abscesses; I&D for Perirectal abscesses SH: smokes 1 pack per day since age 17; ocassional alcohol; smokes marihuana every now and then, last use 1 week ago. FH: Significant for [place] CAD; DM HTN Allergies: Toradol; Tylenol; Dilaudid; ASA Medication: Reviewed Review of Systems - Review of Systems Systems not reviewed;Unavailable: Uncooperative Review of Systems: No respiratory distress on this evaluation. - Constitutional Constitutional: Weakness - EENT Eyes: Diplopia Ears: Ear Pain, Dizziness Nose/Mouth/Throat: Epistaxis - Cardiovascular Cardiovascular: Chest Pain - Respiratory Respiratory: Cough. absent: Dyspnea, Wheezing, Snoring - Gastrointestinal Gastrointestinal: Cramping, Dyspepsia, Fecal Incontinence. absent: Cons tipation, Diarrhea - Genitourinary Genitourinary: Dysuria, Flank Pain, Urinary Frequency - Musculoskeletal Musculoskeletal: Limited Range of Motion - Integumentary Integumentary: absent: Skin Ulcer, Sores, Swelling - Neurological Neurological: Weakness. absent: Abnormal Movements, Confusion, Dizziness - Psychiatric Psychiatric: Anxiety, Depression - Endocrine Endocrine: absent: Polydipsia, Polyphagia, Polyuria - Hematologic/Lymphatic Hematologic: absent: Easy Bleeding, Easy Bruising Past Patient History - Infectious Disease Hx of Infectious Diseases: None - Past Medical History & Family History Past Medical History?: Yes - Past Social History Smoking Status: Light Smoker < 10 Cigarettes Daily Chewing Tobacco Use: No Cigar Use: No - CARDIAC Hx Hypertension: Yes Hx Peripheral Edema: Yes - PULMONARY Hx Asthma: Yes - NEUROLOGICAL Hx Seizures: No - HEENT Hx HEENT Problems: No - RENAL Hx Chronic Kidney Disease: Yes - HEMATOLOGICAL/ONCOLOGICAL Hx Anemia: Yes Hx Human Immunodeficiency Virus (HIV): Yes - INTEGUMENTARY Hx Dermatological Problems: Yes Other/Comment: ULCER BOTTOM LEFT FOOT LEFT FOOT SUTURE LINES TOES - MUSCULOSKELETAL/RHEUMATOLOGICAL Hx Musculoskeletal Disorders: Yes Hx Falls: No Hx Osteomyelitis: Yes - GASTROINTESTINAL Hx Gastritis: Yes Hx Pancreatitis: Yes - GENITOURINARY/GYNECOLOGICAL Hx Sexually Transmitted Disorders: No - PSYCHIATRIC Hx Anxiety: Yes Hx Depression: Yes - ANESTHESIA Hx Anesthesia: Yes Hx Anesthesia Reactions: No Hx Malignant Hyperthermia: No Meds Allergies/Adverse Reactions: Allergies Allergy/AdvReac Type Severity Reaction Status Date / Time acetaminophen [From Tylenol] Allergy RASH Verified 09/20/18 20:50 aspirin Allergy RASH Verified 09/20/18 20:50 hydromorphone [From Dilaudid] Allergy RASH Verified 09/20/18 20:50 ketorolac tromethamine Allergy RASH Verified 09/20/18 20:50 [From Toradol] meperidine HCl [From Demerol] Allergy RASH Verified 09/20/18 20:50 oxycodone HCl [From Percocet] Allergy RASH Verified 09/20/18 20:50 peas Allergy ANAPHYLAXIS Verified 09/20/18 20:50 propoxyphene napsylate Allergy RASH Verified 09/20/18 20:50 [From Darvocet-N] - Medications Medications: Current Medications Albuterol/Ipratropium (Duoneb 3 Mg/0.5 Mg (3 Ml) Ud) 3 ml INH RQ6 PRN PRN Reason: Shortness of Breath Amlodipine Besylate (Norvasc) 10 mg PO DAILY JOSÉ Clonidine HCl (Catapres) 0.1 mg PO BID JOSÉ Insulin Human Lispro (Humalog) 0 units SC ACHS JOSÉ; Protocol Results - Vital Signs Recent Vital Signs: Last Vital Signs Temp 98.1 F 12/06/18 22:14 Pulse 92 H 12/06/18 22:14 Resp 18 12/06/18 22:14 BP 162/86 H 12/06/18 22:14 Pulse Ox 100 12/07/18 11:49 - Labs Result Diagrams: 12/06/18 17:18 12/06/18 17:18 Assessment & Plan - Assessment and Plan (Free Text) Assessment: A ON CKD WITH EGFR OF 7 ML / M PT IS REFUSING HD .. SHE INSIST ON SIGNING OUT ANEMIA OF CKD BOTH MET AND RESPIRATORY ACIDOSIS MMP P : PT NEEDS HD BUT SHE REFUSIS ADMIT UNDER MED C/O CURRENT CARE PT WANTED TO SIGN OUT - Date & Time Date: 12/07/18 Time: 15:00
== END 2018-12-07 03:03 | disposition left against medical advice (07) ==
LOC: SUPCPDRO 15:42 → H.ER 15:42 → H.ERHOLD 19:24 → UNDOADMIN 19:24 → UNDODISIN 12-07 03:03
DX: J40 Bronchitis, not specified as acute or chronic (principal); I10 Essential (primary) hypertension; N17.9 Acute kidney failure, unspecified
CPT/HCPCS: 71046; 80053; 82803; 83615; 83880; 84443; 84484; 85025; 86850; 86900; 87040; 87804; 93005; 94640; 96372; 99283; J2930

== ENCOUNTER 2018-12-10 19:00 | Inpatient (IN) | payer MEDICARE, OTHER ==
[2018-12-10 19:01] VITALS: BMI 38.0
--- NOTE | 2018-12-10 23:09 | ED PDOC ---
HPI: General Adult Time Seen by Provider: 12/10/18 22:47 Chief Complaint (Nursing): GI Problem Chief Complaint (Provider): rectal pain History Per: Patient History/Exam Limitations: no limitations Onset/Duration Of Symptoms: Days (3) Current Symptoms Are (Timing): Still Present Additional Complaint(s): 37 y/o female history of hypertension, HIV, diabetes, chronic kidney disease (noncompliant) presents for evaluation of rectal pain x 3 days with associated fevers. Patient states she was admitted here on 12/06 for renal failure and signed out against medical advice to take care of her children. Patient states on Sunday she called an ambulance for the rectal pain and was brought to [facility] and admitted for a work up and was receiving IV clindamycin but signed out ag ainst medical advice today because she "doesn't like it there". Patient states pain worsening, prompting ED visit tonight. Denies headache, nausea/vomiting, chest pain, palpitations, abdominal pain, changes in bowel movements, changes in urine output. Patient also complaining of cough/wheezing consistent with her asthma. Past Medical History Reviewed: Historical Data, Nursing Documentation, Vital Signs Vital Signs: Last Vital Signs Temp 100.1 F H 12/10/18 20:42 Pulse 132 H 12/10/18 20:42 Resp 16 12/10/18 20:42 BP 153/77 H 12/10/18 20:42 Pulse Ox 98 12/10/18 20:42 Primary Care Provider: Sumit Noe - Medical History PMH: Anemia, Anxiety, Asthma, Depression, Diabetes, Deep Vein Thrombosis, Gastritis, HIV, HTN, Pancreatitis, Peripheral Edema, Chronic Kidney Disease, Chronic Pain Denies: Hepatitis, Seizures, Sexually Transmitted Disease - Surgical History Surgical History: Endoscopy - Family History Family History: States: CA, CAD, Diabetes, Hypertension - Immunization History Hx Tetanus Toxoid Vaccination: Yes Hx Influenza Vaccination: No Hx Pneumococcal Vaccination: Yes - Home Medications Home Medications: Ambulatory Orders Medication Instructions Recorded Abacavir [Ziagen] 300 mg PO BID 09/21/18 Insulin Lispro [humALOG] SQ BID 09/21/18 Rosuvastatin Calcium [Crestor] 5 mg PO DAILY 09/21/18 lamiVUDine [Epivir] 150 mg PO DAILY 09/21/18 Dolutegravir Sodium [Tivicay] 50 mg PO DAILY 12/11/18 Enalapril Maleate [Vasotec] 10 mg PO DAILY 12/11/18 amLODIPine [Norvasc] 10 mg PO DAILY 12/11/18 - Allergies Allergies/Adverse Reactions: Allergies Allergy/AdvReac Type Severity Reaction Status Date / Time acetaminophen [From Tylenol] Allergy RASH Verified 12/10/18 20:42 aspirin Allergy RASH Verified 12/10/18 20:42 hydromorphone [From Dilaudid] Allergy RASH Verified 12/10/18 20:42 ketorolac tromethamine Allergy RASH Verified 12/10/18 20:42 [From Toradol] meperidine HCl [From Demerol] Allergy RASH Verified 12/10/18 20:42 oxycodone HCl [From Percocet] Allergy RASH Verified 12/10/18 20:42 peas Allergy ANAPHYLAXIS Verified 12/10/18 20:42 propoxyphene napsylate Allergy RASH Verified 12/10/18 20:42 [From Darvocet-N] Review of Systems ROS Statement: Except As Marked, All Systems Reviewed And Found Negative Constitutional: Positive for: Fever, Chills Respiratory: Positive for: Wheezing Gastrointestinal: Positive for: Rectal Pain Physical Exam - Reviewed Nursing Documentation Reviewed: Yes Vital Signs Reviewed: Yes - Physical Exam Appears: Positive for: Well, Non-toxic, Uncomfortable Head Exam: Positive for: ATRAUMATIC, NORMAL INSPECTION, NORMOCEPHALIC Skin: Positive for: Normal Color Eye Exam: Positive for: Normal appearance ENT: Positive for: Normal ENT Inspection Cardiovascular/Chest: Positive for: Regular Rate, Rhythm Respiratory: Positive for: Normal Breath Sounds Gastrointestinal/Abdominal: Positive for: Normal Exam Rectal: Positive for: Hemorrhoids, Mass, Tenderness (diffuse perirectal tenderness with fluctuance right jyotsna-rectal region; patient difficult to assess due to pain. No crepitus noted. No perineal tenderness. ? b/l orchietomy without skin color changes, tenderness, swelling, erythema), Other (electrical supervisor Su Adkins RN) Extremity: Positive for: Normal ROM, Other (left BKA) Neurological/Psych: Positive for: Awake, Alert, Oriented (x3) - Laboratory Results Result Diagrams: 12/11/18 01:14 12/11/18 01:14 - ECG ECG: Positive for: Viewed By Me (reviewed by ED attending) ECG Rhythm: Positive for: Sinus Tachycardia O2 Sat by Pulse Oximetry: 98 - Radiology X-Ray: Viewed By Vt X-Ray Interpretation: Cardiomegaly - Progress ED Course And Treament: -cbc -cmp -lactic acid -blood culture -ibuprofen PO -IV morphine -CT abd/pelvis PO contrast EJ line placed by ED attending Dr. Sousa Patient evaluated by Dr. Pollard, medical or surgical instrument maker on-call; will follow up on labs/imaging CT SCAN OF THE ABDOMEN AND PELVIS WITHOUT ORAL OR IV CONTRAST. CLINICAL INDICATION: Rectal pain, fever. TECHNIQUE: Axial and reformatted sagittal and coronal images of the abdomen pelvis obtained without IV contrast administration. Patient ingested oral contrast. COMPARISON: 09/21/2018 01:13 AM EST: CT\\SD: ABD PELVIS PO CONTRAST ONLY. FINDINGS: Bilateral basilar subsegmental atelectatic pulmonary changes. Moderate cardiomegaly. Recurrent left perianal abscess formation measuring 4.9 x 3.2 cm in its largest anteroposterior and transverse dimensions respectively. Right perianal soft tissue emphysema is noted. Findings can be secondary to the presence of perianal fistula, recent right medial gluteal surgical incision and /or new onset of gas forming infection/Job gangrene. Patient with recent surgical history is suggested. Surrounding gluteal cellulitis. Bilateral mildly enlarged inguinal lymph nodes with the largest measuring 1.4 cm on the left side, probably benign and reactive. Mild hepatomegaly. Mild splenomegaly. Diffuse colonic diverticulosis. Diffuse thickening of the rectosigmoid colon. IVC filter is seen. Mild diffuse thickening of the bladder. Underdistention, spasm versus mild cystitis. Unchanged mildly enlarged unenhanced liver. Normal gallbladder and extrahepatic biliary system. Normal unenhanced spleen. Normal pancreas. Normal bilateral adrenal glands. Normal size of the right kidney. There is no right renal mass. There are no right renal calculi. There is no right hydronephrosis. Normal visualized right ureter. Normal size of the left kidney. There is no left renal mass. There are no left renal calculi. There is no left hydronephrosis. Normal visualized left ureter. Normal visualized stomach. Normal small intestine. The appendix is visualized and appears normal. There is no demonstrated peritoneal fluid. Normal abdominal aorta. Normal inferior vena cava. Normal retroperitoneum. There is no pelvic mass lesion or lymphadenopathy. There is no pelvic fluid. Normal abdominal wall. Normal osseous structures. IMPRESSION: Bilateral basilar subsegmental atelectatic pulmonary changes. Moderate cardiomegaly. Recurrent left perianal abscess formation measuring 4.9 x 3.2 cm in its largest anteroposterior and transverse dimensions respectively. Right perianal soft tissue emphysema is noted. Findings can be secondary to the presence of perianal fistula, recent right medial gluteal surgical incision and/or new onset of gas forming infection/Job gangrene. Patient with recent surgical history is suggested. Surrounding gluteal cellulitis. Bilateral mildly enlarged inguinal lymph nodes with the largest measuring 1.4 cm on the left side, probably benign and reactive. Mild hepatomegaly. Mild splenomegaly. Diffuse colonic diverticulosis. Diffuse thickening of the rectosigmoid colon. Probably mild colitis. IVC filter is seen. Mild diffuse thickening of the bladder. Underdistention, spasm versus mild cystitis. Case discussed with Dr. Noe, patient's PMD/ID specialist; recommends stat Vanco 1g and Zosyn 3.375g doses, will consult Findings discussed with Dr. Pollard, medical or surgical instrument maker on-call for consult Case discussed with Dr. Chapman, urology on-call; states if no clinical s/s of gangrene no intervention from urology stand point at this time; will need surgical eval for drainage of perianal abscess Case discussed with Dr. Mansfield, medical service on-call, for admission Case discussed with Dr. Winter, Hospitalist on-call, for placement in ICU Patient refusing ICU placement. Agreeable to telemetry placement Disposition - Clinical Impression Clinical Impression: Sepsis, Abscess and cellulitis, CKD (chronic kidney disease), stage IV - Patient ED Disposition Is Patient to be Admitted: Yes - Disposition Disposition Time: 05:00 Condition: GUARDED
[2018-12-10] MEDS ORDERED: Albuterol-Ipratrop 3 mg / 0.5 (3 ml) UD IH STA (23:12)
[2018-12-11] MEDS ORDERED: Iohexol 240 (50 ml) ONE (00:21)
[2018-12-11] MEDS ORDERED: Morphine 4 MG/ML VIAL ONE (03:41)
[2018-12-11] MEDS ORDERED: Benzoin Compund Tincture 30 ML TP ONE (03:52)
[2018-12-11] MEDS ORDERED: Ciprofloxacin 400mg/200ml D5W 400 MG/200 ML BAG IV ONE (04:23)
[2018-12-11] MEDS ORDERED: metroNIDAZOLE 500mg/100ml NS 100 ML IV STA (04:23)
[2018-12-11 04:42] LABS: BASO % 0.2 % (0.0-2.0); EOS # 0.1 K/uL (0.0-0.7); EOS % 0.3 % (0.0-4.0); HEMOGLOBIN 7.6 g/dL (12.0-16.0); LYMPH % 5.8 % (20.0-40.0); MEAN CELL VOLUME 89.4 fl (81.0-99.0); MEAN CORPUSCULAR HEMOGLOBIN 28.6 pg (27.0-31.0); MEAN PLATELET VOLUME 8.3 fl (7.2-11.7); MONO # 1.4 K/uL (0.0-0.8); MONO % 8.2 % (0.0-10.0); NEUT # 14.6 K/uL (1.8-7.0); NEUT % 85.5 % (50.0-75.0); NRBC % 0.1 % (0.0-0.0); PLATELET COUNT 164 K/uL (130-400); RBC 2.65 Mil/uL (3.80-5.20); RED CELL DISTRIBUTION WIDTH 15.6 % (11.5-14.5); WHITE BLOOD COUNT 17.1 K/uL (4.8-10.8)
[2018-12-11 04:44] LABS: HYPOCHROMIC MODERATE; LYMPHOCYTE 7 % (20-50); MONOCYTE 9 % (0-10); NEUTROPHIL 73 % (42-75); PLATELET ESTIMATE NORMAL (NORMAL)
[2018-12-11 04:45] LABS: BANDS 11 % (0-2); CALCIUM 6.9 mg/dL (8.4-10.2); TOTAL CELLS COUNTED 100
[2018-12-11 04:46] LABS: ALB/GLOB RATIO 0.7 (1.0-2.1); ALBUMIN 2.7 g/dL (3.5-5.0)
[2018-12-11] MEDS ORDERED: Vancomycin 1 g Inj ONE (04:57)
--- NOTE | 2018-12-11 05:15 | CP.PCM.CON ---
History of Present Illness - History of Present Illness History of Present Illness: Surgery Consult note. Dr. Galeano 37yo transgender female with PMHx of HIV (on HAART but non-compliant), DM, CKD not on HD, DVT, HTN who presents to the [facility] ED for complaints of jyotsna-rectal pain. Patient has had multiple admissions for similar complaints and has left AMA in the past. Patient refuses to answer many questions and most history obtained from a detailed chart review. Patient with multiple episodes of perirectal abscesses with prior I&D. Currently, she reports intermittent episodes of fevers and chills but does not provide any more details. States that jyotsna-rectal pain has been "off and on for a long time." Denies any chest pain/sob. Denies any N/V/D. Denies any urinary symptoms. CT A/P with concern for perirectal abscess approx 4.9 x 3.2cm. PMHx: HIV, DM, CKD not on HD, DVT, HTN PSHx: Left BKA, IVC filter. Multiple I&Ds of perianal abscess. ?gender surgery possible b/l orchiectomy with scrotoplasty as evidenced by CT Family Hx: non-contributory Social Hx: +Tobacco use (1/2 pack per day), Denies ETOH use, Denies illicit drugs Allergy: Tylenol, dilaudid, demerol, ASA, Toradol, Darvocet, Percocet Review of Systems - Review of Systems All systems: reviewed and no additional remarkable complaints except - Constitutional Constitutional: Chills, Fever - Cardiovascular Cardiovascular: absent: Chest Pain, Dyspnea - Respiratory Respiratory: absent: Cough, Dyspnea - Gastrointestinal Gastrointestinal: absent: Abdominal Pain, Nausea, Vomiting - Genitourinary Genitourinary: absent: Difficulty Urinating, Dysuria Past Patient History - Infectious Disease Hx of Infectious Diseases: None - Past Medical History & Family History Past Medical History?: Yes Past Family History: Reviewed and not pertinent - Past Social History Smoking Status: Light Smoker < 10 Cigarettes Daily Chewing Tobacco Use: No Alcohol: None Drugs: Denies - CARDIAC Hx Hypertension: Yes Hx Peripheral Edema: Yes - PULMONARY Hx Asthma: Yes - NEUROLOGICAL Hx Seizures: No - HEENT Hx HEENT Problems: No - RENAL Hx Chronic Kidney Disease: Yes - HEMATOLOGICAL/ONCOLOGICAL Hx Anemia: Yes Hx Human Immunodeficiency Virus (HIV): Yes - INTEGUMENTARY Hx Dermatological Problems: Yes Other/Comment: ULCER BOTTOM LEFT FOOT LEFT FOOT SUTURE LINES TOES - MUSCULOSKELETAL/RHEUMATOLOGICAL Hx Musculoskeletal Disorders: Yes Hx Falls: No Hx Osteomyelitis: Yes - GASTROINTESTINAL Hx Gastritis: Yes Hx Pancreatitis: Yes - GENITOURINARY/GYNECOLOGICAL Hx Sexually Transmitted Disorders: No - PSYCHIATRIC Hx Anxiety: Yes Hx Depression: Yes - ANESTHESIA Hx Anesthesia: Yes Hx Anesthesia Reactions: No Hx Malignant Hyperthermia: No Meds Allergies/Adverse Reactions: Allergies Allergy/AdvReac Type Severity Reaction Status Date / Time acetaminophen [From Tylenol] Allergy RASH Verified 12/10/18 20:42 aspirin Allergy RASH Verified 12/10/18 20:42 hydromorphone [From Dilaudid] Allergy RASH Verified 12/10/18 20:42 ketorolac tromethamine Allergy RASH Verified 12/10/18 20:42 [From Toradol] meperidine HCl [From Demerol] Allergy RASH Verified 12/10/18 20:42 oxycodone HCl [From Percocet] Allergy RASH Verified 12/10/18 20:42 peas Allergy ANAPHYLAXIS Verified 12/10/18 20:42 propoxyphene napsylate Allergy RASH Verified 12/10/18 20:42 [From Darvocet-N] - Medications Medications: Current Medications Vancomycin HCl 1 gm/ Sodium (Chloride) 250 mls @ 166.667 mls/hr IVPB STAT STA; Protocol Stop: 12/11/18 06:03 Last Admin: 12/11/18 05:02 Dose: 166.667 mls/hr Piperacillin Sod/Tazobactam (Sod 2.25 gm/ Sodium Chloride) 100 mls @ 100 mls/hr IV ONCE ONE; Protocol Stop: 12/11/18 05:33 Physical Exam - Constitutional Appears: Non-toxic - Head Exam Head Exam: ATRAUMATIC, NORMAL INSPECTION, NORMOCEPHALIC - Eye Exam Eye Exam: EOMI, Normal appearance - ENT Exam ENT Exam: Mucous Membranes Moist - Respiratory Exam Respiratory Exam: NORMAL BREATHING PATTERN. absent: Accessory Muscle Use - Cardiovascular Exam Cardiovascular Exam: RRR. absent: JVD - Rectal Exam Additional comments: No induration, no erythema, no fluctuance noted on external exam. Area of healed prior I&D site. No crepitus. Rectal exam: exquisitely tender in all quadrants upon CON. No blood. No area of fluctuance noted. No gross blood. - Neurological Exam Neurological exam: Alert, Oriented x3 - Psychiatric Exam Psychiatric exam: Agitated Results - Vital Signs Recent Vital Signs: Last Vital Signs Temp 99.0 F 12/11/18 05:08 Pulse 104 H 12/11/18 05:08 Resp 20 12/11/18 05:08 BP 90/55 L 12/11/18 05:08 Pulse Ox 98 12/11/18 05:09 - Labs Result Diagrams: 12/11/18 01:14 12/11/18 01:14 Labs: Laboratory Results - last 24 hr 12/11/18 12/11/18 12/11/18 01:14 01:14 01:14 WBC 17.1 H D RBC 2.65 L Hgb 7.6 L D Hct 23.6 L MCV 89.4 D MCH 28.6 MCHC 32.0 L RDW 15.6 H Plt Count 164 MPV 8.3 Neut % (Auto) 85.5 H Lymph % (Auto) 5.8 L [place] % (Auto) 8.2 Eos % (Auto) 0.3 Baso % (Auto) 0.2 Neut # (Auto) 14.6 H Lymph # (Auto) 1.0 Martin # (Auto) 1.4 H Eos # (Auto) 0.1 Baso # (Auto) 0.0 Neutrophils % (Manual) 73 Band Neutrophils % 11 H* Lymphocytes % (Manual) 7 L Monocytes % (Manual) 9 Platelet Estimate Normal Hypochromasia (manual) Moderate Sodium 130 L Potassium 4.3 Chloride 104 Carbon Dioxide 14 L Anion Gap 16 BUN 74 H Creatinine 9.4 H* Est GFR ( Amer) 6 Est GFR (Non-Af Amer) 5 Random Glucose 166 H Lactic Acid 0.6 L Calcium 6.9 L Total Bilirubin 0.3 AST 40 H ALT 36 Alkaline Phosphatase 92 Total Protein 6.5 Albumin 2.7 L Globulin 3.8 Albumin/Globulin Ratio 0.7 L Assessment & Plan - Assessment and Plan (Free Text) Assessment: 37yo F with PMHx of HIV, DM, DVT, CKD, HTN here with recurrent rectal pain. CT noted with evidence of perirectal abscess. Low suspicion for liam's. Plan: - Patient adamantly refusing surgery at this time - Patient threatening to leave AMA if she is admitted to the ICU - Unable to console patient. Agrees for admission to med/surg or tele floor for IV abx for now - Continue IV Abx, renal dosing. (ID consulted, f/u recs and continue as per ID) - Recommend Warm compresses and Sitz baths if patient agreeable to treatment - Pain control Further recs as per Dr. Froylan Pollard PGY2 surgery
[2018-12-11] MEDS ORDERED: Sodium Chloride 0.9% 500 ML IV STA (05:20)
--- NOTE | 2018-12-11 06:03 | CP.PCM.CON ---
History of Present Illness - History of Present Illness History of Present Illness: Reason for ICU admission: Jyotsna-rectal abscess with gas in wound; concern for necrotizing fasciitis HPI: This is a 37 y/o transgender female with +HIV, has DM2, CKD with baseline Cr 8-9 range, HTN, and HLD who comes in with c/o rectal pain and fever and is found to have a jyotsna-rectal abscess. Per ER, imaging showed gas in wound and t here is some concern for nec. fasc. so patient is being admitted to ICU for close observation. Patient refuses to provide me with any useful history, saying it is 'all in the chart'. When asked, patient states she has fever and pain, but refuses to clarify. States she has had 'many' jyotsna-rectal abscesses in the past, but 'does not remember' when the last one was MHx: HIV+, has DM2, CKD with baseline Cr 8-9 range, HTN, HLD SHx: Refuses to answer (likely has had jyotsna-rectal abscess drainage in the past) Allergies: APAP, ASA, dilaudid Medications: Patient states that they are in the med rec, refuses to or is unable to confirm any doses; she later states that she does not take any of her prescribed medications Family Hx: Does not provide Social Hx: Lives alone, smokes tobacco, denies EtOH, denies recreational drugs Patient refuses physical exam. Past Patient History - Infectious Disease Hx of Infectious Diseases: None - Past Medical History & Family History Past Medical History?: Yes - Past Social History Smoking Status: Light Smoker < 10 Cigarettes Daily - CARDIAC Hx Hypertension: Yes Hx Peripheral Edema: Yes - PULMONARY Hx Asthma: Yes - NEUROLOGICAL Hx Seizures: No - HEENT Hx HEENT Problems: No - RENAL Hx Chronic Kidney Disease: Yes - HEMATOLOGICAL/ONCOLOGICAL Hx Anemia: Yes Hx Human Immunodeficiency Virus (HIV): Yes - INTEGUMENTARY Hx Dermatological Problems: Yes Other/Comment: ULCER BOTTOM LEFT FOOT LEFT FOOT SUTURE LINES TOES - MUSCULOSKELETAL/RHEUMATOLOGICAL Hx Musculoskeletal Disorders: Yes Hx Falls: No Hx Osteomyelitis: Yes - GASTROINTESTINAL Hx Gastritis: Yes Hx Pancreatitis: Yes - GENITOURINARY/GYNECOLOGICAL Hx Sexually Transmitted Disorders: No - PSYCHIATRIC Hx Anxiety: Yes Hx Depression: Yes - ANESTHESIA Hx Anesthesia: Yes Hx Anesthesia Reactions: No Hx Malignant Hyperthermia: No Meds Allergies/Adverse Reactions: Allergies Allergy/AdvReac Type Severity Reaction Status Date / Time acetaminophen [From Tylenol] Allergy RASH Verified 12/10/18 20:42 aspirin Allergy RASH Verified 12/10/18 20:42 hydromorphone [From Dilaudid] Allergy RASH Verified 12/10/18 20:42 ketorolac tromethamine Allergy RASH Verified 12/10/18 20:42 [From Toradol] meperidine HCl [From Demerol] Allergy RASH Verified 12/10/18 20:42 oxycodone HCl [From Percocet] Allergy RASH Verified 12/10/18 20:42 peas Allergy ANAPHYLAXIS Verified 12/10/18 20:42 propoxyphene napsylate Allergy RASH Verified 12/10/18 20:42 [From Darvocet-N] - Medications Medications: Current Medications Vancomycin HCl 1 gm/ Sodium (Chloride) 250 mls @ 166.667 mls/hr IVPB STAT STA; Protocol Stop: 12/11/18 06:03 Last Admin: 12/11/18 05:02 Dose: 166.667 mls/hr Sodium Chloride (Sodium Chloride 0.9%) 500 mls @ 500 mls/hr IV .Q1H STA Stop: 12/11/18 06:19 Results - Vital Signs Recent Vital Signs: Last Vital Signs Temp 99.0 F 12/11/18 05:08 Pulse 104 H 12/11/18 05:08 Resp 20 12/11/18 05:08 BP 90/55 L 12/11/18 05:08 Pulse Ox 98 12/11/18 05:57 - Labs Result Diagrams: 12/11/18 01:14 12/11/18 01:14 Labs: Laboratory Results - last 24 hr 12/11/18 12/11/18 12/11/18 01:14 01:14 01:14 WBC 17.1 H D RBC 2.65 L Hgb 7.6 L D Hct 23.6 L MCV 89.4 D MCH 28.6 MCHC 32.0 L RDW 15.6 H Plt Count 164 MPV 8.3 Neut % (Auto) 85.5 H Lymph % (Auto) 5.8 L [place] % (Auto) 8.2 Eos % (Auto) 0.3 Baso % (Auto) 0.2 Neut # (Auto) 14.6 H Lymph # (Auto) 1.0 [place] # (Auto) 1.4 H Eos # (Auto) 0.1 Baso # (Auto) 0.0 Neutrophils % (Manual) 73 Band Neutrophils % 11 H* Lymphocytes % (Manual) 7 L Monocytes % (Manual) 9 Platelet Estimate Normal Hypochromasia (manual) Moderate Sodium 130 L Potassium 4.3 Chloride 104 Carbon Dioxide 14 L Anion Gap 16 BUN 74 H Creatinine 9.4 H* Est GFR ( Amer) 6 Est GFR (Non-Af Amer) 5 Random Glucose 166 H Lactic Acid 0.6 L Calcium 6.9 L Total Bilirubin 0.3 AST 40 H ALT 36 Alkaline Phosphatase 92 Total Protein 6.5 Albumin 2.7 L Globulin 3.8 Albumin/Globulin Ratio 0.7 L Assessment & Plan (1) Abscess or cellulitis of perineum Assessment and Plan: Patient with recurrent rectal abscess/cellulitis with possible gas in wound; concern for nec fasc so ICU admission was requested for close monitoring. -Orders written for ICU admission, however, at this time patient is now refusing to go to ICU -Patient has received one dose of vanco and zosyn IV; given extremely low Cr Cl, will likely not need additional doses immediately; will defer to ID consult for further dosing recommendations -Given that patient states she is not taking her HIV medications, will not resume them at this time; defer to ID consult -NPO, IVF -q6h accucheck and SSI -SCDs for DVT ppx Status: Acute (2) Sepsis Status: Acute
[2018-12-11] MEDS ORDERED: Insulin Lispro (humaLOG) 100 Units/ml Inj SC SCH (06:30)
--- NOTE | 2018-12-11 08:05 | RAD ---
Date of service: 12/11/2018 HISTORY: admit COMPARISON: 12/06/2018 TECHNIQUE: 1 view obtained. FINDINGS: LUNGS: Lung volumes within normal limits. Interval increased pulmonary venous congestion. Increased opacity left inferolateral hemithorax-probably due to summation of soft tissues-large body habitus status noted. Concomitant small left pleural effusion not excluded. PLEURA: Interval small right pleural effusion-probable small concomitant left pleural effusion. No pneumothorax appreciated CARDIOVASCULAR: No aortic atherosclerotic calcification present. Cardiomegaly-similar. Interval increased pulmonary venous congestion-some ground-glass relative increased opacity in the mid right lung zone may contribute to right fissural fluid as well. No air bronchograms to suggest dense consolidation. OSSEOUS STRUCTURES: No significant abnormalities. VISUALIZED UPPER ABDOMEN: Normal. OTHER FINDINGS: None. IMPRESSION: Interval increased pulmonary venous congestion interval right small pleural effusion. Probable small left pleural effusion. Cardiomegaly. Findings compatible with CHF.
--- NOTE | 2018-12-11 09:47 | CP.PCM.HP ---
History of Present Illness - History of Present Illness History of Present Illness: This is 37 y/o transgender male to female with a PMHx of HIV, DM, CKD/baseline Cr 8-9 range, DVT S/p IVCF, HTN, chronic back pain, perirectal abscess, multiple I&Ds and non-compliant with medical management admitted to [facility] for evaluation and treatment of jyotsna-rectal abscess, concerning for necrotizing fasciitis. Patient presented to ED for 1 week hx of perirectal pain. Pt noticed jyotsna-rectal abscess was becoming more painful since 3 days ago, Sunday she called an ambulance for the rectal pain and was brought to [facility] and admitted for a work up and was receiving IV clindamycin but signed out against medical advice today because she "doesn't like it there". + subjective fever. Denies any dizziness, chest pain, abdominal pain, diarrhea, weakness, constipation or numbness/tingling. PCP: Dr Noe -ALLG: Toradol, tylenol, dilaudid, ASA -PMHx: HIV, DM, CKD stage IV, DVT, HTN, chronic back pain, perirectal abscess and non-compliance -PSHx: L. BKA, IVC filter, multiple I&D for abscesses -FH: non-contributory -SHx: smokes 1 pack per day since age 17; ocassional alcohol; smokes marihuana every now and then, last use 1 week ago. Present on Admission - Present on Admission Any Indicators Present on Admission: No History of DVT/PE: Yes History of Uncontrolled Diabetes: Yes Review of Systems - Constitutional Constitutional: absent: Daytime Sleepiness - EENT Eyes: absent: Change in Vision Ears: absent: Dizziness Nose/Mouth/Throat: absent: Nasal Congestion - Cardiovascular Cardiovascular: absent: Chest Pain - Respiratory Respiratory: absent: Cough, Dyspnea, Hemoptysis - Gastrointestinal Gastrointestinal: absent: Abdominal Pain - Genitourinary Genitourinary: absent: Dysuria Additional comments: Jyotsna-rectal pain - Musculoskeletal Musculoskeletal: absent: Tingling - Integumentary Integumentary: Skin Pain Additional comments: abscess - Neurological Neurological: absent: Dizziness, Syncope, Tingling, Tremor, Vertigo, Weakness - Psychiatric Psychiatric: absent: Anxiety - Hematologic/Lymphatic Hematologic: absent: Easy Bleeding Past Patient History - Infectious Disease Hx of Infectious Diseases: None - Past Medical History & Family History Past Medical History?: Yes - Past Social History Smoking Status: Light Smoker < 10 Cigarettes Daily - CARDIAC Hx Hypertension: Yes Hx Peripheral Edema: Yes - PULMONARY Hx Asthma: Yes - NEUROLOGICAL Hx Seizures: No - HEENT Hx HEENT Problems: No - RENAL Hx Chronic Kidney Disease: Yes - HEMATOLOGICAL/ONCOLOGICAL Hx Anemia: Yes Hx Human Immunodeficiency Virus (HIV): Yes - INTEGUMENTARY Hx Dermatological Problems: Yes Other/Comment: ULCER BOTTOM LEFT FOOT LEFT FOOT SUTURE LINES TOES - MUSCULOSKELETAL/RHEUMATOLOGICAL Hx Musculoskeletal Disorders: Yes Hx Falls: No Hx Osteomyelitis: Yes - GASTROINTESTINAL Hx Gastritis: Yes Hx Pancreatitis: Yes - GENITOURINARY/GYNECOLOGICAL Hx Sexually Transmitted Disorders: No - PSYCHIATRIC Hx Anxiety: Yes Hx Depression: Yes - ANESTHESIA Hx Anesthesia: Yes Hx Anesthesia Reactions: No Hx Malignant Hyperthermia: No Meds Allergies/Adverse Reactions: Allergies Allergy/AdvReac Type Severity Reaction Status Date / Time acetaminophen [From Tylenol] Allergy RASH Verified 12/10/18 20:42 aspirin Allergy RASH Verified 12/10/18 20:42 hydromorphone [From Dilaudid] Allergy RASH Verified 12/10/18 20:42 ketorolac tromethamine Allergy RASH Verified 12/10/18 20:42 [From Toradol] meperidine HCl [From Demerol] Allergy RASH Verified 12/10/18 20:42 oxycodone HCl [From Percocet] Allergy RASH Verified 12/10/18 20:42 peas Allergy ANAPHYLAXIS Verified 12/10/18 20:42 propoxyphene napsylate Allergy RASH Verified 12/10/18 20:42 [From Darvocet-N] Physical Exam - Constitutional Additional comments: Uncomfortable - Head Exam Head Exam: NORMAL INSPECTION - Eye Exam Eye Exam: Normal appearance - ENT Exam ENT Exam: Mucous Membranes Moist - Neck Exam Neck exam: Positive for: Normal Inspection - Respiratory Exam Respiratory Exam: Clear to Auscultation Bilateral, NORMAL BREATHING PATTERN - Cardiovascular Exam Cardiovascular Exam: REGULAR RHYTHM, +S1, +S2 - GI/Abdominal Exam GI & Abdominal Exam: Normal Bowel Sounds, Soft. absent: Tenderness - Rectal Exam Additional comments: Left gluteus: presence of ~4-5cm hypopigmented per-anal abscess, no active discharge noted, tender to palpation,+ Erythema and induration around this lesion. - Extremities Exam Additional comments: L BKA: non-tender, well-healed. - Back Exam Back exam: absent: CVA tenderness (L), CVA tenderness (R) - Neurological Exam Neurological exam: Alert, CN II-XII Intact, Oriented x3 - Psychiatric Exam Psychiatric exam: Normal Affect - Skin Additional comments: Left gluteus: presence of ~4-5cm hypopigmented per-anal abscess, no active discharge noted, tender to palpation,+ Erythema and induration around this lesion. Results - Vital Signs Recent Vital Signs: Last Vital Signs Temp 98.8 F 12/11/18 09:18 Pulse 112 H 12/11/18 09:18 Resp 17 12/11/18 09:18 BP 120/62 12/11/18 09:18 Pulse Ox 99 12/11/18 09:18 - Labs Result Diagrams: 12/11/18 01:14 12/11/18 01:14 Labs: Laboratory Results - last 24 hr 12/11/18 12/11/18 12/11/18 01:14 01:14 01:14 WBC 17.1 H D RBC 2.65 L Hgb 7.6 L D Hct 23.6 L MCV 89.4 D MCH 28.6 MCHC 32.0 L RDW 15.6 H Plt Count 164 MPV 8.3 Neut % (Auto) 85.5 H Lymph % (Auto) 5.8 L [place] % (Auto) 8.2 Eos % (Auto) 0.3 Baso % (Auto) 0.2 Neut # (Auto) 14.6 H Lymph # (Auto) 1.0 [place] # (Auto) 1.4 H Eos # (Auto) 0.1 Baso # (Auto) 0.0 Neutrophils % (Manual) 73 Band Neutrophils % 11 H* Lymphocytes % (Manual) 7 L Monocytes % (Manual) 9 Platelet Estimate Normal Hypochromasia (manual) Moderate Sodium 130 L Potassium 4.3 Chloride 104 Carbon Dioxide 14 L Anion Gap 16 BUN 74 H Creatinine 9.4 H* Est GFR ( Amer) 6 Est GFR (Non-Af Amer) 5 POC Glucose (mg/dL) Random Glucose 166 H Lactic Acid 0.6 L Calcium 6.9 L Total Bilirubin 0.3 AST 40 H ALT 36 Alkaline Phosphatase 92 Total Protein 6.5 Albumin 2.7 L Globulin 3.8 Albumin/Globulin Ratio 0.7 L 12/11/18 08:39 WBC RBC Hgb Hct MCV MCH MCHC RDW Plt Count MPV Neut % (Auto) Lymph % (Auto) [place] % (Auto) Eos % (Auto) Baso % (Auto) Neut # (Auto) Lymph # (Auto) [place] # (Auto) Eos # (Auto) Baso # (Auto) Neutrophils % (Manual) Band Neutrophils % Lymphocytes % (Manual) Monocytes % (Manual) Platelet Estimate Hypochromasia (manual) Sodium Potassium Chloride Carbon Dioxide Anion Gap BUN Creatinine Est GFR ( Amer) Est GFR (Non-Af Amer) POC Glucose (mg/dL) 99 Random Glucose Lactic Acid Calcium Total Bilirubin AST ALT Alkaline Phosphatase Total Protein Albumin Globulin Albumin/Globulin Ratio Assessment & Plan - Assessment and Plan (Free Text) Assessment: A/P:: 37 y/o transgender male to female with a PMHx of HIV, DM, CKD/baseline Cr 8-9 range, DVT s/p IVCF, HTN, chronic back pain, perirectal abscess, multiple I&Ds and non-compliant with medical management admitted to [facility] for evaluation and treatment of jyotsna-rectal abscess, concerning for necrotizing fasciitis. Jyotsna-rectal pain, jyotsna-rectal abscess, concerning for necrotizing fasciitis - CT abdo/Pelvis: jyotsna-rectal abscess, concerning for necrotizing fasciitis - Consult Surgery, f/u recommendations - Consult ID, F/u recs - C/w IV abx as per surgery, Vanco and Zosyn day 1 - Continue plan as ordered CKD, Chronic, Non-compliant - Consult Nephrology, f/u recommendations - C/w IVF - Avoid Nephro toxic drugs - Adjust Abx as per renal clearance HIV - Home meds resumed - Last CD4 count 605 - ID consult, Dr Noe (her PCP) DM - Home meds resumed - Insulin sliding scale - C/w plan as ordered HTN - Home meds resumed Chronic pain - Morphine PRN DVT Prophylaxis - SCD Case discussed and Patient seen with Dr. Mansfield, Agrees with plan.
[2018-12-11] MEDS ORDERED: Glucagon Recombinant 1 mg Inj IM PRN (09:50)
[2018-12-11] MEDS ORDERED: Dextrose 50% SYRINGE Inj (50 ml) IV PRN (09:50)
--- NOTE | 2018-12-11 11:25 | CT ---
Date of service: 12/11/2018 PROCEDURE: CT Abdomen and Pelvis with contrast HISTORY: RECTAL PAIN FEVER COMPARISON: None. TECHNIQUE: Intravenous contrast dose: 100 cc Omnipaque 300. Radiation dose: Total exam DLP = 1403.14 mGy-cm. This CT exam was performed using one or more of the following dose reduction techniques: Automated exposure control, adjustment of the mA and/or kV according to patient size, and/or use of iterative reconstruction technique. FINDINGS: LOWER THORAX: Unremarkable. LIVER: Unremarkable. No gross lesion or ductal dilatation. GALLBLADDER AND BILE DUCTS: Unremarkable. PANCREAS: Unremarkable. No gross lesion or ductal dilatation. SPLEEN: Unremarkable. ADRENALS: Unremarkable. No mass. KIDNEYS AND URETERS: Unremarkable. No hydronephrosis. No solid mass. VASCULATURE: Atherosclerotic calcification and mural plaque present. Findings are seen throughout the aorta IVC filter in stable position. BOWEL: Rectal wall thickening indicative of a component of proctitis. Diverticulosis without an acute inflammatory component or other associated pathologic process.. Constipation without fecal impaction or obstruction. APPENDIX: Normal appendix. PERITONEUM: Unremarkable. No free fluid. No free air. LYMPH NODES: Pelvic and inguinal lymphadenopathy likely inflammatory per cysts. BLADDER: Unremarkable. REPRODUCTIVE: Unremarkable. BONES: No acute fracture. OTHER FINDINGS: Stable rectal/perineal abscess. On coronal images this measures 6 x 9.3 cm. Worsening posterior cellulitis. No visible sinus tract or fistulous communication with intraperitoneal/pelvic structures. Anterior abdominal wall cellulitis represents a new finding. This cellulitis extends from the lower thorax to the level of the pubic symphysis. No drainable collection noted. IMPRESSION: 1. Persistent and multiloculated perirectal, perineal abscess. 2. Adjacent cellulitis, more extensive on the right compared to the prior study. 3. Adjacent inflammatory changes interposed between the perineum, the upper thigh and left gluteal muscle remain. 4. Limited proctitis.
[2018-12-11] MEDS: Insulin Lispro (humaLOG) 100 Units/ml Inj SC SCH ×2 (11:41→16:00)
[2018-12-11] MEDS: Sodium Chloride 0.9% 1,000 ML IV SCH ×2 (12:03→16:40)
[2018-12-11] MEDS ORDERED: Albuterol-Ipratrop 3 mg / 0.5 (3 ml) UD INH PRN (15:07)
[2018-12-11 16:04] LABS: SQUAMOUS EPITHIAL 1 /hpf (0-5); URINE BACTERIA RARE (<OCC); URINE BILIRUBIN NEGATIVE (NEGATIVE); URINE BLOOD MODERATE (NEGATIVE); URINE CLARITY CLOUDY (Clear); URINE COLOR YELLOW (YELLOW); URINE GLUCOSE (UA) NEG (NEGATIVE); URINE LEUKOCYTE ESTERASE NEG Leu/uL (Negative); URINE PROTEIN >=500 mg/dL (NEGATIVE); URINE UROBILINOGEN 0.2-1.0 mg/dL (0.2-1.0)
--- NOTE | 2018-12-11 17:53 | CP.PCM.CON ---
History of Present Illness - History of Present Illness History of Present Illness: 37yo transgender female presents to the [facility] ED for complaints of jyotsna-rectal pain. Patient with multiple episodes of perirectal abscesses with prior I&D. CT A/P with concern for perirectal abscess approx 4.9 x 3.2cm. ID consulted for this Antibiotic recommendsations mad Orderes signed PMHx: HIV, DM, CKD not on HD, DVT, HTN PSHx: Left BKA, IVC filter. Multiple I&Ds of perianal abscess. ?gender surgery possible b/l orchiectomy with scrotoplasty as evidenced by CT Family Hx: non-contributory Social Hx: +Tobacco use (1/2 pack per day), Denies ETOH use, Denies illicit drugs Allergy: Tylenol, dilaudid, demerol, ASA, Toradol, Darvocet, Percocet Review of Systems - Review of Systems All systems: reviewed and no additional remarkable complaints except - Constitutional Constitutional: As Per HPI, Chills, Fever - EENT Eyes: absent: As Per HPI, Blind Spots, Blurred Vision, Change in Vision, Decreased Night Vision, Diplopia, Discharge, Dry Eye, Exophthalmos, Floaters, Irritation, Itchy Eyes, Loss of Peripheral Vision, Pain, Photophobia, Requires Corrective Lenses, Sees Flashes, Spots in Vision, Tunnel Vision, Other Visual Disturbances, Loss of Vision, Other Ears: absent: As Per HPI, Decreased Hearing, Ear Discharge, Ear Pain, Tinnitus, Abnormal Hearing, Disequilibrium, Dizziness, Other Nose/Mouth/Throat: absent: As Per HPI, Epistaxis, Nasal Congestion, Nasal Discharge, Nasal Obstruction, Nasal Trauma, Nose Pain, Post Nasal Drip, Sinus Pain, Sinus Pressure, Bleeding Gums, Change in Voice, Dental Pain, Dry Mouth, Dysphagia, Halitosis, Hoarsness, Lip Swelling, Mouth Lesions, Mouth Pain, Odynophagia, Sore Throat, Throat Swelling, Tongue Swelling, Facial Pain, Neck Pain, Neck Mass, Other - Breasts Breasts: As Per HPI - Cardiovascular Cardiovascular: As Per HPI - Respiratory Respiratory: absent: As Per HPI, Cough, Dyspnea, Hemoptysis, Dyspnea on Exertion, Wheezing, Snoring, Stridor, Pain on Inspiration, Chest Congestion, Excessive Mucous Production, Change in Mucous Color, Pain with Coughing, Other - Gastrointestinal Gastrointestinal: As Per HPI - Genitourinary Genitourinary: absent: As Per HPI, Change in Urinary Stream, Difficulty Urinating, Dysuria, Flank Pain, Hematuria, Pyuria, Nocturia, Urinary Incontinence, Urinary Frequency, Urinary Hesitance, Urinary Urgency, Voiding Freq/Small Amts, Freq UTI, Hx Renal/Bladder Calculi, Hx /Renal Surgery, Bladder Distension, Other - Reproductive: Female Reproductive:Female: absent: As Per HPI, Amenorrhea, Amenorrhea/ Control, Currently Menstual, Cycle <21 Days, Cycle >35 Days, Cycle Variable, Menses 1-7 Days, Menses >/= 8 Days, Menses Variable, Cycle > 4 Weeks Between, No Menses for 6 Months, Heavy Menses, Light Menses, Normal Menses, Spotting Between Cycles, S/P Hysterectomy, Menopausal, Post Menopausal, Premenarche, Abnormal Vaginal Bleeding, Dysmenorrhea, Dyspareunia, Genital Lesions, Genital Pruritis, Pelvic P ain, Prolapse Symptoms, Sexual Dysfunction, Vaginal Discharge, Vaginal Dryness, Vaginal Odor, Vaginal Pruritis, Other - Menstruation Menstruation: absent: As Per HPI, Amenorrhea, Amenorrhea/ Control, Currently Menstual, Cycle <21 Days, Cycle >35 Days, Cycle Variable, Menses 1-7 Days, Menses >/= 8 Days, Menses Variable, Cycle > 4 Weeks Between, No Menses for 6 Months, Heavy Menses, Light Menses, Normal Menses, Spotting Between Cycles, S/P Hysterectomy, Menopausal, Post Menopausal, Premenarche, Abnormal Vaginal Bleeding, Dysmenorrhea, Other - Musculoskeletal Musculoskeletal: As Per HPI - Integumentary Integumentary: As Per HPI - Neurological Neurological: absent: As Per HPI, Abnormal Gait, Abnormal Hearing, Abnormal Movements, Abnormal Speech, Behavioral Changes, Burning Sensations, Confusion, Convulsions, Disequilibrium, Dizziness, Numbness, Focal Weakness, Frequent Falls, Headaches, Lack of Coordination, Loss of Vision, Memory Loss, Paresthesias, Radicular Pain, Restless Legs, Sensory Deficit, Syncope, Tingling, Tremor, Vertigo, Weakness, Other Visual Disturbances, Other - Psychiatric Psychiatric: absent: As Per HPI, Abnormal Sleep Pattern, Anhedonia, Anxiety, Auditory Hallucinations, Behavioral Changes, Change in Appetite, Change in Libido, Confusion, Depression, Difficulty Concentrating, Hallucinations, Homicidal Ideation, Hopelessness, Irritability, Memory Loss, Mood Swings, Panic Attacks, Paranoia, Suicidal Ideation, Visual Hallucinations, Tactile Hallucinations, Other - Endocrine Endocrine: As Per HPI - Hematologic/Lymphatic Hematologic: As Per HPI Past Patient History - Infectious Disease Hx of Infectious Diseases: None - Past Medical History & Family History Past Medical History?: Yes - Past Social History Smoking Status: Light Smoker < 10 Cigarettes Daily - CARDIAC Hx Hypertension: Yes Hx Peripheral Edema: Yes - PULMONARY Hx Asthma: Yes - NEUROLOGICAL Hx Seizures: No - HEENT Hx HEENT Problems: No - RENAL Hx Chronic Kidney Disease: Yes - HEMATOLOGICAL/ONCOLOGICAL Hx Anemia: Yes Hx Human Immunodeficiency Virus (HIV): Yes - INTEGUMENTARY Hx Dermatological Problems: Yes Other/Comment: ULCER BOTTOM LEFT FOOT LEFT FOOT SUTURE LINES TOES - MUSCULOSKELETAL/RHEUMATOLOGICAL Hx Musculoskeletal Disorders: Yes Hx Falls: No Hx Osteomyelitis: Yes - GASTROINTESTINAL Hx Gastritis: Yes Hx Pancreatitis: Yes - GENITOURINARY/GYNECOLOGICAL Hx Sexually Transmitted Disorders: No - PSYCHIATRIC Hx Anxiety: Yes Hx Depression: Yes - ANESTHESIA Hx Anesthesia: Yes Hx Anesthesia Reactions: No Hx Malignant Hyperthermia: No Meds Allergies/Adverse Reactions: Allergies Allergy/AdvReac Type Severity Reaction Status Date / Time acetaminophen [From Tylenol] Allergy RASH Verified 12/10/18 20:42 aspirin Allergy RASH Verified 12/10/18 20:42 hydromorphone [From Dilaudid] Allergy RASH Verified 12/10/18 20:42 ketorolac tromethamine Allergy RASH Verified 12/10/18 20:42 [From Toradol] meperidine HCl [From Demerol] Allergy RASH Verified 12/10/18 20:42 oxycodone HCl [From Percocet] Allergy RASH Verified 12/10/18 20:42 peas Allergy ANAPHYLAXIS Verified 12/10/18 20:42 propoxyphene napsylate Allergy RASH Verified 12/10/18 20:42 [From Darvocet-N] - Medications Medications: Current Medications Acetaminophen (Tylenol 325mg Tab) 650 mg PO Q6 PRN PRN Reason: Fever >100.4 F Acetaminophen (Tylenol 325mg Tab) 650 mg PO Q6 PRN PRN Reason: Pain, Mild (1-3) Albuterol/Ipratropium (Duoneb 3 Mg/0.5 Mg (3 Ml) Ud) 3 ml INH RQ6 PRN PRN Reason: Shortness of Breath Dextrose (Dextrose 50% Inj) 0 ml IV STAT PRN; Protocol PRN Reason: Hypoglycemia Protocol Dextrose (Glutose 15) 0 gm PO ONCE PRN; Protocol PRN Reason: Hypoglycemia Protocol Glucagon (Glucagen Diagnostic Kit) 0 mg IM STAT PRN; Protocol PRN Reason: Hypoglycemia Protocol Vancomycin HCl 1 gm/ Sodium (Chloride) 250 mls @ 166.667 mls/hr IVPB DAILY JOSÉ; Protocol Piperacillin Sod/Tazobactam (Sod 2.25 gm/ Sodium Chloride) 100 mls @ 100 mls/hr IVPB Q8 JOSÉ; Protocol Sodium Chloride (Sodium Chloride 0.9%) 1,000 mls @ 150 mls/hr IV .Q6H40M JOSÉ Stop: 12/12/18 09:46 Last Admin: 12/11/18 12:03 Dose: 150 mls/hr Insulin Human Lispro (Humalog) 0 units SC Q6 JOSÉ; Protocol Last Admin: 12/11/18 11:41 Dose: Not Given Morphine Sulfate (Morphine) 2 mg IVP Q6 PRN PRN Reason: Pain, severe (8-10) Last Admin: 12/11/18 13:34 Dose: 2 mg Morphine Sulfate (Morphine) 1 mg IVP Q4 PRN PRN Reason: Pain, moderate (4-7) Ondansetron HCl (Zofran Inj) 4 mg IVP Q6 PRN PRN Reason: Nausea/Vomiting Physical Exam - Constitutional Appears: Well, Non-toxic, No Acute Distress, Chronically Ill - Head Exam Head Exam: ATRAUMATIC, NORMAL INSPECTION, NORMOCEPHALIC - Eye Exam Eye Exam: EOMI, Normal appearance, PERRL Pupil Exam: NORMAL ACCOMODATION, PERRL - ENT Exam ENT Exam: Mucous Membranes Moist, Normal Exam - Neck Exam Neck exam: Positive for: Normal Inspection - Respiratory Exam Respiratory Exam: Clear to Auscultation Bilateral, NORMAL BREATHING PATTERN - Cardiovascular Exam Cardiovascular Exam: REGULAR RHYTHM - GI/Abdominal Exam GI & Abdominal Exam: Normal Bowel Sounds, Soft. absent: Tenderness - Rectal Exam Rectal Exam: Hemorrhoids Additional comments: tenderness perirectal artea - Exam Exam: NORMAL INSPECTION - Extremities Exam Additional comments: Left BKA - Back Exam Back exam: NORMAL INSPECTION - Neurological Exam Neurological exam: Alert, CN II-XII Intact, Normal Gait, Oriented x3, Reflexes Normal - Psychiatric Exam Psychiatric exam: Normal Affect, Normal Mood - Skin Skin Exam: Dry, Intact, Normal Color, Warm Results - Vital Signs Recent Vital Signs: Last Vital Signs Temp 98.8 F 12/11/18 09:18 Pulse 114 H 12/11/18 13:30 Resp 24 12/11/18 13:30 BP 133/75 12/11/18 13:30 Pulse Ox 97 12/11/18 13:30 - Labs Result Diagrams: 12/11/18 01:14 12/11/18 01:14 Labs: Laboratory Results - last 24 hr 12/11/18 12/11/18 12/11/18 01:14 01:14 01:14 WBC 17.1 H D RBC 2.65 L Hgb 7.6 L D Hct 23.6 L MCV 89.4 D MCH 28.6 MCHC 32.0 L RDW 15.6 H Plt Count 164 MPV 8.3 Neut % (Auto) 85.5 H Lymph % (Auto) 5.8 L [place] % (Auto) 8.2 Eos % (Auto) 0.3 Baso % (Auto) 0.2 Neut # (Auto) 14.6 H Lymph # (Auto) 1.0 [place] # (Auto) 1.4 H Eos # (Auto) 0.1 Baso # (Auto) 0.0 Neutrophils % (Manual) 73 Band Neutrophils % 11 H* Lymphocytes % (Manual) 7 L Monocytes % (Manual) 9 Platelet Estimate Normal Hypochromasia (manual) Moderate Sodium 130 L Potassium 4.3 Chloride 104 Carbon Dioxide 14 L Anion Gap 16 BUN 74 H Creatinine 9.4 H* Est GFR ( Amer) 6 Est GFR (Non-Af Amer) 5 POC Glucose (mg/dL) Random Glucose 166 H Lactic Acid 0.6 L Calcium 6.9 L Total Bilirubin 0.3 AST 40 H ALT 36 Alkaline Phosphatase 92 Total Protein 6.5 Albumin 2.7 L Globulin 3.8 Albumin/Globulin Ratio 0.7 L Urine Color Urine Clarity Urine pH Ur Specific [place] Urine Protein Urine Glucose (UA) Urine Ketones Urine Blood Urine Nitrate Urine Bilirubin Urine Urobilinogen Ur Leukocyte Esterase Urine RBC (Auto) Urine Microscopic WBC Ur Squamous Epith Cells Urine Bacteria 12/11/18 12/11/18 12/11/18 08:39 11:26 15:20 WBC RBC Hgb Hct MCV MCH MCHC RDW Plt Count MPV Neut % (Auto) Lymph % (Auto) [place] % (Auto) Eos % (Auto) Baso % (Auto) Neut # (Auto) Lymph # (Auto) [place] # (Auto) Eos # (Auto) Baso # (Auto) Neutrophils % (Manual) Band Neutrophils % Lymphocytes % (Manual) Monocytes % (Manual) Platelet Estimate Hypochromasia (manual) Sodium Potassium Chloride Carbon Dioxide Anion Gap BUN Creatinine Est GFR ( Amer) Est GFR (Non-Af Amer) POC Glucose (mg/dL) 99 106 Random Glucose Lactic Acid Calcium Total Bilirubin AST ALT Alkaline Phosphatase Total Protein Albumin Globulin Albumin/Globulin Ratio Urine Color Yellow Urine Clarity Cloudy Urine pH 6.0 Ur Specific [place] 1.011 Urine Protein >=500 Urine Glucose (UA) Neg Urine Ketones Negative Urine Blood Moderate Urine Nitrate Negative Urine Bilirubin Negative Urine Urobilinogen 0.2-1.0 Ur Leukocyte Esterase Neg Urine RBC (Auto) 7 H Urine Microscopic WBC 3 Ur Squamous Epith Cells 1 Urine Bacteria Rare 12/11/18 17:34 WBC RBC Hgb Hct MCV MCH MCHC RDW Plt Count MPV Neut % (Auto) Lymph % (Auto) [place] % (Auto) Eos % (Auto) Baso % (Auto) Neut # (Auto) Lymph # (Auto) [place] # (Auto) Eos # (Auto) Baso # (Auto) Neutrophils % (Manual) Band Neutrophils % Lymphocytes % (Manual) Monocytes % (Manual) Platelet Estimate Hypochromasia (manual) Sodium Potassium Chloride Carbon Dioxide Anion Gap BUN Creatinine Est GFR ( Amer) Est GFR (Non-Af Amer) POC Glucose (mg/dL) 95 Random Glucose Lactic Acid Calcium Total Bilirubin AST ALT Alkaline Phosphatase Total Protein Albumin Globulin Albumin/Globulin Ratio Urine Color Urine Clarity Urine pH Ur Specific [place] Urine Protein Urine Glucose (UA) Urine Ketones Urine Blood Urine Nitrate Urine Bilirubin Urine Urobilinogen Ur Leukocyte Esterase Urine RBC (Auto) Urine Microscopic WBC Ur Squamous Epith Cells Urine Bacteria Assessment & Plan (1) Sepsis Status: Acute (2) Chronic kidney disease, stage 4 (severe) Status: Chronic Priority: High (3) CITLALLI (acute kidney injury) Status: Acute Priority: Medium (4) Abscess or cellulitis of perineum Status: Acute (5) Abscess, gluteal, right Status: Acute (6) Chronic kidney disease, stage 5 Status: Acute (7) Diabetes mellitus type 1, uncontrolled, insulin dependent Status: Acute - Assessment and Plan (Free Text) Assessment: cont wound care and IV antibiotics for possible drainage in OR
--- NOTE | 2018-12-11 21:04 | CP.PCM.CON ---
History of Present Illness - History of Present Illness History of Present Illness: REASONS FOR CONSULT : A ON CKD ..IN NEED FOR DIALYTIC INTERVENTION SEVERE MET ACIDOSIS .. HCO3 14 ELECTROLYTES ABN .. NA 130 ANEMIA OF CKD .. R/O OTHER ETIOLOGIES PT WAS SEEN ON HER LASR PRESENTATION TO THE ER WHEREBY SHE / HE SIDNED OUT AMA PT RETURNED FOR RECTAL ABCSESS AND NOT FEELING WELL ON LAST PRESENTATION TO THE ER PT REUSED TO START ON HD This is 37 y/o transgender male to female with a PMHx of HIV, DM, CKD/baseline Cr 8-9 range, DVT S/p IVCF, HTN, chronic back pain, perirectal abscess, multiple I&Ds and non-compliant with medical management admitted to [facility] for evaluation and treatment of jyotsna-rectal abscess, concerning for necrotizing fasciitis. Patient presented to ED for 1 week hx of perirectal pain. Pt noticed jyotsna-rectal abscess was becoming more painful since 3 days ago, Sunday she called an ambulance for the rectal pain and was brought to [facility] and admitted for a work up and was receiving IV clindamycin but signed out against medical advice today because she "doesn't like it there". + subjective fever. Denies any dizziness, chest pain, abdominal pain, diarrhea, weakness, constipation or numbness/tingling. PCP: Dr Noe -CORTEZ: Toradol, tylenol, dilaudid, ASA -PMHx: HIV, DM, CKD stage IV, DVT, HTN, chronic back pain, perirectal abscess and non-compliance -PSHx: L. BKA, IVC filter, multiple I&D for abscesses -FH: non-contributory -SHx: smokes 1 pack per day since age 17; ocassional alcohol; smokes marihuana every now and then, last use 1 week ago. Past Patient History - Infectious Disease Hx of Infectious Diseases: None - Past Medical History & Family History Past Medical History?: Yes - Past Social History Smoking Status: Light Smoker < 10 Cigarettes Daily - CARDIAC Hx Hypertension: Yes Hx Peripheral Edema: Yes - PULMONARY Hx Asthma: Yes - NEUROLOGICAL Hx Seizures: No - HEENT Hx HEENT Problems: No - RENAL Hx Chronic Kidney Disease: Yes - HEMATOLOGICAL/ONCOLOGICAL Hx Anemia: Yes Hx Human Immunodeficiency Virus (HIV): Yes - INTEGUMENTARY Hx Dermatological Problems: Yes Other/Comment: ULCER BOTTOM LEFT FOOT LEFT FOOT SUTURE LINES TOES - MUSCULOSKELETAL/RHEUMATOLOGICAL Hx Musculoskeletal Disorders: Yes Hx Falls: No Hx Osteomyelitis: Yes - GASTROINTESTINAL Hx Gastritis: Yes Hx Pancreatitis: Yes - GENITOURINARY/GYNECOLOGICAL Hx Sexually Transmitted Disorders: No - PSYCHIATRIC Hx Anxiety: Yes Hx Depression: Yes - ANESTHESIA Hx Anesthesia: Yes Hx Anesthesia Reactions: No Hx Malignant Hyperthermia: No Meds Allergies/Adverse Reactions: Allergies Allergy/AdvReac Type Severity Reaction Status Date / Time acetaminophen [From Tylenol] Allergy RASH Verified 12/10/18 20:42 aspirin Allergy RASH Verified 12/10/18 20:42 hydromorphone [From Dilaudid] Allergy RASH Verified 12/10/18 20:42 ketorolac tromethamine Allergy RASH Verified 12/10/18 20:42 [From Toradol] meperidine HCl [From Demerol] Allergy RASH Verified 12/10/18 20:42 oxycodone HCl [From Percocet] Allergy RASH Verified 12/10/18 20:42 peas Allergy ANAPHYLAXIS Verified 12/10/18 20:42 propoxyphene napsylate Allergy RASH Verified 12/10/18 20:42 [From Darvocet-N] - Medications Medications: Current Medications Acetaminophen (Tylenol 325mg Tab) 650 mg PO Q6 PRN PRN Reason: Fever >100.4 F Acetaminophen (Tylenol 325mg Tab) 650 mg PO Q6 PRN PRN Reason: Pain, Mild (1-3) Albuterol/Ipratropium (Duoneb 3 Mg/0.5 Mg (3 Ml) Ud) 3 ml INH RQ6 PRN PRN Reason: Shortness of Breath Dextrose (Dextrose 50% Inj) 0 ml IV STAT PRN; Protocol PRN Reason: Hypoglycemia Protocol Dextrose (Glutose 15) 0 gm PO ONCE PRN; Protocol PRN Reason: Hypoglycemia Protocol Glucagon (Glucagen Diagnostic Kit) 0 mg IM STAT PRN; Protocol PRN Reason: Hypoglycemia Protocol Vancomycin HCl 1 gm/ Sodium (Chloride) 250 mls @ 166.667 mls/hr IVPB DAILY JOSÉ; Protocol Piperacillin Sod/Tazobactam (Sod 2.25 gm/ Sodium Chloride) 100 mls @ 100 mls/hr IVPB Q8 JOSÉ; Protocol Last Admin: 12/11/18 17:00 Dose: Not Given Sodium Chloride (Sodium Chloride 0.9%) 1,000 mls @ 150 mls/hr IV .Q6H40M [facility] Stop: 12/12/18 09:46 Last Admin: 12/11/18 16:40 Dose: Not Given Insulin Human Lispro (Humalog) 0 units SC Q6 [facility]; Protocol Last Admin: 12/11/18 16:00 Dose: Not Given Morphine Sulfate (Morphine) 2 mg IVP Q6 PRN PRN Reason: Pain, severe (8-10) Last Admin: 12/11/18 13:34 Dose: 2 mg Morphine Sulfate (Morphine) 1 mg IVP Q4 PRN PRN Reason: Pain, moderate (4-7) Ondansetron HCl (Zofran Inj) 4 mg IVP Q6 PRN PRN Reason: Nausea/Vomiting Results - Vital Signs Recent Vital Signs: Last Vital Signs Temp 98.8 F 12/11/18 09:18 Pulse 114 H 12/11/18 13:30 Resp 24 12/11/18 13:30 BP 133/75 12/11/18 13:30 Pulse Ox 98 12/11/18 20:59 - Labs Result Diagrams: 12/11/18 01:14 12/11/18 01:14 Labs: Laboratory Results - last 24 hr 12/11/18 12/11/18 12/11/18 01:14 01:14 01:14 WBC 17.1 H D RBC 2.65 L Hgb 7.6 L D Hct 23.6 L MCV 89.4 D MCH 28.6 MCHC 32.0 L RDW 15.6 H Plt Count 164 MPV 8.3 Neut % (Auto) 85.5 H Lymph % (Auto) 5.8 L [place] % (Auto) 8.2 Eos % (Auto) 0.3 Baso % (Auto) 0.2 Neut # (Auto) 14.6 H Lymph # (Auto) 1.0 [place] # (Auto) 1.4 H Eos # (Auto) 0.1 Baso # (Auto) 0.0 Neutrophils % (Manual) 73 Band Neutrophils % 11 H* Lymphocytes % (Manual) 7 L Monocytes % (Manual) 9 Platelet Estimate Normal Hypochromasia (manual) Moderate Sodium 130 L Potassium 4.3 Chloride 104 Carbon Dioxide 14 L Anion Gap 16 BUN 74 H Creatinine 9.4 H* Est GFR ( Amer) 6 Est GFR (Non-Af Amer) 5 POC Glucose (mg/dL) Random Glucose 166 H Lactic Acid 0.6 L Calcium 6.9 L Total Bilirubin 0.3 AST 40 H ALT 36 Alkaline Phosphatase 92 Total Protein 6.5 Albumin 2.7 L Globulin 3.8 Albumin/Globulin Ratio 0.7 L Urine Color Urine Clarity Urine pH Ur Specific [place] Urine Protein Urine Glucose (UA) Urine Ketones Urine Blood Urine Nitrate Urine Bilirubin Urine Urobilinogen Ur Leukocyte Esterase Urine RBC (Auto) Urine Microscopic WBC Ur Squamous Epith Cells Urine Bacteria 12/11/18 12/11/18 12/11/18 08:39 11:26 15:20 WBC RBC Hgb Hct MCV MCH MCHC RDW Plt Count MPV Neut % (Auto) Lymph % (Auto) [place] % (Auto) Eos % (Auto) Baso % (Auto) Neut # (Auto) Lymph # (Auto) [place] # (Auto) Eos # (Auto) Baso # (Auto) Neutrophils % (Manual) Band Neutrophils % Lymphocytes % (Manual) Monocytes % (Manual) Platelet Estimate Hypochromasia (manual) Sodium Potassium Chloride Carbon Dioxide Anion Gap BUN Creatinine Est GFR ( Amer) Est GFR (Non-Af Amer) POC Glucose (mg/dL) 99 106 Random Glucose Lactic Acid Calcium Total Bilirubin AST ALT Alkaline Phosphatase Total Protein Albumin Globulin Albumin/Globulin Ratio Urine Color Yellow Urine Clarity Cloudy Urine pH 6.0 Ur Specific [place] 1.011 Urine Protein >=500 Urine Glucose (UA) Neg Urine Ketones Negative Urine Blood Moderate Urine Nitrate Negative Urine Bilirubin Negative Urine Urobilinogen 0.2-1.0 Ur Leukocyte Esterase Neg Urine RBC (Auto) 7 H Urine Microscopic WBC 3 Ur Squamous Epith Cells 1 Urine Bacteria Rare 12/11/18 17:34 WBC RBC Hgb Hct MCV MCH MCHC RDW Plt Count MPV Neut % (Auto) Lymph % (Auto) [place] % (Auto) Eos % (Auto) Baso % (Auto) Neut # (Auto) Lymph # (Auto) [place] # (Auto) Eos # (Auto) Baso # (Auto) Neutrophils % (Manual) Band Neutrophils % Lymphocytes % (Manual) Monocytes % (Manual) Platelet Estimate Hypochromasia (manual) Sodium Potassium Chloride Carbon Dioxide Anion Gap BUN Creatinine Est GFR ( Amer) Est GFR (Non-Af Amer) POC Glucose (mg/dL) 95 Random Glucose Lactic Acid Calcium Total Bilirubin AST ALT Alkaline Phosphatase Total Protein Albumin Globulin Albumin/Globulin Ratio Urine Color Urine Clarity Urine pH Ur Specific [place] Urine Protein Urine Glucose (UA) Urine Ketones Urine Blood Urine Nitrate Urine Bilirubin Urine Urobilinogen Ur Leukocyte Esterase Urine RBC (Auto) Urine Microscopic WBC Ur Squamous Epith Cells Urine Bacteria Assessment & Plan - Assessment and Plan (Free Text) Assessment: A ON CKD .. IN NEED FOR HD ..PT IS REFUSING SO FAR ANEMIA OF CKD . START EPO AND VENOFER ELECTROLYTES ABN .. NEEDS HD SEVERE MET ACIDOSIS .. IN NEED FOR HD MMP P : PT NEEDS HD START MANAGEMENT OF ANEMIA OF CKD .. EPO AND VENOFER C/O IVAB C/O PRESENT MANAGEMENT WILL F/U CLOSELY - Date & Time Date: 12/11/18 Time: 15:00
[2018-12-11 22:23] VITALS: O2SAT 99
[2018-12-12] MEDS: Insulin Lispro (humaLOG) 100 Units/ml Inj SC SCH (00:45)
[2018-12-12] MEDS: Sodium Chloride 0.9% 1,000 ML IV SCH (01:00)
[2018-12-12 03:53] VITALS: RESP 18
[2018-12-12 05:41] VITALS: BP 113/60; PULSE 104; TEMP 98.4
--- NOTE | 2018-12-12 08:19 | CP.PCM.DIS ---
Provider - Provider Date of Admission: 12/11/18 04:32 Attending physician: Devante Mansfield MD Primary care physician: Sumit Noe MD Consults: 12/11/18 04:28 Surgery [General Surgery Consult] Stat Comment: Consulting Provider: Compa Galeano Consulting Physician: Compa Galeano Reason for Consult: perirectal abscess 12/11/18 05:36 Nephrology Consult Stat Comment: Consulting Provider: Livan Laguerre Consulting Physician: Livan Laguerre Reason for Consult: CRK, elevated creatinine 12/11/18 06:35 Infectious Disease Consult Stat Comment: Consulting Provider: Sumit Noe Consulting Physician: Sumit Noe Reason for Consult: perirectal abscess/liam gangrene 12/12/18 03:54 Nursing Referral for Wound Care Routine Comment: Physician Instructions: Reason For Exam: Rectal Abcess Time Spent in preparation of Discharge (in minutes): 40 Diagnosis - Discharge Diagnosis (1) Perirectal abscess Status: Acute (2) CKD (chronic kidney disease) Status: Chronic (3) HIV (human immunodeficiency virus infection) Status: Chronic (4) DM II (diabetes mellitus, type II), controlled Status: Chronic (5) HTN (hypertension) Status: Chronic (6) Electrolyte abnormality Status: Acute Hospital Course - Lab Results Lab Results: Micro Results 12/10/18 01:30 Blood-Venous Blood Culture - Preliminary NO GROWTH AFTER 24 HOURS Most Recent Lab Values WBC 17.1 K/uL (4.8-10.8) H D 12/11/18 01:14 RBC 2.65 Mil/uL (3.80-5.20) L 12/11/18 01:14 Hgb 7.6 g/dL (12.0-16.0) L D 12/11/18 01:14 Hct 23.6 % (34.0-47.0) L 12/11/18 01:14 MCV 89.4 fl (81.0-99.0) D 12/11/18 01:14 MCH 28.6 pg (27.0-31.0) 12/11/18 01:14 MCHC 32.0 g/dL (33.0-37.0) L 12/11/18 01:14 RDW 15.6 % (11.5-14.5) H 12/11/18 01:14 Plt Count 164 K/uL (130-400) 12/11/18 01:14 MPV 8.3 fl (7.2-11.7) 12/11/18 01:14 Neut % (Auto) 85.5 % (50.0-75.0) H 12/11/18 01:14 Lymph % (Auto) 5.8 % (20.0-40.0) L 12/11/18 01:14 [place] % (Auto) 8.2 % (0.0-10.0) 12/11/18 01:14 Eos % (Auto) 0.3 % (0.0-4.0) 12/11/18 01:14 Baso % (Auto) 0.2 % (0.0-2.0) 12/11/18 01:14 Neut # (Auto) 14.6 K/uL (1.8-7.0) H 12/11/18 01:14 Lymph # (Auto) 1.0 K/uL (1.0-4.3) 12/11/18 01:14 [place] # (Auto) 1.4 K/uL (0.0-0.8) H 12/11/18 01:14 Eos # (Auto) 0.1 K/uL (0.0-0.7) 12/11/18 01:14 Baso # (Auto) 0.0 K/uL (0.0-0.2) 12/11/18 01:14 Neutrophils % (Manual) 73 % (42-75) 12/11/18 01:14 Band Neutrophils % 11 % (0-2) H* 12/11/18 01:14 Lymphocytes % (Manual) 7 % (20-50) L 12/11/18 01:14 Monocytes % (Manual) 9 % (0-10) 12/11/18 01:14 Platelet Estimate Normal (NORMAL) 12/11/18 01:14 Hypochromasia (manual) Moderate 12/11/18 01:14 Sodium 130 mmol/l (132-148) L 12/11/18 01:14 Potassium 4.3 MMOL/L (3.6-5.0) 12/11/18 01:14 Chloride 104 mmol/L (98-107) 12/11/18 01:14 Carbon Dioxide 14 mmol/L (22-30) L 12/11/18 01:14 Anion Gap 16 (10-20) 12/11/18 01:14 BUN 74 mg/dl (7-17) H 12/11/18 01:14 Creatinine 9.4 mg/dl (0.7-1.2) H* 12/11/18 01:14 Est GFR ( Amer) 6 12/11/18 01:14 Est GFR (Non-Af Amer) 5 12/11/18 01:14 POC Glucose (mg/dL) 112 mg/dL (65-110) H 12/12/18 00:24 Random Glucose 166 mg/dL (65-105) H 12/11/18 01:14 Lactic Acid 0.6 mmol/L (0.7-2.1) L 12/11/18 01:14 Calcium 6.9 mg/dL (8.4-10.2) L 12/11/18 01:14 Total Bilirubin 0.3 mg/dl (0.2-1.3) 12/11/18 01:14 AST 40 U/L (14-36) H 12/11/18 01:14 ALT 36 U/L (9-52) 12/11/18 01:14 Alkaline Phosphatase 92 U/L (38-126) 12/11/18 01:14 Total Protein 6.5 G/DL (6.3-8.2) 12/11/18 01:14 Albumin 2.7 g/dL (3.5-5.0) L 12/11/18 01:14 Globulin 3.8 gm/dL (2.2-3.9) 12/11/18 01:14 Albumin/Globulin Ratio 0.7 (1.0-2.1) L 12/11/18 01:14 Urine Color Yellow (YELLOW) 12/11/18 15:20 Urine Clarity Cloudy (Clear) 12/11/18 15:20 Urine pH 6.0 (5.0-8.0) 12/11/18 15:20 Ur Specific [place] 1.011 (1.003-1.030) 12/11/18 15:20 Urine Protein >=500 mg/dL (NEGATIVE) 12/11/18 15:20 Urine Glucose (UA) Neg mg/dL (NEGATIVE) 12/11/18 15:20 Urine Ketones Negative mg/dL (NEGATIVE) 12/11/18 15:20 Urine Blood Moderate (NEGATIVE) 12/11/18 15:20 Urine Nitrate Negative (NEGATIVE) 12/11/18 15:20 Urine Bilirubin Negative (NEGATIVE) 12/11/18 15:20 Urine Urobilinogen 0.2-1.0 mg/dL (0.2-1.0) 12/11/18 15:20 Ur Leukocyte Esterase Neg [place]anna/uL (Negative) 12/11/18 15:20 Urine RBC (Auto) 7 /hpf (0-3) H 12/11/18 15:20 Urine Microscopic WBC 3 /hpf (0-5) 12/11/18 15:20 Ur Squamous Epith Cells 1 /hpf (0-5) 12/11/18 15:20 Urine Bacteria Rare (<OCC) 12/11/18 15:20 - Hospital Course Hospital Course: Patient signed AMA overnight/ Patient was not seen by primary care this morning. 37 y/o transgender male to female with a PMHx of HIV, DM, CKD/baseline Cr 8-9 range, DVT S/p IVCF, HTN, chronic back pain, perirectal abscess, multiple I&Ds and non-compliant with medical management admitted to [facility] for evaluation and treatment of jyotsna-rectal abscess, concerning for necrotizing fasciitis and CKD. Patient was seen by Surgery, ID and Nephro on the of admission. Patient was started on Vanco and Zosyn as per ID and Surgery, nephro recs HD, Epo and Venofer, surgery recommending I&D. Patient signed AMA overnight. Discharge Exam - Head Exam Additional comments: Patient signed AMA overnight/Not seen by primary team this morning. Discharge Plan - Follow Up Plan Condition: GUARDED Disposition: AGAINST MEDICAL ADVICE Referrals: Sumit Noe MD [Primary Care Provider] -
--- NOTE | 2018-12-16 13:01 | PQF ---
PROVIDER RESPONSE TEXT: Symptomatic hiv REVIEWER QUERY TEXT: HIV Clarification and Associated Conditions HIV (Human immunodeficiency virus) is documented in the medical record. Please specify the type Such as: -- Acquired immune deficiency syndrome [AIDS] -- BNTR-[id number] complex [ARC] -- Symptomatic -- Asymptomatic -- With current or previous HIV-related condition (please specify related condition) -- Exposure to HIV -- Inconclusive serologic evidence of HIV -- Other, please specify Also please include any associated conditions, if applicable. The patient's Clinical Indicators include: PLEASE CLARIFY HIV STATUS - IF ASYMPTOMATIC or AIDS. Query created by: Bernadette Meza on 12/13/2018 12:09 PM Electronically signed by: Devante Mansfield 12/16/2018 12:58 PM
--- NOTE | 2018-12-16 13:01 | PQF ---
PROVIDER RESPONSE TEXT: Sepsis confirmed and ruled in, most likely from pernieal abscess patient presented with. REVIEWER QUERY TEXT: Rule Out Sepsis Clarification Rule out Sepsis is documented in the Medical Record. Please clarify whether: -- Patient has sepsis - Please document confirmed, suspected or probable causative organism - Please document confirmed, suspected or probable localized infection - Please clarify if sepsis is related to a device - Please clarify if sepsis was present on admission -- Sepsis was ruled out (include corresponding diagnosis for patient?s clinical picture and treatment ) -- Patient had sepsis which is resolved -- Other, please specify The patient's Clinical Indicators include: PER ED 12/10 DOCUMENTS -"DX. - SEPSIS"; PER CONSULT 12/11 DR Corey MILLER DOCUMENTS "SEPSIS, ACUTE"; PER CONSULT 12/11 DR FUENTES HAS LISTED DX - " SEPSIS, ACUTE". PLEASE CLARIFY IF SEPSIS WAS RULED IN or OUT. Query created by: Bernadette Meza on 12/13/2018 12:11 PM Electronically signed by: Devante Mansfield 12/16/2018 12:58 PM
== END 2018-12-12 06:00 | disposition left against medical advice (07) | DRG 975 ==
LOC: H.ER 19:00 → H.ERHOLD 12-11 04:32 → H.TEL 12-12 00:10
PROVIDERS: ADMIT Internal Medicine; ATTEND Internal Medicine
DX: A41.9 Sepsis, unspecified organism (principal); K61.2 Anorectal abscess; B20 Human immunodeficiency virus [HIV] disease; N18.4 Chronic kidney disease, stage 4 (severe); L03.317 Cellulitis of buttock; E87.2 Acidosis; D63.1 Anemia in chronic kidney disease; E11.22 Type 2 diabetes mellitus with diabetic chronic kidney disease; I12.9 Hypertensive chronic kidney disease with stage 1 through stage 4 chronic kidney disease, or unspecified chronic kidney disease; F64.9 Gender identity disorder, unspecified; E11.65 Type 2 diabetes mellitus with hyperglycemia; F12.90 Cannabis use, unspecified, uncomplicated; G89.29 Other chronic pain; Z91.14 Patient's other noncompliance with medication regimen; E78.5 Hyperlipidemia, unspecified; F32.9 Major depressive disorder, single episode, unspecified; F41.9 Anxiety disorder, unspecified; J45.909 Unspecified asthma, uncomplicated; F17.210 Nicotine dependence, cigarettes, uncomplicated; Z89.512 Acquired absence of left leg below knee; Z86.718 Personal history of other venous thrombosis and embolism; Z91.19 Patient's noncompliance with other medical treatment and regimen; Z79.4 Long term (current) use of insulin; Z88.6 Allergy status to analgesic agent